=== PATIENT | female | born 2000 | race Caucasian/White ===

== ENCOUNTER → 2020-10-19 11:29 | Outpatient (CLI) | payer SELFPAY ==
[2020-10-19 10:38] VITALS: BMI 20.1
[2020-10-19 11:57] LABS: Absolute Lymphocyte Count 1.35 X10^3/uL (0.83-4.51); Absolute Neutrophil Count 5.4 X10^3/uL (2.0-7.7); Basophil# 0.02 X10^3/uL; Basophil% 0.3 % (0-1); Eosinophil# 0.07 X10^3/uL; Hemoglobin 11.5 g/dL (12.0-15.0); Lymphocyte # 1.35 X10^3/ul (4.0); Lymphocyte % 18.3 % (19-41); Mean Corp Hgb Conc 34.8 g/dL (32-36); Mean Corpuscular Volume 91.9 fL (81-99); Mean Platelet Vol. 9.8 fl (6.2-12.0); Monocyte# 0.46 X10^3/uL; Monocyte% 6.3 % (0-10); NRBC Flagged by Analyzer 0 % (0-5); Neutrophil # 5.44 X10^3/uL (2.7-7.7); Neutrophil % 73.8 % (47-70); Platelet Count 262 K/mm3 (150-450); RBC Distribution Width CV 12.1 % (11.6-14.6); RBC Distribution Width SD 40.6 fl (35.1-43.9); Red Blood Count 3.59 M/mm3 (4.2-5.4); White Blood Count 7.4 K/mm3 (4.4-11.0)
[2020-10-19 12:55] LABS: HIV - WCH Non-Reactive (Nonreactive); Hepatitis B Surface Antigen Non-Reactive (Nonreactive); Hepatitis C Antibody Non-Reactive (Nonreactive); Rubella IgG Reactive (Nonreactive)
[2020-10-19 14:25] LABS: Amphetamine Urine VISTA NEGATIVE (<1000 ng/mL); Barbiturate Urine VISTA NEGATIVE (< 200 ng/mL); Benzodiazepine Urine VISTA NEGATIVE (< 200 ng/mL); Cocaine Urine VISTA NEGATIVE (< 300 ng/mL); Ecstacy Urine VISTA NEGATIVE (< 500 ng/mL); Methadone Urine VISTA NEGATIVE (< 300 ng/mL); PCP Urine VISTA NEGATIVE (< 25 ng/mL); THC Urine VISTA NEGATIVE (< 50 ng/mL); Vista UDS pH Range 7
[2020-10-22 03:07] LABS: Chlamydia By Nucleic Acid AMP Negative (Negative)
[2020-10-22 09:52] LABS: Gonococcus By Nucleic Acid AMP Negative (Negative)
== END ==
PROVIDERS: Referring Provider Obstetrics & Gynecology; Visit Provider Obstetrics & Gynecology
DX: Z34.90 Encounter for supervision of normal pregnancy, unspecified, unspecified trimester (principal)
CPT/HCPCS: 36415; 80307; 85025; 86703; 86762; 86803; 86850; 86900; 86901; 87086; 87088; 87340; 87491; 87591

== ENCOUNTER → 2020-12-30 13:45 | Outpatient (CLI) | payer SELFPAY ==
[2020-11-18 15:00] VITALS: BMI 20.7
[2020-12-16 14:00] VITALS: BMI 20.7
--- NOTE | 2020-12-30 13:47 | US_ITS ---
STUDY: SECOND AND THIRD TRIMESTER OBSTETRICAL ULTRASOUND REASON FOR EXAM: Female, 20 years old anatomy scan LMP: 08/13/2020. TECHNIQUE: Transabdominal and Transvaginal TECHNICAL QUALITY: Adequate. PRIOR ULTRASOUND: None. FINDINGS: There is a single intrauterine fetus. The fetus is in a cephalic presentation. There is demonstrated cardiac activity with a heart rate of 145 bpm. There is a normal amniotic fluid volume. The largest amniotic fluid pocket measures 3.6 cm. The amniotic fluid index (ALKA) is within normal limits. The placenta is anterior and fundal in location and is not low lying. There are Grade 0 placental changes. The cervix measures 3.4 cm in length. The bilateral adnexal regions are normal. BIOMETRY: BPD: 4.45 cm: 19 weeks, 3 days HC: 16.81 cm: 19 weeks, 3 days AC: 13.79 cm: 19 weeks, 1 days FL: 2.91 cm: 8 weeks, 6 days CI: 77% FL/BPD: 65% FL/HC: FL/AC: 21% HC/AC: 1.22 age by current US: 19 weeks, 1 days. KHADRA by current US: 05/25/2021. Estimated weight: 277 grams, +/- 42 grams, 14 %. Age by LMP: 19 weeks, 6 days. KHADRA by LMP: 05/20/2021. ANATOMY: Gender: Male Cranium: Normal lateral ventricles. Normal choroid plexus. Normal cerebellum. Normal cisterna magna. Normal face, nose and lips. Chest: Normal 4-chamber heart. Abdomen/Pelvis: Normal diaphragm. Normal stomach. Normal abdominal wall. Normal cord insertion. Normal 3 vessel cord. Normal kidneys. Normal bladder. Spine: Normal cervical spine. Normal thoracic spine. Normal lumbar spine. Normal sacrum. Extremities: Normal bilateral upper extremities. Normal bilateral lower extremities. The patient stated severe right flank pain. Imaging of the maternal kidney demonstrates a right-sided hydronephrosis. IMPRESSION: Single live intrauterine gestation with a mean gestational age of 19 weeks and 1 day. Electronically Signed: Kristopher Saravia MD at 15:49 EDT , Service support , STUDY: FIRST TRIMESTER OBSTETRICAL ULTRASOUND REASON FOR EXAM: Female, 20 years old anatomy scan LMP: 08/13/2020 TECHNIQUE: Transvaginal TECHNICAL QUALITY: Adequate. PRIOR ULTRASOUND: None. FINDINGS: Transvaginal technique utilized for assessment of the cervical length. The cervix measures 3.4 cm in length. US/Transvaginal w/Preg US IMPRESSION: The cervix measures 3.4 cm in length. Electronically Signed: Kristopher Saravia MD at 15:49 EDT , Service support ,
--- NOTE | 2020-12-30 13:47 | US_ITS ---
STUDY: SECOND AND THIRD TRIMESTER OBSTETRICAL ULTRASOUND REASON FOR EXAM: Female, 20 years old anatomy scan LMP: 08/13/2020. TECHNIQUE: Transabdominal and Transvaginal TECHNICAL QUALITY: Adequate. PRIOR ULTRASOUND: None. FINDINGS: There is a single intrauterine fetus. The fetus is in a cephalic presentation. There is demonstrated cardiac activity with a heart rate of 145 bpm. There is a normal amniotic fluid volume. The largest amniotic fluid pocket measures 3.6 cm. The amniotic fluid index (ALKA) is within normal limits. The placenta is anterior and fundal in location and is not low lying. There are Grade 0 placental changes. The cervix measures 3.4 cm in length. The bilateral adnexal regions are normal. BIOMETRY: BPD: 4.45 cm: 19 weeks, 3 days HC: 16.81 cm: 19 weeks, 3 days AC: 13.79 cm: 19 weeks, 1 days FL: 2.91 cm: 8 weeks, 6 days CI: 77% FL/BPD: 65% FL/HC: FL/AC: 21% HC/AC: 1.22 age by current US: 19 weeks, 1 days. KHADRA by current US: 05/25/2021. Estimated weight: 277 grams, +/- 42 grams, 14 %. Age by LMP: 19 weeks, 6 days. KHADRA by LMP: 05/20/2021. ANATOMY: Gender: Male Cranium: Normal lateral ventricles. Normal choroid plexus. Normal cerebellum. Normal cisterna magna. Normal face, nose and lips. Chest: Normal 4-chamber heart. Abdomen/Pelvis: Normal diaphragm. Normal stomach. Normal abdominal wall. Normal cord insertion. Normal 3 vessel cord. Normal kidneys. Normal bladder. Spine: Normal cervical spine. Normal thoracic spine. Normal lumbar spine. Normal sacrum. Extremities: Normal bilateral upper extremities. Normal bilateral lower extremities. The patient stated severe right flank pain. Imaging of the maternal kidney demonstrates a right-sided hydronephrosis. IMPRESSION: Single live intrauterine gestation with a mean gestational age of 19 weeks and 1 day. Electronically Signed: Kristopher Saravia MD at 15:49 EDT , Service support , STUDY: FIRST TRIMESTER OBSTETRICAL ULTRASOUND REASON FOR EXAM: Female, 20 years old anatomy scan LMP: 08/13/2020 TECHNIQUE: Transvaginal TECHNICAL QUALITY: Adequate. PRIOR ULTRASOUND: None. FINDINGS: Transvaginal technique utilized for assessment of the cervical length. The cervix measures 3.4 cm in length. US/OB Anatomy Scan IMPRESSION: The cervix measures 3.4 cm in length. Electronically Signed: Kristopher Saravia MD at 15:49 EDT , Service support ,
== END ==
PROVIDERS: Referring Provider Obstetrics & Gynecology; Visit Provider Obstetrics & Gynecology
DX: Z34.02 Encounter for supervision of normal first pregnancy, second trimester (principal); Z3A.19 19 weeks gestation of pregnancy
CPT/HCPCS: 76805; 76817; 87086

== ENCOUNTER → 2021-03-11 10:50 | Outpatient (CLI) | payer SELFPAY ==
[2021-02-24 13:24] VITALS: BMI 20.7
[2021-03-11 11:09] LABS: Absolute Lymphocyte Count 1.37 X10^3/uL (0.83-4.51); Absolute Neutrophil Count 6.3 X10^3/uL (2.0-7.7); Basophil# 0.01 X10^3/uL; Basophil% 0.1 % (0-1); Eosinophil# 0.07 X10^3/uL; Eosinophils% 0.8 % (0-5); Hematocrit 27.6 % (37-47); Hemoglobin 9.2 g/dL (12.0-15.0); Lymphocyte # 1.37 X10^3/ul (0.83-4.51); Lymphocyte % 16.6 % (19-41); Mean Corp Hgb Conc 33.3 g/dL (32-36); Mean Corpuscular Hgb 31.5 pg (27.0-32.0); Mean Corpuscular Volume 94.5 fL (81-99); Mean Platelet Vol. 9.4 fl (6.2-12.0); Monocyte# 0.52 X10^3/uL; Monocyte% 6.3 % (0-10); NRBC Flagged by Analyzer 0 % (0-5); Neutrophil # 6.25 X10^3/uL (2.7-7.7); Neutrophil % 75.7 % (47-70); Platelet Count 217 K/mm3 (150-450); RBC Distribution Width CV 11.9 % (11.6-14.6); RBC Distribution Width SD 41.1 fl (35.1-43.9); Red Blood Count 2.92 M/mm3 (4.2-5.4); White Blood Count 8.3 K/mm3 (4.4-11.0)
[2021-03-11 11:18] LABS: Glucose Challenge Gest 1H 50g 125 mg/dL (70-140)
[2021-03-11 11:43] LABS: Syphilis Antibodies Non-reactive
== END ==
PROVIDERS: Referring Provider Obstetrics & Gynecology; Visit Provider Obstetrics & Gynecology
DX: Z34.91 Encounter for supervision of normal pregnancy, unspecified, first trimester (principal); Z13.1 Encounter for screening for diabetes mellitus; Z3A.13 13 weeks gestation of pregnancy
CPT/HCPCS: 36415; 82950; 85025; 86780

== ENCOUNTER → 2021-04-22 | Outpatient (CLI) | payer SELFPAY | END | disposition home or self-care (01) | LOC: LABSPEC 14:48 | PROVIDERS: Referring Provider Obstetrics & Gynecology; Visit Provider Obstetrics & Gynecology | DX: Z34.01 Encounter for supervision of normal first pregnancy, first trimester (principal) | CPT/HCPCS: 87081 ==

== ENCOUNTER → 2021-04-29 11:53 | Outpatient (CLI) | payer SELFPAY ==
[2021-04-29 12:35] LABS: Absolute Lymphocyte Count 1.36 X10^3/uL (0.83-4.51); Absolute Neutrophil Count 4.7 X10^3/uL (2.0-7.7); Basophil# 0.02 X10^3/uL; Basophil% 0.3 % (0-1); Eosinophil# 0.03 X10^3/uL; Eosinophils% 0.4 % (0-5); Hematocrit 30.9 % (37-47); Hemoglobin 9.9 g/dL (12.0-15.0); Lymphocyte # 1.36 X10^3/ul (0.83-4.51); Lymphocyte % 20.3 % (19-41); Mean Corpuscular Hgb 29.7 pg (27.0-32.0); Mean Corpuscular Volume 92.8 fL (81-99); Mean Platelet Vol. 9.4 fl (6.2-12.0); Monocyte# 0.55 X10^3/uL; Monocyte% 8.2 % (0-10); NRBC Flagged by Analyzer 0 % (0-5); Neutrophil % 70.2 % (47-70); Platelet Count 198 K/mm3 (150-450); RBC Distribution Width CV 12.9 % (11.6-14.6); RBC Distribution Width SD 43.6 fl (35.1-43.9); Red Blood Count 3.33 M/mm3 (4.2-5.4); White Blood Count 6.7 K/mm3 (4.4-11.0)
== END ==
LOC: PAVLAB 11:54 → LAB 11:57
PROVIDERS: Referring Provider Obstetrics & Gynecology; Visit Provider Obstetrics & Gynecology
DX: O99.019 Anemia complicating pregnancy, unspecified trimester (principal); Z3A.00 Weeks of gestation of pregnancy not specified
CPT/HCPCS: 36415; 85025

== ENCOUNTER → 2021-05-20 13:20 | Outpatient (CLI) | payer SELFPAY ==
--- NOTE | 2021-05-20 13:23 | US_ITS ---
STUDY: SECOND AND THIRD TRIMESTER OBSTETRICAL ULTRASOUND REASON FOR EXAM: Female, 20 years old growth LMP: 08/13/2020. TECHNIQUE: Transabdominal TECHNICAL QUALITY: Adequate. PRIOR ULTRASOUND: Comparison is made with prior study dated 12/30/2020. FINDINGS: There is a single intrauterine fetus. The fetus is in a cephalic presentation. There is demonstrated cardiac activity with a heart rate of 152 bpm. There is a normal amniotic fluid volume. The largest amniotic fluid pocket measures 4.4 cm. The amniotic fluid index (ALKA) is 7.5 cm. The placenta is anterior in location and is not low lying. There are Grade 3 placental changes. The adnexal regions are not visualized. BIOMETRY: BPD: 9.09 cm: 36 weeks, 6 days HC: 33.61 cm: 38 weeks, 3 days AC: 36.84 cm: 40 weeks, 5 days FL: 7.3 cm: 37 weeks, 2 days CI: 79% FL/BPD: 80% FL/HC: FL/AC: 20% HC/AC: 0.91 age by current US: 38 weeks, 4 days. KHADRA by current US: 05/30/2021. Estimated weight: 3772 grams, +/- 566 grams, 62 %. age by prior US: 39 weeks, 2 days. KHADRA by prior US: 05/25/2021. Age by LMP: 40 weeks, 0 days. KHADRA by LMP: 05/20/2021. US/OB Limited With Biometrics IMPRESSION: Single live uterine gestation with a mean gestational age of 39 weeks and 2 days. The measurements obtained today fall within the normal expected range. Electronically Signed: Kristopher Saravia MD at 9:29 EDT , Service support ,
== END ==
PROVIDERS: Referring Provider Obstetrics & Gynecology; Visit Provider Obstetrics & Gynecology
DX: O26.843 Uterine size-date discrepancy, third trimester (principal); Z3A.39 39 weeks gestation of pregnancy
CPT/HCPCS: 76816

== ENCOUNTER → 2021-05-20 | Outpatient (CLI) | payer SELFPAY | END | disposition home or self-care (01) | LOC: LABSPEC 12:36 | PROVIDERS: Referring Provider Obstetrics & Gynecology; Visit Provider Obstetrics & Gynecology | DX: Z34.01 Encounter for supervision of normal first pregnancy, first trimester (principal) | CPT/HCPCS: 87635; U0005; U0003 ==

== ENCOUNTER → 2021-05-24 14:22 | Outpatient (CLI) | payer SELFPAY ==
--- NOTE | 2021-05-24 14:24 | US_ITS ---
STUDY: SECOND AND THIRD TRIMESTER OBSTETRICAL ULTRASOUND - LIMITED REASON FOR EXAM: Female, 20 years old ALKA only LMP: 08/13/2020. PRIOR ULTRASOUND: Comparison is made with prior study dated 05/20/2021. TECHNIQUE: Transabdominal TECHNICAL QUALITY: Adequate. FINDINGS: There is a single intrauterine fetus. The fetus is in a cephalic presentation. There is demonstrated cardiac activity with a heart rate of 147 bpm. There is a normal amniotic fluid volume. The largest amniotic fluid pocket measures 4.21 cm. The amniotic fluid index (ALKA) is 9.3 cm. The placenta is anterior in location and is not low lying. There are Grade 3 placental changes. Age by LMP: 40 weeks, 4 days. KHADRA by LMP: 05/20/2021. US/OB Limited (No Biometrics) IMPRESSION: Normal amniotic fluid. Electronically Signed: Kristopher Saravia MD at 15:09 EDT , Service support ,
== END ==
PROVIDERS: Referring Provider Obstetrics & Gynecology; Visit Provider Obstetrics & Gynecology
DX: O28.8 Other abnormal findings on antenatal screening of mother (principal)
CPT/HCPCS: 76815

== ENCOUNTER 2021-05-26 19:00 | Inpatient (IN) | payer SELFPAY ==
[2020-11-18 15:00] VITALS: BMI 20.7
[2021-05-26 19:09] VITALS: BMI 24.3
[2021-05-26 19:23] VITALS: BP 112/70; PULSE 92; TEMP 36.8
[2021-05-26 19:24] VITALS: PULSE 96; O2SAT 99
[2021-05-26 19:49] LABS: Absolute Lymphocyte Count 1.66 X10^3/uL (0.83-4.51); Absolute Neutrophil Count 4.7 X10^3/uL (2.0-7.7); Basophil# 0.02 X10^3/uL; Basophil% 0.3 % (0-1); Eosinophil# 0.04 X10^3/uL; Eosinophils% 0.6 % (0-5); Hematocrit 28.7 % (37-47); Hemoglobin 9.4 g/dL (12.0-15.0); Lymphocyte # 1.66 X10^3/ul (0.83-4.51); Lymphocyte % 23.7 % (19-41); Mean Corp Hgb Conc 32.8 g/dL (32-36); Mean Corpuscular Hgb 28.7 pg (27.0-32.0); Mean Corpuscular Volume 87.8 fL (81-99); Mean Platelet Vol. 10.3 fl (6.2-12.0); Monocyte# 0.53 X10^3/uL; Monocyte% 7.6 % (0-10); NRBC Flagged by Analyzer 0 % (0-5); Neutrophil # 4.73 X10^3/uL (2.7-7.7); Neutrophil % 67.4 % (47-70); Platelet Count 204 K/mm3 (150-450); RBC Distribution Width CV 12.8 % (11.6-14.6); Red Blood Count 3.27 M/mm3 (4.2-5.4)
[2021-05-26] MEDS: miSOPROStol 25 MCG TABLET VAGINAL (20:07)
[2021-05-27] VITALS (34 sets, daily range): BP systolic 88–125; BP diastolic 51–66; PULSE 57–163; TEMP 36.6–37.2; O2SAT 80–100
--- NOTE | 2021-05-27 00:50 | HP.PCM.OB_ITS ---
HPI - General General Date of Admission: 05/26/21 HPI Narrative MEKHI SOTO, is a 20 F who presents for induction of labor secondary to postdates. She has had an uncomplicated and denies any vaginal bleeding or loss of fluid admits good movement and no regular contractions Maternal Data Information KHADRA Calculator Estimated Delivery Date Method Current WG Current Estimate 05/20/21 LMP (Certain) 41w 0d Other Estimates 05/22/21 Ultrasound #1 40w 5d PFSH PFSH Medical History No significant medical problems Tetanus, diphtheria, and acellular pertussis (Tdap) vaccination declined Home Medications multivitamin no.47-iron fum 27 mg-folate no.1 1 mg-dha 300 mg capsule 1 cap PO DAILY 10/14/20 [History Last Taken 05/26/21 08:00] Allergy/AdvReac Type Severity Reaction Status Date / Time No Known Allergies Allergy Verified 05/20/21 11:01 Family History Grandmother Cancer Grandfather Hypertension Surgical History No significant past surgical history Social History household members: spouse housing: house current occupational status: unemployed pets and animals: Yes Smoking Status: Never smoker second hand exposure: No alcohol intake: current alcohol intake frequency: holidays/special occasions only details: not while substance use type: does not use seatbelt use: always do you feel safe at home: Yes additional social history: - Lang (Nazia) History 1 Elective abortions Hx Para 0 Spontaneous abortions Hx # Term Pregnancies Ectopic pregnancies Hx # Pregnancies Multiple births # of living children Visit Details Expected Delivery Route/Plan Labor Preferences- CB/BF classes: no labor support person: Lang labor intervention preferences: open to standard interventions pain management options preferred: desires natural labor but open to epidural cut cord/dad catch: cord : yes PP control planned: discussed discussed possible routes of delivery and associated risks: discussed possible delivery modalities and possible indications for each including R/B/A of , VAVD, FAVD, and CS. questions answered. special requests: [] Plans covid status: non immune, counseled regarding risk of covid in vs vaccination and declined vaccination flu vaccine: no tdap vaccine: declines rhogam: na LARC form signed: yes movement and labor precautions reviewed. Problem list reviewed and updated with the most current plan of care details and appropriate orders placed. Relevant counseling for the gestational age provided. Continue routine care and follow up unless otherwise noted in visit notes/problem list details OB Flowsheet Initial Weight: Not Recorded Date -?-?-?-?-?-?-?-?-?-?-?-?- EGA Weight BP Urine Prot -?-?-?-?-?-?-?-?-?-?-?-?- Glucose FHR FuHt Pres Dilation -?-?-?-?-?-?-?-?-?-?-?-?- Effaced St Visit Note 10/19/20 -?-?-?-?-?-?-?-?-?-?-?-?- 9w 4d 106 lb 8 oz 138/80 -?-?-?-?-?-?-?-?-?-?-?-?- 175 -?-?-?-?-?-?-?-?-?-?-?-?- GP - CRL 22mm co nsistent with LMP. 11/18/20 -?-?-?-?-?-?-?-?-?-?-?-?- 13w 6d 110 lb 102/70 -?-?-?-?-?-?-?-?-?-?-?-?- 153 -?-?-?-?-?-?-?-?-?-?-?-?- GP - no cramping or bleeding. Anatomy scan nl. PRR. 12/16/20 -?-?-?-?-?-?-?-?-?-?-?-?- 17w 6d 113 lb 8 oz 118/78 Nega tive -?-?-?-?-?-?-?-?-?-?-?-?- Negative 150 -?-?-?-?-?-?-?-?-?-?-?-?- GP - no cramping or bleeding. Anatomy 12/30. Planning on finding out gender, but not planning on doing big reveal. Discussed management of back and hip pain. 01/13/21 -?-?-?-?-?-?-?-?-?-?-?-?- 21w 6d 115 lb 8 oz 100/62 Nega tive -?-?-?-?-?-?-?-?-?-?-?-?- Negative 164 -?-?-?-?-?-?-?-?-?-?-?-?- MH-No VB, LOF. G ood FM. No longer having right sided pain. Was seen for this. Anatomy US nl. Did not patient with Right hydronephrosis. Will review with ALONSO when returns tomorrow. 02/11/21 -?-?-?-?-?-?-?-?-?-?-?-?- 26w 0d 119 lb 122/70 Negative -?-?-?-?-?-?-?-?-?-?-?-?- Negative 145 -?-?-?-?-?-?-?-?--?-?-?-?- SM- no vb lof go od fm no regular ctx 02/24/21 -?-?-?-?-?-?-?-?-?-?-?-?- 27w 6d 121 lb 124/74 Negative -?-?-?-?-?-?-?-?-?-?-?-?- Negative 154 -?-?-?-?-?-?-?-?-?-?-?-?- -No VB, LOF. G ood FM. Declines tdap. Was late for GCT so not done today. Larc done. 03/11/21 -?-?-?-?-?-?-?-?-?-?-?-?- 30w 0d 125 lb 104/58 Negative -?-?-?-?-?-?-?-?-?-?-?-?- Negative 140 30 -?-?-?-?-?-?-?-?-?-?-?-?- GP - no LOF, VB, DFM, ctx. Passed GCT. Anemic - recommend iron supplement 03/25/21 -?-?-?-?-?-?-?-?-?-?-?-?- 32w 0d 124 lb 90/56 Negative -?-?-?-?-?-?-?-?-?-?-?-?- Negative 140 31 -?-?-?-?-?-?-?-?-?-?-?-?- SM- no vb lof go od fm no regular ctx some bipin hick ctx. 04/08/21 -?-?-?-?-?-?-?-?-?-?-?-?- 34w 0d 125 lb 8 oz 112/64 Nega tive -?-?-?-?-?-?-?-?-?-?-?-?- Negative 155 34 -?-?-?-?-?-?-?-?-?-?-?-?- GP - no LOF, VB, DFM, ctx. Denies complaints. PTL precautions reviewed. 04/22/21 -?-?-?-?-?-?-?-?-?-?-?-?- 36w 0d 128 lb 4 oz 130/82 Nega tive -?-?-?-?-?-?-?-?-?-?-?-?- Negative 140 36 Cephalic 0 -?-?-?-?-?-?-?-?-?-?-?-?- GP - no LOF, VB, DFM, ctx. GBS collected. Discussed labor preferences and routes of delivery. Position verified on ultrasound 04/29/21 -?-?-?-?-?-?-?-?-?-?-?-?- 37w 0d 128 lb 6 oz 108/62 Nega tive -?-?-?-?-?-?-?-?-?-?-?-?- Negative 140 37 Cephalic -?-?-?-?-?-?-?-?-?-?-?-?- SM- no vb lof go od fm no reuglar ctx 05/06/21 -?-?-?-?-?-?-?-?-?-?-?-?- 38w 0d 128 lb 114/68 Negative -?-?-?-?-?-?-?-?-?-?-?-?- Negative 136 38 Cephalic 0 -?-?-?-?-?-?-?-?-?-?-?-?- MH-No Vb, LOF. N o CTX. Good FM. Reviewed S&S labor 05/13/21 -?-?-?-?-?-?-?-?-?-?-?-?- 39w 0d 130 lb 4 oz 112/60 Nega tive -?-?-?-?-?-?-?-?-?-?-?-?- Negative 141 38 Cephalic 0 -?-?-?-?-?-?-?-?-?-?-?-?- MH-No VB, LOF. Irreg BH. Good FM 05/20/21 -?-?-?-?-?-?-?-?-?-?-?-?- 40w 0d 131 lb 6 oz 106/72 Nega tive -?-?-?-?-?-?-?-?-?-?-?-?- Negative 140 36 Cephalic 0 -?-?-?-?-?-?-?-?-?-?-?-?- - no vb lof go od fm no regular ctx 05/26/21 -?-?-?-?-?-?-?-?-?-?-?-?- 40w 6d 129 lb 112/70 108/59 -?-?-?-?-?-?-?-?-?-?-?-?- -?-?-?-?-?-?-?-?-?-?-?-?- NST FHR Rate Baby A Baseline: 130 Variability:: Moderate Accelerations:: 15 x 15 Decelerations:: None NST Reactive:: Yes FHR Category:: Category I Uterine Activity:: irregular ROS Constitutional Constitutional: Reports systems reviewed and no addt'l complaints, except as documented Eyes Eyes: Denies change in vision ENT HEENT: Reports systems reviewed and no addt'l complaints, except as documented; Denies headache(s) Cardiovascular Cardiovascular: Reports systems reviewed and no addt'l complaints, except as documented; Denies chest pain or dyspnea Respiratory/Chest Respiratory/Chest: Reports systems reviewed and no addt'l complaints, except as documented Gastrointestinal Gastrointestinal: Reports systems reviewed and no addt'l complaints, except as documented; Denies abdominal pain Genitourinary Genitourinary: Reports systems reviewed and no addt'l complaints, except as documented, contractions Details: present (irregular) and movement Details: present; Denies dysuria or genital lesions Musculoskeletal Musculoskeletal: Reports systems reviewed and no addt'l complaints, except as documented Neurologic Neurologic: Reports systems reviewed and no addt'l complaints, except as documented Endocrine Endocrinology: Reports systems reviewed and no addt'l complaints, except as do cumented Vital Signs Vital Signs Vital Signs: 05/26/21 19:23 05/26/21 19:24 05/27/21 00:07 Temperature 98.2 F Temperature Source Temporal Pulse Rate 92 96 72 Blood Pressure 112/70 108/59 L BP Systolic 112 108 BP Diastolic 70 59 Pulse Ox 99 05/27/21 00:12 Temperature Temperature Source Pulse Rate 63 Blood Pressure BP Systolic BP Diastolic Pulse Ox 99 Weight Weight: 129 lb Body Mass Index (BMI) 24.3 Physical Exam Const alert, oriented x3, no apparent distress and healthy appearing HEENT normocephalic and moist oral mucous membranes Head and Scalp: atraumatic Neck full ROM, no lymphadenopathy, supple and thyroid normal General: trachea midline Lymph Lymphatic: no lymphadenopathy noted Chest inspection of chest normal Resp normal respiratory effort Cardio regular rate GI normal to inspection, nondistended, normoactive bowel sounds, soft to palpation and non-tender Inspection: gravid external exam normal Manual OB Exam: estimated gestational size appropriate, presentation cephalic, dilated, effaced and station Extremity normal to inspection General Extremity: Negative for edema Skin no rashes or lesions noted Neuro no focal motor deficits and deep tendon reflexes 2+ bilaterally Motor Exam: strength 5/5 throughout and clonus absent Psych mental status grossly normal Labs Labs Labs: Blood Type A POSITIVE Antibody Screen NEGATIVE Hct 28.7 % (37-47) L Hgb 9.4 g/dL (12.0-15.0) L Obstetrics US Syphilis Total Ab Non-reactive Rubella IgG Antibody Reactive (Nonreactive) Hep Bs Antigen Non-Reactive (Nonreactive) Neisseria gonorrhoeae DNA (DIALLO) Negative (Negative) HIV 1&2 Antibody Non-Reactive (Nonreactive) Glucose 1 Hr 50 gm 125 mg/dL (70-140) Assessment & Plan (1) : QUALIFIERS: Weeks of gestation: 40 weeks Qualified Code(s): Z3A.40 - 40 weeks gestation of COMMENT: declines carrier, ntd, and genetic testing; nl anatomy, gbs neg (2) Supervision of normal : QUALIFIERS: Normal : normal first Trimester: first trimester Qualified Code(s): Z34.01 - Encounter for supervision of normal first , first trimester COMMENT: PRR KHADRA: 05/20/21 darnell Booker Spouse: Lang (3) Anemia affecting : COMMENT: oral iron. Recheck CBC in 4 weeks. (4) Encounter for induction of labor: COMMENT: plan expectant management for , Cytotec pitocin/AROM if needed. Pain management: Negative. GBS positive plan IV PCN. Management of any complications: None I have reviewed the [facility] and made any clinically relevant updates.
[2021-05-27] MEDS: miSOPROStol 25 MCG TABLET VAGINAL ×2 (01:02→07:22)
[2021-05-27] MEDS: 0.9% Saline Lock 10 ML Syringe IV (02:43)
[2021-05-27] MEDS: Lactated Ringers 500 ML 999 ML IV ×4 (02:43→22:16)
[2021-05-27] MEDS: Lactated Ringers 1,000 ML 50 ML IV ×2 (02:43→22:15)
[2021-05-27] MEDS: miSOPROStol 25 MCG TABLET PO (15:46)
[2021-05-27] MEDS: fentaNYL 100 MCG/2 ML Ampul IV (17:08)
[2021-05-27] MEDS: 0.9% Normal Saline Single 100 ML IV.SOLN. INTRA-UTER (17:15)
--- NOTE | 2021-05-27 21:09 | PN_ITS ---
Progress Note Status post Cytotec x4 [place] bulb out current tracing: FHT: 140 Moderate variability reactive no decelerations category I tracing [place]: Every 2 to 3 contractions reviewed tracing abnormalities since last note: Isolated variable after ambulation to bathroom A/P: We will start Pitocin if no cervical change. Epidural as needed
[2021-05-27] MEDS: fentaNYL-bupivacaine (epidural) 100 ML BAG EPIDURAL (23:21)
[2021-05-28] VITALS (41 sets, daily range): BP systolic 82–118; BP diastolic 48–69; PULSE 57–133; RESP 16–18; TEMP 36.4–39; O2SAT 81–100
[2021-05-28] MEDS: Lactated Ringers 500 ML 999 ML IV ×2 (00:58→01:50)
[2021-05-28] MEDS: Oxytocin 30 units/NS 500 ml 30 UNITS/500 ML IV.SOLN IV (01:11)
[2021-05-28] MEDS: Lactated Ringers 1,000 ML 200 ML IV ×2 (02:50→07:57)
[2021-05-28] MEDS: fentaNYL-bupivacaine (epidural) 100 ML BAG EPIDURAL ×2 (04:30→11:07)
[2021-05-28] MEDS: Ondansetron 4 MG/2 ML Vial IV (05:15)
[2021-05-28] MEDS: Oxytocin 30 units/NS 500 ml 30 UNITS/500 ML IV.SOLN 334 UNITS IV (11:41)
[2021-05-28] MEDS: Methylergonovine 0.2 MG/ML Ampul IM (11:44)
--- NOTE | 2021-05-28 11:57 | OP.PCM_ITS ---
Assessment & Plan (1) Encounter for induction of labor: COMMENT: plan expectant management for , Cytotec pitocin/AROM if needed. Pain management: Negative. GBS positive plan IV PCN. Management of any complications: None I have reviewed the COUNTS INCLUDE 234 BEDS AT THE [facility] and made any clinically relevant updates. (2) Anemia affecting : COMMENT: oral iron. Recheck CBC in 4 weeks. (3) Supervision of normal : QUALIFIERS: Normal : normal first Trimester: first trimester Qualified Code(s): Z34.01 - Encounter for supervision of normal first , first trimester COMMENT: PRR KHADRA: 05/20/21 darnell Booker Spouse: Lang (4) : QUALIFIERS: Weeks of gestation: 40 weeks Qualified Code(s): Z3A.40 - 40 weeks gestation of COMMENT: declines carrier, ntd, and genetic testing; nl anatomy, gbs neg (5) Vacuum-assisted vaginal delivery: COMMENT: SM 41 induction of labor postdates darnell Booker recurrent variables Maternal Data Information KHADRA Calculator Estimated Delivery Date Method Current WG Current Estimate 05/20/21 LMP (Certain) 41w 1d Other Estimates 05/22/21 Ultrasound #1 40w 6d Vaginal Delivery Operative Information Date of Procedure: 05/28/21 Pre-Operative Diagnosis: Induction of labor postdates Post-Operative Diagnosis: same Surgery / Procedure Performed: Vacuum Assisted Vaginal Delivery Type of Anesthesia: Epidural Special Medications: none Estimated Blood Loss: 400 Fluids Replaced: crystalloid Findings Description of Procedure: Patient began pushing and after 3 hours the head was noted to be asynclitic and recurrent periodic variables were seen. Patient was counseled regarding options of continued pushing versus vacuum application. Patient agreed to vacuum application to assist with delivery. Vacuum applied and pulls were made with 1 contraction no pop offs descent to the head came and the patient delivered the head in the WILL presentation. The head was delivered atraumatically and a loose nuchal cord ?1 was identified and the delivered through without complication. The anterior and posterior shoulders delivered without complication followed by the rest of the and the infant was placed on the maternal abdomen. Delayed cord clamping was employed for approximately 60 seconds. Cord was clamped and cut and gentle traction was applied to the cord and the placenta delivered spontaneously immediately following it was noted to be intact with three-vessel cord. The perineum and vagina were inspected and noted to have a right first-degree vaginal laceration which was repaired in the usual fashion with 3-0 Vicryl Rapide. EBL was 400 cc, mild uterine atony was encountered and treated with Pitocin massage and Methergine. Patient and infant tolerated delivery well. Presentation: BRITTA Amniotic Membrane Rupture Type: Artificial Amniotic Fluid Description: Moderate meconium Placental Delivery Description: Spontaneous Placenta Disposition: [facility] Cord Vessel Description: 3 Vessels Cord Entanglement: Around neck x 1, loose Cord Gases: ABG and VBG A Gender: Male Delayed Cord Clamping: Yes Post Vaginal Delivery Medications Given After Delivery: IV Pitocin and IM Methergin Episiotomy Description: None Laceration: Vaginal Extension/lac (right side) and 1st degree Complication Complications: None Procedures Urinary/Genital [id number]: [id number] Vaginal Delivery [facility]
--- NOTE | 2021-05-28 12:41 | PLAC_PTH ---
PATIENT: MEKHI SOTO LOC: WP U#:[id number] AGE/SX: ROOM: WP019 RE05/26/[address]: Dr. Nelly To MD : 2000 BED: 1 DIS: 05/29/2021 SPEC #: [id number] RECD: 05/28/21 13:07 STATUS: KUSHAL DILLAN #: [id number] CONNIE: 05/28/21 12:[address]: Nelly To DEPT: SURGICAL PATHOLOGY RECD BY: Gustavo Sahu ENTERED: 05/31/21 08:18 SP TYPE: PLACENTA OTHR DR: No Primary Care Phys Tissues: Placenta, NOS Procedures: Surgery Specimen Level V HEADER OPERATION: Vaginal delivery PRE-OP DIAGNOSIS: Labor TISSUE SUBMITTED: Placenta MICROSCOPIC DIAGNOSIS Placenta: Placental disc - third trimester bilobated placenta (476 gm). - Focal mild acute vasculitis of subamniotic blood vessels. Membranes ? mild acute chorioamnionitis. Umbilical cord - three blood vessels and no pathologic diagnosis. MARY ANN:nani 06/01/2021 MICROSCOPIC DESCRIPTION Slides are reviewed. GROSS DESCRIPTION SPECIMEN: PLACENTA / CLINICAL INFORMATION: A. Weight: 3.245 kg B. Gestational Age: 41 weeks C. Sex: Male PLACENTAL WEIGHT (POST FIXATION): 476 gm PLACENTAL DIMENSIONS: 23 x 18 x 2 cm PLACENTAL SHAPE: The body of the placenta is bilobated PLACENTAL WEIGHT FOR GESTATIONAL AGE: Within 10-99th percentile MEMBRANES - Present A. Insertion: Marginal B. Site of rupture from edge: 1 cm from edge of placental disc C. Color of membrane: Mora-best D. Abnormalities: None UMBILICAL CORD - Present A. Color: Mora-best B. Insertion: Paracentral C. Length: 24 cm D. Diameter: 1.5 cm E. Number of vessels: Three F. Abnormalities: None PLACENTAL DISC - Present A. Color of surface: Mora-best B. surface abnormalities: None C. Maternal cotyledons: Intact with minimal tears D. Attached retro placental clot: No clot E. Cut surface: Dark red and spongy F. Lesions: None G. Separate clot: Absent SECTIONS SUBMITTED: 1. Membrane roll 2. Cord, maternal end 3. Cord, end 4. Placental disc, and maternal surfaces 5. Placental disc, and maternal surfaces 6. Placental disc, and maternal surfaces MARY ANN:nani 05/31/21 TC:2 CPT: 81826
[2021-05-28] MEDS: Acetaminophen 500 MG Tablet 1000 MG PO ×2 (12:42→23:54)
[2021-05-28 13:07] LABS: Pathology Specimen OB SEE PATHOLOGY REPORT
[2021-05-28] MEDS: 0.9% Saline Lock 10 ML Syringe IV ×2 (14:13→17:22)
[2021-05-28] MEDS: Naproxen 500 MG Tablet PO (17:22)
--- NOTE | 2021-05-29 00:15 | NURSING ---
2996- This RN reviewed going home checklist with pt. Ipad brought into room and instructions for infant CPR video reviewed with pt. Family to call out for this RN when is done nursing for bath demo. RN also explained to family where to find certificate and that it must be filled out for discharge. Family verbalizes understanding.
[2021-05-29 04:09] VITALS: BP 91/50; PULSE 90; RESP 16; TEMP 36.1
[2021-05-29 04:11] VITALS: BP 91/50; PULSE 90
[2021-05-29] MEDS: Naproxen 500 MG Tablet PO (07:42)
[2021-05-29 08:10] VITALS: BP 91/50; PULSE 76; RESP 14; TEMP 36.3; O2SAT 97
[2021-05-29 08:15] VITALS: BP 91/50; PULSE 73; O2SAT 97
--- NOTE | 2021-05-29 08:50 | PCM.PN.OB ---
Subjective Subjective Patient doing well without complaints. Tolerating PO. Ambulating and voiding without difficulty. feeding well. Denies chest pain, shortness of breath, calf pain/swelling, fevers, chills, lightheadedness. Objective Data Objective Data Vital Signs: Vital Signs Temp Pulse Resp BP Pulse Ox 97 F L 73 16 91/50 L 97 05/29/21 04:09 05/29/21 08:15 05/29/21 04:09 05/29/21 08:15 05/29/21 08:15 Oxygen Delivery Method Room Air Weight: 129 lb Body Mass Index (BMI) 24.3 Intake & Output: Intake and Output for Last 24 Hours 05/27/21 05/28/21 05/29/21 23:59 23:59 23:59 Intake Total 2940.3 / 2940.3 4020.88 / 4020.88 Output Total 2350 / 2350 Balance 2940.3 / 2940.3 1670.88 / 1670.88 Lab / Micro Data Result Diagrams: 05/26/21 19:30 ROS Constitutional Constitutional: Reports systems reviewed and no addt'l complaints, except as documented Cardiovascular Cardiovascular: Reports systems reviewed and no addt'l complaints, except as documented Respiratory/Chest Respiratory/Chest: Reports systems reviewed and no addt'l complaints, except as documented Gastrointestinal Gastrointestinal: Reports systems reviewed and no addt'l complaints, except as documented Physical Exam Const alert, oriented x3 and no apparent distress HEENT Head and Scalp: atraumatic Resp normal respiratory effort GI soft to palpation and non-tender Bimanual Exam - Vag & Uterus: uterus non-tender Uterus Palpation: uterus fundus firm (below Umbilicus) Assessment & Plan (1) Vacuum-assisted vaginal delivery: COMMENT: SM 41 induction of labor postdates [place] recurrent variables PLAN: s/p PPD # 1 1. routine post delivery care 2. breast feeding- support given 3. rh positive 4. rubella immune
--- NOTE | 2021-05-29 08:51 | PCM.DC ---
Discharge Instructions Diet Discharge Diet: No restrictions Activity Discharge Activity: Return to Normal Activity, May Not Drive (while taking narcotic pain medications.) and May Shower May resume sexual activity in: 4-6 weeks Dressing / Incision Call your doctor if your incision/area has: Continuous Slow Oozing, Sudden Increased Bleeding, Increased Pain/ Swelling, Increased Redness and Foul Smelling Discharge Follow Up Care Please Follow Up With: Nelly To MD When: Call [phone] to make an appointment with your doctor in 6 weeks. If you had elevated blood pressure or 4th degree laceration, you will need to be seen in 2 weeks. Test Results: Test results from this visit will be discussed in further detail at your follow-up appointment, if applicable. Discharge Plan Admission Admit Date/Time: 05/26/21 19:00 Primary Reason for Your Visit: vaginal delivery Attending Provider: Nelly To Primary Care Provider: Care Physician,Liana Primary Discharge Orders/Prescriptions Prescriptions: No Action PNV-DHA 27 mg iron-1 mg -300 mg capsule 1 cap PO DAILY RF: 0 Referrals / Follow Up: Care Physician,No Primary [Primary Care Provider] - Disposition Disposition (needs filled in before D/C Order can be placed): Home, Self Care
[2021-05-29] MEDS: 0.9% Saline Lock 10 ML Syringe IV (09:46)
[2021-05-29 13:07] VITALS: BP 90/48; PULSE 83; PULSE 87; RESP 14; TEMP 36.5; O2SAT 98
== END 2021-05-29 15:54 | disposition home or self-care (01) | DRG 807 ==
PROVIDERS: Admitting Provider Obstetrics & Gynecology; Referring Provider Obstetrics & Gynecology; Visit Provider Obstetrics & Gynecology
DX: O48.0 Post-term pregnancy (principal); O99.824 Streptococcus B carrier state complicating childbirth; O70.0 First degree perineal laceration during delivery; O75.89 Other specified complications of labor and delivery; O69.81X0 Labor and delivery complicated by cord around neck, without compression, not applicable or unspecified; O77.0 Labor and delivery complicated by meconium in amniotic fluid; O99.02 Anemia complicating childbirth; D64.9 Anemia, unspecified; Z3A.40 40 weeks gestation of pregnancy; Z37.0 Single live birth
CPT/HCPCS: 59025; 59050; 85025; 86850; 86900; 86901; 88307; 99218; J7120; A4216; G0378; J0290; J2405

== ENCOUNTER → 2022-09-01 | Outpatient (CLI) | payer SELFPAY ==
[2022-09-01 13:06] LABS: Absolute Lymphocyte Count 2.09 X10^3/uL (0.83-4.51); Absolute Neutrophil Count 5.8 X10^3/uL (2.0-7.7); Basophil# 0.04 X10^3/uL; Basophil% 0.5 % (0-1); Eosinophils% 1.2 % (0-5); Hematocrit 38.5 % (37-47); Hemoglobin 13.2 g/dL (12.0-15.0); Lymphocyte # 2.09 X10^3/ul (0.83-4.51); Lymphocyte % 24.3 % (19-41); Mean Corp Hgb Conc 34.3 g/dL (32-36); Mean Corpuscular Hgb 30.7 pg (27.0-32.0); Mean Corpuscular Volume 89.5 fL (81-99); Monocyte% 5.8 % (0-10); NRBC Flagged by Analyzer 0 % (0-5); Neutrophil # 5.84 X10^3/uL (2.7-7.7); Neutrophil % 67.9 % (47-70); Platelet Count 302 K/mm3 (150-450); RBC Distribution Width SD 38.7 fl (35.1-43.9); White Blood Count 8.6 K/mm3 (4.4-11.0)
[2022-09-01 13:55] LABS: NATERA MAILED SPECIMEN
[2022-09-01 15:10] LABS: HIV - WCH Non-Reactive (Nonreactive); Hepatitis B Surface Antigen Non-Reactive (Nonreactive); Hepatitis C Antibody Non-Reactive (Nonreactive); Rubella IgG Reactive (Nonreactive); Syphilis Antibodies Non-reactive
[2022-09-05 07:07] LABS: Chlamydia By Nucleic Acid AMP Negative (Negative)
[2022-09-05 08:32] LABS: Gonococcus By Nucleic Acid AMP Negative (Negative)
[2022-09-08 16:10] LABS: HPV Reflexed? NOT INDICATED
== END | disposition home or self-care (01) ==
PROVIDERS: Referring Provider Obstetrics & Gynecology; Visit Provider Obstetrics & Gynecology
DX: Z34.81 Encounter for supervision of other normal pregnancy, first trimester (principal)
CPT/HCPCS: 36415; 85025; 86703; 86762; 86780; 86803; 86850; 86900; 86901; 87086; 87088; 87340; 87491; 87591; 88175; G0145

== ENCOUNTER → 2022-11-08 | Outpatient (CLI) | payer SELFPAY ==
--- NOTE | 2022-11-08 09:40 | US_ITS ---
STUDY: SECOND AND THIRD TRIMESTER OBSTETRICAL ULTRASOUND - LIMITED REASON FOR EXAM: Female, 22 years old. anatomy PRIOR ULTRASOUND: None. TECHNIQUE: Transabdominal and Transvaginal TECHNICAL QUALITY: Adequate. FINDINGS: There is a single intrauterine fetus. The fetus is in a cephalic presentation. There is demonstrated cardiac activity with a heart rate of 141 bpm. There is a normal amniotic fluid volume. The largest amniotic fluid pocket measures 4 cm. The placenta is anterior in location and is not low lying. There are Grade 0 placental changes. The cervix measures cm in length: 3.66. BIOMETRY: BPD: 44 mm: 19 weeks, 2 days HC: 167 mm: 19 weeks, 3 days AC: 153 mm: 20 weeks, 4 days FL: 30 mm: 19 weeks, 3 days CI: 74 FL/AC: 20 FL/BPD: 69 HC/AC: 1.09 age by current US: 19 weeks, 3 days. KHADRA by current US: 9.2.23. Estimated weight: 322 grams, +/- 48 grams, 27 %. Age by LMP: 20 weeks, 2 days. KHADRA by LMP: 8.27.23. ANATOMY: Gender: Female Cranium: Normal lateral ventricles. Normal choroid plexus. Normal cerebellum. Normal cisterna magna. Normal face, nose and lips. Chest: Normal 4-chamber heart. Abdomen/Pelvis: Normal diaphragm. Normal stomach. Normal abdominal wall. Normal cord insertion. Normal 3 vessel cord. Normal kidneys. Normal bladder. Spine: Normal cervical spine. Normal thoracic spine. Normal lumbar spine. Normal sacrum. Extremities: Normal bilateral upper extremities. Normal bilateral lower extremities. IMPRESSION: There is a single live intrauterine with a heart rate of 141 bpm. Electronically Signed: Lionel Miller MD at 21:38 EDT , STUDY: SECOND AND THIRD TRIMESTER OBSTETRICAL ULTRASOUND - LIMITED REASON FOR EXAM: Female, 22 years old. anatomy PRIOR ULTRASOUND: None. TECHNIQUE: Transvaginal TECHNICAL QUALITY: Adequate. FINDINGS: There is a single intrauterine fetus. The fetus is in a cephalic presentation. There is demonstrated cardiac activity with a heart rate of 141 bpm. There is a normal amniotic fluid volume. The largest amniotic fluid pocket measures 4 cm. The placenta is anterior in location and is not low lying. There are Grade 0 placental changes. The cervix measures cm in length: 3.66. BIOMETRY: BPD: 44 mm: 19 weeks, 2 days HC: 167 mm: 19 weeks, 3 days AC: 153 mm: 20 weeks, 4 days FL: 30 mm: 19 weeks, 3 days CI: 74 FL/AC: 20 FL/BPD: 69 HC/AC: 1.09 age by current US: 19 weeks, 3 days. KHADRA by current US: 9.2.23. Estimated weight: 322 grams, +/- 48 grams, 27 %. Age by LMP: 20 weeks, 2 days. KHADRA by LMP: 8.27.23. ANATOMY: Gender: Female Cranium: Normal lateral ventricles. Normal choroid plexus. Normal cerebellum. Normal cisterna magna. Normal face, nose and lips. Chest: Normal 4-chamber heart. Abdomen/Pelvis: Normal diaphragm. Normal stomach. Normal abdominal wall. Normal cord insertion. Normal 3 vessel cord. Normal kidneys. Normal bladder. Spine: Normal cervical spine. Normal thoracic spine. Normal lumbar spine. Normal sacrum. Extremities: Normal bilateral upper extremities. Normal bilateral lower extremities. US/OB Anatomy Scan
== END | disposition home or self-care (01) ==
PROVIDERS: Visit Provider Obstetrics & Gynecology
DX: O09.90 Supervision of high risk pregnancy, unspecified, unspecified trimester (principal)
CPT/HCPCS: 76805; 76817

== ENCOUNTER → 2023-01-04 | Outpatient (CLI) | payer SELFPAY ==
[2023-01-04 11:18] LABS: Absolute Lymphocyte Count 1.37 X10^3/uL (0.83-4.51); Absolute Neutrophil Count 5.1 X10^3/uL (2.0-7.7); Basophil# 0.02 X10^3/uL; Basophil% 0.3 % (0-1); Eosinophil# 0.06 X10^3/uL; Eosinophils% 0.8 % (0-5); Hematocrit 32.3 % (37-47); Hemoglobin 10.6 g/dL (12.0-15.0); Lymphocyte # 1.37 X10^3/ul (0.83-4.51); Lymphocyte % 19.4 % (19-41); Mean Corp Hgb Conc 32.8 g/dL (32-36); Mean Corpuscular Volume 97.6 fL (81-99); Mean Platelet Vol. 9.5 fl (6.2-12.0); Monocyte# 0.51 X10^3/uL; Monocyte% 7.2 % (0-10); NRBC Flagged by Analyzer 0 % (0-5); Neutrophil # 5.08 X10^3/uL (2.7-7.7); Neutrophil % 71.9 % (47-70); Platelet Count 225 K/mm3 (150-450); RBC Distribution Width SD 45.9 fl (35.1-43.9); Red Blood Count 3.31 M/mm3 (4.2-5.4); White Blood Count 7.1 K/mm3 (4.4-11.0)
[2023-01-04 11:38] LABS: Glucose Challenge Gest 1H 50g 119 mg/dL (70-140)
[2023-01-04 12:13] LABS: HIV - WCH Non-Reactive (Nonreactive); Syphilis Antibodies Non-reactive
== END | disposition home or self-care (01) ==
LOC: PAVLAB 10:43
PROVIDERS: Referring Provider Registered Nurse; Visit Provider Registered Nurse
DX: O09.90 Supervision of high risk pregnancy, unspecified, unspecified trimester (principal); Z3A.00 Weeks of gestation of pregnancy not specified
CPT/HCPCS: 36415; 82950; 85025; 86703; 86780

== ENCOUNTER → 2023-01-11 | Outpatient (CLI) | payer SELFPAY ==
[2023-01-11 13:03] LABS: ALB/GLOB Ratio 0.7 RATIO (0.9-2.4); AST(SGOT) 15 U/L (15-37); Alanine Aminotransfer ALT/SGPT 14 U/L (13-56); Albumin, Serum 2.9 g/dL (3.2-5.0); Alkaline Phosphatase 59 U/L (45-117); Anion Gap 5 (5-15); BUN 13 mg/dL (7-18); BUN/Creat Ratio 19.2 RATIO (10-20); Chloride 107 mmol/L (98-107); Creatinine, Serum 0.68 mg/dL (0.55-1.02); EST Glomerular Filtration Rate 114 mL/min (>60); Est Glom Filt Rate - Afr Amer 138 mL/min (>60); Globulin 3.9 g/dL (2.2-4.2); Glucose 71 mg/dL (74-106); Protein, Total 6.8 g/dL (6.4-8.2); Sodium Level 137 mmol/L (136-145)
== END | disposition home or self-care (01) ==
PROVIDERS: Referring Provider Nurse Practitioner Women's Health; Visit Provider Nurse Practitioner Women's Health
DX: O09.90 Supervision of high risk pregnancy, unspecified, unspecified trimester (principal); Z3A.00 Weeks of gestation of pregnancy not specified
CPT/HCPCS: 36415; 80053

== ENCOUNTER → 2023-01-12 | Outpatient (CLI) | payer SELFPAY ==
--- NOTE | 2023-01-12 08:34 | US_ITS ---
STUDY: ABDOMINAL ULTRASOUND - RIGHT UPPER QUADRANT REASON FOR VISIT: Female, 22 years old Right upper quadrant abdominal pain, 29 weeks preg TECHNIQUE: Ultrasound evaluation of the right upper quadrant was performed with real-time and static best-scale imaging. TECHNICAL QUALITY: Adequate. COMPARISON: None. FINDINGS: Liver: The liver measures 12.8 cm. There is normal echogenicity of the liver. The bile ducts are within normal limits. There is hepatic color flow. The direction of portal flow is hepatopetal. There is no demonstrated mass lesion. Gallbladder: Normal distended gallbladder. The gallbladder wall measures 2.3 mm. There is a negative sonographic Apodaca''s sign. There is no pericholecystic fluid. There are no gallstones. Common Bile Duct (C.B.D.): The common bile duct measures 3.1 mm. Pancreas: There is nonvisualization of the pancreas due to overlying bowel gas. Right Kidney: Normal size of the right kidney. The right kidney measures 9.1 cm x 4.3 cm x 3.9 cm. Normal renal cortex. The right cortex measures 1.0 cm. There is no demonstrated renal mass or cyst. There is no right hydronephrosis. US/Gallbladder IMPRESSION: Normal right upper quadrant ultrasound examination. Electronically Signed: Kristopher Saravia MD at 15:50 EDT ,
== END | disposition home or self-care (01) ==
LOC: US 08:33
PROVIDERS: Referring Provider Nurse Practitioner Women's Health; Visit Provider Nurse Practitioner Women's Health
DX: O26.892 Other specified pregnancy related conditions, second trimester (principal); R10.11 Right upper quadrant pain; Z3A.00 Weeks of gestation of pregnancy not specified
CPT/HCPCS: 76705

== ENCOUNTER → 2023-03-01 | Outpatient (CLI) | payer SELFPAY ==
--- NOTE | 2023-03-01 09:52 | US_ITS ---
HISTORY: uterine measurement/size discrepancy. TECHNIQUE: Transabdominal pelvic ultrasound was performed. 59 images. COMPARISON: 11/08/2022. FINDINGS: INTRAUTERINE GESTATION(s): Single. PRESENTATION: Cephalic. HEART MOTION: 145 bpm. PLACENTA: Anterior, grade 1. No placenta previa. CERVIX: Not well visualized. AMNIOTIC FLUID INDEX (ALKA): 15.1 cm. Maximum vertical fluid pocket 5.2 cm. biometry- BIPARIETAL DIAMETER: 8.1 cm, corresponding to 35 weeks 0 days. HEAD CIRCUMFERENCE: 31.2 cm, corresponding to 34 weeks 6 days. ABDOMINAL CIRCUMFERENCE: 32.2 cm, corresponding to 35 weeks 6 days. FEMUR LENGTH: 6.9 cm, corresponding to 35 weeks 1 day. ESTIMATED GESTATIONAL AGE: 35 weeks 1 day. ESTIMATED DUE DATE (KHADRA): 04/04/2023. ESTIMATED WEIGHT: 2738 g corresponding to 33rd percentile. US/OB Limited With Biometrics IMPRESSION: Single living intrauterine with an estimated gestational age of 35 weeks 1 day. Electronically Signed: Yelena Mitchell MD at 9:43 EDT ,
== END | disposition home or self-care (01) ==
LOC: US 09:52
PROVIDERS: Referring Provider Advanced Practice Midwife; Visit Provider Advanced Practice Midwife
DX: O26.843 Uterine size-date discrepancy, third trimester (principal); Z3A.35 35 weeks gestation of pregnancy
CPT/HCPCS: 76816

== ENCOUNTER → 2023-03-02 | Outpatient (CLI) | payer SELFPAY | END | disposition home or self-care (01) | LOC: LABSPEC 13:42 | PROVIDERS: Referring Provider Registered Nurse; Visit Provider Registered Nurse | DX: O09.90 Supervision of high risk pregnancy, unspecified, unspecified trimester (principal); Z3A.00 Weeks of gestation of pregnancy not specified | CPT/HCPCS: 87081 ==

== ENCOUNTER → 2023-03-09 | Outpatient (CLI) | payer SELFPAY ==
[2023-03-09 09:35] LABS: Hematocrit 35.5 % (37-47); Hemoglobin 11.6 g/dL (12.0-15.0); Mean Corp Hgb Conc 32.7 g/dL (32-36); Mean Corpuscular Hgb 32.2 pg (27.0-32.0); Mean Corpuscular Volume 98.6 fL (81-99); Mean Platelet Vol. 9.6 fl (6.2-12.0); Platelet Count 186 K/mm3 (150-450); RBC Distribution Width CV 12.6 % (11.6-14.6); RBC Distribution Width SD 45.2 fl (35.1-43.9); White Blood Count 8.4 K/mm3 (4.4-11.0)
== END | disposition home or self-care (01) ==
LOC: PAVLAB 09:21
PROVIDERS: Referring Provider Registered Nurse; Visit Provider Registered Nurse
DX: O99.019 Anemia complicating pregnancy, unspecified trimester (principal)
CPT/HCPCS: 36415; 85027

== ENCOUNTER 2023-03-30 17:30 | Outpatient (CLI) | payer SELFPAY ==
[2023-03-30 17:39] VITALS: PULSE 83; O2SAT 100
[2023-03-30 17:40] VITALS: TEMP 36.4; O2SAT 100
[2023-03-30 17:41] VITALS: BP 112/68; PULSE 92
[2023-03-30 17:46] VITALS: BMI 25.4
[2023-03-30 19:34] VITALS: PULSE 78; O2SAT 100
[2023-03-30 19:35] VITALS: BP 110/61; PULSE 85
[2023-03-30 20:20] LABS: ROM Internal Control Test YES-OK TO RESULT pt. (Internal QC); ROM Patient Test Negative (Negative); Record Kit Lot#, ROM+ K1374
--- NOTE | 2023-03-30 21:27 | OB.TRI.PN_ITS ---
Progress Notes Date of Service: 03/30/23 Progress Note: Patient presents for triage evaluation secondary to false labor FHT: 140 Moderate variability reactive no decelerations category I tracing [place]: q 3-5 Contractions Assessment and plan: false labor no cervical change significant Reactive NST, reassuring maternal and status patient discharged to home to follow-up as scheduled. See problem list details for additional plan information. Laboratory Studies: Laboratory Tests 03/30/23 Range/Units 19:50 Vag Amniotic Fld Detect Negative (Negative) Charges/Coding Procedures Urinary/Genital 52xxx-59xxx: 47406-17 non-stress test Interp
== END 2023-03-30 22:40 | disposition home or self-care (01) ==
LOC: WPOUT 17:34 → WP 17:34
PROVIDERS: Referring Provider Obstetrics & Gynecology; Visit Provider Obstetrics & Gynecology
DX: O47.9 False labor, unspecified (principal)
CPT/HCPCS: 59025; 59050; 84112; 99221; G0378

== ENCOUNTER 2023-04-01 10:10 | Outpatient (CLI) | payer SELFPAY ==
[2023-04-01 10:51] VITALS: BMI 25.0
--- NOTE | 2023-04-01 11:18 | US_ITS ---
STUDY: SECOND AND THIRD TRIMESTER OBSTETRICAL ULTRASOUND - LIMITED REASON FOR EXAM: Female, 22 years old growth ALKA LMP: Unknown. PRIOR ULTRASOUND: March 01, 2023 TECHNIQUE: Transabdominal TECHNICAL QUALITY: Adequate. FINDINGS: There is a single intrauterine fetus. The fetus is in a cephalic presentation. There is demonstrated cardiac activity with a heart rate of 126 bpm. There is a normal amniotic fluid volume. The largest amniotic fluid pocket measures 4.9 cm. The amniotic fluid index (ALKA) is 14.4 cm. The placenta is anterior in location and is not low lying. There are Grade 2 placental changes. The cervix measures 2.7 cm in length. BIOMETRY: BPD: 9.1 cm: 37 weeks, 0 days HC: 34.1 cm: 39 weeks, 2 days AC: 35.9 cm: 39 weeks, 5 days FL: 7.7 cm: 39 weeks, 1 days age by current US: 38 weeks, 3 days. KHADRA by current US: April 12, 2023. Estimated weight: 3727 grams, +/- 559 grams US/OB Limited (No Biometrics) IMPRESSION: Single intrauterine gestation 38 weeks 3 days with estimated due date April 12, 2023. Estimated weight 3727g. Electronically Signed: Deep Banks MD at 14:17 EDT ,
--- NOTE | 2023-04-01 14:20 | OB.TRI.PN_ITS ---
Progress Notes Date of Service: 04/01/23 Progress Note: Patient presents for triage evaluation secondary to scheduled NST and growth US for 41 week gestation FHT: 115 Moderate variability reactive no decelerations category I tracing [place]: irregular Contractions Assessment and plan: Reactive NST, kick counts reviewed, reassuring maternal and status patient discharged to home to follow-up at next appointment. See problem list details for additional plan information. Charges/Coding Multi Select Codes Urinary/Genital Urinary/Genital CPT Codes: 14095-62 non-stress test Interp Assessment & Plan (1) Supervision of high-risk : COMMENT: PRR , KHADRA 03/26/23,girl ALEM Booker, Lang (2) : QUALIFIERS: Weeks of gestation: 40 weeks Qualified Code(s): Z3A.40 - 40 weeks gestation of COMMENT: GBS negative. declined genetic. LR carrier testing, nl anatomy, nl growth 33%, EFW 2738g(03/01) (3) Anemia affecting : COMMENT: 01/04 started on additional iron supplement. redraw cbc in 4 weeks. order placed.
== END 2023-04-01 14:25 | disposition home or self-care (01) ==
LOC: WPOUT 10:12 → WP 10:13
PROVIDERS: Referring Provider Advanced Practice Midwife; Visit Provider Advanced Practice Midwife
DX: O47.1 False labor at or after 37 completed weeks of gestation (principal); O99.013 Anemia complicating pregnancy, third trimester; O09.893 Supervision of other high risk pregnancies, third trimester; Z3A.40 40 weeks gestation of pregnancy
CPT/HCPCS: 59025; 59050; 76815; 99221; G0378

== ENCOUNTER 2023-04-02 06:15 | Inpatient (IN) | payer SELFPAY ==
[2023-04-02] VITALS (86 sets, daily range): BP systolic 86–134; BP diastolic 44–76; PULSE 64–116; RESP 18; TEMP 36.2–37.4; O2SAT 89–100; BMI 25.0
--- NOTE | 2023-04-02 08:17 | HP.PCM.OB_ITS ---
HPI - General General Date of Admission: 04/02/23 Date of Service: 04/02/23 HPI Narrative MEKHI SOTO, is a 22 F at 41 weeks gestation who presents in active labor. Maternal Data Information KHADRA Calculator Estimated Delivery Date Method Current WG Current Estimate 03/26/23 LMP (Certain) 41w 0d Final KHADRA: 03/26/23 Final KHADRA Source: US >20 weeks Gestational age: 41.0 weeks PFSH PFS Medical History Anemia affecting No significant medical problems examination following vaginal delivery Tetanus, diphtheria, and acellular pertussis (Tdap) vaccination declined Home Medications multivitamin no.47-iron fum 27 mg-folate no.1 1 mg-dha 300 mg capsule (PNV-DHA) 1 cap PO DAILY 10/14/20 [History Last Taken 04/01/23 08:00 1 cap] ferrous sulfate 325 mg (65 mg iron) tablet (Feosol) 325 mg PO DAILY 01/27/23 [History Last Taken 04/01/23] Allergy/AdvReac Type Severity Reaction Status Date / Time No Known Allergies Allergy Verified 04/02/23 06:42 Family History Grandmother Cancer Grandfather Hypertension Surgical History No significant past surgical history Social History adopted: No household members: spouse and children housing: house number of children: 1 current occupational status: unemployed pets and animals: No history of recent travel: No sexually active: Yes Smoking Status: Never smoker second hand exposure: No alcohol intake: current alcohol intake frequency: holidays/special occasions only details: not while substance use type: does not use diet: gluten free and lactose free well-balanced diet: daily or most days caffeine: No eating out: 1-3 times/week during the past year weight has: decreased > 10 lbs what type of physical activity do you participate in: none martin/rastafari: Muslim seatbelt use: always do you feel safe at home: Yes additional social history: - Lang (Nazia) History 2 Elective abortions Hx Para 1 Spontaneous abortions Hx # Term Pregnancies 1 Ectopic pregnancies Hx # Pregnancies Multiple births # of living children 1 Past Pregnancies Del. Date Name GA/Weeks Outcome Route Bth Weight Gen Labor Lgth Anesthesia Del [place] Provider FOB 05/28/21 [place] 41 live - full term vacuum 7lbs 8oz Male [facility] [place] Delivery Date: 05/28/21 Last Updated by: Chanda Mcdonough IOL VAVD Visit Details Expected Delivery Route/Plan Labor Preferences- CB/BF classes: denies labor support person: Lang labor intervention preferences: [] pain management options preferred: open to epidural cut cord/dad catch: [] : wants PP control planned: [] discussed possible routes of delivery and associated risks: [] special requests: [] Plans Covid status: discussed Flu vaccine: discussed Tdap vaccine: declined Rhogam: na LARC form signed: completed Problem list reviewed and updated with the most current plan of care details and appropriate orders placed. Relevant counseling for the gestational age provided. Continue routine care and follow up unless otherwise noted in visit notes/problem list details OB Flowsheet Initial Weight: Not Recorded Date -?-?-?-?-?-?-?-?-?-?-?-?- EGA Weight BP Urine Prot -?-?-?-?--?-?-?-?-?-?-?-?- Glucose FHR FuHt Pres Dilation -?-?-?-?-?-?-?-?-?-?--?-?- Effaced St Visit Note 09/01/22 -?-?-?-?-?-?-?-?-?-?-?-?- 10w 4d 104 lb 121/80 -?-?-?-?-?-?-?-?-?-?-?-?- 170 -?-?-?-?-?-?-?-?-?-?-?-?- SM- CRL 2.9cm co ns with LMP small resolving subchorionic hematoma 09/29/22 -?-?-?--?-?-?-?-?-?-?-?-?- 14w 4d 106 lb 8 oz 113/68 Nega tive -?-?-?-?-?-?-?-?-?-?-?-?- Negative 147 -?-?-?-?-?-?-?-?-?-?-?-?- JV- no lof, vagi nal bleeding, or cramping. no complaints. 11/08/22 -?-?-?-?-?-?-?-?-?-?-?-?- 20w 2d 114 lb 2 oz 119/58 Nega tive -?-?-?-?-?-?-?-?-?-?-?-?- Negative 120 20 -?-?-?-?-?-?-?-?-?-?-?-?- KW- no lof, vb, or cramping. no complaints. 12/16/22 -?-?-?-?-?-?-?-?-?-?-?-?- 25w 5d 122 lb 6 oz 105/62 Trac e -?-?-?-?-?-?-?-?-?-?-?-?- Negative 138 25 -?-?-?-?-?-?-?-?-?-?-?-?- LC- no lof/vb/ct x. good fm. 28 week labs ordered. 01/11/23 -?-?-?-?-?-?-?-?-?-?-?-?- 29w 3d 124 lb 98/64 Negative -?-?-?-?-?-?-?-?-?-?-?-?- Negative 147 29 -?-?-?-?-?-?-?-?-?-?-?-?- MH-No Vb, LOF. G ood FM. RUQ pain angelina after meals. Had GB issues with last pregn. GB US and CMP ordered. Larc. Enc to start FE. 01/27/23 -?-?-?-?-?-?-?-?-?-?-?-?- 31w 5d 126 lb 6 oz 126 lb 4 oz 96/60 69/60 Negative -?-?-?-?-?-?-?-?-?-?-?-?- Negative 140 31 -?-?-?-?-?-?-?-?-?-?-?-?- KW-+ fm, no lof/ vb/ctx. no concerns today 02/21/23 -?-?-?-?-?-?--?-?-?-?-?-?- 35w 2d 131 lb 4 oz 125/85 Trac e -?-?-?-?-?-?-?-?-?-?-?-?- Negative 130 32 -?-?-?-?-?-?-?-?-?-?-?-?- KW-+fm, no vb/re gular ctx. no concerns. growth US ordered. 03/02/23 -?-?-?-?-?-?-?-?-?-?-?-?- 36w 4d 133 lb 8 oz 101/67 Trac e -?-?-?-?-?-?-?-?-?-?-?-?- Negative 140 36 Cephalic -?-?-?-?-?-?-?-?-?-?-?-?- LC-no lof/vb/ctx . good fm. no concerns. LC-no lof/vb/ctx. good fm. n o concerns. cbc ordered to recheck anemia on iron supplementation LC-no lof/vb/ctx. good fm. n o concerns. cbc ordered to recheck anemia on iron supplementation. handheld us confirm vtx. 03/09/23 -?-?-?-?-?-?-?-?-?-?-?-?- 37w 4d 134 lb 110/72 -?-?-?-?-?-?-?-?-?-?-?-?- 140 37 Cephalic -?-?-?-?-?-?-?-?-?-?-?-?- SM- no vb lof go od fm co some ctx feel pelvic pressure 03/14/23 -?-?-?--?-?-?-?-?-?-?-?-?- 38w 2d 134 lb 4 oz 108/72 Trac e -?-?-?-?-?-?-?-?-?-?-?-?- Negative 125 36 Cephalic 2 .5 -?-?-?-?-?-?-?-?-?-?-?-?- 60 -2 KW-no lof/ vb/ctx. good fm. no concerns today. labor precautions reviewed. Possible US next week if needed for fundal height. 03/24/23 -?-?-?-?-?-?-?-?-?-?-?-?- 39w 5d 135 lb 113/79 Negative -?-?-?-?-?-?-?-?-?-?-?-?- Negative 142 37 Cephalic 1 .5 -?-?-?-?-?-?-?-?-?-?-?-?- 50 -3 JV- no lof ,vaginal bleeding, or dec fm. pt informed of exam today an why can differ depending on provider. I did have to give fundal pressure to push the baby to a reachable position and that is the reason for calling her -3. 03/31/23 -?-?-?-?-?-?-?-?-?-?-?-?- 40w 5d 133 lb 2 oz 114/68 Nega tive -?-?-?-?-?-?-?-?-?-?-?-?- Negative 140 39 Cephalic 3 -?-?-?-?-?-?-?-?-?-?-?-?- 50 -3 LC-no lof/ ctx/vb. good fm. declines iol. r/b reviewed. will obtain nst and mary check at 41 weeks and 41.4 NST FHR Rate Baby A Baseline: 130 Variability:: Moderate Accelerations:: 15 x 15 Decelerations:: None NST Reactive:: Yes FHR Category:: Category I Uterine Activity:: 4-7 minutes ROS Constitutional Constitutional: Denies change in weight, fatigue, fever(s), headache(s), poor appetite or weakness Eyes Eyes: Denies blurry vision, change in vision, floaters, seeing flashes or spots in vision ENT HEENT: Denies dizziness, headache(s), loss taste/smell or sore throat Cardiovascular Cardiovascular: Denies chest pain, dizziness, dyspnea, irregular heart rhythm, lightheadedness, palpitations or rapid heart rate Respiratory/Chest Respiratory/Chest: Denies change in mental status, chest tightness, cough, dyspnea or breast pain Gastrointestinal Gastrointestinal: Denies anorexia, chewing difficulty, constipation, diarrhea or weight changes Genitourinary Genitourinary: Denies difficulty urinating, dysuria, flank pain, genital pain, urinary frequency or urinary urgency Musculoskeletal Musculoskeletal: Denies back pain, difficulty walking, extremity pain, joint pain, muscle cramps or muscle weakness Integumentary Integumentary: Denies lesions or unusual bruising Neurologic Neurologic: Denies abnormal movements, abnormal speech, dizziness, numbness, seizure-like activity, syncope or weakness Psychiatric Psychiatric: Denies behavioral changes, change in appetite, confusion, depression, homicidal ideation, suicidal ideation or suicidal thoughts Endocrine Endocrinology: Denies excessive sweating, polydipsia or polyuria Hematologic/Lymphatic Hematologic/Lymphatic: Denies anemia Allergic/Immunologic Allergic/Immunologic: Denies itchy eyes, lip swelling, throat swelling, tongue swelling or wheezing Vital Signs Vital Signs Vital Signs: 04/02/23 06:38 04/02/23 06:38 04/02/23 06:38 Temperature 98.3 F Temperature Source Temporal Pulse Rate Blood Pressure 110/66 BP Systolic 110 BP Diastolic 66 Pulse Ox 04/02/23 07:14 04/02/23 07:14 04/02/23 07:14 Temperature 98.1 F Temperature Source Pulse Rate 91 Blood Pressure 112/62 BP Systolic 112 BP Diastolic 62 Pulse Ox 04/02/23 07:14 04/02/23 07:14 04/02/23 07:14 Temperature Temperature Source Temporal Pulse Rate 95 Blood Pressure BP Systolic BP Diastolic Pulse Ox 97 04/02/23 07:14 04/02/23 07:14 04/02/23 07:14 Temperature Temperature Source Pulse Rate 94 Blood Pressure 112/62 BP Systolic 112 BP Diastolic 62 Pulse Ox 97 04/02/23 07:14 Temperature 98.1 F Temperature Source Pulse Rate Blood Pressure BP Systolic BP Diastolic Pulse Ox Weight Weight: 132 lb 12.8 oz Body Mass Index (BMI) 25.0 Physical Exam Const alert, oriented x3 and no apparent distress General Appearance: cooperative Orientation / Consciousness: awake HEENT normocephalic Neck full ROM Lymph Lymphatic: no lymphadenopathy noted Chest inspection of chest normal Resp normal respiratory effort and normal air movement Effort and Inspection: able to speak in complete sentences and symmetric chest movement GI soft to palpation and non-tender Inspection: gravid Palpation: soft; Negative for tender external exam normal Manual OB Exam: dilated 5 and effaced 70 Back/Spine normal to inspection Extremity normal to inspection and full ROM Skin no rashes or lesions noted Psych mental status grossly normal Appearance: grossly normal Speech: normal speech Labs Labs Labs: Blood Type A POSITIVE Antibody Screen NEGATIVE Hct 35.5 % (37-47) L Hgb 11.6 g/dL (12.0-15.0) L Obstetrics US Syphilis Total Ab Non-reactive Rubella IgG Antibody Reactive (Nonreactive) Hep Bs Antigen Non-Reactive (Nonreactive) Chlamydia DNA (DIALLO) Negative (Negative) Neisseria gonorrhoeae DNA (DIALLO) Negative (Negative) HIV 1&2 Antibody Non-Reactive (Nonreactive) Glucose 1 Hr 50 gm 119 mg/dL (70-140) Assessment & Plan (1) Active labor: PLAN: Patient presents IAL, plan expectant management for , pitocin/AROM PRN if needed. Pain management: plans epidural. GBS negative. Management of any complications: none I have reviewed the [facility] and made any clinically relevant updates. Dr Day aware of admission and agrees with plan of care (2) Anemia affecting : COMMENT: 01/04 started on additional iron supplement. redraw cbc in 4 weeks. order placed. (3) Supervision of high-risk : COMMENT: PRR , KHADRA 03/26/23,girl ALEM Booker, Lang (4) : QUALIFIERS: Weeks of gestation: 40 weeks Qualified Code(s): Z3A.40 - 40 weeks gestation of COMMENT: GBS negative. declined genetic. LR carrier testing, nl anatomy, nl growth 33%, EFW 2738g(03/01) Charges/Coding Multi Select Codes Urinary/Genital Urinary/Genital CPT Codes: No Charge
[2023-04-02] MEDS: Lactated Ringers 1,000 ML 50 ML IV (08:30)
[2023-04-02 08:45] LABS: Absolute Lymphocyte Count 1.92 X10^3/uL (0.83-4.51); Basophil# 0.04 X10^3/uL; Basophil% 0.4 % (0-1); Eosinophil# 0.04 X10^3/uL; Eosinophils% 0.4 % (0-5); Hematocrit 35.5 % (37-47); Hemoglobin 12.1 g/dL (12.0-15.0); Lymphocyte # 1.92 X10^3/ul (0.83-4.51); Lymphocyte % 17.8 % (19-41); Mean Corp Hgb Conc 34.1 g/dL (32-36); Mean Corpuscular Hgb 33.2 pg (27.0-32.0); Mean Corpuscular Volume 97.3 fL (81-99); Mean Platelet Vol. 9.5 fl (6.2-12.0); Monocyte# 0.71 X10^3/uL; Monocyte% 6.6 % (0-10); NRBC Flagged by Analyzer 0 % (0-5); Neutrophil % 74.2 % (47-70); Platelet Count 187 K/mm3 (150-450); RBC Distribution Width CV 12.7 % (11.6-14.6); RBC Distribution Width SD 45.1 fl (35.1-43.9); Red Blood Count 3.65 M/mm3 (4.2-5.4); White Blood Count 10.8 K/mm3 (4.4-11.0)
[2023-04-02] MEDS: Oxytocin 15 Units/NS 250ml 15 UNITS/250 ML IV.SOLN 2 UNITS IV (10:03)
[2023-04-02] MEDS: LACTATED RINGERS 500 ML 999 ML IV (10:52)
--- NOTE | 2023-04-02 12:27 | PCM.PN.BLA ---
Progress Note comfortable with epidural current tracing: FHT: 130 Moderate variability reactive no decelerations category I tracing [place]: 2-3 Contractions A/P: Continue position changes Titrate pitocin per protocol AROM when appropriate anticipate Dr To aware and agrees with plan Assessment & Plan Assessment/Plan (1) Active labor: (2) Anemia affecting : (3) Supervision of high-risk : (4) : QUALIFIERS: Weeks of gestation: 40 weeks Qualified Code(s): Z3A.40 - 40 weeks gestation of Multi Select Codes Urinary/Genital Urinary/Genital CPT Codes: No Charge
[2023-04-02] MEDS: fentaNYL-bupivacaine (epidural) 100 ML BAG EPIDURAL (12:41)
[2023-04-02] MEDS: Methylergonovine 0.2 MG/ML Ampul IM (14:15)
--- NOTE | 2023-04-02 14:20 | EX.PCM.OBRPT ---
Assessment & Plan (1) Vaginal delivery: COMMENT: KW 41.0 Girl Maternal Data Information KHADRA Calculator Estimated Delivery Date Method Current WG Current Estimate 03/26/23 LMP (Certain) 41w 0d Final KHADRA: 03/26/23 Final KHADRA Source: US >20 weeks Gestational age: 41.0 weeks Vaginal Delivery Maternal Presentation Maternal Presentation: Active Labor Maternal Presentation: Progressed well to 10cm dilated and made steady progress with effective maternal pushing. Delivered the head in BRITTA presentation. The head was delivered atraumatically and no nuchal cord was identified. The anterior and posterior shoulders delivered without complication followed by the rest of the and the was placed on the maternal abdomen. Delayed cord clamping was employed for approximately 3 minutes. Cord was clamped and cut and gentle traction was applied to the cord and the placenta delivered spontaneously. Immediately following, it was noted to be intact with a 3 vessel cord. The perineum and vagina were inspected and noted to have no laceration . EBL was 20cc. Patient and infant tolerated delivery well. Apgars 9/9. Dr To notified of vaginal delivery and orders reviewed. Physician agrees with current plan of care. 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 #1: Jhoana Pace Type of Anesthesia: Epidural Estimated Blood Loss: 200 Time of Delivery: 14:06 Findings Presentation: Vertex Amniotic Membrane Rupture Type: Artificial Amniotic Fluid Description: Clear Placental Delivery Description: Spontaneous Placenta Disposition: [facility] Cord Vessel Description: 3 Vessels Cord Entanglement: None Infant A Gender: Female (1 minute): 9 (5 minute): 9 Delayed Cord Clamping: Yes Post Vaginal Delivery Medications Given After Delivery: IV Pitocin and IM Methergin Episiotomy Description: None Laceration: None Complication Complications: None Multi Select Codes Urinary/Genital Urinary/Genital CPT Codes: 05021 Vaginal Delivery [facility]
--- NOTE | 2023-04-02 14:23 | DCINST_ITS ---
Discharge Instructions Diet Discharge Diet: No restrictions Activity Discharge Activity: Return to Normal Activity May resume sexual activity in: 6-8 weeks Dressing / Incision Call your doctor if you observe: Fever of 101 or Higher, Coldness, Increased Pain, Numbness or Tingling, Change in Color, Inability to urinate, Inability to have a bowel movement, Using more than 1 pad per hour, Shortness of breath, Dizziness, Fainting spells, Swelling in the ankles, Chest pain, Increased palpitations (irregular heartbeat), Calf discomfort and Uncontrolled pain Follow Up Care Please Follow Up With: Jhoana Pace CNM When: Please call the office to schedule your follow up appointment in 6 weeks. If you had high blood pressure please call to schedule an appointment in 2 weeks. Test Results: Test results from this visit will be discussed in further detail at your follow- up appointment, if applicable. Discharge Plan Admission Admit Date/Time: 04/02/23 08:19 Attending Provider: Jhoana Pace Primary Care Provider: Care Physician,No Primary Discharge Orders/Prescriptions Prescriptions: No Action PNV-DHA 27 mg iron-1 mg -300 mg capsule 1 cap PO DAILY ferrous sulfate [Feosol] 325 mg (65 mg iron) tablet 325 mg PO DAILY Referrals / Follow Up: Care Physician,No Primary [Primary Care Provider] -
[2023-04-02] MEDS: Oxytocin 15 Units/NS 250ml 15 UNITS/250 ML IV.SOLN 83 UNITS IV (15:24)
[2023-04-02] MEDS: Ibuprofen 600 MG Tablet PO (18:05)
[2023-04-03] VITALS (8 sets, daily range): BP systolic 100–115; BP diastolic 55–61; PULSE 64–94; RESP 16–18; TEMP 36.3–37.1; O2SAT 97–99
[2023-04-03] MEDS: Acetaminophen 500 MG Tablet 1000 MG PO ×2 (00:13→08:59)
--- NOTE | 2023-04-03 04:21 | PN.OBGYN_ITS ---
Subjective Subjective Patient doing well without complaints. Tolerating PO. Ambulating and voiding without difficulty. Feeding well. Denies chest pain, shortness of breath, calf pain/swelling, fevers, chills, lightheadedness. Objective Data Objective Data Vital Signs: Vital Signs Temp Pulse Resp BP Pulse Ox O2 Del Method 98.1 F 75 18 104/56 L 97 Room Air 04/03/23 03:27 04/03/23 03:27 04/03/23 03:27 04/03/23 03:27 04/03/23 03:27 04/03/23 03:27 Oxygen Delivery Method Room Air Weight: 132 lb 12.8 oz Body Mass Index (BMI) 25.0 Intake & Output: Intake and Output for Last 24 Hours 04/01/23 04/02/23 04/03/23 23:59 23:59 23:59 Intake Total 3585.84 / 3585.84 Output Total 2250 / 2250 Balance 1335.84 / 1335.84 Lab / Micro Data 04/02/23 08:30 Labs: Laboratory Results - last 24 hr 04/02/23 08:30: WBC 10.8, RBC 3.65 L, Hgb 12.1, Hct 35.5 L, MCV 97.3, MCH 33.2 H , MCHC 34.1, RDW Std Deviation 45.1 H, RDW Coeff of Alex 12.7, Plt Count 187, MPV 9.5, Immature Gran % (Auto) 0.600, Neut % (Auto) 74.2 H, Lymph % (Auto) 17.8 L, Gonzales % (Auto) 6.6, Eos % (Auto) 0.4, Baso % (Auto) 0.4, Absolute Neuts (auto) 8.0 H, Absolute Lymphs (auto) 1.92, Nucleated RBC % 0, Blood Type A POSITIVE, Antibody Screen NEGATIVE ROS Constitutional Constitutional: Reports systems reviewed and no addt'l complaints, except as documented; Denies anorexia or headache(s) Cardiovascular Cardiovascular: Reports systems reviewed and no addt'l complaints, except as documented; Denies dizziness, dyspnea, nausea or tachypnea Respiratory/Chest Respiratory/Chest: Reports systems reviewed and no addt'l complaints, except as documented; Denies cough, dyspnea, shortness of breath at rest or tachypnea Gastrointestinal Gastrointestinal: Reports systems reviewed and no addt'l complaints, except as documented; Denies abdominal pain, constipation or nausea Genitourinary Genitourinary: Reports systems reviewed and no addt'l complaints, except as documented; Denies burning urination, difficulty urinating, dysuria, urinary frequency or urinary incontinence Musculoskeletal Musculoskeletal: Reports systems reviewed and no addt'l complaints, except as documented Integumentary Integumentary: Reports systems reviewed and no addt'l complaints, except as documented Neurologic Neurologic: Reports systems reviewed and no addt'l complaints, except as documented; Denies abnormal speech, dizziness or headache(s) Psychiatric Psychiatric: Reports systems reviewed and no addt'l complaints, except as documented Endocrine Endocrinology: Reports systems reviewed and no addt'l complaints, except as documented Hematologic/Lymphatic Hematologic/Lymphatic: Reports systems reviewed and no addt'l complaints, except as documented Physical Exam Const alert, oriented x3 and no apparent distress Neck full ROM Resp normal respiratory effort, normal air movement and no retractions Effort and Inspection: able to speak in complete sentences and symmetric chest movement GI soft to palpation Bladder / Kidney Exam: bladder normal to palpation Uterus Palpation: uterus fundus firm Extremity normal to inspection and full ROM Psych mental status grossly normal, thought process normal and cooperative Assessment & Plan (1) Vaginal delivery: COMMENT: KW 41.0 Girl PLAN: s/p PPD # 1 1. routine post delivery care 2. breast feeding- support given 3. rh positive 4. rubella immune 5. Discharge home (2) Active labor: (3) Alteration in well being: COMMENT: change in baseline (4) Anemia affecting : COMMENT: 01/04 started on additional iron supplement. redraw cbc in 4 weeks. order placed. (5) Supervision of high-risk : COMMENT: PRR , KHADRA 03/26/23,girl ALEM Jhony, Lang (6) : QUALIFIERS: Weeks of gestation: 40 weeks Qualified Code(s): Z3A.40 - 40 weeks gestation of COMMENT: GBS negative. declined genetic. LR carrier testing, nl anatomy, nl growth 33%, EFW 2738g(03/01) Charges/Coding Multi Select Codes Urinary/Genital Urinary/Genital CPT Codes: No Charge
--- NOTE | 2023-04-03 16:44 | NURSING ---
in and has talked to mom about the feedings and mom has agreed to use donor milk, and to stay the night and work on feedings and meet with in the morning.
[2023-04-03] MEDS: Ibuprofen 600 MG Tablet PO (17:46)
[2023-04-04 02:14] VITALS: TEMP 36.9; O2SAT 100
[2023-04-04 02:15] VITALS: BP 110/64; PULSE 74; PULSE 75; RESP 16; TEMP 36.9; O2SAT 100
[2023-04-04] MEDS: Acetaminophen 500 MG Tablet 1000 MG PO (02:21)
--- NOTE | 2023-04-04 06:16 | PCM.PN.OB ---
Subjective Subjective Patient doing well without complaints. Tolerating PO. Ambulating and voiding without difficulty. feeding well. Denies chest pain, shortness of breath, calf pain/swelling, fevers, chills, lightheadedness. Objective Data Objective Data Vital Signs: Vital Signs Temp Pulse Resp BP Pulse Ox O2 Del Method 98.4 F 74 16 110/64 100 Room Air 04/04/23 02:15 04/04/23 02:15 04/04/23 02:15 04/04/23 02:15 04/04/23 02:15 04/04/23 02:15 Oxygen Delivery Method Room Air Weight: 132 lb 12.8 oz Body Mass Index (BMI) 25.0 Intake & Output: Intake and Output for Last 24 Hours 04/02/23 04/03/23 04/04/23 23:59 23:59 23:59 Intake Total 3585.84 / 3585.84 500 / 500 Output Total 2250 / 2250 Balance 1335.84 / 1335.84 500 / 500 Lab / Micro Data 04/02/23 08:30 ROS Constitutional Constitutional: Reports systems reviewed and no addt'l complaints, except as documented Cardiovascular Cardiovascular: Reports systems reviewed and no addt'l complaints, except as documented Respiratory/Chest Respiratory/Chest: Reports systems reviewed and no addt'l complaints, except as documented Gastrointestinal Gastrointestinal: Reports systems reviewed and no addt'l complaints, except as documented Physical Exam Const alert, oriented x3 and no apparent distress HEENT Head and Scalp: atraumatic Resp normal respiratory effort GI soft to palpation and non-tender Bimanual Exam - Vag & Uterus: uterus non-tender Uterus Palpation: uterus fundus firm (below Umbilicus) Assessment & Plan (1) Vaginal delivery: COMMENT: KW 41.0 Girl PLAN: Plan s/p PPD # 2 1. routine post delivery care 2. breast feeding- support given 3. rh positive 4. rubella immune
[2023-04-04] MEDS: Ibuprofen 600 MG Tablet PO (07:27)
[2023-04-04 07:45] VITALS: BP 125/71; PULSE 90; RESP 15; TEMP 36.4
[2023-04-04 07:50] VITALS: BP 125/71; PULSE 90; TEMP 36.4
[2023-04-04] MEDS: Senna/Docusate Sodium 1 Tablet PO (09:54)
== END 2023-04-04 11:50 | disposition home or self-care (01) | DRG 807 ==
PROVIDERS: Admitting Provider Advanced Practice Midwife; Visit Provider Advanced Practice Midwife
DX: O48.0 Post-term pregnancy (principal); Z37.0 Single live birth; D64.9 Anemia, unspecified; O99.02 Anemia complicating childbirth; Z3A.41 41 weeks gestation of pregnancy
CPT/HCPCS: 59025; 59050; 85025; 86850; 86900; 86901; 99221; J7120; G0378

== ENCOUNTER 2023-08-02 14:12 | Emergency (ER) | payer OTHER, SELFPAY ==
[2023-08-02 14:13] VITALS: BP 122/82; PULSE 115; RESP 14; TEMP 36.6; O2SAT 96; BMI 21.1
--- NOTE | 2023-08-02 14:49 | NURSING ---
NO OLD EKGS
[2023-08-02 15:40] VITALS: BP 116/74; PULSE 87; RESP 11; O2SAT 98
--- NOTE | 2023-08-02 15:48 | ED.VIS.CHEST ---
HPI History of Present Illness Chief Complaint: Chest Pain Narrative Narrative: 22-year-old female presenting with chest pain. She states it is mostly left-sided verbally however she describes it with her hands is all over her chest. She states that it radiates into her left shoulder and down to her left hand. This has been ongoing for couple of weeks intermittently. This is not worsened by food or activity other than it gets worse when she bends over. She has had a couple of seconds of lightheadedness here and there. Denies a sharp pleuritic component. Denies chest pressure or tightness. Denies fever, chills, cough. Patient has no history of DVT/PE. Patient gave 4 months ago and is only recently started having symptoms. She states she is fairly active. Denies any leg pain or swelling. She states initially she thought it was something musculoskeletal and states that when she rolls her shoulders backwards or extends her arms out to the side she can feel it across her chest. She went to her chiropractor who did a couple of manipulations with no relief. Patient states she called her home care provider who stated she needed to go to the emergency room. Patient denies any cardiac history. No significant history of family heart disease at early age. She is on a smoker. No other medical problems. [facility] Medical History Anemia Anemia affecting No significant medical problems examination following vaginal delivery Tetanus, diphtheria, and acellular pertussis (Tdap) vaccination declined Vaginal delivery Home Medications multivitamin no.47-iron fum 27 mg-folate no.1 1 mg-dha 300 mg capsule (PNV-DHA) 1 cap PO DAILY 10/14/20 [History Last Taken 04/01/23 08:00 1 cap] Allergy/AdvReac Type Severity Reaction Status Date / Time No Known Allergies Allergy Verified 08/02/23 14:13 Family History Grandmother Cancer Grandfather Hypertension Surgical History No significant past surgical history Social History adopted: No household members: spouse and children housing: house number of children: 1 current occupational status: unemployed pets and animals: No history of recent travel: No sexually active: Yes Smoking Status: Never smoker second hand exposure: No alcohol intake: current alcohol intake frequency: holidays/special occasions only details: not while substance use type: does not use diet: gluten free and lactose free well-balanced diet: daily or most days caffeine: No eating out: 1-3 times/week during the past year weight has: decreased > 10 lbs what type of physical activity do you participate in: none martin/tenriism: [employer] seatbelt use: always do you feel safe at home: Yes additional social history: - Lang (Nazia) ROS ROS ED Constitutional Constitutional ED: Denies chills or fever(s) Eyes Eyes: Denies none ENT ENT ED: Denies rhinorrhea or sore throat Cardiovascular Cardiovascular: Reports as per HPI Respiratory/Chest Respiratory/Chest: Denies cough Gastrointestinal Gastrointestinal: Denies abdominal pain Genitourinary Genitourinary ED: Denies dysuria or hematuria Musculoskeletal Musculoskeletal: Denies arthralgias or back pain Integumentary Denies abscess or Abrasions Neurologic Neurologic: Denies headache(s) or paresthesias Psychiatric Psychiatric: Denies anxiety EXAM Physical Exam Const Vital Signs: 08/02/23 14:13 08/02/23 15:40 08/02/23 15:40 Temperature 97.8 F Temperature Source Temporal Pulse Rate 115 H Respiratory Rate 14 Respiratory Effort Normal Non-Labored Blood Pressure 122/82 H Blood Pressure Mean 95 Pulse Ox 96 Oxygen Delivery Method Room Air Room Air 08/02/23 15:40 Temperature Temperature Source Pulse Rate 87 Respiratory Rate 11 L Respiratory Effort Blood Pressure 116/74 Blood Pressure Mean 88 Pulse Ox 98 Oxygen Delivery Method Room Air Positive well nourished General Appearance ED: NAD HEENT Reports moist mucous membranes normocephalic Eyes PERRL and EOMs intact bilaterally Chest Wall inspection of chest normal Resp normal respiratory effort and clear to auscultation bilaterally Auscultation: Negative for rales, rhonchi or wheezes Cardio regular rate and regular rhythm GI normal to inspection, nondistended, normoactive bowel sounds Extremity normal to inspection General Extremety ED: Negative for edema General Extremity: Negative for edema Neuro oriented x3 and CN's II-XII intact bilaterally Sensorium / Orientation: awake and alert Psych mental status grossly normal Skin no rashes or lesions noted Heart Score History: Slightly/Non-Suspicious ECG: Normal Age: </= 45 years Risk Factors: No Risk Factors Troponin: </= Normal Limit Score: 0 MDM MDM MDM Narrative Medical decision making narrative: Setting with chest pain which is intermittent. History of cardiac disease in early age. Patient has no specific cardiac history. Patient does states that she gave 4 months ago. History of DVT/PE. Differential includes acute coronary syndrome, PE, pneumonia, costochondritis, dehydration, electro abnormalities, gastritis, GERD. Patient well-appearing slightly tachycardic with a heart rate of 115. CBC will be obtained to assess white blood cell count, hemoglobin, platelets. BMP to assess renal function, electrolytes, glucose. High-sensitivity troponin EKG to assess for ischemia/dysrhythmia. Since x-ray to rule out pneumonia. D-dimer will be obtained to rule out PE. She declines analgesia at this time. CBC and BMP unremarkable. D-dimer negative. High-sensitivity troponin is 4. EKG on my interpretation shows a normal sinus rhythm with a ventricular rate of 88 bpm without sign ischemic change or ectopy on my interpretation. Chest x-ray mitral rotation is no acute process. Workup ultimately normal and this was discussed with patient. She will be discharged home in stable condition. Impression: 1. Chest pain 2. Dyspnea Lab Data Labs: Laboratory Results - last 24 hr 08/02/23 15:50 WBC 7.4 RBC 4.32 Hgb 13.0 Hct 38.6 MCV 89.4 MCH 30.1 MCHC 33.7 RDW Std Deviation 39.9 RDW Coeff of Alex 12.1 Plt Count 272 MPV 9.2 Immature Gran % (Auto) 0.300 Neut % (Auto) 70.6 H Lymph % (Auto) 22.5 Otero % (Auto) 5.1 Eos % (Auto) 0.7 Baso % (Auto) 0.8 Absolute Neuts (auto) 5.2 Absolute Lymphs (auto) 1.67 Nucleated RBC % 0 D-Dimer Quant (PE/DVT) < 0.27 L Sodium 138 Potassium 3.7 Chloride 108 H Carbon Dioxide 23.0 Anion Gap 7 BUN 21 H Creatinine 0.79 Estim Creat Clear Calc 83.57 Est GFR (MDRD) Af Amer 115 Est GFR (MDRD) Non-Af 95 BUN/Creatinine Ratio 26.5 H Glucose 75 Calcium 9.4 Troponin I High Sens 4 Radiography Diagnostic Testing: Clinical Impression(s) from Imaging Studies Chest X-Ray 08/02/23 15:50 IMPRESSION: Normal x-ray examination of the chest. Electronically Signed: Arun Simpson MD at 16:09 EST Reading Location ID and State: [address] [place] [address] Tel , Service support , Discharge Plan Triage Chief Complaint: Chest Pain Other Complaint: Dizziness ED Provider: Lew Calles Dx/Rx/DC Orders Instructions: ED Chest Pain, Uncertain Cause Prescriptions: No Action PNV-DHA 27 mg iron-1 mg -300 mg capsule 1 cap PO DAILY Primary Care Provider: Care Physician,No Primary Referrals: Care Physician,No Primary [Primary Care Provider] - Disposition Disposition: Home, Self Care
--- NOTE | 2023-08-02 15:50 | RAD_ITS ---
STUDY: X-RAY CHEST REASON FOR EXAM: Female, 22 years old. chest pain TECHNIQUE: AP portable COMPARISON: None. FINDINGS: The lungs are clear and expanded. There is no demonstrated pleural abnormality. Normal size heart. Normal mediastinum and clifford. Normal visualized pulmonary arteries. Normal visualized aortic arch and descending thoracic aorta. Normal visualized thoracic spine. Normal visualized ribs, clavicles, and shoulders. There is no demonstrated abnormality of the visualized soft tissue structures of the upper abdomen. RAD/Chest 1 View (Portable) IMPRESSION: Normal x-ray examination of the chest. Electronically Signed: Arun Simpson MD at 16:09 EST ,
[2023-08-02 16:01] LABS: Absolute Lymphocyte Count 1.67 X10^3/uL (0.83-4.51); Absolute Neutrophil Count 5.2 X10^3/uL (2.0-7.7); Basophil# 0.06 X10^3/uL; Basophil% 0.8 % (0-1); Eosinophil# 0.05 X10^3/uL; Eosinophils% 0.7 % (0-5); Hematocrit 38.6 % (37-47); Lymphocyte # 1.67 X10^3/ul (0.83-4.51); Lymphocyte % 22.5 % (19-41); Mean Corp Hgb Conc 33.7 g/dL (32-36); Mean Corpuscular Hgb 30.1 pg (27.0-32.0); Mean Corpuscular Volume 89.4 fL (81-99); Mean Platelet Vol. 9.2 fl (6.2-12.0); Monocyte# 0.38 X10^3/uL; Monocyte% 5.1 % (0-10); NRBC Flagged by Analyzer 0 % (0-5); Neutrophil # 5.24 X10^3/uL (2.7-7.7); Neutrophil % 70.6 % (47-70); Platelet Count 272 K/mm3 (150-450); RBC Distribution Width CV 12.1 % (11.6-14.6); RBC Distribution Width SD 39.9 fl (35.1-43.9); Red Blood Count 4.32 M/mm3 (4.2-5.4); White Blood Count 7.4 K/mm3 (4.4-11.0)
[2023-08-02 16:20] LABS: D-Dimer Quantitative (DVT/PE) < 0.27 FEU/ug/m (0.27-0.49)
[2023-08-02 16:21] LABS: Anion Gap 7 (5-15); BUN 21 mg/dL (7-18); BUN/Creat Ratio 26.5 RATIO (10-20); Calcium,Total 9.4 mg/dL (8.5-10.1); Chloride 108 mmol/L (98-107); Creatinine, Serum 0.79 mg/dL (0.55-1.02); EST Glomerular Filtration Rate 95 mL/min (>60); Est Glom Filt Rate - Afr Amer 115 mL/min (>60); Estimated Creatinine Clearance 83.57 ml/min; Glucose 75 mg/dL (74-106); Potassium 3.7 mmol/L (3.5-5.1); Sodium Level 138 mmol/L (136-145); Troponin-I HS 4 pg/mL (3.0-54.0)
[2023-08-02 17:22] VITALS: BP 103/71; PULSE 87; RESP 14; O2SAT 100
== END 2023-08-02 17:23 | disposition home or self-care (01) ==
PROVIDERS: Emergency Provider Student in an Organized Health Care Education/Training Program; Visit Provider Student in an Organized Health Care Education/Training Program
DX: R07.9 Chest pain, unspecified (principal); R06.00 Dyspnea, unspecified; F17.200 Nicotine dependence, unspecified, uncomplicated
CPT/HCPCS: 71045; 80048; 84484; 85025; 85379; 93005; 99284; A4216

== ENCOUNTER → 2024-03-18 | Outpatient (CLI) | payer SELFPAY | END | disposition home or self-care (01) | PROVIDERS: Referring Provider Advanced Practice Midwife; Visit Provider Advanced Practice Midwife | DX: N89.8 Other specified noninflammatory disorders of vagina (principal) | CPT/HCPCS: 87070; 87205 ==

== ENCOUNTER → 2024-05-22 | Outpatient (CLI) | payer SELFPAY | END | disposition home or self-care (01) | PROVIDERS: Referring Provider Advanced Practice Midwife; Visit Provider Advanced Practice Midwife | DX: N89.8 Other specified noninflammatory disorders of vagina (principal) | CPT/HCPCS: 87070; 87205 ==

== ENCOUNTER → 2024-06-03 | Outpatient (CLI) | payer SELFPAY ==
--- NOTE | 2024-06-03 09:18 | US_ITS ---
INDICATION: pelvic pain EXAMINATION: Ultrasound US Transvaginal Non-OB TECHNIQUE: Transvaginal (for optimal evaluation of the adnexa) pelvic ultrasound was performed. Grayscale, spectral waveform, and color flow Doppler evaluation of the adnexa. COMPARISON: No pertinent previous for comparison.. FINDINGS: UTERUS: Anteverted. The uterus measures 8.8 x 5.3 x 4.8 cm. There is no uterine mass. The endometrial stripe measures 16.5 in AP diameter , and is diffusely hyperechoic. There are several small cysts within the endometrium. Nabothian cysts also noted. RIGHT OVARY: 3.3 x 2.4 x 2.2 cm. Non-enlarged, normal echogenicity. There is normal arterial inflow and venous outflow present in the right ovary. LEFT OVARY: 3.2 x 2.7 x 2.0 cm. Non-enlarged, normal echogenicity. There is normal arterial inflow and venous outflow present in the left ovary. FREE FLUID: Small amount of fluid is present within the cul-de-sac. US/Transvaginal Non- IMPRESSION: 1. Thickened endometrium at 16.5 mm, consistent with late secretory phase. Several small cysts are present within the endometrium, and nabothian cysts are present within the cervix. No endometrial fluid. 2. Normal appearance of both ovaries without solid or cystic masses or abnormal blood flow. 3. Small amount of free fluid is present in the cul-de-sac. Electronically Signed: Nicolas Pablo MD at 23:20 EST ,
== END | disposition home or self-care (01) ==
PROVIDERS: Referring Provider Advanced Practice Midwife; Visit Provider Advanced Practice Midwife
DX: R10.2 Pelvic and perineal pain (principal)
CPT/HCPCS: 76830

== ENCOUNTER → 2024-07-09 | Outpatient (CLI) | payer SELFPAY ==
[2024-07-09 13:30] LABS: hCG Titer Quant., Serum 8 mIU/mL (1-3)
== END | disposition home or self-care (01) ==
PROVIDERS: Referring Provider Nurse Practitioner Women's Health; Visit Provider Nurse Practitioner Women's Health
DX: O26.859 Spotting complicating pregnancy, unspecified trimester (principal); Z3A.00 Weeks of gestation of pregnancy not specified
CPT/HCPCS: 36415; 84702; 86850; 86900; 86901

== ENCOUNTER → 2024-07-11 | Outpatient (CLI) | payer SELFPAY ==
[2024-07-11 12:38] LABS: hCG Titer Quant., Serum 2 mIU/mL (1-3)
== END | disposition home or self-care (01) ==
LOC: BWCLAB 11:18
PROVIDERS: Nurse Practitioner Women's Health; Referring Provider Obstetrics & Gynecology; Visit Provider Obstetrics & Gynecology
DX: O26.859 Spotting complicating pregnancy, unspecified trimester (principal); Z3A.00 Weeks of gestation of pregnancy not specified
CPT/HCPCS: 36415; 84702

== ENCOUNTER → 2024-10-14 | Outpatient (CLI) | payer SELFPAY ==
[2024-10-14 17:34] LABS: hCG Titer Quant., Serum 54 mIU/mL (<9 non-preg)
== END | disposition home or self-care (01) ==
LOC: BWCLAB 14:36
PROVIDERS: Referring Provider Advanced Practice Midwife; Visit Provider Advanced Practice Midwife
DX: N91.2 Amenorrhea, unspecified (principal)
CPT/HCPCS: 36415; 84702

== ENCOUNTER → 2024-10-16 | Outpatient (CLI) | payer SELFPAY ==
[2024-10-16 19:35] LABS: hCG Titer Quant., Serum 81 mIU/mL (<9 non-preg)
== END | disposition home or self-care (01) ==
LOC: BWCLAB 14:13
PROVIDERS: Referring Provider Advanced Practice Midwife; Visit Provider Advanced Practice Midwife
DX: N91.2 Amenorrhea, unspecified (principal)
CPT/HCPCS: 36415; 84702

== ENCOUNTER → 2024-10-18 | Outpatient (CLI) | payer SELFPAY ==
[2024-10-18 17:24] LABS: hCG Titer Quant., Serum 69 mIU/mL (<9 non-preg)
== END | disposition home or self-care (01) ==
LOC: BWCLAB 14:25
PROVIDERS: Referring Provider Advanced Practice Midwife; Visit Provider Advanced Practice Midwife
DX: N91.2 Amenorrhea, unspecified (principal)
CPT/HCPCS: 36415; 84702

== ENCOUNTER → 2024-10-21 | Outpatient (CLI) | payer SELFPAY ==
[2024-10-21 21:47] LABS: hCG Titer Quant., Serum 26 mIU/mL (<9 non-preg)
== END | disposition home or self-care (01) ==
PROVIDERS: Referring Provider Advanced Practice Midwife; Visit Provider Advanced Practice Midwife
DX: O36.80X0 Pregnancy with inconclusive fetal viability, not applicable or unspecified (principal); Z3A.00 Weeks of gestation of pregnancy not specified
CPT/HCPCS: 36415; 84702

== ENCOUNTER → 2024-11-06 | Outpatient (CLI) | payer SELFPAY ==
[2024-11-06 14:30] LABS: hCG Titer Quant., Serum < 1 mIU/mL (<9 non-preg)
[2024-11-08 10:08] LABS: Anti-Cardiolipin Ab, IgG, Qn < 9 GPL U/mL (0-14); Anti-Cardiolipin Ab, IgM, Qn < 9 MPL U/mL (0-12); Beta-2-Glycoprotein I IgA <9 (0-25); Beta-2-Glycoprotein I IgG <9 (0-20); Beta-2-Glycoprotein I IgM <9 (0-32); Dilute Prothrombin Time (dPT) 35.7 sec (0.0-47.6); Dilute Russell Viper Venom 30.7 sec (0.0-47.0); Interpretation Comment: (.); PTT-LA 35.4 sec (0.0-43.5); dPT Confirm Ratio 0.99 Ratio (0.00-1.34)
== END | disposition home or self-care (01) ==
PROVIDERS: Referring Provider Obstetrics & Gynecology; Visit Provider Obstetrics & Gynecology
DX: O03.9 Complete or unspecified spontaneous abortion without complication (principal); N89.8 Other specified noninflammatory disorders of vagina
CPT/HCPCS: 36415; 84443; 84702; 86146; 86147; 87070; 87205

== ENCOUNTER → 2024-12-24 | Outpatient (CLI) | payer SELFPAY ==
[2024-12-24 13:12] LABS: hCG Titer Quant., Serum 73 mIU/mL (<9 non-preg)
== END | disposition home or self-care (01) ==
LOC: BWCLAB 11:47
PROVIDERS: Visit Provider Advanced Practice Midwife
DX: N91.1 Secondary amenorrhea (principal)
CPT/HCPCS: 36415; 84702

== ENCOUNTER → 2024-12-26 | Outpatient (CLI) | payer SELFPAY ==
[2024-12-26 13:00] LABS: hCG Titer Quant., Serum 165 mIU/mL (<9 non-preg)
== END | disposition home or self-care (01) ==
PROVIDERS: Referring Provider Advanced Practice Midwife; Visit Provider Advanced Practice Midwife
DX: N91.1 Secondary amenorrhea (principal)
CPT/HCPCS: 36415; 84702

== ENCOUNTER 2025-01-04 16:44 | Emergency (ER) | payer SELFPAY ==
[2025-01-04 16:46] VITALS: BP 101/77; PULSE 104; RESP 18; TEMP 36.4; O2SAT 100; BMI 21.0
--- NOTE | 2025-01-04 17:10 | US_ITS ---
PROCEDURE: TRANSVAGINAL W/PREG US 01/04/2025 REASON FOR EXAM: SPOTTING. Last menstrual period 11/23/2024. Beta hCG pending. Last beta hCG on 12/25: 165. TECHNIQUE: Transvaginal ultrasound with Doppler. COMPARISON: Pelvic ultrasound 06/06/2024. FINDINGS: Number of Gestational Sacs: 1 Gestational Sac Shape: Normal Yolk Sac: Present and unremarkable. Placenta: Presently not well-visualized Amniotic Fluid Volume: Subjectively normal for gestational age. heart rate: Not detected. Uterine Abnormalities: Maternal uterus is unremarkable. Ovaries / Adnexa: Both maternal ovaries are visualized and unremarkable. DIMENSIONS: Parameter Measurement / EGA Pana Rump Length: Nonvisualized Gestational Sac: 0.74 cm/5 weeks 3 days Yolk Sac: 0.2 cm ESTIMATED GESTATIONAL AGE: By Ultrasound: 5 weeks 3 days By LMP: 6 weeks 0 days ESTIMATED DATE OF DELIVERY: By Ultrasound: 09/03/2025 By LMP: 08/30/2025 US/Transvaginal w/Preg US IMPRESSION: UNREMARKABLE FIRST TRIMESTER ULTRASOUND. Reading Location: [id number]
[2025-01-04 17:11] LABS: Mucous, Urine 0 SEEN /hpf (<or=2+); Red Blood Cells-Urine 0 SEEN /hpf (0-5); Squamous Epithelial Cells - UA 0 SEEN /hpf (5-10); White Blood Cells 0 SEEN /hpf (0-5)
--- NOTE | 2025-01-04 17:11 | ED.VIS.FEGU ---
HPI HPI - Female History of Present Illness Chief Complaint: Vag Bld, Preg Narrative Narrative: Patient is a G5, P2 with 2 miscarriages follows with [facility] who presents to the emergency department chief complaint of vaginal spotting. Patient states that over the past few months she has had miscarriages and noted that she had spotting starting late last night early this morning. States that she is having some urinary frequency as well but states that she feels that this could be related to the . Patient states that she did have intercourse the night before. She states that she reach out to her [facility]PERATOR [facility]ULATOR and given her recent miscarriages they advised her to come to the emergency department to be evaluated. Patient denies abdominal pain. [facility] Medical History Vaginal delivery Anemia examination following vaginal delivery Anemia affecting Tetanus, diphtheria, and acellular pertussis (Tdap) vaccination declined No significant medical problems (~11/06/24) Home Medications ?Medication ?Instructions ?Recorded ?Last Taken ?Type multivitamin no.47-iron fum 27 1 cap PO DAILY 10/14/20 04/01/23 08:00 History mg-folate no.1 1 mg-dha 300 mg 1 cap capsule (PNV-DHA) Allergy/AdvReac Type Severity Reaction Status Date / Time No Known Allergies Allergy Verified 01/04/25 16:46 Family History Grandmother Cancer Grandfather Hypertension Surgical History No significant past surgical history Social History adopted: No household members: spouse and children housing: house number of children: 2 current occupational status: unemployed pets and animals: No history of recent travel: No sexually active: Yes Smoking Status: Never smoker second hand exposure: No alcohol intake: current alcohol intake frequency: holidays/special occasions only details: not while substance use type: does not use diet: gluten free and lactose free well-balanced diet: daily or most days caffeine: No eating out: 1-3 times/week during the past year weight has: decreased > 10 lbs what type of physical activity do you participate in: none martin/worship: Temple seatbelt use: always do you feel safe at home: Yes additional social history: - Lang ([place]az[place]) ROS ROS ED ROS Narrative Constitutional: Denies fevers, chills, headaches Abdomen: Denies abdominal pain vomiting diarrhea : Complains of vaginal spotting as noted above as well as increased frequency of urination denies any painful urination Neurological: Denies numbness,'s, weakness, tingling Musculoskeletal: Denies back pain Skin: Denies any rashes or lesions EXAM Physical Exam Narrative Exam Narrative: General: Patient lying in bed rest comfortably did not appear to be acute distress Head: Atraumatic, normocephalic Eyes: PERRL bilaterally, EOMI bilaterally, no conjunctival injection noted Neck: Soft, supple, trachea midline Cardiovascular: Patient tachycardic with a regular rhythm Respiratory: Clear to auscultation bilaterally Abdomen: Soft, nondistended, no tenderness palpation no rebound or guarding on exam Extremities: +5/5 strength noted in the bilateral upper and lower extremities Neurological: Patient follow commands knew that she was at [facility] the year is 2024 Skin: Warm, dry, intact no rashes lesions noted Const Vital Signs: 01/04/25 16:46 01/04/25 18:46 Temperature 97.6 F L Temperature Source Temporal Pulse Rate 104 H 65 Respiratory Rate 18 16 Blood Pressure 101/77 100/80 Blood Pressure Mean 85 86 Pulse Ox 100 99 Oxygen Delivery Method Room Air MDM MDM MDM Narrative Medical decision making narrative: Patient is a 24-year-old female who presents to the emergency department with a chief complaint of vaginal spotting and is currently 6 weeks . Patient has not followed up with OB in the outpatient setting yet for this and has not had an ultrasound. Patient denies any history of ectopic pregnancies. On the differential diagnose includes but not limited to ectopic , intrauterine , UTI, spotting after intercourse. Once workup is obtained reviewed she will be reevaluated. Patient CBC reviewed showed no evidence leukocytosis white blood count normal at 7.4, hemoglobin 12.3, platelet count 262. Patient sodium was 139, potassium normal at 3.7, creatinine was 0.77. Patient AST and ALT are 30 and 34 respectively. Patient's hCG quant was 7362, urinalysis reviewed and showed no evidence of infection. Patient's ultrasound reviewed and showed unremarkable first trimester ultrasound there is a yolk sac that is present and unremarkable no heart detected this is likely secondary to her being 5 weeks and 3 days. I reached out to on-call Dr. La [employer] and spoke with him and he advised to have her follow-up in the outpatient setting. She is advised to return with worsening symptoms and concerns. She is agreeable this plan all question concerns answered she is discharged home in stable condition. Lab Data Labs: Laboratory Results - last 24 hr 01/04/25 01/04/25 17:04 17:45 WBC 7.4 RBC 3.97 L Hgb 12.3 Hct 35.3 L MCV 88.9 MCH 31.0 MCHC 34.8 RDW Std Deviation 41.8 RDW Coeff of Alex 12.8 Plt Count 262 MPV 10.0 Immature Gran % (Auto) 0.100 Neut % (Auto) 64.0 Lymph % (Auto) 26.2 Real % (Auto) 7.7 Eos % (Auto) 1.6 Baso % (Auto) 0.4 Absolute Neuts (auto) 4.8 Absolute Lymphs (auto) 1.95 Nucleated RBC % 0 Sodium 139 Potassium 3.7 Chloride 105 Carbon Dioxide 24.3 Anion Gap 10 BUN 14 Creatinine 0.77 Estim Creat Clear Calc 84.28 Est GFR (MDRD) Non-Af 109 BUN/Creatinine Ratio 18.0 Glucose 87 Calcium 9.6 Total Bilirubin 0.71 AST 30 ALT 34 Alkaline Phosphatase 46 Total Protein 7.3 Albumin 4.6 Globulin 2.7 Albumin/Globulin Ratio 1.7 HCG, Quant 7362 H Serum , Qual Cancelled Urine Color Straw Urine Clarity Clear Urine pH 7.0 Ur Specific [place] 1.005 Urine Protein Negative Urine Glucose (UA) Normal Urine Ketones Negative Urine Occult Blood Negative Urine Nitrite Negative Urine Bilirubin Negative Urine Urobilinogen Normal Ur Leukocyte Esterase Negative Urine RBC 0 SEEN Urine WBC 0 SEEN Ur Squamous Epith Cells 0 SEEN Urine Bacteria RARE Urine Mucus 0 SEEN Blood Type A POSITIVE Radiography Diagnostic Testing: Clinical Impression(s) from Imaging Studies Obstetrics Ultrasound 01/04/25 17:10 IMPRESSION: UNREMARKABLE FIRST TRIMESTER ULTRASOUND. Reading Location: [id number] Discharge Plan Triage Chief Complaint: Vag Bld, Preg ED Provider: Oneal Chao Dx/Rx/DC Orders Clinical Impression: Vaginal bleeding affecting early Prescriptions: No Action PNV-DHA 27 mg iron-1 mg -300 mg capsule 1 cap PO DAILY Primary Care Provider: Care Physician,No Primary Referrals: Care Physician,No Primary [Primary Care Provider] - Activity Restrictions/Additional Instructions: Follow-up with your [facility]PER[facility]ATOR in the outpatient setting. Return with worsening symptoms or other concerns. Your ultrasound did not show any acute abnormalities there was a visualized yolk sac in your uterus. Print Language: Stateless Disposition Disposition: Home, Self Care
--- OUTSIDE RECORDS SUMMARY | 2025-01-04 17:14 | XMS RPT_ITS | CCD ---
Author Organization [facility] Care Team Providers Care Internet Assessor Name Role Phone Care Physician, No Primary Primary Care Provider Unavailable Care Physician, No Primary Referring Provider Un available YUE Andrade Attending Provider [phone] Dr. Nelly To Attending Provider 1(330 ) Care Physician, No Primary Primary Care Provider Unavailable Care Physician, No Primary Referring Provider Un available Dr. Nelly To Attending Provider 1(330 ) Dr. Lindsey Jordan Attending Provider [phone] YUE Pace Attending Provider 1(330) Care Physician, No Primary Primary Care Provider Unavailable Care Physician, No Primary Referring Provider Un available YUE Andrade Attending Provider [phone] Jackelin ENGINEERING DOCUMENT CONTROL CLERK, ENGINEERING DOCUMENT CONTROL CLERK-Gentry Reddy Attending Provider 1(330 ) Care Physician, No Primary Primary Care Provider Unavailable Care Physician, No Primary Referring Provider Un available Care Physician, No Primary Primary Care Provider Unavailable Care Physician, No Primary Referring Provider Un available YUE Pace Attending Provider 1(330) Dr. Nelly To Attending Provider 1(330 ) Dr. Lindsey Jordan Attending Provider 1([phone]) Dr. Nelly To Referring Provider 1(330 ) Dr. Nelly To Other Provider [phone] YUE Pace Referring Provider 1(330) YUE Pace Other Provider [phone] YUE Pace Admit Provider [phone] Care Physician, No Primary Primary Care Provider Unavailable YUE Pace Admit Provider [phone] YUE Pace Other Provider 1(330) Dr. Nelly To Attending Provider 1(330 ) Care Physician, No Primary Referring Provider Un available YUE Pace Attending Provider 1(330) KIERSTEN WELT SEWER-COMB WINDER, PAZ Attending Unavaila ble PHYSICIAN, NONE Primary Care Unavailable Care Physician, No Primary Primary Care Provider Unavailable Jackelin ENGINEERING DOCUMENT CONTROL CLERK-C, Maureen Attending Provider 1(330) [place] ENGINEERING DOCUMENT CONTROL CLERK-C, Maureen Referring Provider [phone] Zuleika TRIANA, Dr. Villegas Attending Provider Dr. Nelly To MD Referring Provider [phone] Care Physician, No Primary Referring Provider Un available Dr. Lindsey Jordan DO Attending Provider Sanjeev TURNER, Jhoana Attending Provider 1(330) Sanjeev TURNER, Jhoana Referring Provider 1(330) Care Physician, No Primary Primary Care Provider Unavailable Zuleika TRIANA, Dr. Villegas Attending Provider [phone] Dr. Nelly To MD Referring Provider Care Physician, No Primary Primary Care Provider Unavailable Care Physician, No Primary Referring Provider Un available Care Physician, No Primary Primary Care Unava ilable Jhoana Pace Attending Unavailable Jhoana Pace Referring Unavailable Nelly To Attending Unavailable Care Physician, No Primary Primary Care Unava ilable Care Physician, No Primary Referring Unava ilable Care Physician, No Primary Referring Unava ilable Care Physician, No Primary Primary Care Unava ilable Jhoana Pace Attending Unavailable Care Physician, No Primary Referring Unava ilable Care Physician, No Primary Primary Care Unava ilable Jhoana Pace Attending Unavailable Lindsey Jordan Attending Unavailabl e Care Physician, No Primary Primary Care Unava ilable Care Physician, No Primary Referring Unava ilable Care Physician, No Primary Primary Care Unava ilable Jhoana Pace Referring Unavailable Jhoana Pace Attending Unavailable Care Physician, No Primary Primary Care Unava ilable Jhoana Pace Attending Unavailable Jhoana Pace Referring Unavailable Care Physician, No Primary Primary Care Unava ilable Jhoana Pace Attending Unavailable Jhoana Pace Referring Unavailable Care Physician, No Primary Primary Care Unava ilable Jhoana Pace Attending Unavailable Jhoana Pace Referring Unavailable [place] ENGINEERING DOCUMENT CONTROL CLERK, Maureen Referring Unavailable Jackelin ENGINEERING DOCUMENT CONTROL CLERK, Maureen Attending Unavailable Care Physician, No Primary Primary Care Unava ilable Nelly To Referring Unavailable Nelly To Attending Unavailable Care Physician, No Primary Primary Care Unava ilable Care Physician, No Primary Primary Care Unava ilable Jhoana Pace Attending Unavailable Jhoana Pace Referring Unavailable Care Physician, No Primary Primary Care Unava ilable Jhoana Pace Attending Unavailable Jhoana Pace Referring Unavailable Care Physician, No Primary Primary Care Unava ilable Jhoana Pace Attending Unavailable Jhoana Pace Referring Unavailable Nelly To Referring Unavailable Nelly To Attending Unavailable Care Physician, No Primary Primary Care Unava ilable Care Physician, No Primary Primary Care Unava ilable Jhoana Pace Attending Unavailable Jhoana Pace Referring Unavailable Care Physician, No Primary Primary Care Unava ilable Jhoana Pace Attending Unavailable Medications Current Medications Medication Drug Class(es) Dates Sig (Normalized) Sig (Original) Multivit 08-Aqrh-Oyqyyi 1-Dha (Pnv-Dha) 27 mg iron-1 mg -300 mg capsule (17 sources) Start: 10-14-2020 Multivit 41-Iyjp-Gsbqcj 1-Dha (Pnv-Dha) 27 mg iron-1 mg -300 mg capsule Active 1 NMA PO DAILY October 14, 2020 12:00am Start: 10-14-2020 take 1 capsule by [facility] once daily Multivit 95-Movr-Frfyxv 1-Dha (Pnv-Dha) 27 mg iron-1 mg -300 mg capsule Active 1 CAP PO DAILY October 14, 2020 12:00am Start: 10-14-2020 take 1 capsule by [facility] once daily Multivit 99-Gomp-Fknpvd 1-Dha (Pnv-Dha) 27 mg iron-1 mg -300 mg capsule Active 1 CAP PO DAILY October 13, 2020 11:00pm Completed/Discontinued Medications Medication Drug Class(es) Dates Sig (Normalized) Sig (Original) Dietary Supplement (11 sources) Start: 06-20-2022 End: 08-16-2022 Dietary Supplement Discontinued CAP PO June 20, 2022 1:00am August 16, 2022 10:05am Start: 06-20-2022 End: 08-16-2022 Dietary Supplement Discontin ued CAP PO June 20, 2022 12:00am August 16, 2022 9:05am Dietary Supplement capsule (6 sources) Start: 06-20-2022 End: 08-16-2022 Dietary Supplement capsule Discontinued NMA PO June 20, 2022 1:00am August 16, 2022 10:05am doxycycline hyclate 100 mg oral capsule (6 sources) Tetracycline-class Drug Start: 03-18-2024 End: 05-22-2024 take 1 capsule by mouth twice daily Doxycycline Hyclate 100 mg capsule Discontinued 100 mg PO TWICE A DAY March 18, 2024 12:00am May 22, 2024 12:40pm ferrous sulfate 325 mg oral tablet (13 sources) Start: 01-27-2023 End: 05-16-2023 take 1 tablet by mouth once daily Ferrous Sulfate (Feosol) 325 mg (65 mg iron) tablet Discontinued 325 mg PO DAILY January 27, 2023 12:00am May 16, 2023 11:11am metroNIDAZOLE 500 mg oral tablet (7 sources) Nitroimidazole Antimicrobial Start: 11-12-2024 End: 11-19-2024 take 1 tablet by mouth twice daily Metronidazole 500 mg tablet Discontinued 500 mg PO TWICE A DAY 10 02November 12, 2024 12:00am November 18, 2024 12:00am November 19, 2024 12:06am Start: 05-27-2024 End: 08-01-2024 take 1 tablet by mouth twice daily Metronidazole 500 mg tablet Discontinued 500 mg PO TWICE A DAY May 27, 2024 12:00am August 01, 2024 4:37pm Problems Active Problems Problem Classification Problem Date Documented Date Episodic/Chronic Menstrual disorders (8 sources) Amenorrhea; Translations: [Amenorrhea, unspecified] Onset: 10-24-2024 10-14-2024 Chronic Comment on above: HCGx2 Other complications of (20 sources) Anemia of ; Translations: [Anemia complicating , unspecified trimester] 08-16-2022 Chronic Comment on above: 01/04 started on addit ional iron supplement. redraw cbc in 4 weeks. order placed. oral iron. Recheck C BC in 4 weeks. Other complications of (20 sources) Anemia complicating , unspecified trimester; Translations: [Anemia of mother, unspecified as to episode of care or not applicable] 01-11-2023 Chronic Other complications of (17 sources) High risk ; Translations: [Supervision of high risk , unspecified, unspecified trimester] 08-16-2022 Episodic Comment on above: PRR , KHADRA 3,girl ALEM Booker, Lang Other complications of (17 sources) Vacuum assisted vaginal delivery; Translations: [Outcome of delivery, unspecified] 06-01-2021 Episodic Comment on above: SM 41 induction of l abor postdates darnell Booker recurrent variables Other complications of (20 sources) Supervision of high risk , unspecified, unspecified trimester; Translations: [Supervision of unspecified high-risk ] 09-01-2022 Episodic Other complications of (15 sources) Abdominal pain in ; Translations: [Other specified related conditions, unspecified trimester] 01-11-2023 Episodic Comment on above: GB US and CMP ordere d. Other complications of (20 sources) Other specified related conditions, unspecified trimester; Translations: [Other specified complications of , antepartum condition or complication] 01-11-2023 Episodic Other complications of (13 sources) Fundal height high for dates; Translations: [Uterine size-date discrepancy, unspecified trimester] 02-21-2023 Episodic Other complications of (12 sources) Uterine size-date discrepancy, unspecified trimester; Translations: [Uterine size date discrepancy, antepartum condition or complication] 02-21-2023 Episodic Other complications of (6 sources) Spotting per vagina in ; Translations: [Spotting complicating , unspecified trimester] 07-09-2024 Episodic Other complications of (1 source) with inconclusive viability, not applicable or unspecified; Translations: [ with inconclusive viability, not applicable or unspecified] Onset: 10-26-2024 Episodic Other diseases of kidney and ureters (17 sources) Hydronephrosis; Translations: [Unspecified hydronephrosis] 04-29-2021 Episodic Comment on above: pain has resolved. Other female genital disorders (4 sources) Dyspareunia; Translations: [Dyspareunia] 2024 Chronic Comment on above: pfpt consult Other female genital disorders (8 sources) Vaginal discharge; Translations: [Other specified noninflammatory disorders of vagina] 08-19-2024 Episodic Other female genital disorders (5 sources) Recurrent loss; 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] Onset: 2024 2024 Episodic Other female genital disorders (1 source) Other specified noninflammatory disorders of vagina; Translations: [Other specified noninflammatory disorders of vagina] Onset: 2024 Episodic Other and delivery including normal (20 sources) Patient encounter status; Translations: [Encounter for supervision of normal , unspecified, unspecified trimester] 06-01-2021 Episodic Comment on above: KW 41.0 Girl plan expectant manag ement for , Cytotec pitocin/AROM if needed.Pain management: Negative. GBS positive plan IV PCN.Management of any complications: NoneI have reviewed the [facility] and made any clinically relevant updates. PRR KHADRA: darnell Booker Spouse: Lang davis carrier, nt d, and genetic testing; nl anatomy, gbs neg GBS negative. declin ed genetic. LR carrier testing, nl anatomy, nl growth 33%, EFW 2738g(03/01) Spontaneous (12 sources) with abortive outcome; Translations: [Complete or unspecified spontaneous without complication] Onset: 11-11-2024 08-01-2024 Episodic Past or Other Problems Problem Classification Problem Date Documented Da te Episodic/Chronic Abdominal pain (20 sources) Pain in pelvis; Translations: [Pelvic and perineal pain] Onset: 06-11-2024 06-20-2022 Episodic Other complications of (1 source) Spotting complicating , unspecified trimester; Translations: [Spotting complicating , unspecified trimester] Onset: 08-19-2024 Episodic Unclassified (20 sources) finding; Translations: [Alteration in well being] 03-14-2023 Comment on above: change in baseline Unclassified (10 sources) Labor finding; Translations: [Active labor] 04-04-2023 Results Test Name Value Interpretation Reference Range Facility Serum human chorionic gonado tropin detection for pregnancyOrdered By: Jhoana Pace on 12-26-2024 HCG ( test) Ql 165 mIU/mL High <9 [facility] Comment on above: Gestational Age0.2-1 Week: 5-50 mIU/mL1-2 Weeks: 50-500 mIU/mL2-3 Weeks: 100-5000 mIU/mL3-4 Weeks: 500-10,000 mIU/mL4-5 Weeks:1000-50,000 mIU/mL5-6 Weeks: 10,000-100,000 mIU/mL6-8 Weeks: 15,000-200,000 mIU/mL2-3 Months:10,000-100,000 mIU/mL hCG Titer Quant., Serumon HCG QUANT. 165 mIU/mL High <9 [facility] Comment on above: Result Comment: Gest ational Age 0.2-1 Week: 5-50 mIU/mL 1-2 Weeks: 50-500 mIU/mL 2-3 Weeks: 100-5000 mIU/mL 3-4 Weeks: 500-10,000 mIU/mL 4-5 Weeks:1000-50,000 mIU/mL 5-6 Weeks: 10,000-100,000 mIU/mL 6-8 Weeks: 15,000-200,000 mIU/mL 2-3 Months:10,000-100,000 mIU/mL Performed By: #### B TS, L700.8000 #### [facility] [address] [place], [address] Serum human chorionic gonado tropin detection for pregnancyOrdered By: Jhoana Pace on 12-24-2024 HCG ( test) Ql 73 mIU/mL High <9 [facility] Comment on above: Gestational Age0.2-1 Week: 5-50 mIU/mL1-2 Weeks: 50-500 mIU/mL2-3 Weeks: 100-5000 mIU/mL3-4 Weeks: 500-10,000 mIU/mL4-5 Weeks:1000-50,000 mIU/mL5-6 Weeks: 10,000-100,000 mIU/mL6-8 Weeks: 15,000-200,000 mIU/mL2-3 Months:10,000-100,000 mIU/mL hCG Titer Quant., Serumon HCG QUANT. 73 mIU/mL High <9 [facility] Comment on above: Result Comment: Gest ational Age 0.2-1 Week: 5-50 mIU/mL 1-2 Weeks: 50-500 mIU/mL 2-3 Weeks: 100-5000 mIU/mL 3-4 Weeks: 500-10,000 mIU/mL 4-5 Weeks:1000-50,000 mIU/mL 5-6 Weeks: 10,000-100,000 mIU/mL 6-8 Weeks: 15,000-200,000 mIU/mL 2-3 Months:10,000-100,000 mIU/mL Performed By: #### B TS, L700.8000 #### [facility] [address] [place], [place], [address] Genital Culture Comprehensiv celia 11-09-2024 VAC Reason for Exam: vag inal discharge No yeast, Neisseria or beta-hemolytic Streptococcus isolated. G. vaginalis (Presumptive) Amount Growth 1+ Normal [facility] Comment on above: Performed By: #### M 100.3200, M100.2000 ####[facility] [address] [place], [place], [address] Anticardiolipin IgG, IgMon 0 11-08-2024 ANTICARDIO IgG < 9 Normal 0-14 [facility] Comment on above: Result Comment: Nega tive: <15 Indeterminate: 15 - 20 Low-Med Positive: >20 - 80 High Positive: >80 Performed By: #### B JOSE, L700.8000 #### [facility] [address] [place], [place], [address] Anticardio.IgM < 9 Normal 0-12 [facility] Comment on above: Result Comment: Nega tive: <13 Indeterminate: 13 - 20 Low-Med Positive: >20 - 80 High Positive: >80 Performed at: [address] [id number] Dealer Account Manager: Kory Brar MD, Phone: [phone] Performed at: [facility] [address] [id number] Dealer Account Manager: Mendoza Carlos PhD, Phone: [phone] Performed By: #### Yasmeen GARCIA, L700.8000 #### [facility] [address] [place], [place], [id number] Beta-2 Glycoprot IgG, A, 11-08-2024 B2 GLYCO I IGA <9 Normal 0-25 [facility] Comment on above: Result Comment: Resu lt Units: GPI IgA units The reference interval reflects a 3SD or 99th percentile interval, which is thought to represent a potentially clinically significant result in accordance with the International Consensus Statement on the classification criteria for definitive antiphospholipid syndrome (APS). J Thromb Haem 2006;4:295-306. Performed By: #### B JOSE, L700.8000 #### [facility] [address] [place], [place], [address] B2 GLYCO I IGG <9 Normal 0-20 [facility] Comment on above: Result Comment: Resu lt Units: GPI IgG units The reference interval reflects a 3SD or 99th percentile interval, which is thought to represent a potentially clinically significant result in accordance with the International Consensus Statement on the classification criteria for definitive antiphospholipid syndrome (APS). J Thromb Haem 2006;4:295-306. Performed By: #### Yasmeen GARCIA, L700.8000 #### [facility] [address] [place], [place], [address] B2 GLYCO I IGM <9 Normal 0-32 [facility] Comment on above: Result Comment: Resu lt Units: GPI IgM units The reference interval reflects a 3SD or 99th percentile interval, which is thought to represent a potentially clinically significant result in accordance with the International Consensus Statement on the classification criteria for definitive antiphospholipid syndrome (APS). J Thromb Haem 2006;4:295-306. Performed By: #### B JOSE, L700.8000 #### [facility] [address] [place], [place], [id number] Lupus Anticoagulant Compon 0 11-08-2024 aPTT Coag (Bld) [Time] 35.4 s Normal 0.0-43.5 [facility] Comment on above: Performed By: #### B JOSE L700.8000 #### [facility] [address] [place], [address] DILUTE PT (dPT) 35.7 sec Normal 0.0-47.6 [facility] Comment on above: Performed By: #### B TS, L700.8000 #### [facility] [address] [place], [address] dPT Conf. Ratio 0.99 Ratio Normal 0.00-1.34 [facility] Comment on above: Performed By: #### B TS, L700.8000 #### [facility] [address] [place], [address] DRVVT 30.7 sec Normal 0.0-47.0 [facility] Comment on above: Performed By: #### B TS, L700.8000 #### [facility] [address] [place], [address] Interpretation Comment: Normal . [facility] Comment on above: Result Comment: No l upus anticoagulant was detected. Performed By: #### B TS, L700.8000 #### [facility] [address] [place], [address] THROMBIN TIME 20.0 sec Normal 0.0-23.0 [facility] Comment on above: Performed By: #### B TS, L700.8000 #### [facility] [address] [place], [address] Beta 2 glycoprotein 1 IgA Ql (S)Ordered By: Nelly To on 2024 Samo-eugj-9-Glycoprotei n I IgA Ab <9 0-25 [facility] Comment on above: Result Units: GPI Ig A unitsThe reference interval reflects a 3SD or 99th percentileinterval, which is thought to represent a potentiallyclinically significant result in accordance with theInternational Consensus Statement on the classificationcriteria for definitive antiphospholipid syndrome (APS). JThromb Haem 2006;4:295-306. Beta 2 glycoprotein 1 IgG Ql (S)Ordered By: Nelly To on 2024 Tojm-yglu-5-Glycoprotei n I IgG Ab <9 0-20 [facility] Comment on above: Result Units: GPI Ig G unitsThe reference interval reflects a 3SD or 99th percentileinterval, which is thought to represent a potentiallyclinically significant result in accordance with theInternational Consensus Statement on the classificationcriteria for definitive antiphospholipid syndrome (APS). JThromb Haem 2006;4:295-306. Beta 2 glycoprotein 1 IgM Ql (S)Ordered By: Nelly To on 2024 Qbsa-cmfj-1-Glycoprotei n I IgM Ab <9 0-32 [facility] Comment on above: Result Units: GPI Ig M unitsThe reference interval reflects a 3SD or 99th percentileinterval, which is thought to represent a potentiallyclinically significant result in accordance with theInternational Consensus Statement on the classificationcriteria for definitive antiphospholipid syndrome (APS). JThromb Haem 2006;4:295-306. Cardiolipin IgG IA Qn (S)Ord ered By: Nelly To on 2024 Anti-Cardiolipin IgG Antibody < 9 GPL U/mL 0-14 [facility] Comment on above: Negative: <15 Indete rminate: 15 - 20 Low-Med Positive: >20 - 80 High Positive: >80 Dilute Fidencio's viper venom timeOrdered By: Nelly To on 2024 dRVVT Coag (PPP) [Time] 30.7 s 0.0-47.0 [facility] Dilute prothrombin time rati o confirmationOrdered By: Nelly To on 2024 Prothrombin Time Ratio 0.99 Ratio 0.00-1.34 [facility] Genital cultureOrdered By: Michaela To on 2024 Genital Culture G. vaginalis (Presumptive) Abnormal [facility] Source specific culture G. vaginalis (Presumptive) Abnormal [facility] Gram Stainon 2024 GS Reason for Exam: vag inal discharge Gram Stain Rare White Blood Cells 2+ Gram variable jaden No Gram negative diplococci Score =6 Interpretation: 0-3 Normal, 4-6 Intermediate, 7-10 Positive BV * This is an amended result. * A prior result that was reported as final has been changed. 11/07/24 1524 by HANH Normal [facility] Comment on above: Performed By: #### B TS, L700.8000 #### [facility] [address] [place], [place], [address] Gram stainOrdered By: Nelly To on 2024 Microscopic observation Gram stain Nom (Unsp spec) [facility] HCG ( test) QlOrder ed By: Nelly To on 2024 Human Chorionic Gonadotropin, Quant < 1 mIU/mL <9 [facility] Comment on above: Gestational Age0.2-1 Week: 5-50 mIU/mL1-2 Weeks: 50-500 mIU/mL2-3 Weeks: 100-5000 mIU/mL3-4 Weeks: 500-10,000 mIU/mL4-5 Weeks:1000-50,000 mIU/mL5-6 Weeks: 10,000-100,000 mIU/mL6-8 Weeks: 15,000-200,000 mIU/mL2-3 Months:10,000-100,000 mIU/mL Interpretation of lupus anti coagulant assayOrdered By: Nelly To on 2024 Lupus Anticoagulant Interpretation Comment: . [facility] Comment on above: No lupus anticoagula nt was detected. Lupus anticoagulant neutrali zation dilute phospholipid time in platelet poor plasmaOrdered By: Nelly To on 2024 Prothrombin Time Diluted 35.7 sec 0.0-47.6 [facility] Lupus anticoagulant-sensitiv e activated partial thromboplastin timeOrdered By: Nelly To on 2024 Lupus Anticoagulant APTT 35.4 sec 0.0-43.5 [facility] Learning Designer Office Visit Reporton 2024 Learning Designer Office Visit Report [facility] [address], [address] [place] [address] OFFICE VISIT Date of Service: 11/06/24 MR#: [id number] Acct: [id number] Name: MEKHI SOTO Rep #: [id number] 5 : 2000 Provider: Dr. Nelly grady MD Age/Sex: 24/F Location: [facility] Status: Signed Intake Vital Signs 08/01/24 15:39 11/06/24 08:44 Height 5 ft 1 in 5 ft 1 in Weight: 108 lb 6 oz 108 lb 6 oz BMI 20.5 20.5 BP 114/76 Intake Visit Reasons: fu miscarriages Certified Veterinary Technician Required: No Is patient in pain?: No Allergies No Known Allergies Allergy (Verified 11/06/24 08:42) Medications ???Medication ???Instructions ???Recorded ???Confirmed ???Type multivitamin no.47-iron fum 27 1 cap PO DAILY 10/14/20 11/06/24 History mg-folate no.1 1 mg-dha 300 mg capsule (PNV-DHA) Post menopausal: No : No PFSH Medical History (Updated 11/06/24 @ 09:[address] Nelly To MD) Vaginal delivery Anemia examination following vaginal delivery Anemia affecting Tetanus, diphtheria, and acellular pertussis (Tdap) vaccination declined No significant medical problems ( 11/06/24) Surgical History No significant past surgical history Family History Grandmother Cancer Grandfather Hypertension Social History adopted: No household members: spouse and children housing: house number of children: 2 current occupational status: unemployed pets and animals: No history of recent travel: No sexually active: Yes Smoking Status: Never smoker second hand exposure: No alcohol intake: current alcohol intake frequency: holidays/special occasions only details: not while substance use type: does not use diet: gluten free and lactose free well-balanced diet: daily or most days caffeine: No eating out: 1-3 times/week during the past year weight has: decreased > 10 lbs what type of physical activity do you participate in: none martin/zoroastrianism: Anabaptism seatbelt use: always do you feel safe at home: Yes additional social history: - Lang Funes) HPI fu miscarriages Details: MEKHI SOTO is a 24 year old who presents for recurrent miscarriage. she feels like something is off but not quite sure what. she denies any bleeding or cramping now, no new health problems. she is also seeing a healthcare translator. she co dyspareunia also- deep since the of her last daughter. History 4 Elective abortions Hx Para 2 Spontaneous abortions 2 Hx # Term Pregnancies 2 Ectopic pregnancies Hx # Pregnancies Multiple births # of living children 2 Past Pregnancies Del. Date Name GA/Weeks Outcome Route Bth Weight Infant Gen Labor Lgth Anesthesia Del Locatn Provider FOB 05/28/21 River 41 live - full term vacuum 7lbs 8oz Male [facility] Mar canthony 04/02/23 Sadia 41 live - full term Female [facility] K. Wi lliams Delivery Date: 05/28/21 Last Updated by: Chanda Mcdonough IOL VAVD ROS Const Constitutional: Denies fatigue, fever(s), headache(s), increased appetite, poor appetite, weight gain or weight loss Cardio Card: Denies chest pain Resp Resp: Denies cough or dyspnea GI GI: Reports as per HPI; Denies abdominal pain, constipation, nausea or vomiting : Reports as per HPI and vaginal discharge; Denies difficulty voiding, dysuria, nipple discharge, urinary frequency, urinary incontinence, urinary hesitancy, urinary urgency, vaginal dryness, vaginal odor or vaginal pruritus Skin Skin/Breast: Denies change in hair, breast mass, breast pain, breast skin changes or nipple discharge Exam Const General: cooperative, healthy appearing, comfortable, no acute distress and well developed Nutritional Appearance: average body habitus Orientation: alert HENMT Head: normal to inspection and normocephalic Neck Neck: normal visual inspection and trachea midline Thyroid: thyroid normal Resp Effort Inspection: normal respiratory effort GI Inspection: normal to inspection and non-distended Palpation: soft and no hepatosplenomegaly General: bladder normal to palpation External Female Exam: normal external appearance and normal appearance of the urethra Urethra: normal appearance of the urethra, normal palpation and no discharge Speculum Exam - Vagina: normal appearance of the vagina and normal vaginal discharge Speculum Exam - Cervix: normal appearance of the cervix and nontender Bimanual Exam- Vagina Uterus: normal bimanual exam, uterine size normal, bladder normal to palpation, uterine shape normal, No tender, uterine mobility normal, consistency no (more content not included)... Normal [facility] Serum beta 2 glycoprotein 1 IgA antibody detectionOrdered By: Nelly To on 2024 Beta 2 glycoprotein 1 IgA Ql (S) <9 0-25 [facility] Comment on above: Result Units: GPI Ig A unitsThe reference interval reflects a 3SD or 99th percentileinterval, which is thought to represent a potentiallyclinically significant result in accordance with theInternational Consensus Statement on the classificationcriteria for definitive antiphospholipid syndrome (APS). JThromb Haem 2006;4:295-306. Serum beta 2 glycoprotein 1 IgG antibody detectionOrdered By: Nelly To on 2024 Beta 2 glycoprotein 1 IgG Ql (S) <9 0-20 [facility] Comment on above: Result Units: GPI Ig G unitsThe reference interval reflects a 3SD or 99th percentileinterval, which is thought to represent a potentiallyclinically significant result in accordance with theInternational Consensus Statement on the classificationcriteria for definitive antiphospholipid syndrome (APS). JThromb Haem 2006;4:295-306. Serum beta 2 glycoprotein 1 IgM antibody detectionOrdered By: Nelly To on 2024 Beta 2 glycoprotein 1 IgM Ql (S) <9 0-32 [facility] Comment on above: Result Units: GPI Ig M unitsThe reference interval reflects a 3SD or 99th percentileinterval, which is thought to represent a potentiallyclinically significant result in accordance with theInternational Consensus Statement on the classificationcriteria for definitive antiphospholipid syndrome (APS). JThromb Haem 2006;4:295-306. Serum cardiolipin IgG antibo dy assay by immunoassay (units/volume)Ordered By: Nelly To on 2024 Cardiolipin IgG IA Qn (S) < 9 GPL U/mL 0-14 [facility] Comment on above: Negative: <15 Indete rminate: 15 - 20 Low-Med Positive: >20 - 80 High Positive: >80 Serum cardiolipin IgM antibo dy assayOrdered By: Nelly To on 2024 Anti-Cardiolipin IgM Antibody < 9 MPL U/mL 0-12 [facility] Comment on above: Negative: <13 Indete rminate: 13 - 20 Low-Med Positive: >20 - 80 High Positive: >80Performed at: [facility] [address] [id number] Director: Kory Brar MD, Phone: [phone] at: [facility] [id number] Director: Mendoza Carlos PhD, Phone: [phone] Serum human chorionic gonado tropin detection for pregnancyOrdered By: Nelly To on 2024 HCG ( test) Ql < 1 mIU/mL <9 [facility] Comment on above: Gestational Age0.2-1 Week: 5-50 mIU/mL1-2 Weeks: 50-500 mIU/mL2-3 Weeks: 100-5000 mIU/mL3-4 Weeks: 500-10,000 mIU/mL4-5 Weeks:1000-50,000 mIU/mL5-6 Weeks: 10,000-100,000 mIU/mL6-8 Weeks: 15,000-200,000 mIU/mL2-3 Months:10,000-100,000 mIU/mL TSH DL <= 0.005 mIU/L QnOrde red By: Nelly To on 2024 Thyroid Stimulating Hormone (TSH) 2.710 uIU/mL 0.300-4.200 [facility] TSH Qn 2.710 uIU/mL 0.300-4.200 [facility] Thrombin timeOrdered By: Jermain To on 2024 Thrombin time Coag (PPP) [Time] 20.0 sec 0.0-23.0 [facility] Thrombin time Coag (PPP) [Ti me]Ordered By: Nelly To on 04-09-2025 Thrombin Time 20.0 sec 0.0-23.0 [facility] Thyroid Stim Hormone (TSH)on 2024 TSH 2.710 uIU/mL Normal 0.300-4.200 [facility] Comment on above: Performed By: #### L 700.8000, L501.9520, L4500.0100, L3410.2000, L3100.8410 #### [facility] [address] [place], [place], [address] dRVVT Aristides (PPP) [Time]Order ed By: Nelly To on 2024 Dilute Fidencio Viper Venom (Lupus) 30.7 sec 0.0-47.0 [facility] hCG Titer Quant., Serumon HCG QUANT. < 1 Normal <9 non-preg [facility] Comment on above: Result Comment: Gest ational Age 0.2-1 Week: 5-50 mIU/mL 1-2 Weeks: 50-500 mIU/mL 2-3 Weeks: 100-5000 mIU/mL 3-4 Weeks: 500-10,000 mIU/mL 4-5 Weeks:1000-50,000 mIU/mL 5-6 Weeks: 10,000-100,000 mIU/mL 6-8 Weeks: 15,000-200,000 mIU/mL 2-3 Months:10,000-100,000 mIU/mL Performed By: #### L 700.8000, L501.9520, L4500.0100, L3410.1999, L3100.8410 #### [facility] [address] [place], [place], [address] HCG ( test) QlOrder ed By: Jhoana Pace on 10-21-2024 Human Chorionic Gonadotropin, Quant 26 mIU/mL High <9 [facility] Comment on above: Gestational Age0.2-1 Week: 5-50 mIU/mL1-2 Weeks: 50-500 mIU/mL2-3 Weeks: 100-5000 mIU/mL3-4 Weeks: 500-10,000 mIU/mL4-5 Weeks:1000-50,000 mIU/mL5-6 Weeks: 10,000-100,000 mIU/mL6-8 Weeks: 15,000-200,000 mIU/mL2-3 Months:10,000-100,000 mIU/mL Serum human chorionic gonado tropin detection for pregnancyOrdered By: Jhoana Pace on 10-21-2024 HCG ( test) Ql 26 mIU/mL High <9 [facility] Comment on above: Gestational Age0.2-1 Week: 5-50 mIU/mL1-2 Weeks: 50-500 mIU/mL2-3 Weeks: 100-5000 mIU/mL3-4 Weeks: 500-10,000 mIU/mL4-5 Weeks:1000-50,000 mIU/mL5-6 Weeks: 10,000-100,000 mIU/mL6-8 Weeks: 15,000-200,000 mIU/mL2-3 Months:10,000-100,000 mIU/mL hCG Titer Quant., Serumon HCG QUANT. 26 mIU/mL High <9 non-preg [facility] Comment on above: Result Comment: Gest ational Age 0.2-1 Week: 5-50 mIU/mL 1-2 Weeks: 50-500 mIU/mL 2-3 Weeks: 100-5000 mIU/mL 3-4 Weeks: 500-10,000 mIU/mL 4-5 Weeks:1000-50,000 mIU/mL 5-6 Weeks: 10,000-100,000 mIU/mL 6-8 Weeks: 15,000-200,000 mIU/mL 2-3 Months:10,000-100,000 mIU/mL Performed By: #### L 700.8000 #### [facility] [address] [place], [address] HCG ( test) QlOrder ed By: Jhoana Pace on 10-18-2024 Human Chorionic Gonadotropin, Quant 69 mIU/mL High <9 [facility] Comment on above: Gestational Age0.2-1 Week: 5-50 mIU/mL1-2 Weeks: 50-500 mIU/mL2-3 Weeks: 100-5000 mIU/mL3-4 Weeks: 500-10,000 mIU/mL4-5 Weeks:1000-50,000 mIU/mL5-6 Weeks: 10,000-100,000 mIU/mL6-8 Weeks: 15,000-200,000 mIU/mL2-3 Months:10,000-100,000 mIU/mL Serum human chorionic gonado tropin detection for pregnancyOrdered By: Jhoana Pace on 10-18-2024 HCG ( test) Ql 69 mIU/mL High <9 [facility] Comment on above: Gestational Age0.2-1 Week: 5-50 mIU/mL1-2 Weeks: 50-500 mIU/mL2-3 Weeks: 100-5000 mIU/mL3-4 Weeks: 500-10,000 mIU/mL4-5 Weeks:1000-50,000 mIU/mL5-6 Weeks: 10,000-100,000 mIU/mL6-8 Weeks: 15,000-200,000 mIU/mL2-3 Months:10,000-100,000 mIU/mL hCG Titer Quant., Serumon HCG QUANT. 69 mIU/mL High <9 non-preg [facility] Comment on above: Result Comment: Gest ational Age 0.2-1 Week: 5-50 mIU/mL 1-2 Weeks: 50-500 mIU/mL 2-3 Weeks: 100-5000 mIU/mL 3-4 Weeks: 500-10,000 mIU/mL 4-5 Weeks:1000-50,000 mIU/mL 5-6 Weeks: 10,000-100,000 mIU/mL 6-8 Weeks: 15,000-200,000 mIU/mL 2-3 Months:10,000-100,000 mIU/mL Performed By: #### L 700.8000 #### [facility] [address] [place] [address], [address] HCG ( test) QlOrder ed By: Jhoana Pace on 10-16-2024 Human Chorionic Gonadotropin, Quant 81 mIU/mL High <9 [facility] Comment on above: Gestational Age0.2-1 Week: 5-50 mIU/mL1-2 Weeks: 50-500 mIU/mL2-3 Weeks: 100-5000 mIU/mL3-4 Weeks: 500-10,000 mIU/mL4-5 Weeks:1000-50,000 mIU/mL5-6 Weeks: 10,000-100,000 mIU/mL6-8 Weeks: 15,000-200,000 mIU/mL2-3 Months:10,000-100,000 mIU/mL Serum human chorionic gonado tropin detection for pregnancyOrdered By: Jhoana Pace on 10-16-2024 HCG ( test) Ql 81 mIU/mL High <9 [facility] Comment on above: Gestational Age0.2-1 Week: 5-50 mIU/mL1-2 Weeks: 50-500 mIU/mL2-3 Weeks: 100-5000 mIU/mL3-4 Weeks: 500-10,000 mIU/mL4-5 Weeks:1000-50,000 mIU/mL5-6 Weeks: 10,000-100,000 mIU/mL6-8 Weeks: 15,000-200,000 mIU/mL2-3 Months:10,000-100,000 mIU/mL hCG Titer Quant., Serumon HCG QUANT. 81 mIU/mL High <9 non-preg [facility] Comment on above: Result Comment: Gest ational Age 0.2-1 Week: 5-50 mIU/mL 1-2 Weeks: 50-500 mIU/mL 2-3 Weeks: 100-5000 mIU/mL 3-4 Weeks: 500-10,000 mIU/mL 4-5 Weeks:1000-50,000 mIU/mL 5-6 Weeks: 10,000-100,000 mIU/mL 6-8 Weeks: 15,000-200,000 mIU/mL 2-3 Months:10,000-100,000 mIU/mL Performed By: #### L 700.8000 #### [facility] [address] [place], [place], [id number] HCG ( test) QlOrder ed By: Jhoana Pace on 10-14-2024 Human Chorionic Gonadotropin, Quant 54 mIU/mL High <9 [facility] Comment on above: Gestational Age0.2-1 Week: 5-50 mIU/mL1-2 Weeks: 50-500 mIU/mL2-3 Weeks: 100-5000 mIU/mL3-4 Weeks: 500-10,000 mIU/mL4-5 Weeks:1000-50,000 mIU/mL5-6 Weeks: 10,000-100,000 mIU/mL6-8 Weeks: 15,000-200,000 mIU/mL2-3 Months:10,000-100,000 mIU/mL Serum human chorionic gonado tropin detection for pregnancyOrdered By: Jhoana Pace on 10-14-2024 HCG ( test) Ql 54 mIU/mL High <9 [facility] Comment on above: Gestational Age0.2-1 Week: 5-50 mIU/mL1-2 Weeks: 50-500 mIU/mL2-3 Weeks: 100-5000 mIU/mL3-4 Weeks: 500-10,000 mIU/mL4-5 Weeks:1000-50,000 mIU/mL5-6 Weeks: 10,000-100,000 mIU/mL6-8 Weeks: 15,000-200,000 mIU/mL2-3 Months:10,000-100,000 mIU/mL hCG Titer Quant., Serumon HCG QUANT. 54 mIU/mL High <9 non-preg [facility] Comment on above: Result Comment: Gest ational Age 0.2-1 Week: 5-50 mIU/mL 1-2 Weeks: 50-500 mIU/mL 2-3 Weeks: 100-5000 mIU/mL 3-4 Weeks: 500-10,000 mIU/mL 4-5 Weeks:1000-50,000 mIU/mL 5-6 Weeks: 10,000-100,000 mIU/mL 6-8 Weeks: 15,000-200,000 mIU/mL 2-3 Months:10,000-100,000 mIU/mL Performed By: #### L 700.8000 #### [facility] [address] [place], [address] Learning Designer Office Visit Reporton 08-01-2024 Learning Designer Office Visit Report [facility] [address], [address] [place] [address] OFFICE VISIT Date of Service: 08/01/24 MR#: [id number] Acct: [id number] Name: MEKHI SOTO Rep #: [id number] : 2000 Provider: Dr. Lindsey Case DO Age/Sex: 23/F Location: [facility] Status: Signed Intake Vital Signs 05/22/24 12:40 08/01/24 15:39 Height 5 ft 1 in 5 ft 1 in Weight: 107 lb BMI 20.2 BP 123/81 H Intake Visit Reasons: follow up miscarriage Certified Veterinary Technician Required: No Is patient in pain?: No Allergies No Known Allergies Allergy (Verified 08/01/24 15:37) Medications ???Medication ???Instructions ???Recorded ???Confirmed ???Type multivitamin no.47-iron fum 27 1 cap PO DAILY 10/14/20 08/01/24 History mg-folate no.1 1 mg-dha 300 mg capsule (PNV-DHA) Post menopausal: No Patient : No : No PFSH Medical History Vaginal delivery Anemia examination following vaginal delivery Anemia affecting Tetanus, diphtheria, and acellular pertussis (Tdap) vaccination declined No significant medical problems Surgical History No significant past surgical history Family History Grandmother Cancer Grandfather Hypertension Social History (Updated 08/01/24 @ 15:41 by Meaghan Irvin) adopted: No household members: spouse and children housing: house number of children: 2 current occupational status: unemployed pets and animals: No history of recent travel: No sexually active: Yes Smoking Status: Never smoker second hand exposure: No alcohol intake: current alcohol intake frequency: holidays/special occasions only details: not while substance use type: does not use diet: gluten free and lactose free well-balanced diet: daily or most days caffeine: No eating out: 1-3 times/week during the past year weight has: decreased > 10 lbs what type of physical activity do you participate in: none martin/zoroastrianism: Anabaptism seatbelt use: always do you feel safe at home: Yes additional social history: - Lang (Nazia) HPI follow up miscarriage Details: MEKHI SOTO is a 23 year old who presents for follow up complete . Her quant was 8 on 07/09 and decreased to 2 on 07/11. She bled for a week. She now wants to know when it is safte to start trying again and questions about when to expect her next period. History 3 Elective abortions Hx Para 2 Spontaneous abortions 1 Hx # Term Pregnancies 2 Ectopic pregnancies Hx # Pregnancies Multiple births # of living children 2 Past Pregnancies Del. Date Name GA/Weeks Outcome Route Bth Weight Infant Gen Labor Lgth Anesthesia Del Locatn Provider FOB 05/28/21 River 41 live - full term vacuum 7lbs 8oz Male [facility] Mar canthony 04/02/23 Sadia 41 live - full term Female [facility] K. Wi lliams Delivery Date: 05/28/21 Last Updated by: Chanda Mcdonough IOL VAVD ROS Const ROS Unobtainable: All systems reviewed are unremarkable except as noted in H Resp Resp: Reports system reviewed and no additional complaints, except as documented; Denies cough GI GI: Reports as per HPI Psych Psych: Reports system reviewed and no additional complaints, except as documented Exam Const General: cooperative, healthy appearing, comfortable and no acute distress Resp Effort Inspection: normal respiratory effort Skin General: no rashes or lesions noted Psych Appearance: grossly normal Speech and Movement: speech and movement normal Coding Level of Care Code Off vis,est,level 3 Diagnoses Complete O03.9 Assessment and Plan Assessment and Plan (1) Complete : Status: Acute Plan: explained the process of a chemical / early spontaneous and complete . Pt to call us if she misses her period for the month of July. 08/01/24 3086 Date Lindsey Hawkins Signature: Date (if applicable) CC: Normal [facility] HCG ( test) QlOrder ed By: Maureen Benítez on 07-11-2024 Human Chorionic Gonadotropin, Quant 2 mIU/mL <4 [facility] Comment on above: hCG levels with Gest ational AgeGestational Age hCG mIU/mL (IU/L)0.2 - 1 week 5 - 501-2 weeks 50 - 5002-3 weeks 100 - 66423-4 weeks 500 - 823979-1 weeks 1000 - 173617-7 weeks 70656 - 100,0006-8 weeks 77313 - 200,0002-3 months 32797 - 100,000 hCG Titer Quant., Serumon HCG QUANT. 2 mIU/mL Normal 1-3 [facility] Comment on above: Result Comment: hCG levels with Gestational Age Gestational Age hCG mIU/mL (IU/L) 0.2 - 1 week 5 - 50 1-2 weeks 50 - 500 2-3 weeks 100 - 5000 3-4 weeks 500 - 76578 4-5 weeks 1000 - 27604 5-6 weeks 50892 - 100,000 6-8 weeks 81297 - 200,000 2-3 months 73630 - 100,000 Performed By: #### L 700.8000 #### [facility] [address] [place], [place], [id number] HCG ( test) QlOrder ed By: Maureen Benítez on 07-09-2024 Human Chorionic Gonadotropin, Quant 8 mIU/mL High <4 [facility] Type AND Screenon 07-09-2024 Ab SCREEN GEL Negative Normal [facility] Comment on above: Order Comment: PN Performed By: #### B JOSE, L700.8000 #### [facility] [address] [place], [address] hCG Titer Quant., Serumon HCG QUANT. 8 mIU/mL High 1-3 [facility] Comment on above: Performed By: #### B JOSE, L700.8000 #### [facility] [address] [place], [place], [address] Transvaginal Non-on 06-03-2024 Transvaginal Non- [facility] Imaging Services [address] [place], [place] [address] Transvaginal Non- MR#: [id number] Acct: [id number] Name: MEKHI SOTO Rep #: [id number] : 2000 F 23 From: Nicolas Thomas PCP: Care Physician,No Primary Status: REG CLI Study: Transvaginal Non- Date of Exam: Exam# [id number] Ordering Dr: Jhoana Pace [facility] [id number] INDICATION: pelvic pain EXAMINATION: Ultrasound US Transvaginal Non-OB TECHNIQUE: Transvaginal (for optimal evaluation of the adnexa) pelvic ultrasound was performed. Grayscale, spectral waveform, and color flow Doppler evaluation of the adnexa. COMPARISON: No pertinent previous for comparison.. FINDINGS: UTERUS: Anteverted. The uterus measures 8.8 x 5.3 x 4.8 cm. There is no uterine mass. The endometrial stripe measures 16.5 in AP diameter , and is diffusely hyperechoic. There are several small cysts within the endometrium. Nabothian cysts also noted. RIGHT OVARY: 3.3 x 2.4 x 2.2 cm. Non-enlarged, normal echogenicity. There is normal arterial inflow and venous outflow present in the right ovary. LEFT OVARY: 3.2 x 2.7 x 2.0 cm. Non-enlarged, normal echogenicity. There is normal arterial inflow and venous outflow present in the left ovary. FREE FLUID: Small amount of fluid is present within the cul-de-sac. US/Transvaginal Non- IMPRESSION: 1. Thickened endometrium at 16.5 mm, consistent with late secretory phase. Several small cysts are present within the endometrium, and nabothian cysts are present within the cervix. No endometrial fluid. 2. Normal appearance of both ovaries without solid or cystic masses or abnormal blood flow. 3. Small amount of free fluid is present in the cul-de-sac. Electronically Signed: Nicolas Pablo MD at 23:20 EST , CC: YUE Pace; No Primary Care Physician Orthopedics Pediatric Physician: Signed Normal [facility] Genital Culture Comprehensiv celia 05-23-2024 VAC Reason for Exam: vag inal discharge Normal vaginal anay isolated. No yeast, Gardnerella, Neisseria or beta-hemolytic Streptococcus isolated. Normal [facility] Comment on above: Performed By: #### M 100.3200, ####[facility] [id number] [place], [address] Gram Stainon 05-22-2024 GS Reason for Exam: vag inal discharge Gram Stain 4+ Gram variable jaden 1+ Gram positive cocci No Gram negative diplococci 1+ Epithelial cells Rare White Blood Cells Score = 8 Interpretation: 0-3 Normal, 4-6 Intermediate, 7-10 Positive BV Normal [facility] Comment on above: Performed By: #### M 100.3200, ####[facility] [id number] [place], [address] Learning Designer Office Visit Reporton 05-22-2024 Learning Designer Office Visit Report [facility] [address], [address] [place] [address] OFFICE VISIT Date of Service: 05/22/24 MR#: [id number] Acct: [id number] Name: CRISTIANE SOTOPeyton Snow Rep #: [id number] 3 : 2000 Provider: YUE Mirza ams Age/Sex: 23/F Location: [facility] Status: Signed Intake Vital Signs 03/18/24 11:42 05/22/24 12:39 05/22/24 12:40 Height 5 ft 1 in 5 ft 1 in 5 ft 1 in Weight: 106 lb BMI 20.0 BP 111/72 Intake Visit Reasons: PELVIC PRESSURE/ YELLOW DISCHARGE/ BACK PAIN Certified Veterinary Technician Required: No Is patient in pain?: Yes Allergies No Known Allergies Allergy (Verified 05/22/24 12:39) Medications ???Medication ???Instructions ???Recorded ???Confirmed ???Type multivitamin no.47-iron fum 27 1 cap PO DAILY 10/14/20 05/22/24 History mg-folate no.1 1 mg-dha 300 mg capsule (PNV-DHA) PFSH Medical History Vaginal delivery Anemia examination following vaginal delivery Anemia affecting Tetanus, diphtheria, and acellular pertussis (Tdap) vaccination declined No significant medical problems Surgical History No significant past surgical history Family History Grandmother Cancer Grandfather Hypertension Social History adopted: No household members: spouse and children housing: house number of children: 1 current occupational status: unemployed pets and animals: No history of recent travel: No sexually active: Yes Smoking Status: Never smoker second hand exposure: No alcohol intake: current alcohol intake frequency: holidays/special occasions only details: not while substance use type: does not use diet: gluten free and lactose free well-balanced diet: daily or most days caffeine: No eating out: 1-3 times/week during the past year weight has: decreased > 10 lbs what type of physical activity do you participate in: none martin/zoroastrianism: Anabaptism seatbelt use: always do you feel safe at home: Yes additional social history: - Lang Funes) HPI PELVIC PRESSURE/ YELLOW DISCHARGE/ BACK PAIN Details: MEKHI SOTO is a 23 year old who presents for intermittent abdominal pain, yellow/watery vaginal discharge and pain during intercourse, specifically with deep penetration. The pain continues from her previous appt in february, she declines sti screening and US at that time. She did had a genital culture that was negative and a rx for Doxycycline that did improve the sx. She had less discharge and pain after the ATB. Has since started her menses which are irregular and longer in duration. noted increased pelvic pain prior to starting menses. does have deep pelvic discomfort with bowel movements at times and slight irritation with urination. Denies odor or irritation. Female Reproductive History Last Menstrual Period: 05/06/24 Bleeding Duration: 7 History 2 Elective abortions Hx Para 1 Spontaneous abortions Hx # Term Pregnancies 2 Ectopic pregnancies Hx # Pregnancies Multiple births # of living children 2 Past Pregnancies Del. Date Name GA/Weeks Outcome Route Bth Weight Gen Labor Lgth Anesthesia Del Locatn Provider FOB 05/28/21 River 41 live - full term vacuum 7lbs 8oz Male [facility] Mar canthony 04/02/23 41 live - full term Female [facility] Rebecca Wi lliams Delivery Date: 05/28/21 Last Updated by: Chanda Mcdonough IOL VAVD ROS Const Constitutional: Reports system reviewed and no additional complaints, except as documented Cardio Card: Reports system reviewed and no additional complaints, except as documented Resp Resp: Reports system reviewed and no additional complaints, except as documented GI GI: Reports system reviewed and no additional complaints, except as documented : Reports system reviewed and no additional complaints, except as documented; Denies difficulty voiding, dysuria or urinary frequency Skin Skin/Breast: Reports system reviewed and no additional complaints, except as documented Neuro Neuro: Reports system reviewed and no additional complaints, except as documented Psych Psych: Reports system reviewed and no additional complaints, except as documented Exam Const General: cooperative, healthy appearing, comfortable and no acute distress Resp Effort Inspection: normal respiratory effort, able to speak in complete sentences and symmetric chest movement GI Inspection: normal to inspection Palpation: soft External Female Exam: normal external appearance and normal appearance of the urethra Urethra: normal appearance of the urethra Speculum Exa (more content not included)... Normal [facility] Genital Culture Comprehensiv celia 03-19-2024 VAC Reason for Exam: vag inal discharge Normal vaginal anay isolated. No yeast, Gardnerella, Neisseria or beta-hemolytic Streptococcus isolated. Normal [facility] Comment on above: Performed By: #### M 100.8710, M100.1999 ####[facility] [id number] [place], [place], [id number] Gram Stainon 03-18-2024 GS Reason for Exam: vag inal discharge Gram Stain 2+ Epithelial cells 2+ Gram positive cocci No Gram negative diplococci Score = 4 Interpretation: 0-3 Normal, 4-6 Intermediate, 7-10 Positive BV Normal [facility] Comment on above: Performed By: #### M 100.3670, M100.1999 ####[facility] [id number] [place], [address] Learning Designer Office Visit Reporton 03-18-2024 Learning Designer Office Visit Report [facility] [address], [address] [place] [address] OFFICE VISIT Date of Service: 03/18/24 MR#: [id number] Acct: [id number] Name: MEKHI SOTO Rep #: [id number] : 2000 Provider: YUE Mirza ams Age/Sex: 23/F Location: [facility] [place].W Status: Signed with Addenda ADDENDUM by YUE Pace on 03/18/24 at 1310 Assessment and Plan Assessment and Plan (1) Vaginal discharge: Status: Acute Orders: Orders Culture, Genital Comprehensive Today N89.8 - Other specified noninflammatory disorders of vagina Medications: New doxycycline hyclate 100 mg PO BID 14 caps 0RF N89.8 - Other specified noninflammatory disorders of vagina Physical Exam Narrative Upon exam, thin yellow cervical discharge noted. Cervical tenderness on bimanual exam. normal uterine size and shape. 03/18/24 1310 Date Jhoana Pace CNM cc: * Signed Intake Vital Signs 08/02/23 14:13 03/18/24 11:38 03/18/24 11:42 Height 5 ft 1 in 5 ft 1 in 5 ft 1 in Weight: 109 lb 8 oz BMI 20.7 BP 103/65 Intake Visit Reasons: yellow discharge/pressure Certified Veterinary Technician Required: No Allergies No Known Allergies Allergy (Verified 03/18/24 11:42) Medications ???Medication ???Instructions ???Recorded ???Confirmed ???Type multivitamin no.47-iron fum 27 1 cap PO DAILY 10/14/20 03/18/24 History mg-folate no.1 1 mg-dha 300 mg capsule (PNV-DHA) doxycycline hyclate 100 mg capsule 100 mg PO BID #14 caps 03/18/24 03/18/24 Rx Post menopausal: No PFSH Medical History Vaginal delivery Anemia examination following vaginal delivery Anemia affecting Tetanus, diphtheria, and acellular pertussis (Tdap) vaccination declined No significant medical problems Surgical History No significant past surgical history Family History Grandmother Cancer Grandfather Hypertension Social History adopted: No household members: spouse and children housing: house number of children: 1 current occupational status: unemployed pets and animals: No history of recent travel: No sexually active: Yes Smoking Status: Never smoker second hand exposure: No alcohol intake: current alcohol intake frequency: holidays/special occasions only details: not while substance use type: does not use diet: gluten free and lactose free well-balanced diet: daily or most days caffeine: No eating out: 1-3 times/week during the past year weight has: decreased > 10 lbs what type of physical activity do you participate in: none martin/zoroastrianism: Anabaptism seatbelt use: always do you feel safe at home: Yes additional social history: - [employer]) HPI yellow discharge/pressure Details: MEKHI SOTO is a 23 year old who presents for yellow vaginal discharge and abdominal pain and pressure x 3 weeks. Reports sx seemed to have started after having intercourse without a condom. Has taken 3 UPTs which were negative. Was in urgent care and was given an ATB for uti and sx have not gotten better. and has not started menses yet post delivery. History 2 Elective abortions Hx Para 1 Spontaneous abortions Hx # Term Pregnancies 2 Ectopic pregnancies Hx # Pregnancies Multiple births # of living children 2 Past Pregnancies Del. Date Name GA/Weeks Outcome Route Bth Weight Gen Labor Lgth Anesthesia Del Locatn Provider FOB 05/28/21 [place] 41 live - full term vacuum 7lbs 8oz Male [facility] Mar canthony 04/02/23 41 live - full term Female [facility] Rebecca Traylor lliams Delivery Date: 05/28/21 Last Updated by: Chanda Mcdonough IOL VAVD ROS Const Constitutional: Reports system reviewed and no additional complaints, except as documented Cardio Card: Reports system reviewed and no additional complaints, except as documented Resp Resp: Reports system reviewed and no additional complaints, except as documented GI GI: Reports system reviewed and no additional complaints, except as documented : Reports system reviewed and no additional complaints, except as documented; Denies difficulty voiding, dysuria or urinary frequency Skin Skin/Breast: Reports system reviewed and no additional complaints, except as documented Neuro Neuro: Reports system reviewed and no additional complaints, except as documented Psych Psych: Reports system reviewed and no additional complaints, except as documented Exam Const General: cooperative, healthy appearing, comfortable and no acute di (more content not included)... Normal [facility] Absolute lymphocyte countOrd ered By: Lew Calles on 08-02-2023 Lymphocytes Auto (Unsp spec) [#/Vol] 1.67 10*3/uL 0.83-4.51 [facility] Basophil percentageOrdered B y: Lew Calles on 08-02-2023 Basophils/100 WBC (Bld) 0.8 % 0-1 [facility] Chloride [Moles/Vol] 108 mmol/L 98-107 [facility] Eosinophils/100 WBC (Bld) 0.7 % 0-5 [facility] Glucose [Mass/Vol] 75 mg/dL 74-106 [facility] Neutrophils (Bld) [#/Vol] 5.2 10*3/uL 2.0-7.7 [facility] Neutrophils/100 WBC (Bld) 70.6 % 47-70 [facility] Potassium [Moles/Vol] 3.7 mmol/L 3.5-5.1 [facility] Sodium [Moles/Vol] 138 mmol/L 136-145 [facility] WBC (Bld) [#/Vol] 7.4 10*3/uL 4.4-11.0 [facility] Blood erythrocytes count (nu mber/volume)Ordered By: Lew Calles on 08-02-2023 RBC (Bld) [#/Vol] 4.32 10*6/uL 4.2-5.4 [facility] Blood hemoglobin measurement (mass/volume)Ordered By: Lew Calles on 08-02-2023 Hemoglobin (Bld) [Mass/Vol] 13.0 g/dL 12.0-15.0 [facility] Blood lymphocytes/100 leukoc ytesOrdered By: Lew Calles on 08-02-2023 Lymphocytes/100 WBC (Bld) 22.5 % 19-41 [facility] Blood monocytes/100 leukocyt esOrdered By: Lew Calles on 08-02-2023 Monocytes/100 WBC (Bld) 5.1 % 0-10 [facility] Blood platelet mean volumeOr dered By: Lew Calles on 08-02-2023 Platelet mean volume (Bld) [Entitic vol] 9.2 fL 6.2-12.0 [facility] Determination of erythrocyte mean corpuscular volume (MCV)Ordered By: Lew Calles on 08-02-2023 MCV (RBC) [Entitic vol] 89.4 fL 81-99 [facility] Hematocrit Auto (Bld) [Volum e fraction]Ordered By: Lew Calles on 08-02-2023 Hematocrit (Bld) [Volume fraction] 38.6 % 37-47 [facility] Laboratory - Chemistry and C hemistry - challengeOrdered By: Lew Calles on 08-02-2023 CO2 [Moles/Vol] 23.0 mmol/L 21.0-32.0 [facility] Urea nitrogen/Creatinine [Mass ratio] 26.5 mg/mg 10-20 [facility] Laboratory - Hematology and Cell countsOrdered By: Lew Calles on 08-02-2023 Erythrocyte distribution width (RBC) [Entitic vol] 39.9 fL 35.1-43.9 [facility] Erythrocyte distribution width (RBC) [Ratio] 12.1 % 11.6-14.6 [facility] Immature granulocytes/100 WBC (Bld) 0.300 % 0.0-0.9 [facility] Comment on above: IG% - Immature Granu locytes (promyelocytes, myelocytes and metamyelocytes) > 1% indicates that a LEFT SHIFT is Present. MCH (RBC) [Entitic mass] 30.1 pg 27.0-32.0 [facility] Nucleated RBC/100 WBC (Bld) [Ratio] 0 % [facility] [Mass/Vol]Or dered By: Lew Calles on 08-02-2023 MCHC (RBC) [Mass/Vol] 33.7 g/dL 32-36 [facility] No Panel InformationOrdered By: Lew Calles on 08-02-2023 D-Dimer Quantitative (PE/DVT) < 0.27 FEU/ug/m 0.27-0.49 [facility] Comment on above: NORMAL D-Dimer level (<0.50) indicates no DVT or PE. Estimated Creatinine Clearance Calc 83.57 ml/min [facility] Estimated GFR (MDRD) Amer 115 mL/min >60 [facility] Comment on above: GFR Calc Estimated GFR (MDRD) Non-Af Amer 95 mL/min >60 [facility] Comment on above: Non- GFR Calc Troponin I High Sensitivity 4 pg/mL 3.0-54.0 [facility] Comment on above: Please Note: New Radha t Units and Gender Specific Reference Ranges. For more information see Policy Stat Procedure [place] High Sensitivity Troponin (TNIH) and attachments. Platelets bldOrdered By: Thai Calles on 08-02-2023 Platelets (Bld) [#/Vol] 272 10*3/uL 150-450 [facility] Serum or plasma calcium tanvi urement (mass/volume)Ordered By: Lew Calles on 08-02-2023 Calcium [Mass/Vol] 9.4 mg/dL 8.5-10.1 [facility] Serum or plasma creatinine m easurement (mass/volume)Ordered By: Lew Calles on 08-02-2023 Creatinine [Mass/Vol] 0.79 mg/dL 0.55-1.02 [facility] Comment on above: The validity of the calculated GFR & GFRAA in patients over 70 years has not been determined. Clinical correlation is essential. Serum or plasma urea nitroge n measurement (mass/volume)Ordered By: Lew Calles on 08-02-2023 Urea nitrogen [Mass/Vol] 21 mg/dL 7-18 [facility] Thin prep Papanicolaou smear with manual screeningOrdered By: Lew Calles on 08-02-2023 Thin prep Papanicolaou smear with manual screening 7 5-15 [facility] Absolute lymphocyte countOrd ered By: Jhoana Pace on 04-02-2023 Lymphocytes Auto (Unsp spec) [#/Vol] 1.92 10*3/uL 0.83-4.51 [facility] Basophil percentageOrdered B y: Jhoana Pace on 04-02-2023 Basophils/100 WBC (Bld) 0.4 % 0-1 [facility] Eosinophils/100 WBC (Bld) 0.4 % 0-5 [facility] Neutrophils (Bld) [#/Vol] 8.0 10*3/uL 2.0-7.7 [facility] Neutrophils/100 WBC (Bld) 74.2 % 47-70 [facility] WBC (Bld) [#/Vol] 10.8 10*3/uL 4.4-11.0 [facility] Blood erythrocytes count (nu mber/volume)Ordered By: Jhoana Pace on 04-02-2023 RBC (Bld) [#/Vol] 3.65 10*6/uL 4.2-5.4 [facility] Blood hemoglobin measurement (mass/volume)Ordered By: Jhoana Pace on 04-02-2023 Hemoglobin (Bld) [Mass/Vol] 12.1 g/dL 12.0-15.0 [facility] Blood lymphocytes/100 leukoc ytesOrdered By: Jhoana Pace on 04-02-2023 Lymphocytes/100 WBC (Bld) 17.8 % 19-41 [facility] Blood monocytes/100 leukocyt esOrdered By: Jhoana Pace on 04-02-2023 Monocytes/100 WBC (Bld) 6.6 % 0-10 [facility] Blood platelet mean volumeOr dered By: Jhoana Pace on 04-02-2023 Platelet mean volume (Bld) [Entitic vol] 9.5 fL 6.2-12.0 [facility] Determination of erythrocyte mean corpuscular volume (MCV)Ordered By: Jhoana Pace on 04-02-2023 MCV (RBC) [Entitic vol] 97.3 fL 81-99 [facility] Hematocrit Auto (Bld) [Volum e fraction]Ordered By: Jhoana Pace on 04-02-2023 Hematocrit (Bld) [Volume fraction] 35.5 % 37-47 [facility] Laboratory - Hematology and Cell countsOrdered By: Jhoana Pace on 04-02-2023 Erythrocyte distribution width (RBC) [Entitic vol] 45.1 fL 35.1-43.9 [facility] Erythrocyte distribution width (RBC) [Ratio] 12.7 % 11.6-14.6 [facility] Immature granulocytes/100 WBC (Bld) 0.600 % 0.0-0.9 [facility] Comment on above: IG% - Immature Granu locytes (promyelocytes, myelocytes and metamyelocytes) > 1% indicates that a LEFT SHIFT is Present. MCH (RBC) [Entitic mass] 33.2 pg 27.0-32.0 [facility] Nucleated RBC/100 WBC (Bld) [Ratio] 0 % 0-5 [facility] MCHC Auto (RBC) [Mass/Vol]Or dered By: Jhoana Pace on 04-02-2023 MCHC (RBC) [Mass/Vol] 34.1 g/dL 32-36 [facility] Platelets bldOrdered By: Brody Pace on 04-02-2023 Platelets (Bld) [#/Vol] 187 10*3/uL 150-450 [facility] Laboratory - Chemistry and C hemistry - challengeon 03-31-2023 Glucose Ql (U) Negative [facility] Laboratory - Urinalysison Protein Ql (U) Negative [facility] No Panel InformationOrdered By: Nelly To on 03-30-2023 Vaginal Amniotic Fluid Detection Negative Negative [facility] Comment on above: Amniotic fluid not p resent indicates No Rupture of FetalMembranes at time of specimen collection. Laboratory - Chemistry and C hemistry - challengeon 03-24-2023 Glucose Ql (U) Negative [facility] Laboratory - Urinalysison Protein Ql (U) Negative [facility] Laboratory - Chemistry and C hemistry - challengeon 03-14-2023 Glucose Ql (U) Negative [facility] Laboratory - Urinalysison Protein Ql (U) Trace [facility] Basophil percentageOrdered B y: Lara Andrade on 03-09-2023 WBC (Bld) [#/Vol] 8.4 10*3/uL 4.4-11.0 [facility] Blood erythrocytes count (nu mber/volume)Ordered By: Lara Andrade on 03-09-2023 RBC (Bld) [#/Vol] 3.60 10*6/uL 4.2-5.4 [facility] Blood hemoglobin measurement (mass/volume)Ordered By: Lara Andrade on 03-09-2023 Hemoglobin (Bld) [Mass/Vol] 11.6 g/dL 12.0-15.0 [facility] Blood platelet mean volumeOr dered By: Lara Andrade on 03-09-2023 Platelet mean volume (Bld) [Entitic vol] 9.6 fL 6.2-12.0 [facility] Determination of erythrocyte mean corpuscular volume (MCV)Ordered By: Lara Andrade on 03-09-2023 MCV (RBC) [Entitic vol] 98.6 fL 81-99 [facility] Hematocrit Auto (Bld) [Volum e fraction]Ordered By: Lara Andrade on 03-09-2023 Hematocrit (Bld) [Volume fraction] 35.5 % 37-47 [facility] Laboratory - Hematology and Cell countsOrdered By: Lara Andrade on 03-09-2023 Erythrocyte distribution width (RBC) [Entitic vol] 45.2 fL 35.1-43.9 [facility] Erythrocyte distribution width (RBC) [Ratio] 12.6 % 11.6-14.6 [facility] MCH (RBC) [Entitic mass] 32.2 pg 27.0-32.0 [facility] MCHC Auto (RBC) [Mass/Vol]Or dered By: Lara Andrade on 03-09-2023 MCHC (RBC) [Mass/Vol] 32.7 g/dL 32-36 [facility] Platelets bldOrdered By: Chloe Andrade on 03-09-2023 Platelets (Bld) [#/Vol] 186 10*3/uL 150-450 [facility] Laboratory - Chemistry and C hemistry - challengeon 03-02-2023 Glucose Ql (U) Negative [facility] Laboratory - Urinalysison Protein Ql (U) Trace [facility] No Panel InformationOrdered By: Lara Andrade on 03-02-2023 Group B Streptococcus Culture Group B Beta Streptococcus is not isolated. [facility] Laboratory - Chemistry and C hemistry - challengeon 02-21-2023 Glucose Ql (U) Negative [facility] Laboratory - Urinalysison Protein Ql (U) Trace [facility] Laboratory - Chemistry and C hemistry - challengeon 01-27-2023 Glucose Ql (U) Negative [facility] Laboratory - Urinalysison Protein Ql (U) Negative [facility] Basophil percentageOrdered B y: Maureen Benítez on 01-11-2023 Bilirubin [Mass/Vol] 0.70 mg/dL 0.20-1.00 [facility] Comment on above: For patients on eltr ombopag therapy, use of Dimension [place] TBIL is not recommended. Chloride [Moles/Vol] 107 mmol/L 98-107 [facility] Glucose [Mass/Vol] 71 mg/dL 74-106 [facility] Potassium [Moles/Vol] 4.0 mmol/L 3.5-5.1 [facility] Protein [Mass/Vol] 6.8 g/dL 6.4-8.2 [facility] Sodium [Moles/Vol] 137 mmol/L 136-145 [facility] Laboratory - Chemistry and C hemistry - challengeOrdered By: Maureen Benítez on 01-11-2023 ALP [Catalytic activity/Vol] 59 U/L 45-117 [facility] ALT [Catalytic activity/Vol] 14 U/L 13-56 [facility] CO2 [Moles/Vol] 25.0 mmol/L 21.0-32.0 [facility] Globulin (S) [Mass/Vol] 3.9 g/dL 2.2-4.2 [facility] Urea nitrogen/Creatinine [Mass ratio] 19.2 mg/mg 10-20 [facility] Laboratory - Chemistry and C hemistry - challengeon 01-11-2023 Glucose Ql (U) Negative [facility] Laboratory - Urinalysison Protein Ql (U) Negative [facility] No Panel InformationOrdered By: Maureen Benítez on 01-11-2023 Estimated GFR (MDRD) Amer 138 mL/min >60 [facility] Comment on above: GFR Calc Estimated GFR (MDRD) Non-Af Amer 114 mL/min >60 [facility] Comment on above: Non- GFR Calc Serum or plasma albumin tanvi urement (mass/volume)Ordered By: Maureen Benítez on 01-11-2023 Albumin [Mass/Vol] 2.9 g/dL 3.2-5.0 [facility] Serum or plasma albumin/glob ulin mass ratioOrdered By: Maureen Benítez on 01-11-2023 Albumin/Globulin [Mass ratio] 0.7 {ratio} 0.9-2.4 [facility] Serum or plasma calcium tanvi urement (mass/volume)Ordered By: Maureen Benítez on 01-11-2023 Calcium [Mass/Vol] 9.0 mg/dL 8.5-10.1 [facility] Serum or plasma creatinine m easurement (mass/volume)Ordered By: Maureen Benítez on 01-11-2023 Creatinine [Mass/Vol] 0.68 mg/dL 0.55-1.02 [facility] Comment on above: The validity of the calculated GFR & GFRAA in patients over 70 years has not been determined. Clinical correlation is essential. Serum or plasma urea nitroge n measurement (mass/volume)Ordered By: Maureen Benítez on 01-11-2023 Urea nitrogen [Mass/Vol] 13 mg/dL 7-18 [facility] Thin prep Papanicolaou smear with manual screeningOrdered By: Maureen Benítez on 01-11-2023 Thin prep Papanicolaou smear with manual screening 15 U/L 15-37 [facility] Thin prep Papanicolaou smear with manual screening 5 5-15 [facility] Absolute lymphocyte countOrd ered By: Lara Andrade on 01-04-2023 Lymphocytes Auto (Unsp spec) [#/Vol] 1.37 10*3/uL 0.83-4.51 [facility] Basophil percentageOrdered B y: Lara Andrade on 01-04-2023 Basophils/100 WBC (Bld) 0.3 % 0-1 [facility] Eosinophils/100 WBC (Bld) 0.8 % 0-5 [facility] Neutrophils (Bld) [#/Vol] 5.1 10*3/uL 2.0-7.7 [facility] Neutrophils/100 WBC (Bld) 71.9 % 47-70 [facility] WBC (Bld) [#/Vol] 7.1 10*3/uL 4.4-11.0 [facility] Blood erythrocytes count (nu mber/volume)Ordered By: Lara Andrade on 01-04-2023 RBC (Bld) [#/Vol] 3.31 10*6/uL 4.2-5.4 [facility] Blood hemoglobin measurement (mass/volume)Ordered By: Lara Andrade on 01-04-2023 Hemoglobin (Bld) [Mass/Vol] 10.6 g/dL 12.0-15.0 [facility] Blood lymphocytes/100 leukoc ytesOrdered By: Lara Andrade on 01-04-2023 Lymphocytes/100 WBC (Bld) 19.4 % 19-41 [facility] Blood monocytes/100 leukocyt esOrdered By: Lara Andrade on 01-04-2023 Monocytes/100 WBC (Bld) 7.2 % 0-10 [facility] Blood platelet mean volumeOr dered By: Lara Andrade on 01-04-2023 Platelet mean volume (Bld) [Entitic vol] 9.5 fL 6.2-12.0 [facility] Determination of erythrocyte mean corpuscular volume (MCV)Ordered By: Lara Andrade on 01-04-2023 MCV (RBC) [Entitic vol] 97.6 fL 81-99 [facility] Gestational diabetes screen 1-hour screen with 50g oral glucose loadOrdered By: Lara Andrade on 01-04-2023 Glucose 1 Hr post 50 g glucose PO [Mass/Vol] 119 mg/dL 70-140 [facility] HIV 1 and HIV-2 antibody ass ay with HIV-1 p24 antigen detectionOrdered By: Lara Andrade on 01-04-2023 HIV 1+2 Ab+HIV1 p24 Ag IA Ql Non-Reactive Nonreactive [facility] Hematocrit Auto (Bld) [Volum e fraction]Ordered By: Lara Andrade on 06-07-2023 Hematocrit (Bld) [Volume fraction] 32.3 % 37-47 [facility] Laboratory - Hematology and Cell countsOrdered By: Lara Andrade on 01-04-2023 Erythrocyte distribution width (RBC) [Entitic vol] 45.9 fL 35.1-43.9 [facility] Erythrocyte distribution width (RBC) [Ratio] 13.0 % 11.6-14.6 [facility] Immature granulocytes/100 WBC (Bld) 0.400 % 0.0-0.9 [facility] Comment on above: IG% - Immature Granu locytes (promyelocytes, myelocytes and metamyelocytes) > 1% indicates that a LEFT SHIFT is Present. MCH (RBC) [Entitic mass] 32.0 pg 27.0-32.0 [facility] Nucleated RBC/100 WBC (Bld) [Ratio] 0 % 0-5 [facility] MCHC Auto (RBC) [Mass/Vol]Or dered By: Lara Andrade on 01-04-2023 MCHC (RBC) [Mass/Vol] 32.8 g/dL 32-36 [facility] Platelets bldOrdered By: Chloe Andrade on 01-04-2023 Platelets (Bld) [#/Vol] 225 10*3/uL 150-450 [facility] Serum Treponema species anti body detectionOrdered By: Lara Andrade on 01-04-2023 Treponema sp Ab Ql (S) Non-Reactive [facility] Laboratory - Chemistry and C hemistry - challengeon 12-16-2022 Glucose Ql (U) Negative [facility] Laboratory - Urinalysison Protein Ql (U) Trace [facility] Laboratory - Chemistry and C hemistry - challengeon 11-08-2022 Glucose Ql (U) Negative [facility] Laboratory - Urinalysison Protein Ql (U) Negative [facility] Laboratory - Chemistry and C hemistry - challengeon 09-29-2022 Glucose Ql (U) Negative [facility] Laboratory - Urinalysison Protein Ql (U) Negative [facility] Culture, urineOrdered By: Dr Paty To on 09-04-2022 Bacteria identified Cx Nom (U) Positive [facility] Absolute lymphocyte countOrd ered By: Dr. To on 09-01-2022 Lymphocytes Auto (Unsp spec) [#/Vol] 2.09 10*3/uL 0.83-4.51 [facility] Basophil percentageOrdered B y: Dr. To on 09-01-2022 Basophils/100 WBC (Bld) 0.5 % 0-1 [facility] Eosinophils/100 WBC (Bld) 1.2 % 0-5 [facility] Neutrophils (Bld) [#/Vol] 5.8 10*3/uL 2.0-7.7 [facility] Neutrophils/100 WBC (Bld) 67.9 % 47-70 [facility] WBC (Bld) [#/Vol] 8.6 10*3/uL 4.4-11.0 [facility] Blood erythrocytes count (nu mber/volume)Ordered By: Dr. To on 09-01-2022 RBC (Bld) [#/Vol] 4.30 10*6/uL 4.2-5.4 [facility] Blood hemoglobin measurement (mass/volume)Ordered By: Dr. To on 09-01-2022 Hemoglobin (Bld) [Mass/Vol] 13.2 g/dL 12.0-15.0 [facility] Blood lymphocytes/100 leukoc ytesOrdered By: Dr. To on 09-01-2022 Lymphocytes/100 WBC (Bld) 24.3 % 19-41 [facility] Blood monocytes/100 leukocyt esOrdered By: Dr. To on 09-01-2022 Monocytes/100 WBC (Bld) 5.8 % 0-10 [facility] Blood platelet mean volumeOr dered By: Dr. To on 09-01-2022 Platelet mean volume (Bld) [Entitic vol] 9.0 fL 6.2-12.0 [facility] Cervical or vagninal specime n microscopic examination by cytology stain (reported asOrdered By: Dr. To on 09-01-2022 Cytology report Cyto stain Doc (Cvx/Vag) Comment . [facility] Comment on above: The Pap smear is a s creening test designed to aid in thedetection of premalignant and malignant conditions of theuterine cervix. It is not a diagnostic procedure andshould not be used as the sole means of detecting cervicalcancer. Both false-positive and false-negative reports dooccur. Chlamydia trachomatis rRNA d etection by probe and target amplification methodOrdered By: Dr. To on 09-01-2022 C. trachomatis rRNA DIALLO+probe Ql (Unsp spec) Negative Negative [facility] Determination of erythrocyte mean corpuscular volume (MCV)Ordered By: Dr. To on 09-01-2022 MCV (RBC) [Entitic vol] 89.5 fL 81-99 [facility] HIV 1 and HIV-2 antibody ass ay with HIV-1 p24 antigen detectionOrdered By: Dr. To on 09-01-2022 HIV 1+2 Ab+HIV1 p24 Ag IA Ql Non-Reactive Nonreactive [facility] Hematocrit Auto (Bld) [Volum e fraction]Ordered By: Dr. To on 09-01-2022 Hematocrit (Bld) [Volume fraction] 38.5 % 37-47 [facility] Laboratory - CytologyOrdered By: Dr. To on 09-01-2022 Web Operations Manager Cyto stain Nom (Cvx/Vag) [ID] Comment . [facility] Comment on above: Charan Peoples totechnologist (ASCP) Pathologist Cyto stain Nom (Cvx/Vag) [ID] Comment . [facility] Comment on above: Ashish Whyte MD, Pa thologist Laboratory - Hematology and Cell countsOrdered By: Dr. To on 09-01-2022 Erythrocyte distribution width (RBC) [Entitic vol] 38.7 fL 35.1-43.9 [facility] Erythrocyte distribution width (RBC) [Ratio] 12.0 % 11.6-14.6 [facility] Immature granulocytes/100 WBC (Bld) 0.300 % 0.0-0.9 [facility] Comment on above: IG% - Immature Granu locytes (promyelocytes, myelocytes and metamyelocytes) > 1% indicates that a LEFT SHIFT is Present. MCH (RBC) [Entitic mass] 30.7 pg 27.0-32.0 [facility] Nucleated RBC/100 WBC (Bld) [Ratio] 0 % 0-5 [facility] Laboratory - Microbiology an d Antimicrobial susceptibilityOrdered By: Dr. To on 09-01-2022 N. gonorrhoeae DNA DIALLO+probe Ql (Unsp spec) Negative Negative [facility] Comment on above: Performed at: =G - [facility] [address] [id number] Director: Lenore Veliz MD, Phone: [phone] Laboratory - Miscellaneous t estsOrdered By: Dr. To on 09-01-2022 Service comment (Unsp spec) [Interp] Comment . [facility] Comment on above: This liquid based Th inPrep(R) pap test was screened withthe use of an image guided system. Service comment (Unsp spec) [Interp] . [facility]/Vol]Or dered By: Dr. To on 09-01-2022 MCHC (RBC) [Mass/Vol] 34.3 g/dL 32-36 [facility] No Panel InformationOrdered By: Dr. To on 09-01-2022 Human Papillomavirus Screen Comment . [facility] Comment on above: The HPV DNA reflex c riteria were not met with this specimenresult therefore, no HPV testing was performed.Performed at: WB - [facility] [address] [id number] Director: Lenore Veliz MD, Phone: [phone] at: [facility] [id number] [place], [place] [id number] Director: Dejuan Cassidy MD, Phone: [phone] Pathology report final diagnosis Narrative Comment . [facility] Comment on above: NEGATIVE FOR INTRAEP ITHELIAL LESION OR MALIGNANCY.REACTIVE CELLULAR CHANGES AND/OR REPAIR ARE PRESENT. Hepatitis B Surface Antigen Non-Reactive Nonreactive [facility] Hepatitis C Antibody Non-Reactive Nonreactive [facility] Comment on above: Non Reactive: < 0.8 Equivocal: >/= 0.8 to < 1.0 Reactive: >/= 1.0The CDC recommends that a reactive/equivocal HCV antibody result be followed up by the HCV Nucleic Acid Amplificationtest (417711) Miscellaneous Test Comment MAILED SPECIMEN [facility] Rubella IgG Antibody Reactive Nonreactive [facility] Comment on above: Antibody Results Int erpretation of Immune Status Non Reactive Presumed Non-Immune Equivocal Equivocal Reactive Presumed Immune Platelets bldOrdered By: Dr. To on 09-01-2022 Platelets (Bld) [#/Vol] 302 10*3/uL 150-450 [facility] Serum Treponema species anti body detectionOrdered By: Dr. To on 09-01-2022 Treponema sp Ab Ql (S) Non-Reactive [facility] Vital Signs Date Time Vital Sign Value Performing Clinician Faci lity 2024 08:44-0400 Body height 154.94 cm No Primary Care Physician [facility] 2024 08:44-0400 Body mass index (BMI) [Ratio] 20.5 kg/m2 No Primary Care Physician [facility] 2024 08:44-0400 Body weight 49.15 kg No Primary Care Physician [facility] 2024 08:44-0400 Diastolic blood pressure 76 mm[Hg] No Primary Care Physician [facility] 2024 08:44-0400 Systolic blood pressure 114 mm[Hg] No Primary Care Physician [facility] 08-01-2024 15:39-0500 Body height 154.94 cm No Primary Care Physician [facility] 08-01-2024 15:39-0500 Body mass index (BMI) [Ratio] 20.2 kg/m2 No Primary Care Physician [facility] 08-01-2024 15:39-0500 Body weight 48.53 kg No Primary Care Physician [facility] 08-01-2024 15:39-0500 Diastolic blood pressure 81 mm[Hg] No Primary Care Physician [facility] 08-01-2024 15:39-0500 Systolic blood pressure 123 mm[Hg] No Primary Care Physician [facility] 08-02-2023 17:22-0500 Diastolic blood pressure 71 mm[Hg] No Primary Care Physician [facility] 08-02-2023 17:22-0500 Heart rate 87 /min No Primary Care Physician [facility] 08-02-2023 17:22-0500 Respiratory rate 14 /min No Primary Care Physician [facility] 08-02-2023 17:22-0500 SaO2% (BldA) [Mass fraction] 100 % No Primary Care Physician [facility] 08-02-2023 17:22-0500 Systolic blood pressure 103 mm[Hg] No Primary Care Physician [facility] 08-02-2023 14:13-0500 Body height 154.94 cm No Primary Care Physician [facility] 08-02-2023 14:13-0500 Body mass index (BMI) [Ratio] 21.1 kg/m2 No Primary Care Physician [facility] 08-02-2023 14:13-0500 Body temperature 97.8 [degF] No Primary Care Physician [facility] 08-02-2023 14:13-0500 Body weight 50.8 kg No Primary Care Physician [facility] 05-16-2023 11:10-0400 Body mass index (BMI) [Ratio] 22.1 kg/m2 No Primary Care Physician [facility] 05-16-2023 11:10-0400 Body weight 53.18 kg No Primary Care Physician [facility] 05-16-2023 11:10-0400 Diastolic blood pressure 69 mm[Hg] No Primary Care Physician [facility] 05-16-2023 11:10-0400 Systolic blood pressure 102 mm[Hg] No Primary Care Physician [facility] 04-04-2023 07:50-0400 Body temperature 97.5 [degF] No Primary Care Physician [facility] 04-04-2023 07:50-0400 Diastolic blood pressure 71 mm[Hg] No Primary Care Physician [facility] 04-04-2023 07:50-0400 Heart rate 90 /min No Primary Care Physician [facility] 04-04-2023 07:50-0400 Systolic blood pressure 125 mm[Hg] No Primary Care Physician [facility] 04-04-2023 07:45-0400 Respiratory rate 15 /min No Primary Care Physician [facility] 04-04-2023 02:15-0400 SaO2% (BldA) [Mass fraction] 100 % No Primary Care Physician [facility] 04-02-2023 06:56-0400 Body height 154.94 cm No Primary Care Physician [facility] 04-02-2023 06:56-0400 Body mass index (BMI) [Ratio] 25 kg/m2 No Primary Care Physician [facility] 04-02-2023 06:56-0400 Body weight 60.23 kg No Primary Care Physician [facility] 04-01-2023 10:51-0400 Body height 154.94 cm No Primary Care Physician [facility] 04-01-2023 10:51-0400 Body mass index (BMI) [Ratio] 25 kg/m2 No Primary Care Physician [facility] 04-01-2023 10:51-0400 Body weight 60.2 kg No Primary Care Physician [facility] 03-31-2023 08:17-0400 Body mass index (BMI) [Ratio] 25.1 kg/m2 No Primary Care Physician [facility] 03-31-2023 08:17-0400 Body weight 60.38 kg No Primary Care Physician [facility] 03-31-2023 08:17-0400 Diastolic blood pressure 68 mm[Hg] No Primary Care Physician [facility] 03-31-2023 08:17-0400 Systolic blood pressure 114 mm[Hg] No Primary Care Physician [facility] 03-30-2023 19:35-0400 Diastolic blood pressure 61 mm[Hg] No Primary Care Physician [facility] 03-30-2023 19:35-0400 Heart rate 85 /min No Primary Care Physician [facility] 03-30-2023 19:35-0400 Systolic blood pressure 110 mm[Hg] No Primary Care Physician [facility] 03-30-2023 19:34-0400 SaO2% (BldA) [Mass fraction] 100 % No Primary Care Physician [facility] 03-30-2023 17:46-0400 Body height 154.94 cm No Primary Care Physician [facility] 03-30-2023 17:46-0400 Body mass index (BMI) [Ratio] 25.4 kg/m2 No Primary Care Physician [facility] 03-30-2023 17:46-0400 Body weight 61.23 kg No Primary Care Physician [facility] 03-30-2023 17:40-0400 Body temperature 97.6 [degF] No Primary Care Physician [facility] 03-24-2023 11:05-0400 Body mass index (BMI) [Ratio] 25.4 kg/m2 No Primary Care Physician [facility] 03-24-2023 11:05-0400 Body weight 61.23 kg No Primary Care Physician [facility] 03-24-2023 11:05-0400 Diastolic blood pressure 79 mm[Hg] No Primary Care Physician [facility] 03-24-2023 11:05-0400 Systolic blood pressure 113 mm[Hg] No Primary Care Physician [facility] 03-14-2023 09:05-0400 Body height 154.94 cm No Primary Care Physician [facility] 03-14-2023 09:03-0400 Body weight 60.89 kg No Primary Care Physician [facility] 03-14-2023 09:03-0400 Diastolic blood pressure 72 mm[Hg] No Primary Care Physician [facility] 03-14-2023 09:03-0400 Respiratory rate 16 /min No Primary Care Physician [facility] 03-14-2023 09:03-0400 Systolic blood pressure 108 mm[Hg] No Primary Care Physician [facility] 03-09-2023 09:11-0400 Diastolic blood pressure 72 mm[Hg] No Primary Care Physician [facility] 03-09-2023 09:11-0400 Systolic blood pressure 110 mm[Hg] No Primary Care Physician [facility] 03-09-2023 08:55-0400 Body mass index (BMI) [Ratio] 25.3 kg/m2 No Primary Care Physician [facility] 03-09-2023 08:55-0400 Body weight 60.78 kg No Primary Care Physician [facility] 03-02-2023 08:34-0400 Body height 154.94 cm No Primary Care Physician [facility] 03-02-2023 08:30-0400 Body mass index (BMI) [Ratio] 25.2 kg/m2 No Primary Care Physician [facility] 03-02-2023 08:30-0400 Body weight 60.55 kg No Primary Care Physician [facility] 03-02-2023 08:30-0400 Diastolic blood pressure 67 mm[Hg] No Primary Care Physician [facility] 03-02-2023 08:30-0400 Systolic blood pressure 101 mm[Hg] No Primary Care Physician [facility] 02-21-2023 11:37-0400 Body mass index (BMI) [Ratio] 24.7 kg/m2 No Primary Care Physician [facility] 02-21-2023 11:37-0400 Body weight 59.53 kg No Primary Care Physician [facility] 02-21-2023 11:37-0400 Diastolic blood pressure 85 mm[Hg] No Primary Care Physician [facility] 02-21-2023 11:37-0400 Systolic blood pressure 125 mm[Hg] No Primary Care Physician [facility] 01-27-2023 10:07-0400 Body mass index (BMI) [Ratio] 23.8 kg/m2 No Primary Care Physician [facility] 01-27-2023 10:07-0400 Body weight 57.26 kg No Primary Care Physician [facility] 01-27-2023 10:07-0400 Diastolic blood pressure 60 mm[Hg] No Primary Care Physician [facility] 01-27-2023 10:07-0400 Systolic blood pressure 69 mm[Hg] No Primary Care Physician [facility] 01-11-2023 11:24-0400 Body height 154.94 cm No Primary Care Physician [facility] 01-11-2023 11:14-0400 Body mass index (BMI) [Ratio] 23.4 kg/m2 No Primary Care Physician [facility] 01-11-2023 11:14-0400 Body weight 56.24 kg No Primary Care Physician [facility] 01-11-2023 11:14-0400 Diastolic blood pressure 64 mm[Hg] No Primary Care Physician [facility] 01-11-2023 11:14-0400 Systolic blood pressure 98 mm[Hg] No Primary Care Physician [facility] 12-16-2022 09:25-0400 Body mass index (BMI) [Ratio] 23.1 kg/m2 No Primary Care Physician [facility] 12-16-2022 09:25-0400 Body weight 55.5 kg No Primary Care Physician [facility] 12-16-2022 09:25-0400 Diastolic blood pressure 62 mm[Hg] No Primary Care Physician [facility] 12-16-2022 09:25-0400 Systolic blood pressure 105 mm[Hg] No Primary Care Physician [facility] 11-08-2022 08:38-0400 Body height 154.94 cm No Primary Care Physician [facility] 11-08-2022 08:36-0400 Body mass index (BMI) [Ratio] 21.5 kg/m2 No Primary Care Physician [facility] 11-08-2022 08:36-0400 Body weight 51.76 kg No Primary Care Physician [facility] 11-08-2022 08:36-0400 Diastolic blood pressure 58 mm[Hg] No Primary Care Physician [facility] 11-08-2022 08:36-0400 Systolic blood pressure 119 mm[Hg] No Primary Care Physician [facility] 09-29-2022 11:32-0500 Body mass index (BMI) [Ratio] 20.1 kg/m2 No Primary Care Physician [facility] 09-29-2022 11:32-0500 Body weight 48.3 kg No Primary Care Physician [facility] 09-29-2022 11:32-0500 Diastolic blood pressure 68 mm[Hg] No Primary Care Physician [facility] 09-29-2022 11:32-0500 Systolic blood pressure 113 mm[Hg] No Primary Care Physician [facility] 09-01-2022 12:25-0500 Body weight 47.17 kg No Primary Care Physician [facility] 09-01-2022 11:58-0500 Body height 154.94 cm No Primary Care Physician [facility] 09-01-2022 11:57-0500 Diastolic blood pressure 80 mm[Hg] No Primary Care Physician [facility] 09-01-2022 11:57-0500 Systolic blood pressure 121 mm[Hg] No Primary Care Physician [facility] 06-20-2022 11:01-0500 Body mass index (BMI) [Ratio] 19.7 kg/m2 No Primary Care Physician [facility] 06-20-2022 11:01-0500 Body weight 47.4 kg No Primary Care Physician [facility] 06-20-2022 11:01-0500 Diastolic blood pressure 70 mm[Hg] No Primary Care Physician [facility] 06-20-2022 11:01-0500 Systolic blood pressure 110 mm[Hg] No Primary Care Physician [facility] Encounters Encounter Date Encounter Type Care Provider Facility Start: 12-26-2024 Patient encounter procedure Jhoana Pace CNM -Lab [facility] Start: 12-26-2024 End: 12-26-2024 ambulatory No Primary Care Physician Facility:[facility] Start: 12-24-2024 End: 12-24-2024 ambulatory No Primary Care Physician [facility] Work Phone: Start: 12-24-2024 End: 12-24-2024 Patient encounter procedure Jhoana OBANDOM -Lab [facility] Start: 12-24-2024 End: 12-24-2024 ambulatory No Primary Care Physician Facility:[facility] Start: 2024 End: [address] Nelly To MD -[facility] Work Phone: Start: 2024 End: 2024 ambulatory No Primary Care Physician [facility] Work Phone: Start: 2024 End: 2024 ambulatory Nelly To Facility:[facility] Start: 10-21-2024 End: 10-21-2024 ambulatory No Primary Care Physician [facility] Work Phone: Start: 10-21-2024 End: 10-21-2024 Patient encounter procedure Jhoana Pace CNM -Lab, [facility] Start: 10-21-2024 End: 10-21-2024 ambulatory No Primary Care Physician Facility:[facility] Start: 10-18-2024 End: 10-18-2024 ambulatory No Primary Care Physician [facility] Work Phone: Start: 10-18-2024 End: 10-18-2024 Patient encounter procedure Jhoana Pace CNM -Lab, [facility] Start: 10-18-2024 End: 10-18-2024 ambulatory No Primary Care Physician Facility:[facility] Start: 10-16-2024 End: 10-16-2024 ambulatory No Primary Care Physician [facility] Work Phone: Start: 10-16-2024 End: 10-16-2024 Patient encounter procedure Jhoana Pace CNM -Lab, [facility] Start: 10-16-2024 End: 10-16-2024 ambulatory No Primary Care Physician Facility:[facility] Start: 10-14-2024 End: 10-14-2024 ambulatory No Primary Care Physician [facility] Work Phone: Start: 10-14-2024 End: 10-14-2024 Patient encounter procedure Jhoana Pace CNM -Lab, [facility] Start: 10-14-2024 End: 10-14-2024 ambulatory No Primary Care Physician Facility:[facility] Start: 08-01-2024 End: 08-01-[address] Lindsey Jordan DO -[facility] Work Phone: Start: 08-01-2024 End: 08-01-2024 ambulatory Lindsey Jordan Facility:[facility] Start: 07-11-2024 End: 07-11-[address] Nelly To MD -Lab, [facility] Start: 07-11-2024 End: 07-11-2024 ambulatory Nelly To Facility:[facility] Start: 07-09-2024 End: 07-09-2024 Patient encounter procedure Maureen Benítez ENGINEERING DOCUMENT CONTROL CLERK-C -Lab, [facility] Start: 07-09-2024 End: 07-09-2024 ambulatory Maureen Benítez NP Facility:[facility] Start: 06-12-2024 ambulatory No Primary Car e Physician Facility:[facility] Start: 06-03-2024 End: 06-03-2024 ambulatory No Primary Care Physician Facility:[facility] Start: 05-22-2024 End: 05-22-2024 ambulatory No Primary Care Physician Facility:[facility] Start: 05-22-2024 End: 05-22-2024 ambulatory No Primary Care Physician Facility:[facility] Start: 03-18-2024 End: 03-18-2024 ambulatory No Primary Care Physician Facility:[facility] Start: 03-18-2024 End: 03-18-2024 ambulatory No Primary Care Physician Facility:[facility] Start: 12-03-2023 End: 12-03-2023 ambulatory PAZ BURCH WELT SEWER-COMB WINDER Facility:[facility] Start: 08-02-2023 End: 08-02-2023 Emergency department patient visit No Primary Care Physician [facility]-Emergency Department Work Phone: Start: 05-16-2023 End: 05-16-2023 Patient encounter procedure No Primary Care Physician [facility] Work Phone: Start: 04-04-2023 Non-patient / Non-visit No Primary Care Physician [facility] Start: 04-03-2023 Non-patient / Non-visit No Primary Care Physician [facility] Start: 04-02-2023 End: 04-04-2023 Evaluation and management of inpatient No Primary Care Physician [facility] Work Phone: Start: 04-02-2023 Non-patient / Non-visit No Primary Care Physician [facility] Start: 04-01-2023 Non-patient / Non-visit No Primary Care Physician [facility] Start: 04-01-2023 End: 04-01-2023 ambulatory No Primary Care Physician [facility] Work Phone: Start: 04-01-2023 End: 04-01-2023 Patient encounter procedure No Primary Care Physician [facility] Work Phone: Start: 03-31-2023 End: 03-31-2023 Patient encounter procedure No Primary Care Physician [facility] Work Phone: Start: 03-30-2023 Non-patient / Non-visit No Primary Care Physician [facility] Start: 03-30-2023 End: 03-30-2023 ambulatory No Primary Care Physician [facility] Work Phone: Start: 03-30-2023 End: 03-30-2023 Patient encounter procedure No Primary Care Physician [facility] Work Phone: Start: 03-24-2023 End: 03-24-2023 Patient encounter procedure No Primary Care Physician [facility] Work Phone: Start: 03-14-2023 End: 03-14-2023 Patient encounter procedure No Primary Care Physician [facility] Work Phone: Start: 03-09-2023 End: 03-09-2023 ambulatory No Primary Care Physician [facility] Work Phone: Start: 03-09-2023 End: 03-09-2023 Patient encounter procedure No Primary Care Physician [facility] Work Phone: Start: 03-02-2023 End: 03-02-2023 ambulatory No Primary Care Physician [facility] Work Phone: Start: 03-02-2023 End: 03-02-2023 Patient encounter procedure No Primary Care Physician [facility]-Laboratory, Specimen Work Phone: Start: 03-02-2023 End: 03-02-2023 Patient encounter procedure No Primary Care Physician [facility] Start: 03-01-2023 End: 03-01-2023 ambulatory No Primary Care Physician [facility] Work Phone: Start: 03-01-2023 End: 03-01-2023 Patient encounter procedure No Primary Care Physician [facility]-Ultrasound, [facility] Work Phone: Start: 02-21-2023 End: 02-21-2023 Patient encounter procedure No Primary Care Physician [facility] Work Phone: Start: 01-27-2023 End: 01-27-2023 Patient encounter procedure No Primary Care Physician [facility] Work Phone: Start: 01-12-2023 End: 01-12-2023 ambulatory No Primary Care Physician [facility] Work Phone: Start: 01-12-2023 End: 01-12-2023 Patient encounter procedure No Primary Care Physician [facility]-Ultrasound, [facility] Start: 01-11-2023 End: 01-11-2023 ambulatory No Primary Care Physician [facility] Work Phone: Start: 01-11-2023 End: 01-11-2023 Patient encounter procedure No Primary Care Physician [facility] Start: 01-04-2023 End: 01-04-2023 Patient encounter procedure No Primary Care Physician [facility]-Laboratory, [facility] Start: 12-16-2022 End: 12-16-2022 Patient encounter procedure No Primary Care Physician [facility] Start: 11-08-2022 End: 11-08-2022 ambulatory No Primary Care Physician [facility] Work Phone: Start: 11-08-2022 End: 11-08-2022 Patient encounter procedure No Primary Care Physician [facility]-Outpatient [facility] Ultrasound Start: 11-08-2022 End: 11-08-2022 Patient encounter procedure No Primary Care Physician [facility] Start: 09-29-2022 End: 09-29-2022 Patient encounter procedure No Primary Care Physician [facility] Start: 09-01-2022 End: 09-01-2022 ambulatory No Primary Care Physician [facility] Work Phone: Start: 09-01-2022 End: 09-01-2022 Patient encounter procedure No Primary Care Physician [facility] Start: 06-20-2022 End: 06-20-2022 Patient encounter procedure No Primary Care Physician [facility] Procedures Date Procedure Procedure Detail Performing Clinician Start: 2024 Gram stain microscopy N o Primary Care Physician Start: 2024 Source specific culture No Primary Care Physician Start: 2024 Laboratory data interpretation No Primary Care Physician Comment on above: No lupus anticoagula nt was detected. Start: 2024 Lupus anticoagulant assay, platelet neutralization method No Primary Care Physician Start: 2024 Lupus anticoagulant screening test No Primary Care Physician Start: 2024 Prothrombin time No Yun kristy Care Physician Start: 2024 Serum IgM anticardio lipin measurement No Primary Care Physician Comment on above: Negative: <13 Indete rminate: 13 - 20 Low-Med Positive: >20 - 80 High Positive: >80Performed at: [facility] [address] [id number] Director: Kory Brar MD, Phone: [phone] at: [facility] [address] [id number] Director: Mendoza Carlos PhD, Phone: [phone] Start: 08-02-2023 Plain chest X-ray No Pr imary Care Physician Start: 04-01-2023 Ultrasonography for antepartum monitoring of fetus No Primary Care Physician Start: 03-02-2023 Group B Streptococcu s Culture No Primary Care Physician Start: 03-01-2023 Ultrasound scan for growth No Primary Care Physician Start: 01-12-2023 US scan of gallbladder No Primary Care Physician Start: 11-08-2022 anatomy study No Primary Care Physician Urine culture No Primary Car e Physician Plan of Treatment Date Care Activity Detail Author Start: 08-02-2023 [facility] Start: 08-02-2023 [facility] Start: 04-04-2023 Patient discharge [facility] Start: 04-02-2023 Administration of medication [facility] Start: 04-02-2023 Application of ice c ollar, cap or bag [facility] Start: 04-02-2023 Catheterization of vein [facility] Start: 04-02-2023 Introduction of urinary catheter [facility] Start: 04-02-2023 Measuring intake and output [facility] Start: 04-02-2023 Notification of physician [facility] Start: 04-02-2023 Procedure discontinued [facility] Start: 04-02-2023 Provision of activity privileges [facility] Start: 04-02-2023 Vital signs measurements [facility] Start: 04-02-2023 [facility] Start: 04-02-2023 Admission procedure [facility] Start: 04-01-2023 Nonstress test [facility] Start: 04-01-2023 Obstetric monitoring [facility] Start: 04-01-2023 Vital signs measurements [facility] Start: 04-01-2023 [facility] Start: 04-01-2023 Patient discharge [facility] Start: 03-30-2023 Nonstress test [facility] Start: 03-30-2023 Obstetric monitoring [facility] Start: 03-30-2023 Vital signs measurements [facility] Start: 03-30-2023 [facility] Start: 03-30-2023 Patient discharge [facility] Complete blood count [facility] Patient Education [facility] Work Phone: Patient referral [facility] Work Phone: [place] Pelvis transvaginal [facility] Payers Date Payer Category Payer Unknown [id number] 2023 Self-pay [id number] 1999 Unknown [id number] 2.16.8 [id number] Self-pay SELF PAY ER DEPOSIT [id number] Unknown [facility] PACKAGE PLAN [id number] Unknown [id number] 2.16.8 [id number] Unknown [id number] 2.16.8 40.1.682252.3.579.2.462 Unknown [id number] 2.16.8 40.1.875638.3.579.2.462 Unknown [id number] 2.16.8 40.1.167314.3.579.2.462 Unknown [id number] 2.16.8 40.1.230288.3.579.2.462 Unknown [id number] 2.16.8 40.1.384892.3.579.2.462 Unknown [id number] 2.16.8 40.1.002684.3.579.2.462 Unknown [id number] 2.16.8 40.1.398922.3.579.2.462 Unknown [id number] 2.16.8 40.1.588955.3.579.2.462 Unknown [id number] 2.16.8 40.1.413570.3.579.2.462 Unknown [id number] 2.16.8 40.1.387082.3.579.2.462 Unknown [id number] 2.16.8 40.1.849117.3.579.2.462 Unknown [id number] 2.16.8 40.1.780808.3.579.2.462 Unknown [id number] 2.16.8 40.1.423459.3.579.2.462 Unknown [id number] 2.16.8 40.1.722014.3.579.2.462 Unknown [id number] 2.16.8 40.1.199554.3.579.2.462 Unknown [id number] 2.16.8 40.1.719974.3.579.2.462 Social History Date Type Detail Facility Start: 09-01-2022 End: 08-02-2023 Tobacco smoking status VAIS Unknown if ever smoked [facility] Start: 2000 Sex Assigned At Female [facility] Start: 08-01-2024 Tobacco smoking stat us VAIS Never smoked tobacco (finding) [facility] Start: 10-22-2024 End: 11-11-2024 Sex Female (finding) [facility] Goals Date Patient Goal Desired Activity /State Mental Status Date Assessment Result Facility 08-02-2023 Cognitive function Awake;Alert;A ppropriate;Fol lows Commands [facility] Work Phone: Clinical Notes 09-01-2022 to 2024 Note Date & Type Note Facility 2024 Evaluation note Diagnosis Onset Date Resolution Dyspareunia acute November 06 8:39am History of recurrent miscarriages acute 2024 8:39am Vaginal discharge acute November 062024 8:39am [facility] Work Phone: 1(719) 470-499701-02-2025 Evaluation note* Diagnosis Onset Date Resolution Status Admit Date Complete acute August 01, 2024 3:32pm [facility] Work Phone: 1(868) 188-930101-02-2025 Evaluation note* Diagnosis Onset Date Resolution Status Admit Date Complete acute August 01, 2024 3:32pm Dyspareunia acute November 06 8:39am History of recurrent miscarriages acute 2024 8: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 Vaginal discharge acute November 062024 8:39am [facility] Work Phone: 1(391) 915-290201-03-2024 Discharge summary Author Lew Calles [facility] August 02, 2023 5:15pm Note Date/Time August 02, 2023 3: 53pm [facility] Medical Records Department [address] [place] [address] Emergency Department Summary 08/02/23 MR#: [id number] Acct: [id number] Name: MEKHI SOTO Rep #:[id number] : 2000 22 From: Lew Calles DO PCP: Care Physician,No Primary Status :[facility] ER Location: ED HPI History of Present Illness Chief Complaint: Chest Pain Narrative Narrative: 22-year-old female presenting with chest pain. She states it is mostly left- sided verbally however she describes it with her hands is all over her chest. She states that it radiates into her left shoulder and down to her left hand. This has been ongoing for couple of weeks intermittently. This is not worsened by food or activity other than it gets worse when she bends over. She has had acouple of seconds of lightheadedness here and there. Denies a sharp pleuritic component. Denies chest pressure or tightness. Denies fever, chills, cough. Patient has no history of DVT/PE. Patient gave 4 months ago and is only recently started having symptoms. She states she is fairly active. Denies any leg pain or swelling. She states initially she thought it was something musculoskeletal and states that when she rolls her shoulders backwards or extends her arms out to the side she can feel it across her chest. She went to her chiropractor who did a couple of manipulations with no relief. Patient states she called her grill chef who stated she needed to go to the emergency room. Patient denies any cardiac history. No significant history of family heart disease at early age. She is on a smoker. No other medical problems. [facility] Medical History Anemia Anemia affecting No significant medical problems examination following vaginal delivery Tetanus, diphtheria, and acellular pertussis (Tdap) vaccination declined Vaginal delivery Home Medications multivitamin no.47-iron fum 27 mg-folate no.1 1 mg-dha 300 mg capsule (PNV-DHA)1 cap PO DAILY 10/14/20 [History Last Taken 04/01/23 08:00 1 cap] Allergy/AdvReac Type Severity Reaction Status Date / Time No Known Allergies Allergy Verified 08/02/23 14:13 Family History Grandmother Cancer Grandfather Hypertension Surgical History No significant past surgical history Social History adopted: No household members: spouse and children housing: house number of children: 1 current occupational status: unemployed pets and animals: No history of recent travel: No sexually active: Yes Smoking Status: Never smoker second hand exposure: No alcohol intake: current alcohol intake frequency: holidays/special occasions only details: not while substance use type: does not use diet: gluten free and lactose free well-balanced diet: daily or most days caffeine: No eating out: 1-3 times/week during the past year weight has: decreased > 10 lbs what type of physical activity do you participate in: none martin/zoroastrianism: Anabaptism seatbelt use: always do you feel safe at home: Yes additional social history: - Lang (Nazia) ROS ROS ED Constitutional Constitutional ED: Denies chills or fever(s) Eyes Eyes: Denies none ENT ENT ED: Denies rhinorrhea or sore throat Cardiovascular Cardiovascular: Reports as per HPI Respiratory/Chest Respiratory/Chest: Denies cough Gastrointestinal Gastrointestinal: Denies abdominal pain Genitourinary Genitourinary ED: Denies dysuria or hematuria Musculoskeletal Musculoskeletal: Denies arthralgias or back pain Integumentary Denies abscess or Abrasions Neurologic Neurologic: Denies headache(s) or paresthesias Psychiatric Psychiatric: Denies anxiety EXAM Physical Exam Const Vital Signs: 08/02/23 14:13 08/02/23 15:40 08/02/23 15:40 Temperature 97.8 F Temperature Source Temporal Pulse Rate 115 H Respiratory Rate 14 Respiratory Effort Normal Non-Labored Blood Pressure 122/82 H Blood Pressure Mean 95 Pulse Ox 96 Oxygen Delivery Method Room Air Room Air 08/02/23 15:40 Temperature Temperature Source Pulse Rate 87 Respiratory Rate 11 L Respiratory Effort Blood Pressure 116/74 Blood Pressure Mean 88 Pulse Ox 98 Oxygen Delivery Method Room Air Positive well nourished General Appearance ED: NAD HEENT Reports moist mucous membranes normocephalic Eyes PERRL and EOMs intact bilaterally Chest Wall inspection of chest normal Resp normal respiratory effort and clear to auscultation bilaterally Auscultation: Negative for rales, rhonchi or wheezes Cardio regular rate and regular rhythm GI normal to inspection, nondistended, normoactive bowel sounds Extremity normal to inspection General Extremety ED: Negative for edema General Extremity: Negative for edema Neuro oriented x3 and CN's II-XII intact bilaterally Sensorium / Orientation: awake and alert Psych mental status grossly normal Skin no rashes or lesions noted Heart Score History: Slightly/Non-Suspicious ECG: Normal Age: </= 45 years Risk Factors: No Risk Factors Troponin: </= Normal Limit Score: 0 MDM MDM MDM Narrative Medical decision making narrative: Setting with chest pain which is intermittent. History of cardiac disease in early age. Patient has no specific cardiac history. Patient does states that she gave 4 months ago. History of DVT/PE. Differential includes acute coronary syndrome, PE, pneumonia, costochondritis, dehydration, electro abnormalities, gastritis, GERD. Patient well-appearing slightly tachycardic with a heart rate of 115. CBC will be obtained to assess white blood cell count, hemoglobin, platelets. BMP to assess renal function, electrolytes, glucose. High-sensitivity troponin EKG to assess for ischemia/dysrhythmia. Since x-ray to rule out pneumonia. D-dimer will be obtained to rule out PE. She declines analgesia at this time. CBC and BMP unremarkable. D- dimer negative. High-sensitivity troponin is 4. EKG on my interpretation shows a normal sinus rhythm with a ventricular rate of 88 bpm without sign ischemic change or ectopy on my interpretation. Chest x-ray mitral rotation is no acute process. Workup ultimately normal and this was discussed with patient. She will be discharged home in stable condition. Impression: 1. Chest pain 2. Dyspnea Lab Data Labs: Laboratory Results - last 24 hr 08/02/23 15:50 WBC 7.4 RBC 4.32 Hgb 13.0 Hct 38.6 MCV 89.4 MCH 30.1 MCHC 33.7 RDW Std Deviation 39.9 RDW Coeff of Alex 12.1 Plt Count 272 MPV 9.2 Immature Gran % (Auto) 0.300 Neut % (Auto) 70.6 H Lymph % (Auto) 22.5 Dillingham % (Auto) 5.1 Eos % (Auto) 0.7 Baso % (Auto) 0.8 Absolute Neuts (auto) 5.2 Absolute Lymphs (auto) 1.67 Nucleated RBC % 0 D-Dimer Quant (PE/DVT) < 0.27 L Sodium 138 Potassium 3.7 Chloride 108 H Carbon Dioxide 23.0 Anion Gap 7 BUN 21 H Creatinine 0.79 Estim Creat Clear Calc 83.57 Est GFR (MDRD) Af Amer 115 Est GFR (MDRD) Non-Af 95 BUN/Creatinine Ratio 26.5 H Glucose 75 Calcium 9.4 Troponin I High Sens 4 Radiography Diagnostic Testing: Clinical Impression(s) from Imaging Studies Chest X-Ray 08/02/23 15:50 IMPRESSION: Normal x-ray examination of the chest. Electronically Signed: Arun Simpson MD at 16:09 EST Reading Location ID and State: [facility] / [place] Tel , Service support , Discharge Plan Triage Chief Complaint: Chest Pain Other Complaint: Dizziness ED Provider: Lew Calles Dx/Rx/DC Orders Instructions: ED Chest Pain, Uncertain Cause Prescriptions: No Action PNV-DHA 27 mg iron-1 mg -300 mg capsule 1 cap PO DAILY Primary Care Provider: Care Physician,No Primary Referrals: Care Physician,No Primary [Primary Care Provider] - Disposition Disposition: Home, Self Care What to do if you have Problems For any increased pain, shortness of breath, bleeding, nausea or vomiting, chestpain, or any unexpected problems, contact your Primary Care Provider. Call [facility] ([phone]) or report to the closest Emergency Room. Call 911 if necessary. 08/02/23 1715 <Electronically signed by Lew Calles DO> Cosigner Signature (if applicable): CC: No Primary Care Physician ~ Signed [facility] Work Phone: 1(773) 104-353109-05-2023 Progress note Author Nelly To [facility] April 04, 2023 6:17am Note Date/Time April 04, 2023 6:17am [facility] Medical Records Department [address] [place] [address] Progress Note - OBGYN 04/04/2316 MR#: [id number] Acct: [id number] Name: MEKHI SOTO Rep #:[id number] : 2000 22 From: Nelly isbell MD PCP: Care Physician,No Primary Status :ADM IN Location: [place] [id number] Subjective Subjective Patient doing well without complaints. Tolerating PO. Ambulating and voiding without difficulty. feeding well. Denies chest pain, shortness of breath,calf pain/swelling, fevers, chills, lightheadedness. Objective Data Objective Data Vital Signs: Vital Signs Temp Pulse Resp BP Pulse Ox O2 Del Method 98.4 F 74 16 110/64 100 Room Air 04/04/23 02:15 04/04/23 02:15 04/04/23 02:15 04/04/23 02:15 04/04/23 02:15 04/04/23 02:15 Oxygen Delivery Method Room Air Weight: 132 lb 12.8 oz Body Mass Index (BMI) 25.0 Intake & Output: Intake and Output for Last 24 Hours 04/02/23 04/03/23 04/04/23 23:59 23:59 23:59 Intake Total 3585.84 / 3585.84 500 / 500 Output Total 2250 / 2250 Balance 1335.84 / 1335.84 500 / 500 Lab / Micro Data 04/02/23 08:30 ROS Constitutional Constitutional: Reports systems reviewed and no addt'l complaints, except as documented Cardiovascular Cardiovascular: Reports systems reviewed and no addt'l complaints, except as documented Respiratory/Chest Respiratory/Chest: Reports systems reviewed and no addt'l complaints, except as documented Gastrointestinal Gastrointestinal: Reports systems reviewed and no addt'l complaints, except as documented Physical Exam Const alert, oriented x3 and no apparent distress HEENT Head and Scalp: atraumatic Resp normal respiratory effort GI soft to palpation and non-tender Bimanual Exam - Vag & Uterus: uterus non-tender Uterus Palpation: uterus fundus firm (below Umbilicus) Assessment & Plan (1) Vaginal delivery: COMMENT: KW 41.0 Girl PLAN: Plan s/p PPD # 2 1. routine post delivery care 2. breast feeding- support given 3. rh positive 4. rubella immune 04/04/23 0617 <Electronically signed by Nelly To MD> Cosigner Signature (if applicable): CC: ~ Signed [facility] Work Phone: 1(416) 914-436009-04-2023 Progress note Author Jhoana Pace [facility] April 03, 2023 4:22am Note Date/Time April 03, 2023 4:22am [facility] Medical Records Department [address] [place] [address] Progress Note - OBGYN 04/03/23420 MR#: [id number] Acct: [id number] Name: MEKHI SOTO Rep #:[id number] : 2000 22 From: Jhoana Pace CNM PCP: Care Physician,No Primary Status :ADM IN Location: [place] 412825-1 Subjective Subjective Patient doing well without complaints. Tolerating PO. Ambulating and voiding without difficulty. Feeding well. Denies chest pain, shortness of breath, calf pain/swelling, fevers, chills, lightheadedness. Objective Data Objective Data Vital Signs: Vital Signs Temp Pulse Resp BP Pulse Ox O2 Del Method 98.1 F 75 18 104/56 L 97 Room Air 04/03/23 03:27 04/03/23 03:27 04/03/23 03:27 04/03/23 03:27 04/03/23 03:27 04/03/23 03:27 Oxygen Delivery Method Room Air Weight: 132 lb 12.8 oz Body Mass Index (BMI) 25.0 Intake & Output: Intake and Output for Last 24 Hours 04/01/23 04/02/23 04/03/23 23:59 23:59 23:59 Intake Total 3585.84 / 3585.84 Output Total 2250 / 2250 Balance 1335.84 / 1335.84 Lab / Micro Data 04/02/23 08:30 Labs: Laboratory Results - last 24 hr 04/02/23 08:30: WBC 10.8, RBC 3.65 L, Hgb 12.1, Hct 35.5 L, MCV 97.3, MCH 33.2 H, MCHC 34.1, RDW Std Deviation 45.1 H, RDW Coeff of Alex 12.7, Plt Count 187, MPV9.5, Immature Gran % (Auto) 0.600, Neut % (Auto) 74.2 H, Lymph % (Auto) 17.8 L, Dillingham % (Auto) 6.6, Eos % (Auto) 0.4, Baso % (Auto) 0.4, Absolute Neuts (auto) 8.0 H, Absolute Lymphs (auto) 1.92, Nucleated RBC % 0, Blood Type A POSITIVE, Antibody Screen NEGATIVE ROS Constitutional Constitutional: Reports systems reviewed and no addt'l complaints, except as documented; Denies anorexia or headache(s) Cardiovascular Cardiovascular: Reports systems reviewed and no addt'l complaints, except as documented; Denies dizziness, dyspnea, nausea or tachypnea Respiratory/Chest Respiratory/Chest: Reports systems reviewed and no addt'l complaints, except as documented; Denies cough, dyspnea, shortness of breath at rest or tachypnea Gastrointestinal Gastrointestinal: Reports systems reviewed and no addt'l complaints, except as documented; Denies abdominal pain, constipation or nausea Genitourinary Genitourinary: Reports systems reviewed and no addt'l complaints, except as documented; Denies burning urination, difficulty urinating, dysuria, urinary frequency or urinary incontinence Musculoskeletal Musculoskeletal: Reports systems reviewed and no addt'l complaints, except as documented Integumentary Integumentary: Reports systems reviewed and no addt'l complaints, except as documented Neurologic Neurologic: Reports systems reviewed and no addt'l complaints, except as documented; Denies abnormal speech, dizziness or headache(s) Psychiatric Psychiatric: Reports systems reviewed and no addt'l complaints, except as documented Endocrine Endocrinology: Reports systems reviewed and no addt'l complaints, except as documented Hematologic/Lymphatic Hematologic/Lymphatic: Reports systems reviewed and no addt'l complaints, exceptas documented Physical Exam Const alert, oriented x3 and no apparent distress Neck full ROM Resp normal respiratory effort, normal air movement and no retractions Effort and Inspection: able to speak in complete sentences and symmetric chest movement GI soft to palpation Bladder / Kidney Exam: bladder normal to palpation Uterus Palpation: uterus fundus firm Extremity normal to inspection and full ROM Psych mental status grossly normal, thought process normal and cooperative Assessment & Plan (1) Vaginal delivery: COMMENT: KW 41.0 Girl PLAN: s/p PPD # 1 1. routine post delivery care 2. breast feeding- support given 3. rh positive 4. rubella immune 5. Discharge home (2) Active labor: (3) Alteration in well being: COMMENT: change in baseline (4) Anemia affecting : COMMENT: / started on additional iron supplement. redraw cbc in 4 weeks.order placed. (5) Supervision of high-risk : COMMENT: PRR , KHADRA 03/26/23,girl ALEM Booker, Lang (6) : QUALIFIERS: Weeks of gestation: 40 weeks Qualified Code(s): Z3A.40 - 40 weeks gestation of COMMENT: GBS negative. declined genetic. LR carrier testing, nl anatomy, nl growth 33%, EFW 2738g(03/01) Charges/Coding Multi Select Codes Urinary/Genital Urinary/Genital CPT Codes: No Charge 04/03/23 0422 <Electronically signed by Jhoana Pace CNM> Cosigner Signature (if applicable): CC: ~ Signed [facility] Work Phone: 1(687) 374-254009-03-2023 Discharge summary Author Jhoana Pace [facility] April 02, 2023 2:24pm Note Date/Time April 02, 2023 2:23pm [facility] Medical Records Department [address] [place] [address] Instructions for Home/Discharge Instructions 04/02/23 1423 MR#: [id number] Acct: [id number] Name: CHEY SOTOTRINI Snow Rep #:[id number] : 2000 From: Jhoana Pace CNM PCP: Care Physician,No Primary Status :ADM IN Discharge Instructions Diet Discharge Diet: No restrictions Activity Discharge Activity: Return to Normal Activity May resume sexual activity in: 6-8 weeks Dressing / Incision Call your doctor if you observe: Fever of 101 or Higher, Coldness, Increased Pain, Numbness or Tingling, Change in Color, Inability to urinate, Inability to have a bowel movement, Using more than 1 pad per hour, Shortness of breath, Dizziness, Fainting spells, Swelling in the ankles, Chest pain, Increased palpitations (irregular heartbeat), Calf discomfort and Uncontrolled pain Follow Up Care Please Follow Up With: Jhoana Pace CNM When: Please call the office to schedule your follow up appointment in 6 weeks. If you had high blood pressure please call to schedule an appointment in 2 weeks. Test Results: Test results from this visit will be discussed in further detail at your follow- up appointment, if applicable. Discharge Plan Admission Admit Date/Time: 04/02/23 08:19 Attending Provider: Jhoana Pace Primary Care Provider: Tristian Physician,Liana Primary Discharge Orders/Prescriptions Prescriptions: No Action PNV-DHA 27 mg iron-1 mg -300 mg capsule 1 cap PO DAILY ferrous sulfate [Feosol] 325 mg (65 mg iron) tablet 325 mg PO DAILY Referrals / Follow Up: Tristian Physician,Liana Primary [Primary Care Provider] - 04/02/23 1424<Electronically signed by Jhoana Pace CNM>Jhoana Pace CNM CC: No Primary Care Physician ~ Signed [facility] Work Phone: 1(535) 304-354809-03-2023 Progress note Author Jhoana Pace [facility] April 02, 2023 12:29pm Note Date/Time April 02, 2023 12:29pm [facility] Medical Records Department [address] [place] [address] Progress Note 04/02/23 1227 MR#: [id number] Acct: [id number] Name: MEKHI SOTO Rep #:[id number] : 2000 From: Jhoana Pace CNM PCP: Tristian Physician,No Primary Status :ADM IN Location: [place] [id number] Progress Note comfortable with epidural current tracing: FHT: 130 Moderate variability reactive no decelerations category I tracing [place]: 2-3 Contractions A/P: Continue position changes Titrate pitocin per protocol AROM when appropriate anticipate Dr To aware and agrees with plan Assessment & Plan Assessment/Plan (1) Active labor: (2) Anemia affecting : (3) Supervision of high-risk : (4) : QUALIFIERS: Weeks of gestation: 40 weeks Qualified Code(s): Z3A.40 - 40 weeks gestation of Multi Select Codes Urinary/Genital Urinary/Genital CPT Codes: No Charge 04/02/23 1229 <Electronically signed by Jhoana Pace CNM> Jhoana Pace CNM Cosigner Signature (if applicable): CC: ~ Signed [facility] Work Phone: 1(840) 678-773909-03-2023 Procedure [facility] 04-02-2023 History and physical note Author Jhoana Pace [facility] April 02, 2023 8:22am Note Date/Time April 02, 2023 8:22am [facility] Medical Records Department [address] [place] [id number] H&P Exam - SKIN TOGGLER 04/02/23 0817 MR#: [id number] Acct: [id number] Name: MEKHI SOTO Rep #:[id number] : 2000 22 From: Jhoana Pace CNM PCP: Care Physician,No Primary Status :ADM SANDRA Location: [place] [address] HPI - General General Date of Admission: 04/02/23 Date of Service: 04/02/23 HPI Narrative MEKHI SOTO, is a 22 F at 41 weeks gestation who presents in active labor. Maternal Data Information KHADRA Calculator Estimated Delivery Date Method Current WG Current Estimate 03/26/23 LMP (Certain) 41w 0d Final KHADRA: 03/26/23 Final KHADRA Source: US >20 weeks Gestational age: 41.0 weeks [facility] Medical History Anemia affecting No significant medical problems examination following vaginal delivery Tetanus, diphtheria, and acellular pertussis (Tdap) vaccination declined Home Medications multivitamin no.47-iron fum 27 mg-folate no.1 1 mg-dha 300 mg capsule (PNV-DHA)1 cap PO DAILY 10/14/20 [History Last Taken 04/01/23 08:00 1 cap] ferrous sulfate 325 mg (65 mg iron) tablet (Feosol) 325 mg PO DAILY 01/27/23 [History Last Taken 04/01/23] Allergy/AdvReac Type Severity Reaction Status Date / Time No Known Allergies Allergy Verified 04/02/23 06:42 Family History Grandmother Cancer Grandfather Hypertension Surgical History No significant past surgical history Social History adopted: No household members: spouse and children housing: house number of children: 1 current occupational status: unemployed pets and animals: No history of recent travel: No sexually active: Yes Smoking Status: Never smoker second hand exposure: No alcohol intake: current alcohol intake frequency: holidays/special occasions only details: not while substance use type: does not use diet: gluten free and lactose free well-balanced diet: daily or most days caffeine: No eating out: 1-3 times/week during the past year weight has: decreased > 10 lbs what type of physical activity do you participate in: none martin/zoroastrianism: Anabaptism seatbelt use: always do you feel safe at home: Yes additional social history: - Lang Funes) History 2 Elective abortions Hx Para 1 Spontaneous abortions Hx # Term Pregnancies 1 Ectopic pregnancies Hx # Pregnancies Multiple births # of living children 1 Past Pregnancies Del. Date Name GA/Weeks Outcome Route Bth Weight Gen Labor Lgth Anesthesia Del Locatn Provider FOB 05/28/21 [place] 41 live - full term vacuum 7lbs 8oz Male [facility] Marcanthony Delivery Date: 05/28/21 Last Updated by: Chanda DIAL VAVD Visit Details Expected Delivery Route/Plan Labor Preferences- CB/BF classes: denies labor support person: Lang labor intervention preferences: [] pain management options preferred: open to epidural cut cord/dad catch: [] : wants PP control planned: [] discussed possible routes of delivery and associated risks: [] special requests: [] Plans Covid status: discussed Flu vaccine: discussed Tdap vaccine: declined Rhogam: na LARC form signed: completed Problem list reviewed and updated with the most current plan of care details and appropriate orders placed. Relevant counseling for the gestational age provided. Continue routine care and follow up unless otherwise noted in visit notes/problem list details OB Flowsheet Initial Weight: Not Recorded Date -?-?-?-?-?-?-?-?-?-?-?-?- EGA Weight BP Urine Prot -?-?-?--?-?-?-?-?-?-?-?-?- Glucose FHR FuHt Pres Dilation -?-?-?-?-?-?-?-?-?--?-?-?- Effaced St Visit Note 09/01/22 -?-?-?-?-?-?-?-?-?-?-?-?- 10w 4d 104 lb 121/80 -?-?-?-?-?-?-?-?-?-?-?-?- 170 -?-?-?-?-?-?-?-?-?-?-?-?- SM- CRL 2.9cm co ns with LMP small resolving subchorionic hematoma 09/29/22 -?-?--?-?-?-?-?-?-?-?-?-?- 14w 4d 106 lb 8 oz 113/68 Nega tive -?-?-?-?-?-?-?-?-?-?-?-?- Negative 147 -?-?-?-?-?-?-?-?-?-?-?-?- JV- no lof, vagi nal bleeding, or cramping. no complaints. 11/08/22 -?-?-?-?-?-?-?-?-?-?-?-?- 20w 2d 114 lb 2 oz 119/58 Nega tive -?-?-?-?-?-?-?-?-?-?-?-?- Negative 120 20 -?-?-?-?-?-?-?-?-?-?-?-?- KW- no lof, vb, or cramping. no complaints. 12/16/22 -?-?-?-?-?-?-?-?-?-?-?-?- 25w 5d 122 lb 6 oz 105/62 Trac e -?-?-?-?-?-?-?-?-?-?-?-?- Negative 138 25 -?-?-?-?-?-?-?-?-?-?-?-?- LC- no lof/vb/ct x. good fm. 28 week labs ordered. 01/11/23 -?-?-?-?-?-?-?-?-?-?-?-?- 29w 3d 124 lb 98/64 Negative -?-?-?-?-?-?-?-?-?-?-?-?- Negative 147 29 -?-?-?-?-?-?-?-?-?-?-?-?- MH-No Vb, LOF. G ood FM. RUQ pain angelina after meals. Had GB issues with last pregn. GB US and CMP ordered. Larc. Enc to start FE. 01/27/23 -?-?-?-?-?-?-?-?-?-?-?-?- 31w 5d 126 lb 6 oz 126 lb 4 oz 96/60 69/60 Negative -?-?-?-?-?-?-?-?-?-?-?-?- Negative 140 31 -?-?-?-?-?-?-?-?-?-?-?-?- KW-+ fm, no lof/ vb/ctx. no concerns today 02/21/23 -?-?-?-?-?--?-?-?-?-?-?-?- 35w 2d 131 lb 4 oz 125/85 Trac e -?-?-?-?-?-?-?-?-?-?-?-?- Negative 130 32 -?-?-?-?-?-?-?-?-?-?-?-?- KW-+fm, no vb/re gular ctx. no concerns. growth US ordered. 03/02/23 -?-?-?-?-?-?-?-?-?-?-?-?- 36w 4d 133 lb 8 oz 101/67 Trac e -?-?-?-?-?-?-?-?-?-?-?-?- Negative 140 36 Cephalic -?-?-?-?-?-?-?-?-?-?-?-?- LC-no lof/vb/ctx . good fm. no concerns. LC-no lof/vb/ctx. good fm. n o concerns. cbc ordered to recheck anemia on iron supplementation LC-no lof/vb/ctx. good fm. n o concerns. cbc ordered to recheck anemia on iron supplementation. handheld us confirm vtx. 03/09/23 -?-?-?-?-?-?-?-?-?-?-?-?- 37w 4d 134 lb 110/72 -?-?-?-?-?-?-?-?-?-?-?-?- 140 37 Cephalic -?-?-?-?-?-?-?-?-?-?-?-?- SM- no vb lof go od fm co some ctx feel pelvic pressure 03/14/23 -?-?--?-?-?-?-?-?-?-?-?-?- 38w 2d 134 lb 4 oz 108/72 Trac e -?-?-?-?-?-?-?-?-?-?-?-?- Negative 125 36 Cephalic 2 .5 -?-?-?-?-?-?-?-?-?-?-?-?- 60 -2 KW-no lof/ vb/ctx. good fm. no concerns today. labor precautions reviewed. Possible US next week if needed for fundal height. 03/24/23 -?-?-?-?-?-?-?-?-?-?-?-?- 39w 5d 135 lb 113/79 Negative -?-?-?-?-?-?-?-?-?-?-?-?- Negative 142 37 Cephalic 1 .5 -?-?-?-?-?-?-?-?-?-?-?-?- 50 -3 JV- no lof ,vaginal bleeding, or dec fm. pt informed of exam today an why can differ depending on provider. I did have to give fundal pressure to push the baby to a reachable position and that is the reason for calling her -3. 03/31/23 -?-?-?-?-?-?-?-?-?-?-?-?- 40w 5d 133 lb 2 oz 114/68 Nega tive -?-?-?-?-?-?-?-?-?-?-?-?- Negative 140 39 Cephalic 3 -?-?-?-?-?-?-?-?-?-?-?-?- 50 -3 LC-no lof/ ctx/vb. good fm. declines iol. r/b reviewed. will obtain nst and mary check at 41 weeks and 41.4 NST FHR Rate Baby A Baseline: 130 Variability:: Moderate Accelerations:: 15 x 15 Decelerations:: None NST Reactive:: Yes FHR Category:: Category I Uterine Activity:: 4-7 minutes ROS Constitutional Constitutional: Denies change in weight, fatigue, fever(s), headache(s), poor appetite or weakness Eyes Eyes: Denies blurry vision, change in vision, floaters, seeing flashes or spots in vision ENT HEENT: Denies dizziness, headache(s), loss taste/smell or sore throat Cardiovascular Cardiovascular: Denies chest pain, dizziness, dyspnea, irregular heart rhythm, lightheadedness, palpitations or rapid heart rate Respiratory/Chest Respiratory/Chest: Denies change in mental status, chest tightness, cough, dyspnea or breast pain Gastrointestinal Gastrointestinal: Denies anorexia, chewing difficulty, constipation, diarrhea or weight changes Genitourinary Genitourinary: Denies difficulty urinating, dysuria, flank pain, genital pain, urinary frequency or urinary urgency Musculoskeletal Musculoskeletal: Denies back pain, difficulty walking, extremity pain, joint pain, muscle cramps or muscle weakness Integumentary Integumentary: Denies lesions or unusual bruising Neurologic Neurologic: Denies abnormal movements, abnormal speech, dizziness, numbness, seizure-like activity, syncope or weakness Psychiatric Psychiatric: Denies behavioral changes, change in appetite, confusion, depression, homicidal ideation, suicidal ideation or suicidal thoughts Endocrine Endocrinology: Denies excessive sweating, polydipsia or polyuria Hematologic/Lymphatic Hematologic/Lymphatic: Denies anemia Allergic/Immunologic Allergic/Immunologic: Denies itchy eyes, lip swelling, throat swelling, tongue swelling or wheezing Vital Signs Vital Signs Vital Signs: 04/02/23 06:38 04/02/23 06:38 04/02/23 06:38 Temperature 98.3 F Temperature Source Temporal Pulse Rate Blood Pressure 110/66 BP Systolic 110 BP Diastolic 66 Pulse Ox 04/02/23 07:14 04/02/23 07:14 04/02/23 07:14 Temperature 98.1 F Temperature Source Pulse Rate 91 Blood Pressure 112/62 BP Systolic 112 BP Diastolic 62 Pulse Ox 04/02/23 07:14 04/02/23 07:14 04/02/23 07:14 Temperature Temperature Source Temporal Pulse Rate 95 Blood Pressure BP Systolic BP Diastolic Pulse Ox 97 04/02/23 07:14 04/02/23 07:14 04/02/23 07:14 Temperature Temperature Source Pulse Rate 94 Blood Pressure 112/62 BP Systolic 112 BP Diastolic 62 Pulse Ox 97 04/02/23 07:14 Temperature 98.1 F Temperature Source Pulse Rate Blood Pressure BP Systolic BP Diastolic Pulse Ox Weight Weight: 132 lb 12.8 oz Body Mass Index (BMI) 25.0 Physical Exam Const alert, oriented x3 and no apparent distress General Appearance: cooperative Orientation / Consciousness: awake HEENT normocephalic Neck full ROM Lymph Lymphatic: no lymphadenopathy noted Chest inspection of chest normal Resp normal respiratory effort and normal air movement Effort and Inspection: able to speak in complete sentences and symmetric chest movement GI soft to palpation and non-tender Inspection: gravid Palpation: soft; Negative for tender external exam normal Manual OB Exam: dilated 5 and effaced 70 Back/Spine normal to inspection Extremity normal to inspection and full ROM Skin no rashes or lesions noted Psych mental status grossly normal Appearance: grossly normal Speech: normal speech Labs Labs Labs: Blood Type A POSITIVE Antibody Screen NEGATIVE Hct 35.5 % (37-47) L Hgb 11.6 g/dL (12.0-15.0) L Obstetrics US Syphilis Total Ab Non-reactive Rubella IgG Antibody Reactive (Nonreactive) Hep Bs Antigen Non-Reactive (Nonreactive) Chlamydia DNA (DIALLO) Negative (Negative) Neisseria gonorrhoeae DNA (DIALLO) Negative (Negative) HIV 1&2 Antibody Non-Reactive (Nonreactive) Glucose 1 Hr 50 gm 119 mg/dL (70-140) Assessment & Plan (1) Active labor: PLAN: Patient presents IAL, plan expectant management for , pitocin/AROM PRN if needed. Pain management: plans epidural. GBS negative. Management of any complications: none I have reviewed the [facility] and made any clinically relevant updates. Dr Day aware of admission and agrees with plan of care (2) Anemia affecting : COMMENT: 01/04 started on additional iron supplement. redraw cbc in 4 weeks. order placed. (3) Supervision of high-risk : COMMENT: PRR , KHADRA 03/26/23,girl ALEM Booker, Lang (4) : QUALIFIERS: Weeks of gestation: 40 weeks Qualified Code(s): Z3A.40 - 40 weeks gestation of COMMENT: GBS negative. declined genetic. LR carrier testing, nl anatomy, nl growth 33%, EFW 2738g(03/01) Charges/Coding Multi Select Codes Urinary/Genital Urinary/Genital CPT Codes: No Charge 04/02/23 0822 <Electronically signed by Jhoana Pace CNM> Cosigner Signature (if applicable): CC: YUE Pace; No Primary Care Physician~ Signed [facility] Work Phone: 1(143) 612-351302-02-2023 NotePap Smear Specimen AdequacyFebruary 2022 4:08pmComment.Satisfactory for evaluation. Endocervical and/or squamous metaplasticcells (endocervical component)are present.[facility] A#[id number] Health West HospitalComment on above:Satisfactory for evaluation. Endocervical and/or squamous metaplasticcells (endocervical component)are present.09-01-2022 NotePap Smear Specimen AdequacyFebruary 2022 5:08pmComment.Satisfactory for evaluation. Endocervical and/or squamous metaplasticcells (endocervical component)are present.[facility] A#[id number] Health West HospitalComment on above:Satisfactory for evaluation. Endocervical and/or squamous metaplasticcells (endocervical component)are present.Evaluation note* Diagnosis Onset Date Resolution Status Pelvic pain acute acute Supervision of high-risk acute [facility] Work Phone: evaluation note* Diagnosis Onset Date Resolution Status acute Supervision of high-risk acute Pelvic pain acute acute Supervision of high-risk acute Pelvic pain acute acute Supervision of high-risk acute [facility] Work Phone: evaluation note* Diagnosis Onset Date Resolution Status Pelvic pain acute acute Supervision of high-risk acute Pelvic pain acute acute Supervision of high-risk acute acute Supervision of high-risk acute Abdominal pain of right uppe r quadrant during , antepartum acute Anemia affecting a cute acute Supervision of high-risk acute [facility] Work Phone: evaluation note* Diagnosis Onset Date Resolution Status Pelvic pain acute acute Supervision of high-risk acute acute Supervision of high-risk acute Abdominal pain of right uppe r quadrant during , antepartum acute Anemia affecting a cute acute Supervision of high-risk acute Abdominal pain of right uppe r quadrant during , antepartum acute Anemia affecting a cute Pelvic pain acute acute Supervision of high-risk acute Abdominal pain of right uppe r quadrant during , antepartum acute Anemia affecting a cute Pelvic pain acute acute Supervision of high-risk acute Uterine size date discrepancy acute Abdominal pain of right uppe r quadrant during , antepartum acute Anemia affecting a cute Pelvic pain acute acute Supervision of high-risk acute Uterine size date discrepancy acute [facility] Work Phone: evaluation note* Diagnosis Onset Date Resolution Status acute Supervision of high-risk acute Anemia affecting a cute acute Supervision of high-risk acute Abdominal pain of right uppe r quadrant during , antepartum resolved Anemia affecting a cute acute Supervision of high-risk acute Abdominal pain of right uppe r quadrant during , antepartum resolved Pelvic pain resolved Anemia affecting a cute acute Supervision of high-risk acute Abdominal pain of right uppe r quadrant during , antepartum resolved Pelvic pain resolved Uterine size date discrepancy resolved Anemia affecting a cute acute Supervision of high-risk acute Abdominal pain of right uppe r quadrant during , antepartum resolved Pelvic pain resolved Uterine size date discrepancy resolved Anemia affecting a cute acute Supervision of high-risk acute Alteration in well being acute Anemia affecting a cute acute Supervision of high-risk acute [facility] Work Phone: Evaluation note* Diagnosis Onset Date Resolution Status acute Supervision of high-risk acute Anemia affecting a cute acute Supervision of high-risk acute Abdominal pain of right uppe r quadrant during , antepartum resolved Anemia affecting a cute acute Supervision of high-risk acute Abdominal pain of right uppe r quadrant during , antepartum resolved Pelvic pain resolved Anemia affecting a cute acute Supervision of high-risk acute Abdominal pain of right uppe r quadrant during , antepartum resolved Pelvic pain resolved Uterine size date discrepancy resolved Anemia affecting a cute acute Supervision of high-risk acute Abdominal pain of right uppe r quadrant during , antepartum resolved Pelvic pain resolved Uterine size date discrepancy resolved Anemia affecting a cute acute Supervision of high-risk acute Alteration in well being acute Anemia affecting a cute acute Supervision of high-risk acute Alteration in well being acute Anemia affecting a cute acute Supervision of high-risk acute [facility] Work Phone: Evaluation note* Diagnosis Onset Date Resolution Status acute Supervision of high-risk acute Anemia affecting a cute acute Supervision of high-risk acute Abdominal pain of right uppe r quadrant during , antepartum resolved Anemia affecting a cute acute Supervision of high-risk acute Abdominal pain of right uppe r quadrant during , antepartum resolved Pelvic pain resolved Anemia affecting a cute acute Supervision of high-risk acute Abdominal pain of right uppe r quadrant during , antepartum resolved Pelvic pain resolved Uterine size date discrepancy resolved Anemia affecting a cute acute Supervision of high-risk acute Abdominal pain of right uppe r quadrant during , antepartum resolved Pelvic pain resolved Uterine size date discrepancy resolved Anemia affecting a cute acute Supervision of high-risk acute Alteration in well being acute Anemia affecting a cute acute Supervision of high-risk acute Alteration in well being acute Anemia affecting a cute acute Supervision of high-risk acute Alteration in well being acute Anemia affecting a cute acute Supervision of high-risk acute Anemia affecting a cute acute Supervision of high-risk acute [facility] Work Phone: Evaluation note* Diagnosis Onset Date Resolution Status resolved Supervision of high-risk resolved Abdominal pain of right uppe r quadrant during , antepartum resolved Anemia affecting r esolved resolved Supervision of high-risk resolved Abdominal pain of right uppe r quadrant during , antepartum resolved Anemia affecting r esolved Pelvic pain resolved resolved Supervision of high-risk resolved Abdominal pain of right uppe r quadrant during , antepartum resolved Anemia affecting r esolved Pelvic pain resolved resolved Supervision of high-risk resolved Uterine size date discrepancy resolved Abdominal pain of right uppe r quadrant during , antepartum resolved Anemia affecting r esolved Pelvic pain resolved resolved Supervision of high-risk resolved Uterine size date discrepancy resolved Anemia affecting r esolved resolved Supervision of high-risk resolved Alteration in well being resolved Anemia affecting r esolved resolved Supervision of high-risk resolved Alteration in well being resolved Anemia affecting r esolved resolved Supervision of high-risk resolved Alteration in well being resolved Anemia affecting r esolved resolved Supervision of high-risk resolved Anemia affecting r esolved resolved Supervision of high-risk resolved Active labor resolved Alteration in well being resolved Anemia affecting r esolved resolved Supervision of high-risk resolved [facility] Work Phone: Evaluation note* Diagnosis Onset Date Resolution Status Active labor resolved Alteration in well being resolved Anemia affecting r esolved resolved Supervision of high-risk resolved [facility] Work Phone: Progress note Author Jhoana Pace [facility] April 01, 2023 2:21pm Note Date/Time April 01, 2023 2:21pm [facility] Medical Records Department [address] [place] [address] OB Triage Progress Note 04/01/23 1420 MR#: [id number] Acct: [id number] Name: MEKHI SOTO Rep #:[id number] : 2000 22 From: Jhoana Pace CNM PCP: Care Physician,No Primary Status :REG CLI Y DOS: Location: [place] [id number] Progress Notes Date of Service: 04/01/23 Progress Note: Patient presents for triage evaluation secondary to scheduled NST and growth US for 41 week gestation FHT: 115 Moderate variability reactive no decelerations category I tracing [place]: irregular Contractions Assessment and plan: Reactive NST, kick counts reviewed, reassuring maternal and status patient discharged to home to follow-up at next appointment. See problem list details for additional plan information. Charges/Coding Multi Select Codes Urinary/Genital Urinary/Genital CPT Codes: 71002-14 non-stress test Interp Assessment & Plan (1) Supervision of high-risk : COMMENT: PRR , KHADRA 03/26/23,girl ALEM Booker, Lang (2) : QUALIFIERS: Weeks of gestation: 40 weeks Qualified Code(s): Z3A.40 - 40 weeks gestation of COMMENT: GBS negative. declined genetic. LR carrier testing, nl anatomy, nl growth 33%, EFW 2738g(03/01) (3) Anemia affecting : COMMENT: 01/04 started on additional iron supplement. redraw cbc in 4 weeks.order placed. 04/01/23 1421 <Electronically signed by Jhoana green CNM> Date _ Jhoana Pace CNM Cosigner Signature (if applicable): Date CC: YUE Pace; No Primary Care Physician ~ Signed [facility] Work Phone: Reason for referral (narrative)No reason for referral information availableWOhioHealth [facility] Work Phone: Chief Complaint and Reason for Visit Chief Complaint pelvic pain, possibl e ovarian cyst NOB LMP 06/19 Reason for Visit Pelvic pain Supervision of high-risk Chief Complaint NOB LMP 06/19 14wk ob 20 WK OB CERVICAL LENGTH Reason for Visit Supervision of high-risk Pelvic pain Supervision of high-risk Pelvic pain Supervision of high-risk Chief Complaint 14wk ob 20 WK OB CERVICAL LENGTH 25 WK OB , R/S FROM 12/12 29 wk ob E-ORDER RUQ PAIN Reason for Visit Pelvic pain Supervision of high-risk Pelvic pain Supervision of high-risk Supervision of high-risk Abdominal pain of right upper quadrant during , antepartum Anemia affecting Supervision of high-risk Chief Complaint 20 WK OB CERVICAL LENGTH 25 WK OB , R/S FROM 12/12 29 wk ob E-ORDER RUQ PAIN 31 WK OB 35 WK OB size less than dates 36 WK OB Reason for Visit Pelvic pain Supervision of high-risk Supervision of high-risk Abdominal pain of right upper quadrant during , antepartum Anemia affecting Supervision of high-risk Abdominal pain of right upper quadrant during , antepartum Anemia affecting Pelvic pain Supervision of high-risk Abdominal pain of right upper quadrant during , antepartum Anemia affecting Pelvic pain Supervision of high-risk Uterine size date discrepancy Abdominal pain of right upper quadrant during , antepartum Anemia affecting Pelvic pain Supervision of high-risk Uterine size date discrepancy Chief Complaint 25 WK OB , R/S FROM 12/12 29 wk ob E-ORDER RUQ PAIN 31 WK OB 35 WK OB size less than dates 36 WK OB 37 WK OB 38 WK OB Reason for Visit Supervision of high-risk Anemia affecting Supervision of high-risk Abdominal pain of right upper quadrant during , antepartum Anemia affecting Supervision of high-risk Abdominal pain of right upper quadrant during , antepartum Pelvic pain Anemia affecting Supervision of high-risk Abdominal pain of right upper quadrant during , antepartum Pelvic pain Uterine size date discrepancy Anemia affecting Supervision of high-risk Abdominal pain of right upper quadrant during , antepartum Pelvic pain Uterine size date discrepancy Anemia affecting Supervision of high-risk Alteration in well being Anemia affecting Supervision of high-risk Chief Complaint 25 WK OB , R/S FROM 12/12 29 wk ob E-ORDER RUQ PAIN 31 WK OB 35 WK OB size less than dates 36 WK OB 37 WK OB 38 WK OB 39 WK OB R/O LABOR Reason for Visit Supervision of high-risk Anemia affecting Supervision of high-risk Abdominal pain of right upper quadrant during , antepartum Anemia affecting Supervision of high-risk Abdominal pain of right upper quadrant during , antepartum Pelvic pain Anemia affecting Supervision of high-risk Abdominal pain of right upper quadrant during , antepartum Pelvic pain Uterine size date discrepancy Anemia affecting Supervision of high-risk Abdominal pain of right upper quadrant during , antepartum Pelvic pain Uterine size date discrepancy Anemia affecting Supervision of high-risk Alteration in well being Anemia affecting Supervision of high-risk Alteration in well being Anemia affecting Supervision of high-risk Chief Complaint 25 WK OB , R/S FROM 12/12 29 wk ob E-ORDER RUQ PAIN 31 WK OB 35 WK OB size less than dates 36 WK OB 37 WK OB 38 WK OB 39 WK OB R/O LABOR R/O LABOR 40 WK OB NST NST Reason for Visit Supervision of high-risk Anemia affecting Supervision of high-risk Abdominal pain of right upper quadrant during , antepartum Anemia affecting Supervision of high-risk Abdominal pain of right upper quadrant during , antepartum Pelvic pain Anemia affecting Supervision of high-risk Abdominal pain of right upper quadrant during , antepartum Pelvic pain Uterine size date discrepancy Anemia affecting Supervision of high-risk Abdominal pain of right upper quadrant during , antepartum Pelvic pain Uterine size date discrepancy Anemia affecting Supervision of high-risk Alteration in well being Anemia affecting Supervision of high-risk Alteration in well being Anemia affecting Supervision of high-risk Alteration in well being Anemia affecting Supervision of high-risk Anemia affecting Supervision of high-risk Chief Complaint 25 WK OB , R/S FROM 12/12 29 wk ob E-ORDER RUQ PAIN 31 WK OB 35 WK OB size less than dates 36 WK OB 37 WK OB 38 WK OB 39 WK OB R/O LABOR R/O LABOR 40 WK OB NST NST Reason for Visit Supervision of high-risk Abdominal pain of right upper quadrant during , antepartum Anemia affecting Supervision of high-risk Abdominal pain of right upper quadrant during , antepartum Anemia affecting Pelvic pain Supervision of high-risk Abdominal pain of right upper quadrant during , antepartum Anemia affecting Pelvic pain Supervision of high-risk Uterine size date discrepancy Abdominal pain of right upper quadrant during , antepartum Anemia affecting Pelvic pain Supervision of high-risk Uterine size date discrepancy Anemia affecting Supervision of high-risk Alteration in well being Anemia affecting Supervision of high-risk Alteration in well being Anemia affecting Supervision of high-risk Alteration in well being Anemia affecting Supervision of high-risk Anemia affecting Supervision of high-risk Active labor Alteration in well being Anemia affecting Supervision of high-risk Chief Complaint 6 WK POST CHEST PAIN Reason for Visit Active labor Alteration in well being Anemia affecting Supervision of high-risk Chief Complaint Admit Date follow up miscarriage August 01, 2024 3:32pm Reason for Visit Admit Date Complete August 01, 2024 3: 32pm Chief Complaint Admit Date follow up miscarriage August 01, 2024 3:32pm fu miscarriages 2024 8:39 am Reason for Visit Admit Date Complete August 01, 2024 3: 32pm Dyspareunia 2024 8:39 am History of recurrent miscarriages 2024 8:39am Vaginal discharge 2024 8:39 am Chief Complaint Admit Date fu miscarriages 2024 8:39 am Reason for Visit Admit Date Dyspareunia 2024 8:39 am History of recurrent miscarriages 2024 8:39am Vaginal discharge 2024 8:39 am Family History No Family History Records Found Relationship Condition Age at Onset Recorded Date/T nicole grandmother Malignant neoplasm Unknown grandfather Hypertension Unknown Advance Directives No Advanced Directives Records Found Advance Directive Response Recorded Date/ Time Living Will No May 26 6:42pm Power of Social Sciences Instructor No May 26, 2021 6:42pm Advance Directive Response Recorded Date/ Time Living Will No May 26 7:42pm Power of Social Sciences Instructor No May 26, 2021 7:42pm Advance Directive Response Recorded Date/ Time Living Will No April 02, 8:26am Power of Social Sciences Instructor No April 02, 2023 8:26am Advance Directive Response Recorded Date/ Time Living Will No Jeimy 3rd, 202 4 3:40pm Power of Social Sciences Instructor No August 02 024 3:40pm Summary Purpose Additional Source Comments Care Teams (unrecognized sec tion and content) Team Status: Active Member Role Status Dates No Primary Care Physician Primary Care Provider Active Team Status: Inactive Member Role Status Dates No Primary Care Physician Primary Care Provider Active Start: July 09, 2024 End: July 09, 2024 Maureen Benítez ENGINEERING DOCUMENT CONTROL CLERK, ENGINEERING DOCUMENT CONTROL CLERK-C Attending Provider Active Start: July 09, 2024 End: July 09, 2024 Maureen Benítez ENGINEERING DOCUMENT CONTROL CLERK, ENGINEERING DOCUMENT CONTROL CLERK-C Referring Provider Active Start: July 09, 2024 End: July 09, 2024 Team Status: Inactive Member Role Status Dates No Primary Care Physician Primary Care Provider Active Start: July 11, 2024 End: July 11, 2024 Dr. Nelly To MD Attending Provider Active Start: July 11, 2024 End: July 11, 2024 Dr. Nelly To MD Referring Provider Active Start: July 11, 2024 End: July 11, 2024 Team Status: Inactive Member Role Status Dates No Primary Care Physician Primary Care Provider Active Start: August 01, 2024 End: August 01, 2024 No Primary Care Physician Referring Provider Active Start: August 01, 2024 End: August 01, 2024 Dr. Lindsey Jordan DO Attending Provider Activ e Start: August 01, 2024 End: August 01, 2024 Team Status: Inactive Member Role Status Dates No Primary Care Physician Primary Care Provider Active Start: October 14, 2024 End: October 14, 2024 Jhoana Pace CNM Attending Provider Active S tart: October 14, 2024 End: October 14, 2024 Jhoana Pace CNM Referring Provider Active S tart: October 14, 2024 End: October 14, 2024 Team Status: Active Member Role Status Dates No Primary Care Physician Primary Care Provider Active Start: October 16, 2024 Jhoana Pace CNM Attending Provider Active S tart: October 16, 2024 Jhoana Pace CNM Referring Provider Active S tart: October 16, 2024 Team Status: Active Member Role Status Dates No Primary Care Physician Primary Care Provider Active Start: October 18, 2024 Jhoana Pace CNM Attending Provider Active S tart: October 18, 2024 Jhoana Pace CNM Referring Provider Active S tart: October 18, 2024 Team Status: Active Member Role Status Dates No Primary Care Physician Primary Care Provider Active Start: October 21, 2024 Jhoana Pace CNM Attending Provider Active S tart: October 21, 2024 Jhoana Pace CNM Referring Provider Active S tart: October 21, 2024 Team Status: Active Member Role Status Dates No Primary Care Physician Primary Care Provider Active Jhoana Pace CNM Admit Provider, Other Provider Ac tive Dr. Nelly To MD Attending Provider Active Team Status: Inactive Member Role Status Dates No Primary Care Physician Primary Care Provider, Refer ring Provider Active Jhoana Pace CNM Attending Provider Active Team Status: Inactive Member Role Status Dates No Primary Care Physician Primary Care Provider Active Jhoana Pace CNM Admit Provider, Attending Provide r Active Team Status: Inactive Member Role Status Dates No Primary Care Physician Primary Care Provider Active Dr. Lew Calles DO Emergency Provider Active Team Status: Inactive Member Role Status Dates No Primary Care Physician Primary Care Provider, Refer ring Provider Active Lara Andrade CNM Attending Provider Active Team Status: Inactive Member Role Status Dates No Primary Care Physician Primary Care Provider, Refer ring Provider Active Dr. Nelly To MD Attending Provider Active Team Status: Inactive Member Role Status Dates No Primary Care Physician Primary Care Provider Active Dr. Nelly To MD Attending Provider, Referr ing Provider Active Team Status: Inactive Member Role Status Dates No Primary Care Physician Primary Care Provider, Refer ring Provider Active Dr. Lindsey Jordan DO Attending Provider Activ e Team Status: Inactive Member Role Status Dates No Primary Care Physician Primary Care Provider Active Dr. Lindsey Jordan DO Attending Provider Activ e Team Status: Inactive Member Role Status Dates No Primary Care Physician Primary Care Provider, Refer ring Provider Active Maureen Benítez ENGINEERING DOCUMENT CONTROL CLERK, ENGINEERING DOCUMENT CONTROL CLERK-C Attending Provider Active Team Status: Inactive Member Role Status Dates No Primary Care Physician Primary Care Provider Active Lara Andrade CNM Attending Provider, Referring Pr ovider Active Team Status: Active Member Role Status Dates No Primary Care Physician Primary Care Provider Active Maureen Benítez ENGINEERING DOCUMENT CONTROL CLERK, ENGINEERING DOCUMENT CONTROL CLERK-C Attending Provider, Referring Provider Active Team Status: Inactive Member Role Status Dates No Primary Care Physician Primary Care Provider Active Maureen Benítez ENGINEERING DOCUMENT CONTROL CLERK, ENGINEERING DOCUMENT CONTROL CLERK-C Attending Provider, Referring Provider Active Team Status: Inactive Member Role Status Dates No Primary Care Physician Primary Care Provider Active Jhoana Pace CNM Attending Provider, Referring Pro vider Active Team Status: Active Member Role Status Dates No Primary Care Physician Primary Care Provider Active Lara Andrade CNM Attending Provider, Referring Pr ovider Active Team Status: Active Member Role Status Dates No Primary Care Physician Primary Care Provider Active Dr. Nelly To MD Attending Pr ovider, Referring Provider, Other Provider Active Team Status: Active Member Role Status Dates No Primary Care Physician Primary Care Provider Active Jhoana Pace CNM Attending Provider, Referring Provider, Other Provider Active Team Status: Active Member Role Status Dates No Primary Care Physician Primary Care Provider Active Jhoana Pace CNM Admit Provider, Att ending Provider, Other Provider Active Team Status: Inactive Member Role Status Dates No Primary Care Physician Primary Care Provider Active Start: October 16, 2024 End: October 16, 2024 Jhoana Pace CNM Attending Provider Active S tart: October 16, 2024 End: October 16, 2024 Jhoana Pace CNM Referring Provider Active S tart: October 16, 2024 End: October 16, 2024 Team Status: Inactive Member Role Status Dates No Primary Care Physician Primary Care Provider Active Start: October 18, 2024 End: October 18, 2024 Jhoana Pace CNM Attending Provider Active S tart: October 18, 2024 End: October 18, 2024 Jhoana Pace CNM Referring Provider Active S tart: October 18, 2024 End: October 18, 2024 Team Status: Inactive Member Role Status Dates No Primary Care Physician Primary Care Provider Active Start: October 21, 2024 End: October 21, 2024 Jhoana Pace CNM Attending Provider Active S tart: October 21, 2024 End: October 21, 2024 Jhoana Pace CNM Referring Provider Active S tart: October 21, 2024 End: October 21, 2024 Team Status: Inactive Member Role Status Dates No Primary Care Physician Primary Care Provider Active Start: 2024 End: 2024 No Primary Care Physician Referring Provider Active Start: 2024 End: 2024 Dr. Nelly To MD Attending Provider Active Start: 2024 End: 2024 Team Status: Inactive Member Role Status Dates No Primary Care Physician Primary Care Provider Active Start: 2024 End: 2024 Dr. Nelly To MD Attending Provider Active Start: 2024 End: 2024 Dr. Nelly To MD Referring Provider Active Start: 2024 End: 2024 Team Status: Inactive Member Role Status Dates No Primary Care Physician Primary Care Provider Active Start: December 24, 2024 End: December 24, 2024 Jhoana Pace CNM Attending Provider Active S tart: December 24, 2024 End: December 24, 2024 Team Status: Active Member Role Status Dates No Primary Care Physician Primary Care Provider Active Start: December 26, 2024 Jhoana Pace CNM Attending Provider Active S tart: December 26, 2024 Jhoana Pace CNM Referring Provider Active S tart: December 26, 2024 Goals (unrecognized section and content) Goals may be documented in a n alternate sectionGoals may be documented in an alternate sectionGoals may be documented in an alternate sectionGoals may be documented in an alternate sectionGoals may be documented in an alternate sectionGoals may be documented in an alternate sectionGoals may be documented in an alternate sectionGoals may be documented in an alternate sectionGoals may be documented in an alternate sectionGoals may be documented in an alternate sectionGoals may be documented in an alternate sectionGoals may be documented in an alternate sectionGoals may be documented in an alternate sectionGoals may be documented in an alternate sectionGoals may be documented in an alternate section INFORMATION SOURCE (unrecogn ized section and content) DATE CREATED AUTHOR 12/13/2023 Formerly [facility], [facility] ([place] DATE CREATED AUTHOR AUTHOR'S ORGANIZ ATION 01/01/2025 [facility] FOR RECORDS PERTAINING TO PATIENTS WHO ARE OR HAVE BEEN ENROLLED IN A CHEMICAL DEPENDENCY/SUBSTANCEABUSE PROGRAM, SOME INFORMATION MAY BE OMITTED. This clinical summary was aggregated from multiple sources. Caution should be exercised in using it in the provision of clinical care. This summary normalizes information from multiple sources, and as a consequence, information in this document may materially change the coding, format and clinical context of patient data. In addition, data may be omitted in some cases. CLINICAL DECISIONS SHOULD BE BASED ON THE PRIMARY CLINICAL RECORDS. [facility]. provides no warranty or guarantee of the accuracy or completeness of information in this document.
[2025-01-04 17:44] LABS: Color, Urine Straw (Yellow); Glucose, Dipstick Normal (Normal); Ketone-Dipstick Negative (Negative); Leukocyte Esterase-Dipstick Negative /ul (Negative); Nitrite-Dipstick Negative (Negative); Occult Blood-Urine Negative /ul (Negative); Protein-Dipstick Negative (Negative); Specific Gravity, Urine 1.005 (1.002-1.030); Urine Bilirubin Dipstick Negative (Negative); Urine Clarity Clear (Clear); Urine Urobilinogen Normal (Normal)
[2025-01-04 18:11] LABS: Absolute Lymphocyte Count 1.95 X10^3/uL (0.83-4.51); Absolute Neutrophil Count 4.8 X10^3/uL (2.0-7.7); Basophil# 0.03 X10^3/uL; Basophil% 0.4 % (0-1); Eosinophil# 0.12 X10^3/uL; Eosinophils% 1.6 % (0-5); Hematocrit 35.3 % (37-47); Hemoglobin 12.3 g/dL (12.0-15.0); Lymphocyte # 1.95 X10^3/ul (0.83-4.51); Lymphocyte % 26.2 % (19-41); Mean Corp Hgb Conc 34.8 g/dL (32-36); Mean Corpuscular Volume 88.9 fL (81-99); Monocyte# 0.57 X10^3/uL; Monocyte% 7.7 % (0-10); NRBC Flagged by Analyzer 0 % (0-5); Neutrophil # 4.75 X10^3/uL (2.7-7.7); Platelet Count 262 K/mm3 (150-450); RBC Distribution Width CV 12.8 % (11.6-14.6); RBC Distribution Width SD 41.8 fl (35.1-43.9); Red Blood Count 3.97 M/mm3 (4.2-5.4); White Blood Count 7.4 K/mm3 (4.4-11.0)
[2025-01-04 18:23] LABS: ALB/GLOB Ratio 1.7 RATIO (0.9-2.4); AST(SGOT) 30 U/L (<=31); Alanine Aminotransfer ALT/SGPT 34 U/L (<=34); Albumin, Serum 4.6 g/dL (3.5-5.0); Alkaline Phosphatase 46 U/L (35-104); Anion Gap 10 (5-15); BUN 14 mg/dL (4-19); Calcium,Total 9.6 mg/dL (7.6-11.0); Carbon Dioxide 24.3 mmol/L (21.0-32.0); Chloride 105 mmol/L (98-108); Creatinine, Serum 0.77 mg/dL (0.70-1.20); EST Glomerular Filtration Rate 109 (>60); Estimated Creatinine Clearance 84.28 ml/min (50-250); Globulin 2.7 g/dL (2.2-4.2); Glucose 87 mg/dL (70-99); Potassium 3.7 mmol/L (3.3-5.1); Protein, Total 7.3 g/dL (5.9-8.4); Sodium Level 139 mmol/L (133-145); Total Bilirubin 0.71 mg/dL (0.00-1.30)
[2025-01-04 18:23] LABS: Bacteria RARE /hpf (None Seen)
[2025-01-04 18:46] VITALS: BP 100/80; PULSE 65; RESP 16; O2SAT 99
[2025-01-04 19:30] LABS: hCG Titer Quant., Serum 7362 mIU/mL (<9 non-preg)
[2025-01-04 19:57] VITALS: BP 102/70; PULSE 61; RESP 15; TEMP 36.6; O2SAT 99
== END 2025-01-04 19:59 | disposition home or self-care (01) ==
PROVIDERS: Emergency Provider Emergency Medicine; Referring Provider Emergency Medicine; Visit Provider Emergency Medicine
DX: O20.9 Hemorrhage in early pregnancy, unspecified (principal); Z3A.01 Less than 8 weeks gestation of pregnancy
CPT/HCPCS: 76817; 80053; 81001; 84702; 85025; 86900; 86901; 87086; 99282; A4216

== ENCOUNTER → 2025-01-21 | Outpatient (CLI) | payer SELFPAY ==
[2025-01-23 21:07] LABS: Chlamydia By Nucleic Acid AMP Negative (Negative); Gonococcus By Nucleic Acid AMP Negative (Negative)
== END | disposition home or self-care (01) ==
LOC: LABSPEC 13:39
PROVIDERS: Referring Provider Obstetrics & Gynecology; Visit Provider Obstetrics & Gynecology
DX: O09.90 Supervision of high risk pregnancy, unspecified, unspecified trimester (principal); Z3A.00 Weeks of gestation of pregnancy not specified
CPT/HCPCS: 87086; 87491; 87591

== ENCOUNTER → 2025-02-05 | Outpatient (CLI) | payer SELFPAY ==
[2025-02-05 12:21] LABS: Hematocrit 37.0 % (37-47); Hemoglobin 12.5 g/dL (12.0-15.0); Immature Granulocytes Count 0.010 X10^3/uL (0.0-0.0); Mean Corp Hgb Conc 33.8 g/dL (32-36); Mean Corpuscular Volume 90.0 fL (81-99); Mean Platelet Vol. 10.0 fl (6.2-12.0); NRBC Flagged by Analyzer 0 % (0-5); Platelet Count 263 K/mm3 (150-450); RBC Distribution Width CV 12.7 % (11.6-14.6); RBC Distribution Width SD 42.2 fl (35.1-43.9); Red Blood Count 4.11 M/mm3 (4.2-5.4); White Blood Count 6.0 K/mm3 (4.4-11.0)
[2025-02-05 13:52] LABS: HIV Nonreactive (Nonreactive); Hepatitis B Surface Antigen Nonreactive (Nonreactive); Hepatitis C Antibody Nonreactive (Nonreactive); Syphilis Antibodies Nonreactive (Nonreactive)
== END | disposition home or self-care (01) ==
PROVIDERS: Referring Provider Obstetrics & Gynecology; Visit Provider Obstetrics & Gynecology
DX: O09.90 Supervision of high risk pregnancy, unspecified, unspecified trimester (principal); Z3A.00 Weeks of gestation of pregnancy not specified
CPT/HCPCS: 36415; 85025; 86703; 86762; 86780; 86803; 86850; 86900; 86901; 87340

== ENCOUNTER → 2025-03-17 | Outpatient (CLI) | payer SELFPAY ==
[2025-03-17 12:56] LABS: Hematocrit 32.8 % (37-47); Hemoglobin 11.6 g/dL (12.0-15.0); Immature Granulocytes Count 0.040 X10^3/uL (0.0-0.0); Mean Corp Hgb Conc 35.4 g/dL (32-36); Mean Corpuscular Volume 89.4 fL (81-99); Mean Platelet Vol. 9.5 fl (6.2-12.0); NRBC Flagged by Analyzer 0 % (0-5); Platelet Count 274 K/mm3 (150-450); RBC Distribution Width CV 13.2 % (11.6-14.6); RBC Distribution Width SD 43.2 fl (35.1-43.9); Red Blood Count 3.67 M/mm3 (4.2-5.4); White Blood Count 8.3 K/mm3 (4.4-11.0)
[2025-03-17 13:15] LABS: AST(SGOT) 21 U/L (<=31); Alanine Aminotransfer ALT/SGPT 16 U/L (<=34); Albumin, Serum 4.2 g/dL (3.5-5.0); Alkaline Phosphatase 55 U/L (35-104); Anion Gap 12 (5-15); BUN 9 mg/dL (4-19); BUN/Creat Ratio 16.7 RATIO (10-20); Calcium,Total 9.8 mg/dL (7.6-11.0); Carbon Dioxide 22.7 mmol/L (21.0-32.0); Chloride 103 mmol/L (98-108); Globulin 3.0 g/dL (2.2-4.2); Glucose 74 mg/dL (70-99); Potassium 4.0 mmol/L (3.3-5.1)
== END | disposition home or self-care (01) ==
PROVIDERS: Referring Provider Advanced Practice Midwife; Visit Provider Advanced Practice Midwife
DX: O99.719 Diseases of the skin and subcutaneous tissue complicating pregnancy, unspecified trimester (principal); L29.9 Pruritus, unspecified; Z3A.00 Weeks of gestation of pregnancy not specified
CPT/HCPCS: 36415; 80053; 85025

== ENCOUNTER → 2025-04-28 | Outpatient (CLI) | payer SELFPAY ==
--- OUTSIDE RECORDS SUMMARY | 2025-04-16 08:50 | XMS RPT_ITS ---
Author Name Auto Generated Organization OH[facility] Care Team Providers Care Fisheries Enforcement Officer Name Role Phone LULU TOTH Attending Unavailable NO PRIMARY CAREMD Primary Care Unavailable MYRTLE OLSON Referring Unavailab MYRTLE Gray Referring Unavailab LULU Jones Attending Unavailable NO PRIMARY CAREMD Primary Care Unavailable MARYJO BELTRE Attending Unavailable MICHAEL RANGEL Referring Unavailtania e NO PRIMARY CAREMD Primary Care Unavailable MICHAEL RANGEL Referring Unavailabl e MYRTLE FREIRE Attending Unavailabl e NO PRIMARY CAREMD Primary Care Unavailable PROBLEMS No Problem Records Found PROCEDURES No Procedure Records Found RESULTS PROGRESS NOTE Observed: 04/16/2025 10:00 AM Status: COMPLETED Source: [facility] Co-Manage Visit Subjective: Mekhi Ewing is being seen today for an obstetrical visit. She is at 20w1d gestation. Her obstetrical history is significant for Subamniotic hematoma. history fully reviewed. She is unaccompanied. Mekhi denies any cramping, contractions, vaginal bleeding, unusual or increase in vaginal discharge, signs and symptoms of pre-eclampsia, or leaking of any fluid. Patient with positive movement. Review of Systems All other systems reviewed and are negative. Objective: BP 100/54 Pulse 72 Ht (!) 154.9 cm Wt 54.7 kg (120 lb 11.2 oz) LMP 11/21/2024 BMI 22.81 kg/m Physical Exam Vitals reviewed. Constitutional: Appearance: She is well-developed. Pulmonary: Effort: Pulmonary effort is normal. Abdominal: Comments: Gravid Musculoskeletal: General: Normal range of motion. Neurological: Mental Status: She is alert and oriented to person, place, and time. Psychiatric: Mood and Affect: Mood and affect normal. Behavior: Behavior normal. Thought Content: Thought content normal. Judgment: Judgment normal. FHT: 141bpm Presentation: Cephalic Uterine Size: see ultrasound report Assessment/Plan: Mekhi Ewing is a 24 y.o. at 20w1d with: Active Non-Hospital Problems Diagnosis Date Noted Supervision of high risk in second trimester 03/13/2025 Priority: High PLAN OF CARE Co-Manage [place]ron TRIANA/OB APPOINTMENTS Genetic screening:NIPT- LR How often should patient be evaluated? Monthly to 28 weeks, q 2 weeks from 28 to 36 weeks then weekly until delivery. Work restrictions: NA EVALUATION surveillance: as indicated Ultrasound: Growth every 4 weeks DELIVERY PLAN Hospital: [facility] Delivery:As per standard obstetric practice and anticipate a term vaginal delivery. GBS culture: per OB Contraception: undecided : Breast Ped: [facility] Chemo Name of baby: Boy-undecided Vaccinations: Recommend 3rd trimester TDAP; seasonal COVID- declined and flu- declined, seasonal RSV between 32-36 weeks Reviewed on 04/16/2025 03/13/2025 - Office Visit - MD Garret: 15w2d . Overall Review - includes review of outside medical records: She is currently 15+2 weeks. 1. Review of dates: Ultrasound 01/04/2025 revealed gestational sac only and cannot be used for dating the . Ultrasound on 01/21/2025 was a bedside ultrasound. She has had a recent gestational event making LMP unreliable for dating. Thus EDC is based on current imaging study which provide CD is day of 09/02/2025 2. Background genetic risks: Counseling in their regard has already been concluded as part of office care. Low risk NIPT. Decided against carrier screening. 3. Current BMI is 21. 4. Past Obstetric History: She is 5- Para 2. She had a vaginal delivery in 2020 and weighed 3.4 kg and subsequently in 2022 at 41 weeks and weighed 3.2 kg and both pregnancies were uneventful. Her most recent 2 pregnancies were early embryonic losses. 5. Other: She has no history of using recreational drugs. She presently has no adverse lifestyle. In good general health. Review of her Care: She currently does not have cramping, bleeding, excessive nausea, or vomiting or uterine contractions, leakage of fluid. Gestational weight gain thus far -adequate. BP 121/66. Pertinent labs reviewed-hemoglobin 12.5 g/dL. Blood type A+. Subamniotic hematoma 03/13/2025 Priority: High 03/13/2025 - Office Visit - MD Garret: 15w2d . Episode of threatened at 15+ weeks-residual chorioamnion separation: Today, we explained the abnormal imaging finding, using a diagrammatic outline. We discussed: a. The vaginal bleed she has had on 03/02/2025 which led to 12-hour observation [facility] has now settled with ongoing residual brownish loss from a chorioamnion separation that was explained to be predominantly seroma level slowly release itself with a ongoing risk for premature rupture membranes. Her hemoglobin is 12.5 g/dL and her blood type is A+ which is all encouraging. b. The cervical and today satisfactory and minimizes risk of labor any self. c. Utility of self surveillance for premature rupture membranes was discussed and she does not need a 18-week anatomy survey as the anatomy survey today was substantially normal and we arrange for follow-up ultrasound with us at 20 weeks to reevaluate the chorioamnion separation in the cervical length and further prognosticate the for risk of labor. 04/16/2025 Reviewed ultrasound- see report Reviewed PTL risk and risk of bleeding. Growth every 4 weeks Reviewed on 04/16/2025 Care plan discussed with patient 03/13/2025 03/13/2025 - Office Visit - MD Garret: 15w2d . 1. Collaborations: Ongoing Care with: [facility] with [facility] co-management visits scheduled with next MF imaging visit for prepregnancy prognostication. 2. Current Medications: vitamin daily. 3. [facility] follow-up ultrasounds scheduled: Follow-up ultrasound at 20 weeks with transvaginal scan to evaluate the substantial chorioamnion separation and ensure normal cervical length. 4. care in your office: a. Clinical surveillance for risk of premature rupture membranes. b. Increased risk for growth restriction and thus ultrasound 32/36 weeks in the office. 5. Delivery: As per standard obstetric practice and anticipate a term vaginal delivery. This note or partial portions of this note may have been created using a copy forward or copy paste feature, but these portions have been verified and re-edited for accuracy and any portions not in need of editing or reviews are not being used to generate any component necessary for billing purposes. Elements necessary for proper CPT code selection are based only on elements of the visit that are truly unique to this visit. Reviewed precaution Reviewed bleeding precautions Pt denies OB related complaints. Pt states she may be starting with some urinary complaints. No urine sample given. Increase fluids and call OB with urinary symptoms. Reviewed urinary symptoms. Follow up Growth every 4 weeks with co-manage. The total time spent on patient care today was 20 minutes. -10 minutes direct patient care -10 minutes chart review and documentation PROGRESS NOTE Observed: 03/13/2025 9:00 AM Status: COMPLETED Source: [facility] - at [place] TOTH OFFICE VISIT NOTE The concluding Summary Communication to Medical Collector is at the end of this office note. It is placed on the obstetric ultrasound report if concluded before the office visit; alternatively, it is faxed as a letter communication. DOS: 03/13/2025 03/13/2025 Chief Complaint She presents for comprehensive review of her maternal -obstetric- risks in this to fully contextualize the evaluation and management of risks as listed in problem list - focussed assessments. History of Present Illness Mekhi is a 24 y.o. female at 15w2d. Here for an office visit and the history of present illness is itemized under individualized problem list assessments below. Obstetric History OB History Para Term AB Living 5 2 2 2 2 SAB IAB Ectopic Multiple Live Births 2 2 # Outcome Date GA Lbr Sami/2nd Weight Sex Type Anes PTL Lv 5 Current 4 SAB 09/28/24 5w0d 3 SAB 06/30/24 4w0d 2 Term 04/02/23 41w0d 3.232 kg F Vag-Spont EPI NATE 1 Term 05/28/21 41w0d 3.402 kg M Vag-Vacuum EPI NATE - I reviewed it at patient encounter and pertinent aspects are integrated into the below problem list-based assessment Past Medical History Past Medical History: Diagnosis Date Anemia Dyspareunia, female History of recurrent miscarriages, not currently - I reviewed it at patient encounter and pertinent aspects are integrated into the below problem list-based assessment Social History - I reviewed it at patient encounter and pertinent aspects are integrated into the below problem list-based assessment Family History - I reviewed it at patient encounter, including screening genetic pedigree as available, and pertinent aspects are integrated into the below problem list-based assessment Medications and Allergies . Allergies[1] - I reviewed it at patient encounter and are integrated into the below problem list-based assessment. Allergies were reviewed Laboratory Studies and Imaging studies - I reviewed it at patient encounter and pertinent aspects are integrated into assessments. Vitals BP 121/66 Pulse 105 Resp 18 Ht (!) 154.9 cm Wt 50.6 kg (111 lb 8 oz) LMP 11/21/2024 SpO2 98% BMI 21.07 kg/m - heart rate as per imaging report today, as applicable and available. ASSESSMENT AND PLAN After integrating maternal and obstetric and considerations, my recommendations are as assembled. Active Non-Hospital Problems Diagnosis Date Noted Care plan discussed with patient 03/13/2025 03/13/2025 - Office Visit - MD Garret: 15w2d . 1. Collaborations: Ongoing Care with: [facility] with [facility] co-management visits scheduled with next MFM imaging visit for prepregnancy prognostication. 2. Current Medications: vitamin daily. 3. [facility] follow-up ultrasounds scheduled: Follow-up ultrasound at 20 weeks with transvaginal scan to evaluate the substantial chorioamnion separation and ensure normal cervical length. 4. care in your office: a. Clinical surveillance for risk of premature rupture membranes. b. Increased risk for growth restriction and thus ultrasound 32/36 weeks in the office. 5. Delivery: As per standard obstetric practice and anticipate a term vaginal delivery. Supervision of other high risk , antepartum 03/13/2025 03/13/2025 - Office Visit - MD Garret: 15w2d . Overall Review - includes review of outside medical records: She is currently 15+2 weeks. 1. Review of dates: Ultrasound 01/04/2025 revealed gestational sac only and cannot be used for dating the . Ultrasound on 01/21/2025 was a bedside ultrasound. She has had a recent gestational event making LMP unreliable for dating. Thus EDC is based on current imaging study which provide CD is day of 09/02/2025 2. Background genetic risks: Counseling in their regard has already been concluded as part of office care. Low risk NIPT. Decided against carrier screening. 3. Current BMI is 21. 4. Past Obstetric History: She is 5- Para 2. She had a vaginal delivery in 2020 and infant weighed 3.4 kg and subsequently in 2022 at 41 weeks and infant weighed 3.2 kg and both pregnancies were uneventful. Her most recent 2 pregnancies were early embryonic losses. 5. Other: She has no history of using recreational drugs. She presently has no adverse lifestyle. In good general health. Review of her Care: She currently does not have cramping, bleeding, excessive nausea, or vomiting or uterine contractions, leakage of fluid. Gestational weight gain thus far -adequate. BP 121/66. Pertinent labs reviewed-hemoglobin 12.5 g/dL. Blood type A+. Threatened , antepartum 03/13/2025 03/13/2025 - Office Visit - MD Garret: 15w2d . Episode of threatened at 15+ weeks-residual chorioamnion separation: Today, we explained the abnormal imaging finding, using a diagrammatic outline. We discussed: a. The vaginal bleed she has had on 03/02/2025 which led to 12-hour observation [facility] has now settled with ongoing residual brownish loss from a chorioamnion separation that was explained to be predominantly seroma level slowly release itself with a ongoing risk for premature rupture membranes. Her hemoglobin is 12.5 g/dL and her blood type is A+ which is all encouraging. b. The cervical and today satisfactory and minimizes risk of labor any self. c. Utility of self surveillance for premature rupture membranes was discussed and she does not need a 18-week anatomy survey as the anatomy survey today was substantially normal and we arrange for follow-up ultrasound with us at 20 weeks to reevaluate the chorioamnion separation in the cervical length and further prognosticate the for risk of labor. SUMMARY COMMUNICATION TO FUND DIRECTOR OFFICE VISIT = CONSULT VISIT Reason for Consult: Substantial early second trimester bleed. To adequately contextualize care, a comprehensive review occurred. Thank you for the opportunity to collaborate in her care. CARE PLAN 1. Collaborations: Ongoing Care with: [facility] with [facility] co-management visits scheduled with next [facility] imaging visit for prepregnancy prognostication. 2. Current Medications: vitamin daily. 3. [facility] follow-up ultrasounds scheduled: Follow-up ultrasound at 20 weeks with transvaginal scan to evaluate the substantial chorioamnion separation and ensure normal cervical length. 4. care in your office: a. Clinical surveillance for risk of premature rupture membranes. b. Increased risk for growth restriction and thus ultrasound 32/36 weeks in the office. 5. Delivery: As per standard obstetric practice and anticipate a term vaginal delivery. REVIEW Episode of threatened at 15+ weeks-residual chorioamnion separation: Today, we explained the abnormal imaging finding, using a diagrammatic outline. We discussed: a. The vaginal bleed she has had on 03/02/2025 which led to 12-hour observation [facility] has now settled with ongoing residual brownish loss from a chorioamnion separation that was explained to be predominantly seroma level slowly release itself with a ongoing risk for premature rupture membranes. Her hemoglobin is 12.5 g/dL and her blood type is A+ which is all encouraging. b. The cervical and today satisfactory and minimizes risk of labor any self. c. Utility of self surveillance for premature rupture membranes was discussed and she does not need a 18-week anatomy survey as the anatomy survey today was substantially normal and we arrange for follow-up ultrasound with us at 20 weeks to reevaluate the chorioamnion separation in the cervical length and further prognosticate the for risk of labor. Overall Review - includes review of outside medical records: She is currently 15+2 weeks. 1. Review of dates: Ultrasound 01/04/2025 revealed gestational sac only and cannot be used for dating the . Ultrasound on 01/21/2025 was a bedside ultrasound. She has had a recent gestational event making LMP unreliable for dating. Thus EDC is based on current imaging study which provide CD is day of 09/02/2025 2. Background genetic risks: Counseling in their regard has already been concluded as part of office care. Low risk NIPT. Decided against carrier screening. 3. Current BMI is 21. 4. Past Obstetric History: She is 5- Para 2. She had a vaginal delivery in 2020 and infant weighed 3.4 kg and subsequently in 2022 at 41 weeks and infant weighed 3.2 kg and both pregnancies were uneventful. Her most recent 2 pregnancies were early embryonic losses. 5. Other: She has no history of using recreational drugs. She presently has no adverse lifestyle. In good general health. Review of her Care: She currently does not have cramping, bleeding, excessive nausea, or vomiting or uterine contractions, leakage of fluid. Gestational weight gain thus far -adequate. BP 121/66. Pertinent labs reviewed-hemoglobin 12.5 g/dL. Blood type A+. At the conclusion of today's visit, she illustrated understanding of the care plan and concepts and details related to individual assessments. She asked appropriate questions. My concluded Visit E&M Coding Activities for this Office Visit: Medical Decision Making (MDM) today included review of all the problem list items above. In summary: 1. A detailed review occurred for at least two items in problem list. 2. For each of the problem list item, the MDM involved review of all applicable data (focused history, examination, laboratory results). 3. The care plan was established, including follow-up visits, as applicable. 4. Finally, the management addressed complexities (a) inherent to the interplay of maternal and factors, (b) Medication usage, (c) Communication needs with other healthcare providers for a coordinated care (d) and, as applicable, Social and other determinants impacting optimal deployment of care plan were explored and addressed. Documentation Attestation I, Dr. Toth, attest to: 1. This office visit, with me, occurred in person at our [facility] 2. This note was initiated in voice recognition Dragon Text Box and then embedded (cut-paste) into GE ultrasound report and/or the [employer] EMR. It is a uniquely developed individualized patient care note. Lulu Toth MD. FACOG. Electronic Signature [1] No Known Allergies ALLERGIES DATE TYPE / CODE NAME / CODE REACTION SEVERITY SOURCE Miscellaneous Allergy/[id number](SNOMED CT) NO KNOWN ALLERGIES [facility] ENCOUNTERS ADMIT/DISCHARGE ACCOUNT NUMBER ADMITTING ENCOUNTER CLASS LOCATION SOURCE 04/16/2025/04/16/2025 [id number] Ambulatory [place]:[facility] 04/16/2025/04/16/2025 [id number] Ambulatory [place]:[facility] 03/13/2025/03/13/2025 [id number] Ambulatory [place]:[facility] 03/13/2025/03/13/2025 [id number] Ambulatory [place]:[facility] PAYERS No Payer Records Found
== END | disposition home or self-care (01) ==
LOC: LAB 12:31
PROVIDERS: Referring Provider Advanced Practice Midwife; Visit Provider Advanced Practice Midwife
DX: R10.2 Pelvic and perineal pain (principal); R42 Dizziness and giddiness
CPT/HCPCS: 36415; 87086; 87088

== ENCOUNTER → 2025-06-11 | Outpatient (CLI) | payer SELFPAY ==
[2025-06-11 12:05] LABS: Hematocrit 28.8 % (37-47); Hemoglobin 9.6 g/dL (12.0-15.0); Immature Granulocytes Count 0.070 X10^3/uL (0.0-0.0); Mean Corp Hgb Conc 33.3 g/dL (32-36); Mean Corpuscular Volume 92.9 fL (81-99); Mean Platelet Vol. 9.8 fl (6.2-12.0); NRBC Flagged by Analyzer 0 % (0-5); Platelet Count 216 K/mm3 (150-450); RBC Distribution Width CV 12.4 % (11.6-14.6); RBC Distribution Width SD 41.8 fl (35.1-43.9); Red Blood Count 3.10 M/mm3 (4.2-5.4); White Blood Count 10.3 K/mm3 (4.4-11.0)
[2025-06-11 13:23] LABS: Glucose Challenge Gest 1H 50g 150 mg/dL (70-140); HIV Nonreactive (Nonreactive); Syphilis Antibodies Nonreactive (Nonreactive)
== END | disposition home or self-care (01) ==
PROVIDERS: Visit Provider Nurse Practitioner Women's Health
DX: Z13.1 Encounter for screening for diabetes mellitus (principal); O09.92 Supervision of high risk pregnancy, unspecified, second trimester; R10.11 Right upper quadrant pain; Z3A.00 Weeks of gestation of pregnancy not specified
CPT/HCPCS: 36415; 82950; 85025; 86703; 86780

== ENCOUNTER → 2025-06-18 | Outpatient (CLI) | payer SELFPAY ==
--- OUTSIDE RECORDS SUMMARY | 2025-06-18 07:33 | XMS RPT_ITS | CCD ---
Author Organization [facility] CliniSymn Care Team Providers Care Cyber Defense Forensics Analyst Name Role Phone Care Physician, No Primary Primary Care Provider Unavailable Care Physician, No Primary Referring Provider Un available YUE Andrade Attending Provider [phone] Dr. Nelly Rangel Attending Provider [phone] [phone] Care Physician, No Primary Primary Care Provider Unavailable Care Physician, No Primary Referring Provider Un available Dr. Nelly Rangel Attending Provider 1(330 ) Dr. Lindsey Jordan Attending Provider [phone] YUE Pace Attending Provider 1(330) Care Physician, No Primary Primary Care Provider Unavailable Care Physician, No Primary Referring Provider Un available YUE Andrade Attending Provider 1(330) Jackelin INSTITUTION LIBRARIAN, INSTITUTION LIBRARIAN-Gentry Reddy Attending Provider 1(330 ) Care Physician, No Primary Primary Care Provider Unavailable Care Physician, No Primary Referring Provider Un available Care Physician, No Primary Primary Care Provider Unavailable Care Physician, No Primary Referring Provider Un available YUE Pace Attending Provider 1(330) Dr. Nelly Rangel Attending Provider 1(330 ) Dr. Lindsey Jordan Attending Provider 1(10 [phone]) Dr. Nelly Rangel Referring Provider 1(330 ) Dr. Nelly Rangel Other Provider [phone] YUE Pace Referring Provider 1(330) YUE Pace Other Provider [phone] YUE Pace Admit Provider [phone] Care Physician, No Primary Primary Care Provider Unavailable YUE Pace Admit Provider 1(330) YUE Pace Other Provider [phone] Dr. Nelly Rangel Attending Provider [phone] Care Physician, No Primary Referring Provider Un available YUE Pace Attending Provider 1(330) KIERSTEN PRODUCT MANAGEMENT CONSULTANT-ASSISTED LIVING HOME DIRECTOR, PAZ Attending Unavaila ble PHYSICIAN, NONE Primary Care Unavailable Care Physician, No Primary Primary Care Provider Unavailable Jackelin INSTITUTION LIBRARIAN-C, Maureen Attending Provider [phone] [place] INSTITUTION LIBRARIAN-C, Maureen Referring Provider [phone] [address] Nelly Rangel MD Attending Provider Dr. Nelly Rangel MD Referring Provider Care Physician, No Primary Referring Provider Un available Dr. Lindsey Jordan DO Attending Provider Jhoana Pace CNM Attending Provider 1(330) Jhoana Pace CNM Referring Provider [phone] Care Physician, No Primary Primary Care Provider Unavailable Dr. Nelly Rangel MD Attending Provider Dr. Nelly Rangel MD Referring Provider Care Physician, No Primary Primary Care Provider Unavailable Care Physician, No Primary Referring Provider Un available Dr. Oneal Chao DO Referring Provider Dr. Oneal Chao DO Emergency Provider Dr. Oneal Chao DO Attending Provider Bharti Haley RN Attending Provider Unavailabl e Care Physician, No Primary Primary Care Provider Unavailable Jhoana Pace CNM Attending Provider 1(330) Jhoana Pace CNM Referring Provider 1(330) Jackelin INSTITUTION LIBRARIAN-C, Maureen Attending Provider Care Physician, No Primary Primary Care Provider Unavailable Jhoana Pace CNM Attending Provider 1(330) Sanjeev TURNER, Jhoana Referring Provider 1(330) Dr. Lindsey Jordan DO Attending Provider Care Physician, No Primary Primary Care Provider Unavailable Care Physician, No Primary Referring Provider Un available Dr. Nelly Rangel MD Attending Provider [phone] Dr. Nelly Rangel MD Referring Provider Care Physician, No Primary Primary Care Physicia n Unavailable Zhanna WALLER, Dr. No Attending Physician Dr. Oneal Chao DO Emergency Department Physic jaxon Sudha AVILA, Bharti Attending Physician Unavailab hernan Rangel MD, Dr. Villegas Attending Physician Jackelin INSTITUTION LIBRARIAN-C, Maureen Attending Physician [phone] Dr. Lindsey Jordan DO Attending Physician Jhoana Pace CNM Attending Physician [phone] Jhoana Pace CNM Referring Provider [phone] LINDSEY OLSON Referring Unavailab JONG Jones Attending Unavailable NO PRIMARY CARE, MD Primary Care Unavailable LINDSEY OLSON Referring Unavailab JONG Jones Attending Unavailable NO PRIMARY CARE, MD Primary Care Unavailable MARYJO BELTRE Attending Unavailable NELLY RANGEL Referring Unavailabl e NO PRIMARY CARE, Primary Care Unavailable NELLY RANGEL Referring UnavailLINDSEY Robles Attending Unavailtania guillen NO PRIMARY CARE, Primary Care Unavailable NELLY RANGEL Referring UnavailJONG Mcconnell Attending Unavailable NO PRIMARY CARE, Primary Care Unavailable NO PRIMARY CARE, Primary Care Unavailable NELLY RANGEL Referring Unavailabl e LINDSEY FREIRE Attending Unavailabl e Care Physician, No Primary Primary Care Physicia n Unavailable Dr. Nelly Rangel MD Attending Physician Dr. Nelly Rangel MD Referring Provider [phone] Care Physician, No Primary Referring Provider Un available Nelly Rangel Attending Unavailable Care Physician, No Primary Primary Care Unava ilable Nelly Rangel Referring Unavailable Jhoana Pace Referring Unavailable Jhoana Pace Attending Unavailable Care Physician, No Primary Primary Care Unava ilable Care Physician, No Primary Primary Care Unava ilable Jackelin INSTITUTION LIBRARIANMaureen Referring Unavailable Jackelin INSTITUTION LIBRARIAN, Maureen Attending Unavailable Care Physician, No Primary Referring Unava ilable Care Physician, No Primary Primary Care Unava ilable Lindsey Jordan Attending Unavailabl e Jhoana Pace Referring Unavailable Jhoana Pace Attending Unavailable Care Physician, No Primary Primary Care Unava ilable Jhoana Pace Attending Unavailable Jhoana Pace Referring Unavailable Care Physician, No Primary Primary Care Unava ilable Care Physician, No Primary Primary Care Unava ilable Jhoana Pace Attending Unavailable Sanjeev, Jhoana Referring Unavailable Care Physician, No Primary Primary Care Unava ilable Jhoana Pace Attending Unavailable Sanjeev, Jhoana Referring Unavailable Marcanthony, Nelly Referring Unavailable Marcanthony, Nelly Attending Unavailable Care Physician, No Primary Primary Care Unava ilable Care Physician, No Primary Referring Unava ilable Care Physician, No Primary Primary Care Unava ilable Lindsey Jordan Attending Unavailabl e Marcyoli, Nelly Attending Unavailable Care Physician, No Primary Referring Unava ilable Care Physician, No Primary Primary Care Unava ilable Marcanthony, Nelly Referring Unavailable Marcanthony, Nelly Attending Unavailable Care Physician, No Primary Primary Care Unava ilable Care Physician, No Primary Primary Care Unava ilable Jhoana Pace Attending Unavailable Care Physician, No Primary Primary Care Unava ilable Jhoana Pace Referring Unavailable Jhoana Pace Attending Unavailable Marcyoli, Nelly Referring Unavailable Marcanthony, Nelly Attending Unavailable Care Physician, No Primary Primary Care Unava ilable Marcanthony, Nelly Referring Unavailable Care Physician, No Primary Primary Care Unava ilable Marcanthsukhi, Nelly Attending Unavailable Care Physician, No Primary Primary Care Unava ilable [place] INSTITUTION LIBRARIAN, Maureen Attending Unavailable [place] INSTITUTION LIBRARIAN, Maureen Referring Unavailable Jhoana Pace Referring Unavailable Jhoana Pace Attending Unavailable Care Physician, No Primary Primary Care Unava ilable Care Physician, No Primary Referring Unava ilable Care Physician, No Primary Primary Care Unava ilable [place] INSTITUTION LIBRARIAN, Maureen Attending Unavailable Care Physician, No Primary Referring Unava ilable Care Physician, No Primary Primary Care Unava ilable Jackelin INSTITUTION LIBRARIAN, Maureen Attending Unavailable Care Physician, No Primary Referring Unava ilable Care Physician, No Primary Primary Care Unava ilable Amye VelLindsey oneal Attending Unavailabl e Care Physician, No Primary Primary Care Unava ilable Jackelin INSTITUTION LIBRARIAN, Maureen Attending Unavailable MarcanthonyNelly Attending Unavailable Care Physician, No Primary Referring Unava ilable Care Physician, No Primary Primary Care Unava ilable Care Physician, No Primary Primary Care Unava ilable Oneal Chao Attending Unavailable Oneal Chao Referring Unavailable Care Physician, No Primary Referring Unava ilable Care Physician, No Primary Primary Care Unava ilable Jhoana Pace Attending Unavailable Care Physician, No Primary Referring Unava ilable Care Physician, No Primary Primary Care Unava ilable Nelly Rangel Attending Unavailable Care Physician, No Primary Primary Care Unava ilable Bharti Haley Attending Unavailable Care Physician, No Primary Referring Unava ilable Care Physician, No Primary Primary Care Unava ilable Jackelin INSTITUTION LIBRARIANMaureen Attending Unavailable Care Physician, No Primary Referring Unava ilable Care Physician, No Primary Primary Care Unava ilable Nelly Rangel Attending Unavailable Care Physician, No Primary Referring Unava ilable Care Physician, No Primary Primary Care Unava ilable Jhoana Pace Attending Unavailable Medications Current Medications Medication Drug Class(es) Dates Sig (Normalized) Sig (Original) Cyanocobalamin-Liver Extract tablet (13 sources) Start: 01-17-2025 Cyanocobalamin-Live r Extract tablet Active {tbl} PO January 17, 2025 12:00am Complies with drug therapy Start: 01-17-2025 Start: 01-17-2025 Cyanocobalamin -Liver Extract tablet Active {tbl} PO January 17, 2025 12:00am Magnesium (13 sources) Start: 01-17-2025 take 1 tablet by bella [facility] once daily Magnesium 200 mg tablet Active 200 mg PO daily January 17, 2025 12:00am Complies with drug therapy Start: 01-17-2025 take 1 tablet by bella th once daily Start: 01-17-2025 take 1 tablet by bella th once daily Magnesium 200 mg tablet Active 200 mg PO daily January 17, 2025 12:00am Multivit 81-Mufu-Czqhpb 1-Dh a (Pnv-Dha) 27 mg iron-1 mg -300 mg capsule (20 sources) Start: 10-14-2020 Multivit 47-Ir on-Folate 1-Dha (Pnv-Dha) 27 mg iron-1 mg -300 mg capsule Active 1 NMA PO DAILY October 14, 2020 12:00am Complies with drug therapy Start: 10-14-2020 Start: 10-14-2020 Multivit 47-Ir on-Folate 1-Dha (Pnv-Dha) 27 mg iron-1 mg -300 mg capsule Active 1 NMA PO DAILY October 14, 2020 12:00am Start: 10-14-2020 Multivit 47-Ir on-Folate 1-Dha (Pnv-Dha) 27 mg iron-1 mg -300 mg capsule Active 1 NMA PO DAILY October 14, 2020 12:00am Start: 10-14-2020 take 1 capsule by [facility] once daily Multivit 19-Tksk-Epbcmi 1-Dha (Pnv-Dha) 27 mg iron-1 mg -300 mg capsule Active 1 CAP PO DAILY October 14, 2020 12:00am Start: 10-14-2020 take 1 capsule by [facility] once daily Multivit 72-Jlht-Ywsori 1-Dha (Pnv-Dha) 27 mg iron-1 mg -300 mg capsule Active 1 CAP PO DAILY October 13, 2020 11:00pm ondansetron 4 mg disintegrating oral tablet (10 sources) Serotonin-3 Receptor Antagonist Start: 02-18-2025 take 1 tablet by mouth every four hours as needed for nausea and vomiting Ondansetron 4 mg tablet,disintegrating Active 4 mg PO Q4H as needed for nausea and vomiting 60 2 February 18, 2025 12:00am Complies with drug therapy Completed/Discontinued Medications Medication Drug Class(es) Dates Sig (Normalized) Sig (Original) Dietary Supplement (11 sources) Start: 06-20-2022 End: 08-16-2022 Dietary Supplement Discontinued CAP PO June 20, 2022 1:00am August 16, 2022 10:05am Start: 06-20-2022 End: 08-16-2022 Dietary Supplement Discontin ued CAP PO June 20, 2022 12:00am August 16, 2022 9:05am Dietary Supplement capsule (20 sources) Start: 06-20-2022 End: 08-16-2022 Dietary Supplement capsule Discontinued NMA PO June 20, 2022 1:00am August 16, 2022 10:05am doxycycline hyclate 100 mg oral capsule (20 sources) Tetracycline-class Drug Start: 03-18-2024 End: 05-22-2024 take 1 capsule by mouth twice daily Doxycycline Hyclate 100 mg capsule Discontinued 100 mg PO TWICE A DAY 14 0 March 18, 2024 12:00am May 22, 2024 12:40pm Vaginal Discharge Other specified noninflammatory disorders of vagina ferrous sulfate 325 mg oral tablet (20 sources) Start: 01-27-2023 End: 05-16-2023 take 1 tablet by mouth once daily Ferrous Sulfate (Feosol) 325 mg (65 mg iron) tablet Discontinued 325 mg PO DAILY January 27, 2023 12:00am May 16, 2023 11:11am metroNIDAZOLE 500 mg oral tablet (20 sources) Nitroimidazole Antimicrobial Start: 11-12-2024 End: 11-19-2024 take 1 tablet by mouth twice daily Metronidazole 500 mg tablet Discontinued 500 mg PO TWICE A DAY 14 7 0 November 12, 2024 12:00am November 18, 2024 12:00am November 19, 2024 12:06am Start: 05-27-2024 End: 08-01-2024 take 1 tablet by mouth twice daily Metronidazole 500 mg tablet Discontinued 500 mg PO TWICE A DAY 14 0 May 27, 2024 12:00am August 01, 2024 4:37pm prochlorperazine 10 mg oral tablet (12 sources) Phenothiazine Start: 01-24-2025 End: 02-18-2025 take 1 tablet by mouth every eight hours as needed for nausea and vomiting Prochlorperazine Maleate (Compazine) 10 mg tablet Discontinued 10 mg PO Q8H as needed for nausea and vomiting 90 3 January 24, 2025 12:00am February 18, 2025 8:55am Problems Active Problems Problem Classification Problem Date Documented Date Episodic/Chronic Abdominal pain (20 sources) Pain in pelvis; Translations: [Pelvic and perineal pain] Onset: 05-02-2025 06-20-2022 Episodic Comment on above: after eating. Pepcid , gallbladder US Hemorrhage during ; abruptio placenta; placenta previa (20 sources) Vaginal bleeding complicating early ; Translations: [Hemorrhage in early , unspecified] Onset: 04-14-2025 01-04-2025 Episodic Comment on above: has cervical ectropi on, mfm scan at 16 weeks to rule out preiva. pelvic rest in the meantime. partial. repeat US w ith MFM at /32/36 weeks. partial on anatomy U S. repeat US with MFM at 20/32/36 weeks. partial on anatomy U S. repeat US with MFM Q4wk Menstrual disorders (20 sources) Amenorrhea; Translations: [Amenorrhea, unspecified] Onset: 10-24-2024 10-14-2024 Chronic Comment on above: HCGx2 Other complications of (20 sources) Anemia of ; Translations: [Anemia complicating , unspecified trimester] 08-16-2022 Chronic Comment on above: 6/7 started on addit ional iron supplement. redraw cbc in 4 weeks. order placed. oral iron. Recheck C BC in 4 weeks. Other complications of (20 sources) Anemia complicating , unspecified trimester; Translations: [Anemia of mother, unspecified as to episode of care or not applicable] 01-11-2023 Chronic Other complications of (20 sources) High risk ; Translations: [Supervision of high risk , unspecified, unspecified trimester] 08-16-2022 Episodic Comment on above: PRR , KHADRA 3,girl PC Jhony, Lang , KHADRA 08/28, PC: [facility], : Lang PRR, , KHADRA 08/28 , PC: [facility], : Lang Other complications of (20 sources) Vacuum assisted vaginal delivery; Translations: [Outcome of delivery, unspecified] 06-01-2021 Episodic Comment on above: SM 41 induction of l abor postdates darnell Booker recurrent variables Other complications of (20 sources) Abdominal pain in ; Translations: [Other specified related conditions, unspecified trimester] 01-11-2023 Episodic Comment on above: GB US and CMP ordere d. Other complications of (20 sources) Other specified related conditions, unspecified trimester; Translations: [Other specified complications of , antepartum condition or complication] 01-11-2023 Episodic Other complications of (20 sources) Fundal height high for dates; Translations: [Uterine size-date discrepancy, unspecified trimester] 02-21-2023 Episodic Other complications of (12 sources) Uterine size-date discrepancy, unspecified trimester; Translations: [Uterine size date discrepancy, antepartum condition or complication] 02-21-2023 Episodic Other complications of (20 sources) Spotting per vagina in ; Translations: [Spotting complicating , unspecified trimester] 07-09-2024 Episodic Other complications of (20 sources) H/O: miscarriage; Translations: [Supervision of with other poor reproductive or obstetric history, unspecified trimester] 01-17-2025 Episodic Comment on above: x2 Other complications of (1 source) Supervision of high risk , unspecified, second trimester; Translations: [Supervision of high risk , unspecified, second trimester] Onset: 05-14-2025 Episodic Other complications of (1 source) Supervision of with other poor reproductive or obstetric history, unspecified trimester; Translations: [Supervision of with other poor reproductive or obstetric history, unspecified trimester] Onset: 04-14-2025 Episodic Other complications of (1 source) Diseases of the skin and subcutaneous tissue complicating , unspecified trimester; Translations: [Diseases of the skin and subcutaneous tissue complicating , unspecified trimester] Onset: 03-22-2025 Episodic Other diseases of kidney and ureters (20 sources) Hydronephrosis; Translations: [Unspecified hydronephrosis] 04-29-2021 Episodic Comment on above: pain has resolved. Other female genital disorders (20 sources) Dyspareunia; Translations: [Dyspareunia] 2024 Chronic Comment on above: pfpt consult Other female genital disorders (20 sources) Vaginal discharge; Translations: [Other specified noninflammatory disorders of vagina] 03-18-2024 Episodic Other inflammatory condition of skin (1 source) Pruritus, unspecified; Translations: [Pruritus, unspecified] Onset: 03-17-2025 Episodic Other and delivery including normal (20 sources) Patient encounter status; Translations: [Encounter for supervision of normal , unspecified, unspecified trimester] 06-01-2021 Episodic Comment on above: KW 41.0 Girl plan expectant manag ement for , Cytotec pitocin/AROM if needed.Pain management: Negative. GBS positive plan IV PCN.Management of any complications: NoneI have reviewed the [facility] and made any clinically relevant updates. PRR KHADRA: boy [facility] Spouse: Lang davis carrier, nt d, and genetic testing; nl anatomy, gbs neg GBS negative. dagoberto aj genetic. LR carrier testing, nl anatomy, nl growth 33%, EFW 2738g(03/01) Discussed genetic/ca rrier testing - undecided Discussed genetic/ca rrier testing -elct NIPT only-low risk, male(pt doing reveal) Other screening for suspected conditions (not mental disorders or infectious disease) (1 source) Encounter for screening for diabetes mellitus; Translations: [Encounter for screening for diabetes mellitus] Onset: 06-11-2025 Episodic Residual codes; unclassified (20 sources) H/O: previous delivery by vacuum extraction; Translations: [Personal history of other complications of , childbirth and the puerperium] 01-17-2025 Episodic Comment on above: First Residual codes; unclassified (1 source) Personal history of other complications of , childbirth and the puerperium; Translations: [Personal history of other complications of , childbirth and the puerperium] Onset: 04-14-2025 Episodic Residual codes; unclassified (1 source) 20 weeks gestation of ; Translations: [20 weeks gestation of ] Onset: 04-14-2025 Episodic Residual codes; unclassified (1 source) 16 weeks gestation of ; Translations: [16 weeks gestation of ] Onset: 03-17-2025 Episodic Past or Other Problems Problem Classification Problem Date Documented Date Episodic/Chronic Other complications of (20 sources) Supervision of high risk , unspecified, unspecified trimester; Translations: [Supervision of unspecified high-risk ] Onset: 02-10-2025 09-01-2022 Episodic Other complications of (1 source) with inconclusive viability, not applicable or unspecified; Translations: [ with inconclusive viability, not applicable or unspecified] Onset: 10-26-2024 Episodic Other complications of (1 source) Spotting complicating , unspecified trimester; Translations: [Spotting complicating , unspecified trimester] Onset: 08-19-2024 Episodic Other female genital disorders (20 sources) Recurrent loss; 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] Onset: 02-11-2025 2024 Episodic Comment on above: x2, Jun 2024 & September 2024 Other female genital disorders (1 source) Other specified noninflammatory disorders of vagina; Translations: [Other specified noninflammatory disorders of vagina] Onset: 02-11-2025 Episodic Residual codes; unclassified (1 source) 15 weeks gestation of ; Translations: [15 weeks gestation of ] Onset: 03-12-2025 Episodic Spontaneous (20 sources) with abortive outcome; Translations: [Complete or unspecified spontaneous without complication] Onset: 02-11-2025 08-01-2024 Episodic Unclassified (20 sources) finding; Translations: [Alteration in well being] 03-14-2023 Comment on above: change in baseline Unclassified (20 sources) Labor finding; Translations: [Active labor] 04-04-2023 Results Test Name Value Interpretation Reference Range Facility CBC W/Diff, Automatedon 11 Absolute Lymph 1.14 X10 3/uL Normal 0.83-4.51 [facility] Comment on above: Performed By: #### L 509.8002, L100.0100, L3890.6006, L501.0250 #### [facility] [address] [place], [place], [facility] Absolute Neut 8.5 X10 3/uL High 2.0-7.7 [facility] Comment on above: Performed By: #### L 509.8002, L100.0100, L3890.6006, L501.0250 #### [facility] [address] [facility] [address] Basophils/100 WBC (Bld) 0.2 % Normal 0-1 [facility] Comment on above: Performed By: #### L 509.8002, L100.0100, L3890.6006, L501.0250 #### [facility] [address] [place], [address] Eosinophils/100 WBC (Bld) 1.2 % Normal 0-5 [facility] Comment on above: Performed By: #### L 509.8002, L100.0100, L3890.6006, L501.0250 #### [facility] [address] [place], [address] Erythrocyte distribution width (RBC) [Ratio] 12.4 % Normal 11.6-14.6 [facility] Comment on above: Performed By: #### L 509.8002, L100.0100, L3890.6006, L501.0250 #### [facility] [address] [place], [address] Hematocrit (Bld) [Volume fraction] 28.8 % Low 37-47 [facility] Comment on above: Performed By: #### L 509.8002, L100.0100, L3890.6006, L501.0250 #### [facility] [address] [place], [address] Hemoglobin (Bld) [Mass/Vol] 9.6 g/dL Low 12.0-15.0 [facility] Comment on above: Performed By: #### L 509.8002, L100.0100, L3890.6006, L501.0250 #### [facility] [address] [place], [address] IG% 0.700 Normal 0.0-0.9 [facility] Comment on above: Result Comment: IG% - Immature Granulocytes (promyelocytes, myelocytes and metamyelocytes) > 1% indicates that a LEFT SHIFT is Present. Performed By: #### L 509.8002, L100.0100, L3890.6006, L501.0250 #### [facility] [address] [place], [address] Lymphocytes/100 WBC (Bld) 11.1 % Low 19-41 [facility] Comment on above: Performed By: #### L 509.8002, L100.0100, L3890.6006, L501.0250 #### [facility] [address] [place], [address] MCH (RBC) [Entitic mass] 31.0 pg Normal 27.0-32.0 [facility] Comment on above: Performed By: #### L 509.8002, L100.0100, L3890.6006, L501.0250 #### [facility] [address] [place], [address] MCHC (RBC) [Mass/Vol] 33.3 g/dL Normal 32-36 [facility] Comment on above: Performed By: #### L 509.8002, L100.0100, L3890.6006, L501.0250 #### [facility] [address] [place], [address] MCV (RBC) [Entitic vol] 92.9 fL Normal 81-99 [facility] Comment on above: Performed By: #### L 509.8002, L100.0100, L3890.6006, L501.0250 #### [facility] [address] [place], [address] Monocytes/100 WBC (Bld) 4.8 % Normal 0-10 [facility] Comment on above: Performed By: #### L 509.8002, L100.0100, [id number], L501.0250 #### [facility] [address] [place], [address] Neutrophils/100 WBC (Bld) 82.0 % High 47-70 [facility] Comment on above: Performed By: #### L 509.8002, L100.0100, L3890.6006, L501.0250 #### [facility] [address] [place], [address] Nucleated RBC (Bld) [#/Vol] 0 10*3/uL Normal 0-5 [facility] Comment on above: Performed By: #### L 509.8002, L100.0100, L3890.6006, L501.0250 #### [facility] [address] [place], [address] Platelet mean volume (Bld) [Entitic vol] 9.8 fL Normal 6.2-12.0 [facility] Comment on above: Performed By: #### L 509.8002, L100.0100, L3890.6006, L501.0250 #### [facility] [address] [place], [address] Platelets (Bld) [#/Vol] 216 10*3/uL Normal 150-450 [facility] Comment on above: Performed By: #### L 509.8002, L100.0100, L3890.6006, L501.0250 #### [facility] [address] [place], [address] RBC (Bld) [#/Vol] 3.10 10*6/uL Low 4.2-5.4 [facility] Comment on above: Performed By: #### L 509.8002, L100.0100, L3890.6006, L501.0250 #### [facility] [address] [place], [address] RDW SD 41.8 fl Normal 35.1-43.9 [facility] Comment on above: Performed By: #### L 509.8002, L100.0100, L3890.6006, L501.0250 #### [facility] [address] [place], [address] WBC (Bld) [#/Vol] 10.3 10*3/uL Normal 4.4-11.0 [facility] Comment on above: Performed By: #### L 509.8002, L100.0100, L3890.6006, L501.0250 #### [facility] [address] [place], [address] Glucose Challenge Gest 1H 50 soledad 11-12-2025 GLU GEST 50g 1H 150 mg/dL High 70-140 [facility] Comment on above: Performed By: #### L 509.8002, L100.0100, L3890.6006, L501.0250 #### [facility] [address] [place], [address] HIVon 06-11-2025 HIV Non-Reactive Normal Nonreactive [facility] Comment on above: Result Comment: Non- Reactive Reactive Repeatedly reactive samples must be confirmed according to CDC recommended confirmatory algorithms. The subresults for either HIVAG or AHIV can be used as an aid in the selection of the confirmation algorithm for reactive samples. Send out specimens with Reactive results to [facility] for confirmation. Order the HIV antibody detection and differentiation: [id number] Performed By: #### L 509.8002, L100.0100, L3890.6006, L501.0250 #### [facility] [address] 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 Is patient in pain?: No Allergies No Known Allergies Allergy (Verified 06/11/25 09:51) Medications ???Medication ???Instructions ???Recorded ???Confirmed ???Type multivitamin no.47-iron fum 27 1 cap PO DAILY 10/14/20 06/11/25 History mg-folate no.1 1 mg-dha 300 mg capsule (PNV-DHA) cyanocobalamin-liver extract tablet tab PO 01/17/25 06/11/25 Histor y magnesium 200 mg tablet 200 mg PO QDAY 01/17/25 06/11/25 H istory ondansetron 4 mg disintegrating 4 mg PO Q4H PRN nausea and 5 06/11/25 Rx tablet vomiting #60 tabs Last Menstrual Period: 11/21/24 Zika: Zika virus screening: Negative : No PFSH PFSH Medical History History of recurrent miscarriages Dyspareunia Anemia Surgical History No significant past surgical history Family History Grandmother Cancer Grandfather Hypertension Social History adopted: No household members: spouse and children housing: house number of children: 2 current occupation: [employer] current occupational exposures/hazards: No pets and animals: No history of recent travel: Yes ( - December 2024) out of state: Yes out of country: No sexually active: Yes Smoking Status: Never smoker second hand exposure: No alcohol intake: current alcohol intake frequency: holidays/special occasions only details: not while substance use type: does not use diet: lactose free well-balanced diet: daily or most days caffeine: Yes Type: coffee eating out: 1-3 times/week during the past year weight has: remained stable what type of physical activity do you participate in: walking frequency: 3-4 times per week duration: < 15 minutes/day 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 Date Name GA/Weeks Outcome Route Bth Weight Infant Gen Labor Lgth Anesthesia Del Locatn Provider FOB 05/28/21 [place] 41 live - full term vacuum 7lbs 8oz Male epidural [facility] Gwendolyn shah Lang 04/02/23 Sadia 41 live - full term 7lbs 2oz Female epidural [facility] Cyndie Pace Lang 06/30/23 4 spontaneous 09/28/24 5 spontaneous Delivery Date: 05/28/21 Last Updated by: Chanda Mcdonough IOL VAVD HPI 28wk ob/glucose Details: LISA EWING is a 24 year old who presents for routine OB visit. OB Visit KHADRA Calculator Estimated Delivery Date Method Current WG Current Estimate 08/28/25 LMP (Certain) 28w 6d Other Estimates 09/02/25 Ultrasound #1 28w 1d Expected Delivery Route/Plan Labor Preferences- CB/BF classes: no labor support person: Lang labor intervention preferences: [] pain management options preferred: epidural cut cord/dad catch: yes : yes PP control planned: discussed discussed possible routes of delivery and associated risks: [] special requests: [] Specific Issue/Plans Covid status: [] Flu vaccine: declines Tdap vaccine: declines Rhogam: NA LARC form signed: yes Problem list reviewed and updated with the most current plan of care details and appropriate orders placed. Relevant counseling for the gestational age provided. Continue routine care and follow up unless otherwise noted in visit notes/problem list details Initial Weight: Not Recorded Date -???-???-???-???-???-??? -???-???-???-???-???-??? - EGA Weight BP Urine Prot -???-???-???-???-???-??? -???-???-???-???-???-??? - Glucose FHR FuHt Pres Dilation -???-???-???-???-???-??? -???-???-???-???-???-??? - Effaced St Visit Note 01/21/25 -???-???-???-???-???-??? -???-???-???-???-???-??? - 8w 5d 110 lb 2 oz 121/68 -???-???-???-???-???-??? -???-???-???-???-???-??? - 160 -???-???-???-???-???-??? -???-???-???-???-???-??? - SM- CRL cons wi (more content not included)... Normal [facility] Syphilis Antibodieson 2024 Syphilis Abs Non-Reactive Normal Nonreactive [facility] Comment on above: Performed By: #### L 509.8002, L100.0100, L3890.6006, L501.0250 #### [facility] [address] [place], [address] Progress Noteon 05-15-2025 Aviation Maintenance Technician Authentication Interface Message Text Co-Manage Visit Subjective: Lisa Ewing is being seen today for an obstetrical visit. She is at 24w2d gestation. Her obstetrical history is significant for Subamniotic hematoma . history fully reviewed. She is unaccompanied. Lisa denies any cramping, contractions, vaginal bleeding, unusual or increase in vaginal discharge, signs and symptoms of pre-eclampsia, or leaking of any fluid. Patient with positive movement. Review of Systems All other systems reviewed and are negative. Objective: BP 109/67 Pulse 82 Ht (!) 154.9 cm Wt 56.2 kg (123 lb 12.8 oz) LMP 11/21/2024 SpO2 97% BMI 23.39 kg/m Physical Exam Vitals reviewed. Constitutional: Appearance: She is well-developed. Pulmonary: Effort: Pulmonary effort is normal. Abdominal: Comments: Gravid Musculoskeletal: General: Normal range of motion. Neurological: Mental Status: She is alert and oriented to person, place, and time. Psychiatric: Mood and Affect: Mood and affect normal. Behavior: Behavior normal. Thought Content: Thought content normal. Judgment: Judgment normal. FHT: 132bpm Presentation: Cephalic Uterine Size: see ultrasound Ultrasound: see report Assessment/Plan: Lisa Ewing is a 24 y.o. at 24w2d with: Active Non-Hospital Problems Diagnosis Date Noted [...] Growth every 4 weeks DELIVERY PLAN Hospital: [facility] Delivery:As per standard obstetric practice and anticipate a term vaginal delivery. GBS culture: per OB Contraception: undecided : Breast Ped: [facility] Name of baby: Boy-undecided Vaccinations: Recommend 3rd trimester TDAP; seasonal COVID- declined and flu- declined, seasonal RSV between 32-36 weeks Reviewed on 05/15/2025 Subamniotic hematoma 03/13/2025 Priority: High Office Visit - MD Garret: 15w2d . [...] further prognosticate the for risk of labor. 05/15/2025 Reviewed ultrasound- see report Reviewed PTL risk and risk of bleeding. Growth every 4 weeks Reviewed on 05/15/2025 This note or partial portions of this [...] are truly unique to this visit. Reviewed precautions Please take PNV as directed Follow up Growth in 4 weeks. The total time spent on patient care today was 30 minutes. -20 minutes direct patient care -10 minutes chart review and documentation Normal [facility] - Chemistry and C hemistry - challengeOrdered By: Maureen Benítez on 05-14-2025 Glucose Ql (U) Negative [facility] - UrinalysisOrder ed By: Maureen Benítez on 05-14-2025 Protein Ql (U) Negative [facility] Automobile Upholsterer Office Visit Reporton 05-14-2025 Automobile Upholsterer Office Visit Report [facility] [address], [address] [place] [address] OFFICE VISIT Date of Service: 05/14/25 MR#: [id number] Acct: [id number] Name: LISA EWING Rep #: [id number] 1 : 2000 Provider: ELVA vidal Age/Sex: 24/F [place] [facility] [place]: Signed Intake Vital Signs 03/17/25 11:22 04/28/25 11:24 05/14/25 09:58 Height 5 ft 1 in 5 ft 1 in 5 ft 1 in Weight: 125 lb 6 oz BMI 23.6 BP 114/69 Intake Visit Reasons: 24WK 6D OB 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 Is patient in pain?: No Allergies No Known Allergies Allergy (Verified 05/14/25 09:59) Medications ???Medication ???Instructions ???Recorded ???Confirmed ???Type multivitamin no.47-iron fum 27 1 cap PO DAILY 10/14/20 05/14/25 History mg-folate no.1 1 mg-dha 300 mg capsule (PNV-DHA) cyanocobalamin-liver extract tablet tab PO 01/17/25 05/14/25 Histor y magnesium 200 mg tablet 200 mg PO QDAY 01/17/25 05/14/25 H istory ondansetron 4 mg disintegrating 4 mg PO Q4H PRN nausea and 5 05/14/25 Rx tablet vomiting #60 tabs Last Menstrual Period: 11/21/24 Zika: Zika virus screening: Negative : Yes PFSH PFSH Medical History History of recurrent miscarriages Dyspareunia Anemia Surgical History No significant past surgical history Family History Grandmother Cancer Grandfather Hypertension Social History adopted: No household members: spouse and children housing: house number of children: 2 current occupation: [employer] current occupational exposures/hazards: No pets and animals: No history of recent travel: Yes ( - December 2024) out of state: Yes out of country: No sexually active: Yes Smoking Status: Never smoker second hand exposure: No alcohol intake: current alcohol intake frequency: holidays/special occasions only details: not while substance use type: does not use diet: lactose free well-balanced diet: daily or most days caffeine: Yes Type: coffee eating out: 1-3 times/week during the past year weight has: remained stable what type of physical activity do you participate in: walking frequency: 3-4 times per week duration: < 15 minutes/day 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 Date Name GA/Weeks Outcome Route Bth Weight Infant Gen Labor Lgth Anesthesia Del Locatn Provider FOB 05/28/21 [place] 41 live - full term vacuum 7lbs 8oz Male epidural [facility] Gwendolyn Croft 04/02/23 Sadia 41 live - full term 7lbs 2oz Female epidural [facility] Cyndie Croft 06/30/23 4 spontaneous 09/28/24 5 spontaneous Delivery Date: 05/28/21 Last Updated by: Chanda Mcdonough IOL VAVD HPI 24WK 6D OB Details: LISA EWING is a 24 year old who presents for routine OB visit. OB Visit KHADRA Calculator Estimated Delivery Date Method Current WG Current Estimate 08/28/25 LMP (Certain) 24w 6d Other Estimates 09/02/25 Ultrasound #1 24w 1d Expected Delivery Route/Plan Labor Preferences- CB/BF classes: no labor support person: Lang labor intervention preferences: [] pain management options preferred: epidural cut cord/dad catch: yes : yes PP control planned: discussed discussed possible routes of delivery and associated risks: [] special requests: [] Specific Issue/Plans Covid status: [] Flu vaccine: declines Tdap vaccine: [] Rhogam: NA LARC form signed: yes Problem list reviewed and updated with the most current plan of care details and appropriate orders placed. Relevant counseling for the gestational age provided. Continue routine care and follow up unless otherwise noted in visit notes/problem list details Initial Weight: Not Recorded Date -???-???-???-???-???-??? -???-???-???-???-???-??? - EGA Weight BP Urine Prot -???-???-???-???-???-??? -???-???-???-???-???-??? - Glucose FHR FuHt Pres Dilation -???-???-???-???-???-??? -???-???-???-???-???-??? - Effaced St Visit Note 01/21/25 -???-???-???-???-???-??? -???-???-???-???-???-??? - 8w 5d 110 lb 2 oz 121/68 -???-???-???-???-???-??? -???-???-???-???-???-??? - 160 -???-???-???-???-???-??? -???-???-???-???-???-??? - SM- CRL cons with LMP 02/18/25 -???-???-???-???- (more content not included)... Normal [facility] Urine Cultureon 04-30-2025 URC Mixed Gram Positive Organisms [place] Count 11,000-25,000 MIXC Mixed contaminants. Submit a new specimen if indicated. Normal [facility] Comment on above: Performed By: #### L 100.0100, L500.4050, L700.6800 #### [facility] [address] [place], [place], [address] Laboratory - Chemistry and C hemistry - challengeOrdered By: Jhoana Pace on 04-28-2025 Glucose Ql (U) Negative [facility] - UrinalysisOrder ed By: Jhoana Pace on 04-28-2025 Protein Ql (U) Negative [facility] Automobile Upholsterer Office Visit Reporton 04-28-2025 Automobile Upholsterer Office Visit Report [facility] [address], [address] [place] [address] OFFICE VISIT Date of Service: 04/28/25 MR#: [id number] Acct: [id number] Name: LISA EWING Rep #: [id number] 7 : 2000 Provider: YUE Mirza ams Age/Sex: 24/F [place] [facility] [place]: Signed Intake Vital Signs 04/14/25 14:51 04/28/25 11:23 04/28/25 11:24 Height 5 ft 1 in 5 ft 1 in 5 ft 1 in Weight: 124 lb 9 oz BMI 23.5 BP 113/74 Intake Visit Reasons: Add on d/t dizzy episode per sm - see note 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 Is patient in pain?: No Allergies No Known Allergies Allergy (Verified 04/28/25 11:23) Medications ???Medication ???Instructions ???Recorded ???Confirmed ???Type multivitamin no.47-iron fum 27 1 cap PO DAILY 10/14/20 04/28/25 History mg-folate no.1 1 mg-dha 300 mg capsule (PNV-DHA) cyanocobalamin-liver extract tablet tab PO 01/17/25 04/28/25 Histor y magnesium 200 mg tablet 200 mg PO QDAY 01/17/25 04/28/25 H istory ondansetron 4 mg disintegrating 4 mg PO Q4H PRN nausea and 5 04/28/25 Rx tablet vomiting #60 tabs Last Menstrual Period: 11/21/24 Zika: Zika virus screening: Negative : No PFSH PFSH Medical History History of recurrent miscarriages Dyspareunia Anemia Surgical History No significant past surgical history Family History Grandmother Cancer Grandfather Hypertension Social History adopted: No household members: spouse and children housing: house number of children: 2 current occupation: [employer] current occupational exposures/hazards: No pets and animals: No history of recent travel: Yes ( - December 2024) out of state: Yes out of country: No sexually active: Yes Smoking Status: Never smoker second hand exposure: No alcohol intake: current alcohol intake frequency: holidays/special occasions only details: not while substance use type: does not use diet: lactose free well-balanced diet: daily or most days caffeine: Yes Type: coffee eating out: 1-3 times/week during the past year weight has: remained stable what type of physical activity do you participate in: walking frequency: 3-4 times per week duration: < 15 minutes/day 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 Date Name GA/Weeks Outcome Route Bth Weight Gen Labor Lgth Anesthesia Del Locatn Provider TONNY 05/28/21 [place] 41 live - full term vacuum 7lbs 8oz Male epidural [facility] Gwendolyn Croft 04/02/23 Sadia 41 live - full term 7lbs 2oz Female epidural [facility] Cyndie Pace Lang 06/30/23 4 spontaneous 09/28/24 5 spontaneous Delivery Date: 05/28/21 Last Updated by: Chanda Mcdonough IOL VAVD HPI Add on d/t dizzy episode per sm - see note Details: LISA EWING is a 24 year old who presents for routine OB visit. OB Visit KHADRA Calculator Estimated Delivery Date Method Current WG Current Estimate 08/28/25 LMP (Certain) 22w 4d Other Estimates 09/02/25 Ultrasound #1 21w 6d Expected Delivery Route/Plan Labor Preferences- CB/BF classes: [] labor support person: [] labor intervention preferences: [] pain management options preferred: [] cut cord/dad catch: [] : [] PP control planned: [] discussed possible routes of delivery and associated risks: [] special requests: [] Specific Issue/Plans Covid status: [] Flu vaccine: [] Tdap vaccine: [] Rhogam: [] LARC form signed: [] Problem list reviewed and updated with the most current plan of care details and appropriate orders placed. Relevant counseling for the gestational age provided. Continue routine care and follow up unless otherwise noted in visit notes/problem list details Initial Weight: Not Recorded Date -???-???-???-???-???-??? -???-???-???-???-???-??? - EGA Weight BP Urine Prot -???-???-???-???-???-??? -???-???-???-???-???-??? - Glucose FHR FuHt Pres Dilation -???-???-???-???-???-??? -???-???-???-???-???-??? - Effaced St Visit Note 01/21/25 -???-???-???-???-???-??? -???-???-???-???-???-??? - 8w 5d 110 lb 2 oz 121/68 -???-???-???-???-???-??? -???-???-???-???-???-??? - 160 -???-???-???-???-???-??? -???-???-???-???-???-??? - SM- CRL cons with LMP (more content not included)... Normal [facility] Urine cultureOrdered By: Brody Pace on 04-28-2025 Bacteria identified Cx Nom (U) Positive Abnormal [facility] Progress Noteon 04-16-2025 Aviation Maintenance Technician Authentication Interface Message Text Co-Manage Visit Subjective: Lisa Ewing is being seen today for an obstetrical visit. She is at 20w1d gestation. Her obstetrical history is significant for Subamniotic hematoma. history fully reviewed. She is unaccompanied. Lisa denies any cramping, contractions, vaginal bleeding, unusual [...] Cephalic Uterine Size: see ultrasound report Assessment/Plan: Lisa Ewing is a 24 y.o. at 20w1d [...] Growth every 4 weeks DELIVERY PLAN Hospital: [facility] Delivery:As per standard obstetric practice and [...] . 1. Collaborations: Ongoing Care with: [facility] with [facility] co-m (more content not included)... Normal [facility] Laboratory - Chemistry and C hemistry - challengeOrdered By: Nelly Rangel on 04-14-2025 Glucose Ql (U) Negative [facility] - UrinalysisOrder ed By: Nelly Rangel on 04-14-2025 Protein Ql (U) Negative [facility] Automobile Upholsterer Office Visit Reporton 04-14-2025 Automobile Upholsterer Office Visit Report [facility] [address], [address] [place] [address] OFFICE VISIT Date of Service: 04/14/25 MR#: [id number] Acct: [id number] Name: LISA EWING Rep #: [id number] 7 : 2000 Provider: Dr. 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 Is patient in pain?: No Allergies No Known Allergies Allergy (Verified 04/14/25 14:48) Medications ???Medication ???Instructions ???Recorded ???Confirmed ???Type multivitamin no.47-iron fum 27 1 cap PO DAILY 10/14/20 04/14/25 History mg-folate no.1 1 mg-dha 300 mg capsule (PNV-DHA) cyanocobalamin-liver extract tablet tab PO 01/17/25 04/14/25 Histor y magnesium 200 mg tablet 200 mg PO QDAY 01/17/25 04/14/25 H istory ondansetron 4 mg disintegrating 4 mg PO Q4H PRN nausea and 5 04/14/25 Rx tablet vomiting #60 tabs Last Menstrual Period: 11/21/24 Zika: Zika virus screening: Negative : No PFSH PFSH Medical History History of recurrent miscarriages Dyspareunia Anemia Surgical History No significant past surgical history Family History Grandmother Cancer Grandfather Hypertension Social History adopted: No household members: spouse and children housing: house number of children: 2 current occupation: [employer] current occupational exposures/hazards: No pets and animals: No history of recent travel: Yes ( - December 2024) out of state: Yes out of country: No sexually active: Yes Smoking Status: Never smoker second hand exposure: No alcohol intake: current alcohol intake frequency: holidays/special occasions only details: not while substance use type: does not use diet: lactose free well-balanced diet: daily or most days caffeine: Yes Type: coffee eating out: 1-3 times/week during the past year weight has: remained stable what type of physical activity do you participate in: walking frequency: 3-4 times per week duration: < 15 minutes/day 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 Date Name GA/Weeks Outcome Route Bth Weight Infant Gen Labor Lgth Anesthesia Del Locatn Provider FOB 05/28/21 [place] 41 live - full term vacuum 7lbs 8oz Male epidural [facility] Gwendolyn shah Lang 04/02/23 Sadia 41 live - full term 7lbs 2oz Female epidural [facility] Cyndie Pace Lang 06/30/23 4 spontaneous 09/28/24 5 spontaneous Delivery Date: 05/28/21 Last Updated by: Chanda Mcdonough IOL VAVD HPI 20 Wk OB Details: LISA EWING is a 24 year old who presents for routine OB visit. OB Visit KHADRA Calculator Estimated Delivery Date Method Current WG Current Estimate 08/28/25 LMP (Certain) 20w 4d Other Estimates 09/02/25 Ultrasound #1 19w 6d Expected Delivery Route/Plan Labor Preferences- CB/BF classes: [] labor support person: [] labor intervention preferences: [] pain management options preferred: [] cut cord/dad catch: [] : [] PP control planned: [] discussed possible routes of delivery and associated risks: [] special requests: [] Specific Issue/Plans Covid status: [] Flu vaccine: [] Tdap vaccine: [] Rhogam: [] LARC form signed: [] Problem list reviewed and updated with the most current plan of care details and appropriate orders placed. Relevant counseling for the gestational age provided. Continue routine care and follow up unless otherwise noted in visit notes/problem list details Initial Weight: Not Recorded Date -???-???-???-???-???-??? -???-???-???-???-???-??? - EGA Weight BP Urine Prot -???-???-???-???-???-??? -???-???-???-???-???-??? - Glucose FHR FuHt Pres Dilation -???-???-???-???-???-??? -???-???-???-???-???-??? - Effaced St Visit Note 01/21/25 -???-???-???-???-???-??? -???-???-???-???-???-??? - 8w 5d 110 lb 2 oz 121/68 -???-???-???-???-???-??? -???-???-???-???-???-??? - 160 -???-???-???-???-???-??? -???-???-???-???-???-??? - SM- CRL cons with LMP 02/18/25 -???-???-???-???-???-??? - (more content not included)... Normal [facility] Laboratory - Chemistry and C hemistry - challengeOrdered By: Nelly Rangel on 03-25-2025 Glucose Ql (U) Negative [facility] - UrinalysisOrder ed By: Nelly Rangel on 03-25-2025 Protein Ql (U) Negative [facility] Automobile Upholsterer Office Visit Reporton 03-25-2025 Automobile Upholsterer Office Visit Report [facility] [address], [address] [place] [address] OFFICE VISIT Date of Service: 03/25/25 MR#: [id number] Acct: [id number] Name: LISA EWING Rep #: [id number] : 2000 Provider: Dr. 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 Is patient in pain?: Yes (lower back pain, Boyd Khan - improving) Allergies No Known Allergies Allergy (Verified 03/25/25 11:44) Medications ???Medication ???Instructions ???Recorded ???Confirmed ???Type multivitamin no.47-iron fum 27 1 cap PO DAILY 10/14/20 03/25/25 History mg-folate no.1 1 mg-dha 300 mg capsule (PNV-DHA) cyanocobalamin-liver extract tablet tab PO 01/17/25 03/25/25 Histor y magnesium 200 mg tablet 200 mg PO QDAY 01/17/25 03/25/25 H istory ondansetron 4 mg disintegrating 4 mg PO Q4H PRN nausea and 5 03/25/25 Rx tablet vomiting #60 tabs Last Menstrual Period: 11/21/24 Zika: Zika virus screening: Negative : No PFSH PFSH Medical History History of recurrent miscarriages Dyspareunia Anemia Surgical History No significant past surgical history Family History Grandmother Cancer Grandfather Hypertension Social History adopted: No household members: spouse and children housing: house number of children: 2 current occupation: [employer] current occupational exposures/hazards: No pets and animals: No history of recent travel: Yes ( - December 2024) out of state: Yes out of country: No sexually active: Yes Smoking Status: Never smoker second hand exposure: No alcohol intake: current alcohol intake frequency: holidays/special occasions only details: not while substance use type: does not use diet: lactose free well-balanced diet: daily or most days caffeine: Yes Type: coffee eating out: 1-3 times/week during the past year weight has: remained stable what type of physical activity do you participate in: walking frequency: 3-4 times per week duration: < 15 minutes/day 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 Date Name GA/Weeks Outcome Route Bth Weight Infant Gen Labor Lgth Anesthesia Del Locatn Provider FOB 05/28/21 [place] 41 live - full term vacuum 7lbs 8oz Male epidural [facility] Gwendolyn shah Lang 04/02/23 Sadia 41 live - full term 7lbs 2oz Female epidural [facility] Cyndie Pace Lang 06/30/23 4 spontaneous 09/28/24 5 spontaneous Delivery Date: 05/28/21 Last Updated by: Chanda Mcdonough IOL VAVD HPI OB spotting Details: LISA EWING is a 24 year old who presents for routine OB visit. OB Visit KHADRA Calculator Estimated Delivery Date Method Current WG Current Estimate 08/28/25 LMP (Certain) 17w 5d Other Estimates 09/02/25 Ultrasound #1 17w 0d Expected Delivery Route/Plan Labor Preferences- CB/BF classes: [] labor support person: [] labor intervention preferences: [] pain management options preferred: [] cut cord/dad catch: [] : [] PP control planned: [] discussed possible routes of delivery and associated risks: [] special requests: [] Specific Issue/Plans Covid status: [] Flu vaccine: [] Tdap vaccine: [] Rhogam: [] LARC form signed: [] Problem list reviewed and updated with the most current plan of care details and appropriate orders placed. Relevant counseling for the gestational age provided. Continue routine care and follow up unless otherwise noted in visit notes/problem list details Initial Weight: Not Recorded Date -???-???-???-???-???-??? -???-???-???-???-???-??? - EGA Weight BP Urine Prot -???-???-???-???-???-??? -???-???-???-???-???-??? - Glucose FHR FuHt Pres Dilation -???-???-???-???-???-??? -???-???-???-???-???-??? - Effaced St Visit Note 01/21/25 -???-???-???-???-???-??? -???-???-???-???-???-??? - 8w 5d 110 lb 2 oz 121/68 -???-???-???-???-???-??? -???-???-???-???-???-??? - 160 -???-???-???-???-???-??? -???-???-???-???-???-??? - SM- CRL cons with LMP 02/18/25 -???-???-???-???-???-??? -??? (more content not included)... Normal [facility] [id number] 03-19-2025 [facility] [place]. COMMENT Normal . [facility] Comment on above: Order Comment: [id number] 0Bile Acids SERUM FZ Result Comment: Test Ordered: [id number] Bile Acids Bile Acids 1.9 umol/L Reference Range: 0.0-10.0 Performed at: - [address] [id number] Hyster Machine Operator: Kory Brar MD, Phone: [phone] Performed at: - [facility] [address] [place], [place] [id number] Hyster Machine Operator: Mendoza Carlos PhD, Phone: [phone] Performed By: #### L 509.2302, L100.0100, L3890.4131, L501.0250 #### [facility] [address] [place], [place], [id number] Absolute lymphocyte countOrd ered By: Jhoana Pace on 03-17-2025 Lymphocytes Auto (Unsp spec) [#/Vol] 1.86 10*3/uL 0.83-4.51 [facility] Absolute neutrophil countOrd ered By: Jhoana Pace on 03-17-2025 Neutrophils (Bld) [#/Vol] 5.7 10*3/uL 2.0-7.7 [facility] Anion gap in Serum or Plasma Ordered By: Jhoana Pace on 03-17-2025 Anion gap [Moles/Vol] 12 mmol/L 5- [facility] Automated lymphocyte count a s percentage of total leukocytesOrdered By: Jhoana Pace on 03-17-2025 Lymphocytes/100 WBC Auto (Unsp spec) 22.5 % - [facility] BUN/creatinine ratioOrdered By: Jhoana Pace on 03-17-2025 Urea nitrogen/Creatinine [Mass ratio] 16.7 mg/mg 10- [facility] Basophil percentageOrdered B y: Jhoana Pace on 03-17-2025 Basophils/100 WBC (Bld) 0.4 % 0-1 [facility] Bilirubin, totalOrdered By: Jhoana Pace on 03-17-2025 Bilirubin [Mass/Vol] 0.58 mg/dL 0.00-1.30 [facility] CBC W/Diff, Automatedon 02-28 Absolute Lymph 1.86 X10 3/uL Normal 0.83-4.51 [facility] Comment on above: Performed By: #### L 509.8002, L100.0100, L3890.6006, L501.0250 #### [facility] [address] [place], [address] Absolute Neut 5.7 X10 3/uL Normal 2.0-7.7 [facility] Comment on above: Performed By: #### L 509.8002, L100.0100, L3890.6006, L501.0250 #### [facility] [address] [place], [address] Basophils/100 WBC (Bld) 0.4 % Normal 0-1 [facility] Comment on above: Performed By: #### L 509.8002, L100.0100, L3890.6006, L501.0250 #### [facility] [address] [place], [address] Eosinophils/100 WBC (Bld) 1.4 % Normal 0-5 [facility] Comment on above: Performed By: #### L 509.8002, L100.0100, L3890.6006, L501.0250 #### [facility] [address] [place], [address] Erythrocyte distribution width (RBC) [Ratio] 13.2 % Normal 11.6-14.6 [facility] Comment on above: Performed By: #### L 509.8002, L100.0100, L3890.6006, L501.0250 #### [facility] [address] [place], [address] Hematocrit (Bld) [Volume fraction] 32.8 % Low 37-47 [facility] Comment on above: Performed By: #### L 509.8002, L100.0100, L3890.6006, L501.0250 #### [facility] [address] [place], [address] Hemoglobin (Bld) [Mass/Vol] 11.6 g/dL Low 12.0-15.0 [facility] Comment on above: Performed By: #### L 509.8002, L100.0100, L3890.6006, L501.0250 #### [facility] [address] [place], [address] IG% 0.500 Normal 0.0-0.9 [facility] Comment on above: Result Comment: IG% - Immature Granulocytes (promyelocytes, myelocytes and metamyelocytes) > 1% indicates that a LEFT SHIFT is Present. Performed By: #### L 509.8002, L100.0100, L3890.6006, L501.0250 #### [facility] [address] [place], [address] Lymphocytes/100 WBC (Bld) 22.5 % Normal 19-41 [facility] Comment on above: Performed By: #### L 509.8002, L100.0100, L3890.6006, L501.0250 #### [facility] [address] [place], [address] MCH (RBC) [Entitic mass] 31.6 pg Normal 27.0-32.0 [facility] Comment on above: Performed By: #### L 509.8002, L100.0100, L3890.6006, L501.0250 #### [facility] [address] [place], [address] MCHC (RBC) [Mass/Vol] 35.4 g/dL Normal 32-36 [facility] Comment on above: Performed By: #### L 509.8002, L100.0100, L3890.6006, L501.0250 #### [facility] [address] [place], [address] MCV (RBC) [Entitic vol] 89.4 fL Normal 81-99 [facility] Comment on above: Performed By: #### L 509.8002, L100.0100, L3890.6006, L501.0250 #### [facility] [address] [place], [address] Monocytes/100 WBC (Bld) 5.9 % Normal 0-10 [facility] Comment on above: Performed By: #### L 509.8002, L100.0100, L3890.6006, L501.0250 #### [facility] [address] [place], [address] Neutrophils/100 WBC (Bld) 69.3 % Normal 47-70 [facility] Comment on above: Performed By: #### L 509.8002, L100.0100, L3890.6006, L501.0250 #### [facility] [address] [place], [address] Nucleated RBC (Bld) [#/Vol] 0 10*3/uL Normal 0-5 [facility] Comment on above: Performed By: #### L 509.8002, L100.0100, L3890.6006, L501.0250 #### [facility] [address] [place], [address] Platelet mean volume (Bld) [Entitic vol] 9.5 fL Normal 6.2-12.0 [facility] Comment on above: Performed By: #### L 509.8002, L100.0100, L3890.6006, L501.0250 #### [facility] [address] [place], [address] Platelets (Bld) [#/Vol] 274 10*3/uL Normal 150-450 [facility] Comment on above: Performed By: #### L 509.8002, L100.0100, L3890.6006, L501.0250 #### [facility] [address] [place], [address] RBC (Bld) [#/Vol] 3.67 10*6/uL Low 4.2-5.4 [facility] Comment on above: Performed By: #### L 509.8002, L100.0100, L3890.6006, L501.0250 #### [facility] [address] [place], [address] RDW SD 43.2 fl Normal 35.1-43.9 [facility] Comment on above: Performed By: #### L 509.8002, L100.0100, L3890.6006, L501.0250 #### [facility] [address] [place], [address] WBC (Bld) [#/Vol] 8.3 10*3/uL Normal 4.4-11.0 [facility] Comment on above: Performed By: #### L 509.8002, L100.0100, L3890.6006, L501.0250 #### [facility] [address] [place], [address] Carbon dioxide, total [Moles /volume] in Central venous bloodOrdered By: Jhoana Pcae on 03-17-2025 CO2 [Moles/Vol] 22.7 mmol/L 21.0-32.0 [facility] Chloride assayOrdered By: Ricky Pace on 03-17-2025 Chloride [Moles/Vol] 103 mmol/L 98-108 [facility] Comprehensive Metabolic Prof ilon 03-17-2025 Albumin [Mass/Vol] 4.2 g/dL Normal 3.5-5.0 [facility] Comment on above: Performed By: #### L 509.8002, L100.0100, L3890.6006, L501.0250 #### [facility] [address] [place], [address] Albumin/Globulin [Mass ratio] 1.4 {ratio} Normal 0.9-2.4 [facility] Comment on above: Performed By: #### L 509.8002, L100.0100, L3890.6006, L501.0250 #### [facility] [address] [place], [address] ALK PHOS 55 U/L Normal 35-104 [facility] Comment on above: Performed By: #### L 509.8002, L100.0100, L3890.6006, L501.0250 #### [facility] [address] [place], [address] ALT [Catalytic activity/Vol] 16 U/L Normal <=34 [facility] Comment on above: Performed By: #### L 509.8002, L100.0100, L3890.6006, L501.0250 #### [facility] [address] [place], [address] AST [Catalytic activity/Vol] 21 U/L Normal <=31 [facility] Comment on above: Performed By: #### L 509.8002, L100.0100, L3890.6006, L501.0250 #### [facility] [address] [place], [address] Bilirubin [Mass/Vol] 0.58 mg/dL Normal 0.00-1.30 [facility] Comment on above: Performed By: #### L 509.8002, L100.0100, L3890.6006, L501.0250 #### [facility] [address] [place], [address] BUN/CRE 16.7 RATIO Normal 10-20 [facility] Comment on above: Performed By: #### L 509.8002, L100.0100, L3890.6006, L501.0250 #### [facility] [address] [place], [address] Calcium [Mass/Vol] 9.8 mg/dL Normal 7.6-11.0 [facility] Comment on above: Performed By: #### L 509.8002, L100.0100, L3890.6006, L501.0250 #### [facility] [address] [place], [address] Chloride [Moles/Vol] 103 mmol/L Normal 98-108 [facility] Comment on above: Performed By: #### L 509.8002, L100.0100, L3890.6006, L501.0250 #### [facility] [address] [place], [address] CO2 [Moles/Vol] 22.7 mmol/L Normal 21.0-32.0 [facility] Comment on above: Performed By: #### L 509.8002, L100.0100, L3890.6006, L501.0250 #### [facility] [address] [place], [address] Creatinine [Mass/Vol] 0.56 mg/dL Low 0.70-1.20 [facility] Comment on above: Performed By: #### L 509.8002, L100.0100, L3890.6006, L501.0250 #### [facility] [address] [place], [address] GAP 12 Normal 5-15 [facility] Comment on above: Performed By: #### L 509.8002, L100.0100, L3890.6006, L501.0250 #### [facility] [address] [place], [address] GFR/1.73 sq M.predicted among non-blacks MDRD (S/P/Bld) [Vol rate/Area] 130 mL/min/{1.73_m2} Normal >60 [facility] Comment on above: Result Comment: mL/m in/1.73m2 CKD-EPI Creatinine Equation (2020) Performed By: #### L 509.8002, L100.0100, L3890.6006, L501.0250 #### [facility] [address] [place], [address] Globulin (S) [Mass/Vol] 3.0 g/dL Normal 2.2-4.2 [facility] Comment on above: Performed By: #### L 509.8002, L100.0100, L3890.6006, L501.0250 #### [facility] [address] [place], [address] Glucose [Mass/Vol] 74 mg/dL Normal 70-99 [facility] Comment on above: Performed By: #### L 509.8002, L100.0100, L3890.6006, L501.0250 #### [facility] [address] [place], [address] Potassium [Moles/Vol] 4.0 mmol/L Normal 3.3-5.1 [facility] Comment on above: Performed By: #### L 509.8002, L100.0100, L3890.6006, L501.0250 #### [facility] [address] [place], [address] Sodium [Moles/Vol] 137 mmol/L Normal 133-145 [facility] Comment on above: Performed By: #### L 509.8002, L100.0100, L3890.6006, L501.0250 #### [facility] [address] [place], [address] T PROT 7.1 g/dL Normal 5.9-8.4 [facility] Comment on above: Performed By: #### L 509.8002, L100.0100, L3890.6006, L501.0250 #### [facility] [address] [place], [address] Urea nitrogen [Mass/Vol] 9 mg/dL Normal 4-19 [facility] Comment on above: Performed By: #### L 509.8002, L100.0100, L3890.6006, L501.0250 #### [facility] [address] [place], [address] Eosinophil percentageOrdered By: Jhoana Pace on 03-17-2025 Eosinophils/100 WBC (Bld) 1.4 % 0-5 [facility] Erythrocyte distribution wid th ratioOrdered By: Jhoana Pace on 03-17-2025 Erythrocyte distribution width (RBC) [Ratio] 13.2 % 11.6-14.6 [facility] Erythrocyte distribution wid th standard deviationOrdered By: Jhoana Pace on 03-17-2025 Erythrocyte distribution width (RBC) [Ratio] 43.2 fl 35.1-43.9 [facility] Glomerular filtration rate ( GFR) estimation/1.73 sq m using serum, plasma, or whole bOrdered By: Jhoana Pace on 03-17-2025 GFR/1.73 sq M.predicted among non-blacks MDRD (S/P/Bld) [Vol rate/Area] 130 mL/min/{1.73_m2} >60 [facility] Comment on above: mL/min/1.73m2 CKD-EP I Creatinine Equation (2020) Hematocrit Auto (Bld) [Volum e fraction]Ordered By: Jhoana Pace on 03-17-2025 Hematocrit (Bld) [Volume fraction] 32.8 % Low 37-47 [facility] Hemoglobin measurementOrdere d By: Jhoana Pace on 03-17-2025 Hemoglobin (Bld) [Mass/Vol] 11.6 g/dL Low 12.0-15.0 [facility] Immature granulocytes/100 WB C Auto (Bld)Ordered By: Jhoana Pace on 03-17-2025 Immature granulocytes/100 WBC (Bld) 0.500 % 0.0-0.9 [facility] Comment on above: IG% - Immature Granu locytes (promyelocytes, myelocytes and metamyelocytes) > 1% indicates that a LEFT SHIFT is Present. Laboratory - Chemistry and C hemistry - challengeOrdered By: Jhoana Pace on 03-17-2025 AST [Catalytic activity/Vol] 21 U/L <32 [facility] Glucose Ql (U) Negative [facility] Laboratory - UrinalysisOrder ed By: Jhoana Pace on 03-17-2025 Protein Ql (U) Negative [facility] MCV (mean corpuscular volume ) determinationOrdered By: Jhoana Pace on 03-17-2025 MCV (RBC) [Entitic vol] 89.4 fL 81-99 [facility] Mean corpuscular hemoglobin (MCH) determinationOrdered By: Jhoana Pace on 03-17-2025 MCH (RBC) [Entitic mass] 31.6 pg 27.0-32.0 [facility] Mean corpuscular hemoglobin concentration (MCHC) determinationOrdered By: Jhoana Pace on 03-17-2025 MCHC (RBC) [Mass/Vol] 35.4 g/dL 32-36 [facility] Mean platelet volume determi nationOrdered By: Jhoana Pace on 03-17-2025 Platelet mean volume (Bld) [Entitic vol] 9.5 fL 6.2-12.0 [facility] Monocyte percentageOrdered B y: Jhoana Pace on 03-17-2025 Monocytes/100 WBC (Bld) 5.9 % 0-10 [facility] Neutrophil percentageOrdered By: Jhoana Pace on 03-17-2025 Neutrophils/100 WBC (Bld) 69.3 % 47-70 [facility] Nucleated red blood cell per centageOrdered By: Jhoana Pace on 03-17-2025 Nucleated RBC/100 WBC (Bld) [Ratio] 0 % 0-5 [facility] Automobile Upholsterer Office Visit Reporton 03-17-2025 Automobile Upholsterer Office Visit Report [facility]'s [address], [address] [place] [address] OFFICE VISIT Date of Service: 03/17/25 MR#: [id number] Acct: [id number] Name: LISA EWING Rep #: [id number] : 2000 Provider: YUE Mirza ams Age/Sex: 24/F [place] [facility] [place]: Signed Intake Vital Signs 01/21/25 10:37 03/12/25 14:45 03/17/25 11:22 Height 5 ft 1 in 5 ft 1 in 5 ft 1 in Weight: 114 lb 5 oz BMI 21.6 BP 107/72 Intake Visit Reasons: 16 wk ob 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 Is patient in pain?: No Allergies No Known Allergies Allergy (Verified 03/17/25 11:20) Medications ???Medication ???Instructions ???Recorded ???Confirmed ???Type multivitamin no.47-iron fum 27 1 cap PO DAILY 10/14/20 03/17/25 History mg-folate no.1 1 mg-dha 300 mg capsule (PNV-DHA) cyanocobalamin-liver extract tablet tab PO 01/17/25 03/17/25 Histor y magnesium 200 mg tablet 200 mg PO QDAY 01/17/25 03/17/25 H istory ondansetron 4 mg disintegrating 4 mg PO Q4H PRN nausea and 5 03/17/25 Rx tablet vomiting #60 tabs Last Menstrual Period: 11/21/24 : No PFSH PFSH Medical History History of recurrent miscarriages Dyspareunia Anemia Surgical History No significant past surgical history Family History Grandmother Cancer Grandfather Hypertension Social History adopted: No household members: spouse and children housing: house number of children: 2 current occupation: [employer] current occupational exposures/hazards: No pets and animals: No history of recent travel: Yes ( - December 2024) out of state: Yes out of country: No sexually active: Yes Smoking Status: Never smoker second hand exposure: No alcohol intake: current alcohol intake frequency: holidays/special occasions only details: not while substance use type: does not use diet: lactose free well-balanced diet: daily or most days caffeine: Yes Type: coffee eating out: 1-3 times/week during the past year weight has: remained stable what type of physical activity do you participate in: walking frequency: 3-4 times per week duration: < 15 minutes/day 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 Date Name GA/Weeks Outcome Route Bth Weight Gen Labor Lgth Anesthesia Del Locatn Provider FOB 05/28/21 [place] 41 live - full term vacuum 7lbs 8oz Male epidural [facility] Gwendolyn Croft 04/02/23 Sadia 41 live - full term 7lbs 2oz Female epidural [facility] Cyndie Croft 06/30/23 4 spontaneous 09/28/24 5 spontaneous Delivery Date: 05/28/21 Last Updated by: Chanda Mcdonough IOL VAVD HPI 16 wk ob Details: LISA EWING is a 24 year old who presents for routine OB visit. OB Visit KHADRA Calculator Estimated Delivery Date Method Current WG Current Estimate 08/28/25 LMP (Certain) 16w 4d Other Estimates 09/02/25 Ultrasound #1 15w 6d Expected Delivery Route/Plan Labor Preferences- CB/BF classes: [] labor support person: [] labor intervention preferences: [] pain management options preferred: [] cut cord/dad catch: [] : [] PP control planned: [] discussed possible routes of delivery and associated risks: [] special requests: [] Specific Issue/Plans Covid status: [] Flu vaccine: [] Tdap vaccine: [] Rhogam: [] LARC form signed: [] Problem list reviewed and updated with the most current plan of care details and appropriate orders placed. Relevant counseling for the gestational age provided. Continue routine care and follow up unless otherwise noted in visit notes/problem list details Initial Weight: Not Recorded Date -???-???-???-???-???-??? -???-???-???-???-???-??? - EGA Weight BP Urine Prot -???-???-???-???-???-??? -???-???-???-???-???-??? - Glucose FHR FuHt Pres Dilation -???-???-???-???-???-??? -???-???-???-???-???-??? - Effaced St Visit Note 01/21/25 -???-???-???-???-???-??? -???-???-???-???-???-??? - 8w 5d 110 lb 2 oz 121/68 -???-???-???-???-???-??? -???-???-???-???-???-??? - 160 -???-???-???-???-???-??? -???-???-???-???-???-??? - SM- CRL cons with LMP 02/18/25 -???-???-???-???-???-??? -???-???-???-???-???-??? - 12w 5d 112 lb 107/71 Negative (more content not included)... Normal [facility] Platelet countOrdered By: Ricky Pace on 03-17-2025 Platelets (Bld) [#/Vol] 274 10*3/uL 150-450 [facility] Potassium measurement (mass/ volume)Ordered By: Jhoana Pace on 03-17-2025 Potassium (Unsp spec) [Mass/Vol] 4.0 mmol/L 3.3-5.1 [facility] RBC Auto (Bld) [#/Vol]Ordere d By: Jhoana Pace on 03-17-2025 RBC (Bld) [#/Vol] 3.67 10*6/uL Low 4.2-5.4 [facility] Serum creatinine measurement (mass/volume)Ordered By: Jhoana Pace on 03-17-2025 Creatinine [Mass/Vol] 0.56 mg/dL Low 0.70-1.20 [facility] Serum globulin measurementOr dered By: Jhoana Pace on 03-17-2025 Globulin (S) [Mass/Vol] 3.0 g/dL 2.2-4.2 [facility] Serum glucose measurement (m ass/volume)Ordered By: Jhoana Pace on 03-17-2025 Glucose [Mass/Vol] 74 mg/dL 70-99 [facility] Serum or plasma alanine escamilla otransferase (ALT) measurementOrdered By: Jhoana Pace on 03-17-2025 ALT [Catalytic activity/Vol] 16 U/L <35 [facility] Serum or plasma albumin tanvi urement (mass/volume)Ordered By: Jhoana Pace on 03-17-2025 Albumin [Mass/Vol] 4.2 g/dL 3.5-5.0 [facility] Serum or plasma albumin/glob ulin mass ratioOrdered By: Jhoana Pace on 03-17-2025 Albumin/Globulin [Mass ratio] 1.4 {ratio} 0.9-2.4 [facility] Serum or plasma alkaline monica sphatase measurementOrdered By: Jhoana Pace on 03-17-2025 ALP [Catalytic activity/Vol] 55 U/L 35-104 [facility] Serum or plasma calcium tanvi urement (mass/volume)Ordered By: Jhoana Pace on 03-17-2025 Calcium [Mass/Vol] 9.8 mg/dL 7.6-11.0 [facility] Serum or plasma urea nitroge n measurement (mass/volume)Ordered By: Jhoana Pace on 03-17-2025 Urea nitrogen [Mass/Vol] 9 mg/dL 4-19 [facility] Sodium levelOrdered By: Chasity Pace on 03-17-2025 Sodium [Moles/Vol] 137 mmol/L 133-145 [facility] Total proteinOrdered By: Brody Pace on 03-17-2025 Protein [Mass/Vol] 7.1 g/dL 5.9-8.4 [facility] White blood cell (WBC) count Ordered By: Jhoana Pace on 03-17-2025 WBC (Bld) [#/Vol] 8.3 10*3/uL 4.4-11.0 [facility] Progress Noteon 03-13-2025 Aviation Maintenance Technician Authentication Interface Message Text [facility] MATERNAL MEDICINE - at [address] [place] OFFICE VISIT NOTE The concluding Summary Communication to Sourcing Manager is at the end of this office [...] - focussed assessments. History of Present Illness Lisa is a 24 y.o. female at 15w2d. [...] . 1. Collaborations: Ongoing Care with: [facility] with [facility] co-management visits scheduled with next [facility] imaging visit for prepregnancy prognostication. 2. Current Medications: vitamin daily. 3. [facility] follow-up ultrasounds scheduled: Follow-up ultrasound at [...] . Episode of threatened at 15+ weeks-residual (more content not included)... Normal [facility] Laboratory - Chemistry and C hemistry - challengeOrdered By: Lindsey Chavira on 03-12-2025 Glucose Ql (U) Negative [facility] Laboratory - UrinalysisOrder ed By: Lindsey Chavira on 03-12-2025 Protein Ql (U) Negative [facility] Automobile Upholsterer Office Visit Reporton 03-12-2025 Automobile Upholsterer Office Visit Report [facility] [address], [address] [place] [address] OFFICE VISIT Date of Service: 03/12/25 MR#: [id number] Acct: [id number] Name: LISA EWING Rep #: [id number] : 2000 Provider: Dr. 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 Is patient in pain?: No Allergies No Known Allergies Allergy (Verified 03/12/25 14:46) Medications ???Medication ???Instructions ???Recorded ???Confirmed ???Type multivitamin no.47-iron fum 27 1 cap PO DAILY 10/14/20 03/12/25 History mg-folate no.1 1 mg-dha 300 mg capsule (PNV-DHA) cyanocobalamin-liver extract tablet tab PO 01/17/25 03/12/25 Histor y magnesium 200 mg tablet 200 mg PO QDAY 01/17/25 03/12/25 H istory ondansetron 4 mg disintegrating 4 mg PO Q4H PRN nausea and 5 03/12/25 Rx tablet vomiting #60 tabs Last Menstrual Period: 11/21/24 Zika: Zika virus screening: Negative : No PFSH PFSH Medical History History of recurrent miscarriages Dyspareunia Anemia Surgical History No significant past surgical history Family History Grandmother Cancer Grandfather Hypertension Social History adopted: No household members: spouse and children housing: house number of children: 2 current occupation: [employer] current occupational exposures/hazards: No pets and animals: No history of recent travel: Yes ( - December 2024) out of state: Yes out of country: No sexually active: Yes Smoking Status: Never smoker second hand exposure: No alcohol intake: current alcohol intake frequency: holidays/special occasions only details: not while substance use type: does not use diet: lactose free well-balanced diet: daily or most days caffeine: Yes Type: coffee eating out: 1-3 times/week during the past year weight has: remained stable what type of physical activity do you participate in: walking frequency: 3-4 times per week duration: < 15 minutes/day 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 Date Name GA/Weeks Outcome Route Bth Weight Infant Gen Labor Lgth Anesthesia Del Locatn Provider FOB 05/28/21 [place] 41 live - full term vacuum 7lbs 8oz Male epidural [facility] Gwendolyn laciepattiesukhi Croft 04/02/23 Sadia 41 live - full term 7lbs 2oz Female epidural [facility] Cyndie Paty Croft 06/30/23 4 spontaneous 09/28/24 5 spontaneous Delivery Date: 05/28/21 Last Updated by: Chanda DIAL VAVD HPI OB, spotting Details: LISA EWING is a 24 year old who presents for routine OB visit. OB Visit KHADRA Calculator Estimated Delivery Date Method Current WG Current Estimate 08/28/25 LMP (Certain) 15w 6d Other Estimates 09/02/25 Ultrasound #1 15w 1d Expected Delivery Route/Plan Labor Preferences- CB/BF classes: [] labor support person: [] labor intervention preferences: [] pain management options preferred: [] cut cord/dad catch: [] : [] PP control planned: [] discussed possible routes of delivery and associated risks: [] special requests: [] Specific Issue/Plans Covid status: [] Flu vaccine: [] Tdap vaccine: [] Rhogam: [] LARC form signed: [] Problem list reviewed and updated with the most current plan of care details and appropriate orders placed. Relevant counseling for the gestational age provided. Continue routine care and follow up unless otherwise noted in visit notes/problem list details Initial Weight: Not Recorded Date -???-???-???-???-???-??? -???-???-???-???-???-??? - EGA Weight BP Urine Prot -???-???-???-???-???-??? -???-???-???-???-???-??? - Glucose FHR FuHt Pres Dilation -???-???-???-???-???-??? -???-???-???-???-???-??? - Effaced St Visit Note 01/21/25 -???-???-???-???-???-??? -???-???-???-???-???-??? - 8w 5d 110 lb 2 oz 121/68 -???-???-???-???-???-??? -???-???-???-???-???-??? - 160 -???-???-???-???-???-??? -???-???-???-???-???-??? - SM- CRL cons with LMP 02/18/25 -???-???-???-???-???-??? -???-???-???-???-???-??? - 12w 5d 11 (more content not included)... Normal [facility] Laboratory - Chemistry and C hemistry - challengeOrdered By: Lindsey Chavira on 03-04-2025 Glucose Ql (U) Negative [facility] Laboratory - UrinalysisOrder ed By: Lindsey Chavira on 03-04-2025 Protein Ql (U) Negative [facility] Automobile Upholsterer Office Visit Reporton 03-04-2025 Automobile Upholsterer Office Visit Report [facility] [address], [address] [place] [address] OFFICE VISIT Date of Service: 03/04/25 MR#: [id number] Acct: [id number] Name: LISA EWING Rep #: [id number] : 2000 Provider: Dr. Lindsey Case DO Age/Sex: 24/F [place] [facility] [place] Status: Signed with Addenda ADDENDUM by Dr. Lindsey Jordan DO on 03/18/25 at 1417 Assessment and Plan Assessment and Plan (1) Placental abruption: Status: Acute Comment: partial. repeat US with MFM at 20/32/36 weeks. (2) Vaginal bleeding affecting early : Status: Acute Comment: has cervical ectropion, mfm scan at 16 weeks to rule out preiva. pelvic rest in the meantime. (3) History of vacuum extraction assisted delivery: Status: Acute Comment: First (4) History of miscarriage, currently : Status: Acute Comment: x2 (5) Supervision of high-risk : Status: Acute Qualifiers: Trimester: second trimester Qualified Code(s): O09.92 - Supervision of high risk , unspecified, second trimester Comment: PRR, , KHADRA 08/28, PC: Jhony Mccullough, : Lang (6) : Status: Acute Qualifiers: Weeks of gestation: 16 weeks Qualified Code(s): Z3A.16 - 16 weeks gestation of Comment: Discussed genetic/carrier testing -elct NIPT only-low risk, male(pt doing reveal) Orders: Orders POC Urinalysis 2 Dip (Clinic) 03/04/25 03/18/25 1417 Date Lindsey Jordan DO cc: * Signed Intake Vital Signs 02/18/25 08:34 02/28/25 12:04 03/04/25 13:05 Height 5 ft 1 in 5 ft 1 in 5 ft 1 in Weight: 112 lb 5 oz BMI 21.2 BP 119/74 Intake Visit Reasons: OB, 15w ER (Aura Montes) follow up 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 Is patient in pain?: No Allergies No Known Allergies Allergy (Verified 03/04/25 13:05) Medications ???Medication ???Instructions ???Recorded ???Confirmed ???Type multivitamin no.47-iron fum 27 1 cap PO DAILY 10/14/20 03/04/25 History mg-folate no.1 1 mg-dha 300 mg capsule (PNV-DHA) cyanocobalamin-liver extract tablet tab PO 01/17/25 03/04/25 Histor y magnesium 200 mg tablet 200 mg PO QDAY 01/17/25 03/04/25 H istory ondansetron 4 mg disintegrating 4 mg PO Q4H PRN nausea and 5 03/04/25 Rx tablet vomiting #60 tabs Last Menstrual Period: 11/21/24 : No PFSH PFSH Medical History History of recurrent miscarriages Dyspareunia Anemia Surgical History No significant past surgical history Family History Grandmother Cancer Grandfather Hypertension Social History adopted: No household members: spouse and children housing: house number of children: 2 current occupation: [employer] current occupational exposures/hazards: No pets and animals: No history of recent travel: Yes ( - December 2024) out of state: Yes out of country: No sexually active: Yes Smoking Status: Never smoker second hand exposure: No alcohol intake: current alcohol intake frequency: holidays/special occasions only details: not while substance use type: does not use diet: lactose free well-balanced diet: daily or most days caffeine: Yes Type: coffee eating out: 1-3 times/week during the past year weight has: remained stable what type of physical activity do you participate in: walking frequency: 3-4 times per week duration: < 15 minutes/day 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 Date Name GA/Weeks Outcome Route Bth Weight Gen Labor Lgth Anesthesia Del Locatn Provider FOB 05/28/21 [place] 41 live - full term vacuum 7lbs 8oz Male epidural [facility] Gwendolyn shah Lang 04/02/23 Sad[place] 41 live - full term 7lbs 2oz Female epidural [facility] Cyndie Pace Lang 06/30/23 4 spontaneous 09/28/24 5 spontaneous Delivery Date: 05/28/21 Last Updated by: Chanda Mcdonough IOL VAVD HPI OB, 15w ER (Aura Montes) follow up Details: LISA EWING is a 24 year old who presents for routine OB visit. OB Visit KHADRA Calculator Estimated Delivery Date Method Current WG Current Estimate 08/28/25 LMP (Certain) 14w 5d Other Estimates 09/02/25 Ultrasound #1 14w 0d Expected Delivery Route/Plan Labor P (more content not included)... Normal [facility] Laboratory - Chemistry and C hemistry - challengeOrdered By: Maureen Benítez on 02-18-2025 Glucose Ql (U) Negative [facility] Laboratory - UrinalysisOrder ed By: Maureen Benítez on 02-18-2025 Protein Ql (U) Negative [facility] Automobile Upholsterer Office Visit Reporton 02-18-2025 Automobile Upholsterer Office Visit Report [facility] [address], [address] [place] [address] OFFICE VISIT Date of Service: 02/18/25 MR#: [id number] Acct: [id number] Name: LISA EWING Rep #: [id number] : 2000 Provider: ELVA vidal Age/Sex: 24/F [place] [facility] [place] Status: Signed Intake Vital Signs 01/04/25 16:46 01/21/25 10:37 02/18/25 08:34 Height 5 ft 1 in 5 ft 1 in 5 ft 1 in Weight: 112 lb BMI 21.1 BP 107/71 Intake Visit Reasons: 12wk OB Chief Complaint: 12 Week OB 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 Is patient in pain?: No Allergies No Known Allergies Allergy (Verified 02/18/25 08:35) Medications ???Medication ???Instructions ???Recorded ???Confirmed ???Type multivitamin no.47-iron fum 27 1 cap PO DAILY 10/14/20 02/18/25 History mg-folate no.1 1 mg-dha 300 mg capsule (PNV-DHA) cyanocobalamin-liver extract tablet tab PO 01/17/25 02/18/25 Histor y magnesium 200 mg tablet 200 mg PO QDAY 01/17/25 02/18/25 H istory ondansetron 4 mg disintegrating 4 mg PO Q4H PRN nausea and 5 02/18/25 Rx tablet vomiting #60 tabs Last Menstrual Period: 11/21/24 Zika: Zika virus screening: Negative : No PFSH PFSH Medical History History of recurrent miscarriages Dyspareunia Anemia Surgical History No significant past surgical history Family History Grandmother Cancer Grandfather Hypertension Social History adopted: No household members: spouse and children housing: house number of children: 2 current occupation: [employer] current occupational exposures/hazards: No pets and animals: No history of recent travel: Yes ( - December 2024) out of state: Yes out of country: No sexually active: Yes Smoking Status: Never smoker second hand exposure: No alcohol intake: current alcohol intake frequency: holidays/special occasions only details: not while substance use type: does not use diet: lactose free well-balanced diet: daily or most days caffeine: Yes Type: coffee eating out: 1-3 times/week during the past year weight has: remained stable what type of physical activity do you participate in: walking frequency: 3-4 times per week duration: < 15 minutes/day 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 Date Name GA/Weeks Outcome Route Bth Weight Gen Labor Lgth Anesthesia Del Locatn Provider FOB 05/28/21 [place] 41 live - full term vacuum 7lbs 8oz Male epidural [facility] M alyssa Lang 04/02/23 Sadia 41 live - full term 7lbs 2oz Female epidural [facility] Cyndie Pace Lang 06/30/23 4 spontaneous 09/28/24 5 spontaneous Delivery Date: 05/28/21 Last Updated by: Chanda Mcdonough IOL VAVD HPI 12wk OB Details: LISA EWING is a 24 year old who presents for routine OB visit. OB Visit KHADRA Calculator Estimated Delivery Date Method Current WG Current Estimate 08/28/25 LMP (Certain) 12w 5d Other Estimates 09/02/25 Ultrasound #1 12w 0d Expected Delivery Route/Plan Labor Preferences- CB/BF classes: [] labor support person: [] labor intervention preferences: [] pain management options preferred: [] cut cord/dad catch: [] : [] PP control planned: [] discussed possible routes of delivery and associated risks: [] special requests: [] Specific Issue/Plans Covid status: [] Flu vaccine: [] Tdap vaccine: [] Rhogam: [] LARC form signed: [] Problem list reviewed and updated with the most current plan of care details and appropriate orders placed. Relevant counseling for the gestational age provided. Continue routine care and follow up unless otherwise noted in visit notes/problem list details Initial Weight: Not Recorded Date -???-???-???-???-???-??? -???-???-???-???-???-??? - EGA Weight BP Urine Prot -???-???-???-???-???-??? -???-???-???-???-???-??? - Glucose FHR FuHt Pres Dilation -???-???-???-???-???-??? -???-???-???-???-???-??? - Effaced St Visit Note 01/21/25 -???-???-???-???-???-??? -???-???-???-???-???-??? - 8w 5d 110 lb 2 oz 121/68 -???-???-???-???-???-??? -???-???-???-???-???-??? - 160 -???-???-???-???-???-??? -???-???-???-???-???-??? - SM- CRL cons with LMP 02/18/25 -???-???-???-???-???-??? (more content not included)... Normal [facility] Absolute lymphocyte countOrd ered By: Nelly Rangel on 02-05-2025 Lymphocytes Auto (Unsp spec) [#/Vol] 1.43 10*3/uL 0.83-4.51 [facility] Absolute neutrophil countOrd ered By: Nelly Rangel on 02-05-2025 Neutrophils (Bld) [#/Vol] 3.8 10*3/uL 2.0-7.7 [facility] Automated lymphocyte count a s percentage of total leukocytesOrdered By: Nelly Rangel on 02-05-2025 Lymphocytes/100 WBC Auto (Unsp spec) 24.0 % 19-41 [facility] Basophil percentageOrdered B y: Nelly Rangel on 02-05-2025 Basophils/100 WBC (Bld) 0.5 % 0-1 [facility] CBC W/Diff, Automatedon 07-0 Absolute Lymph 1.43 X10 3/uL Normal 0.83-4.51 [facility] Comment on above: Performed By: #### L 3890.5361, L509.4006, L509.8002, BTS, L3890.6102, L100.0100, L3890.6006 #### [facility] [address] [place], [place], [id number] Absolute Neut 3.8 X10 3/uL Normal 2.0-7.7 [facility] Comment on above: Performed By: #### L 3890.6301, L509.4006, L509.8002, BTS, L3890.6102, L100.0100, L3890.6006 #### [facility] [address] [place], [address] Basophils/100 WBC (Bld) 0.5 % Normal 0-1 [facility] Comment on above: Performed By: #### L 3890.6301, L509.4006, L509.8002, BTS, L3890.6102, L100.0100, L3890.6006 #### [facility] [address] [place], [address] Eosinophils/100 WBC (Bld) 2.0 % Normal 0-5 [facility] Comment on above: Performed By: #### L 3890.6301, L509.4006, L509.8002, BTS, L3890.6102, L100.0100, L3890.6006 #### [facility] [address] [place], [address] Erythrocyte distribution width (RBC) [Ratio] 12.7 % Normal 11.6-14.6 [facility] Comment on above: Performed By: #### L [id number], L509.4006, L509.8002, BTS, L3890.6102, L100.0100, L3890.6006 #### [facility] [address] [place], [address] Hematocrit (Bld) [Volume fraction] 37.0 % Normal 37-47 [facility] Comment on above: Performed By: #### L [id number], L509.4006, L509.8002, BTS, L3890.6102, L100.0100, L3890.6006 #### [facility] [address] [place], [address] Hemoglobin (Bld) [Mass/Vol] 12.5 g/dL Normal 12.0-15.0 [facility] Comment on above: Performed By: #### L 3890.6301, L509.4006, L509.8002, BTS, L3890.6102, L100.0100, L3890.6006 #### [facility] [address] [place], [address] IG% 0.200 Normal 0.0-0.9 [facility] Comment on above: Result Comment: IG% - Immature Granulocytes (promyelocytes, myelocytes and metamyelocytes) > 1% indicates that a LEFT SHIFT is Present. Performed By: #### L [id number], L509.4006, L509.8002, BTS, L3890.6102, L100.0100, L3890.6006 #### [facility] [address] [place], [address] Lymphocytes/100 WBC (Bld) 24.0 % Normal 19-41 [facility] Comment on above: Performed By: #### L [id number], L509.4006, L509.8002, BTS, L3890.6102, L100.0100, L3890.6006 #### [facility] [address] [place], [address] MCH (RBC) [Entitic mass] 30.4 pg Normal 27.0-32.0 [facility] Comment on above: Performed By: #### L [id number], L509.4006, L509.8002, BTS, L3890.6102, L100.0100, L3890.6006 #### [facility] [address] [place], [address] MCHC (RBC) [Mass/Vol] 33.8 g/dL Normal 32-36 [facility] Comment on above: Performed By: #### L [id number], L509.4006, L509.8002, BTS, L3890.6102, L100.0100, L3890.6006 #### [facility] [address] [place], [address] MCV (RBC) [Entitic vol] 90.0 fL Normal 81-99 [facility] Comment on above: Performed By: #### L [id number], L509.4006, L509.8002, BTS, L3890.6102, L100.0100, L3890.6006 #### [facility] [facility] [address] [place], [address] Monocytes/100 WBC (Bld) 9.5 % Normal 0-10 [facility] Comment on above: Performed By: #### L 3890.6301, L509.4006, L509.8002, BTS, L3890.6102, L100.0100, L3890.6006 #### [facility] [address] [place], [address] Neutrophils/100 WBC (Bld) 63.8 % Normal 47-70 [facility] Comment on above: Performed By: #### L 3890.6301, L509.4006, L509.8002, BTS, L3890.6102, L100.0100, L3890.6006 #### [facility] [address] [place], [address] Nucleated RBC (Bld) [#/Vol] 0 10*3/uL Normal 0-5 [facility] Comment on above: Performed By: #### L 3890.6301, L509.4006, L509.8002, BTS, L3890.6102, L100.0100, L3890.6006 #### [facility] [address] [place], [address] Platelet mean volume (Bld) [Entitic vol] 10.0 fL Normal 6.2-12.0 [facility] Comment on above: Performed By: #### L 3890.6301, L509.4006, L509.8002, BTS, L3890.6102, L100.0100, L3890.6006 #### [facility] [address] [place], [address] Platelets (Bld) [#/Vol] 263 10*3/uL Normal 150-450 [facility] Comment on above: Performed By: #### L 3890.6301, L509.4006, L509.8002, BTS, L3890.6102, L100.0100, L3890.6006 #### [facility] [address] [place], [address] RBC (Bld) [#/Vol] 4.11 10*6/uL Low 4.2-5.4 [facility] Comment on above: Performed By: #### L 3890.6301, L509.4006, L509.8002, BTS, L3890.6102, L100.0100, L3890.6006 #### [facility] [address] [place], [address] RDW SD 42.2 fl Normal 35.1-43.9 [facility] Comment on above: Performed By: #### L 3890.6301, L509.4006, L509.8002, BTS, L3890.6102, L100.0100, L3890.6006 #### [facility] [address] [place], [address] WBC (Bld) [#/Vol] 6.0 10*3/uL Normal 4.4-11.0 [facility] Comment on above: Performed By: #### L 3890.6301, L509.4006, L509.8002, BTS, L3890.6102, L100.0100, L3890.6006 #### [facility] [address] [place], [place], [address] Eosinophil percentageOrdered By: Nelly Larsenyoli on 02-05-2025 Eosinophils/100 WBC (Bld) 2.0 % 0-5 [facility] Erythrocyte distribution wid th ratioOrdered By: Nelly Larsenyoli on 02-05-2025 Erythrocyte distribution width (RBC) [Ratio] 12.7 % 11.6-14.6 [facility] Erythrocyte distribution wid th standard deviationOrdered By: Nelly Larsenyoli on 02-05-2025 Erythrocyte distribution width (RBC) [Ratio] 42.2 fl 35.1-43.9 [facility] HIVon 02-05-2025 HIV Non-Reactive Normal Nonreactive [facility] Comment on above: Result Comment: Non- Reactive Reactive Repeatedly reactive samples must be confirmed according to CDC recommended confirmatory algorithms. The subresults for either HIVAG or AHIV can be used as an aid in the selection of the confirmation algorithm for reactive samples. Send out specimens with Reactive results to [facility] for confirmation. Order the HIV antibody detection and differentiation: [id number] Performed By: #### L 900.0098 #### [facility] [address] [place], [place], [address] Hematocrit Auto (Bld) [Volum e fraction]Ordered By: Nelly Bayron on 02-05-2025 Hematocrit (Bld) [Volume fraction] 37.0 % 37-47 [facility] Hemoglobin measurementOrdere d By: Nelly Rangel on 02-05-2025 Hemoglobin (Bld) [Mass/Vol] 12.5 g/dL 12.0-15.0 [facility] Hepatitis C Antibodyon 02-05 Hepatitis C Ab Non-Reactive Normal Nonreactive [facility] Comment on above: Result Comment: Reac tive: Presumptive evidence of antibodies to HCV. Follow CDC recommendations for supplemental testing. Non-Reactive: Antibodies to HCV were not detected; does not exclude the possibility of exposure to HCV Reactive Results are presumptive evidence of antibodies to HCV. Follow CDC recommendations for supplemental testing. Order confirmation testing: HCV Quant by PCR testing - HCVPCR #[id number] Non Reactive: < 0.8 Equivocal: >/= 0.8 to < 1.0 Reactive: >/= 1.0 The [facility] requires that a reactive/equivocal HCV antibody result be sent out for confirmation. HCV Quant by PCR testing. Performed By: #### L 900.0098 #### [facility] [address] [place], [place], [address] Immature granulocytes/100 WB C Auto (Bld)Ordered By: Nelly Rangel on 02-05-2025 Immature granulocytes/100 WBC (Bld) 0.200 % 0.0-0.9 [facility] Comment on above: IG% - Immature Granu locytes (promyelocytes, myelocytes and metamyelocytes) > 1% indicates that a LEFT SHIFT is Present. L3890.6102on 02-05-2025 HEP B Surf Ag Non-Reactive Normal Nonreactive [facility] Comment on above: Result Comment: Reac tive: Presumptive evidence of HBV. Repeatedly reactive samples must be confirmed using a neutralization test ([employer] HBsAg Confirmatory Test) Non-Reactive: HBsAg not detected; does not exclude the possibility of exposure to HBV Performed By: #### L 900.0098 #### [facility] [address] [place], [address] L509.4006on 02-05-2025 Rubella IgG REAC Normal Nonreactive [facility] Comment on above: Result Comment: Anti body Result: Interpretation Non-Reactive: Non-Immune Reactive: Immune The following results were obtained with the [employer] Rubella IgG assay. Results from assays of other manufacturers cannot be used interchangeably. Performed By: #### L 900.0098 #### [facility] [address] [place], [place], [id number] Laboratory - Microbiology an d Antimicrobial susceptibilityOrdered By: Nelly Rangel on 02-05-2025 HBV surface Ag Ql (S) Non-Reactive Nonreactive [facility] Comment on above: Reactive: Presumptiv e evidence of HBV. Repeatedly reactive samples must be confirmed using a neutralization test ([employer] HBsAg Confirmatory Test)Non-Reactive: HBsAg not detected; does not exclude the possibility of exposure to HBV MCV (mean corpuscular volume ) determinationOrdered By: Nelly Rangel on 02-05-2025 MCV (RBC) [Entitic vol] 90.0 fL 81-99 [facility] Mean corpuscular hemoglobin (MCH) determinationOrdered By: Nelly Rangel on 02-05-2025 MCH (RBC) [Entitic mass] 30.4 pg 27.0-32.0 [facility] Mean corpuscular hemoglobin concentration (MCHC) determinationOrdered By: Nelly Rangel on 02-05-2025 MCHC (RBC) [Mass/Vol] 33.8 g/dL 32-36 [facility] Mean platelet volume determi nationOrdered By: Nelly Rangel on 02-05-2025 Platelet mean volume (Bld) [Entitic vol] 10.0 fL 6.2-12.0 [facility] Monocyte percentageOrdered B y: Nelly Rangel on 02-05-2025 Monocytes/100 WBC (Bld) 9.5 % 0-10 [facility] NATERAon 02-05-2025 NATURA SEE SCANNED REPORT Normal [facility] Comment on above: Performed By: #### L 900.0098 #### [facility] [address] [place] [address], [id number] Neutrophil percentageOrdered By: Nelly Rangel on 02-05-2025 Neutrophils/100 WBC (Bld) 63.8 % 47-70 [facility] No Panel InformationOrdered By: Nelly Rangel on 02-05-2025 HIV (1&2) Antibody Non-Reactive Nonreactive [facility] Comment on above: Non-ReactiveReactive Repeatedly reactive samples must be confirmed according to CDC recommended confirmatory algorithms. The subresults for either HIVAG or AHIV can be used as an aid in the selection of the confirmation algorithm for reactive samples.Send out specimens with Reactive results to [facility] for confirmation.Order the HIV antibody detection and differentiation: [id number] Nucleated red blood cell per centageOrdered By: Nelly Rangel on 02-05-2025 Nucleated RBC/100 WBC (Bld) [Ratio] 0 % 0-5 [facility] Platelet countOrdered By: Osbaldo Rangel on 02-05-2025 Platelets (Bld) [#/Vol] 263 10*3/uL 150-450 [facility] RBC Auto (Bld) [#/Vol]Ordere d By: Nelly Rangel on 02-05-2025 RBC (Bld) [#/Vol] 4.11 10*6/uL Low 4.2-5.4 [facility] Syphilis Antibodieson 2024 Syphilis Abs Non-Reactive Normal Nonreactive [facility] Comment on above: Performed By: #### L 900.0098 #### [facility] [address] [place], [address] Type AND Screenon 02-05-2025 Ab SCREEN GEL Negative Normal [facility] Comment on above: Order Comment: PN Performed By: #### L 900.0098 #### [facility] [address] [place], [address] White blood cell (WBC) count Ordered By: Nelly Rangel on 02-05-2025 WBC (Bld) [#/Vol] 6.0 10*3/uL 4.4-11.0 [facility] Chlamydia/GC DIALLO aptimaon CHLAMY,NUC ACID Negative Normal Negative [facility] Comment on above: Performed By: #### L 100.0100, L500.4050, L700.6800 #### [facility] [address] [place], [address] GC BY NUC ACID Negative Normal Negative [facility] Comment on above: Result Comment: Perf ormed at: =G - [facility] [address] [id number] Hyster Machine Operator: Lenore Veliz MD, Phone: [phone] Performed By: #### L 100.0100, L500.4050, L700.6800 #### [facility] [address] [place], [address] Urine Cultureon 01-22-2025 URC Culture exhibits no growth. Normal [facility] Comment on above: Performed By: #### L 100.0100, L500.4050, L700.6800 #### [facility] [address] [place], [address] Chlamydia trachomatis rRNA d etection by probe and target amplification methodOrdered By: Nelly Rangel on 01-21-2025 C. trachomatis rRNA DIALLO+probe Ql (Unsp spec) Negative Negative [facility] Neisseria gonorrhoeae nuclei c acid detection by amplified probe techniqueOrdered By: Nelly Rangel on 01-21-2025 N. gonorrhoeae DNA DIALLO+probe Ql (Unsp spec) Negative Negative [facility] Comment on above: Performed at: =[address] [id number] Director: Lenore Veliz MD, Phone: [phone] Automobile Upholsterer Office Visit Reporton 01-21-2025 Automobile Upholsterer Office Visit Report [facility] [address], [address] [place] [address] OFFICE VISIT Date of Service: 01/21/25 MR#: [id number] Acct: [id number] Name: LISA EWING Rep #: [id number] 3 : 2000 Provider: Dr. Nelly grady MD Age/Sex: 24/F [place] [facility] [place]: Signed Intake Vital Signs 11/06/24 08:44 01/04/25 16:46 01/21/25 10:37 01/21/25 10:37 Height 5 ft 1 in 5 ft 1 in 5 ft 1 in 5 ft 1 in Weight: 110 lb 2 oz BMI 20.7 BP 121/68 H Intake Visit Reasons: *EST* 8WK NOB 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 Is patient in pain?: No Allergies No Known Allergies Allergy (Verified 01/21/25 10:37) Medications ???Medication ???Instructions ???Recorded ???Confirmed ???Type multivitamin no.47-iron fum 27 1 cap PO DAILY 10/14/20 01/21/25 History mg-folate no.1 1 mg-dha 300 mg capsule (PNV-DHA) cyanocobalamin-liver extract tablet tab PO 01/17/25 01/21/25 Histor y magnesium 200 mg tablet 200 mg PO QDAY 01/17/25 01/21/25 H istory Last Menstrual Period: 11/21/24 Zika: Zika virus screening: Negative : No PFSH PFSH Medical History History of recurrent miscarriages Dyspareunia Anemia Surgical History No significant past surgical history Family History Grandmother Cancer Grandfather Hypertension Social History adopted: No household members: spouse and children housing: house number of children: 2 current occupation: [employer] current occupational exposures/hazards: No pets and animals: No history of recent travel: Yes ( - December 2024) out of state: Yes out of country: No sexually active: Yes Smoking Status: Never smoker second hand exposure: No alcohol intake: current alcohol intake frequency: holidays/special occasions only details: not while substance use type: does not use diet: lactose free well-balanced diet: daily or most days caffeine: Yes Type: coffee eating out: 1-3 times/week during the past year weight has: remained stable what type of physical activity do you participate in: walking frequency: 3-4 times per week duration: < 15 minutes/day 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 Date Name GA/Weeks Outcome Route Bth Weight Gen Labor Lgth Anesthesia Del Locatn Provider FOB 05/28/21 [place] 41 live - full term vacuum 7lbs 8oz Male epidural [facility] Gwendolyn Croft 04/02/23 [place] 41 live - full term 7lbs 2oz Female epidural [facility] Cyndie Croft 06/30/23 4 spontaneous 09/28/24 5 spontaneous Delivery Date: 05/28/21 Last Updated by: Chanda Mcdonough IOL VAVD HPI *EST* 8WK NOB Details: LISA EWING is a 24 year old who presents for New OB visit. OB Visit KHADRA Calculator Estimated Delivery Date Method Current WG Current Estimate 08/28/25 LMP (Certain) 8w 5d Other Estimates 09/02/25 Ultrasound #1 8w 0d Estimated Due Date: 08/28/25 Expected Delivery Route/Plan Labor Preferences- CB/BF classes: [] labor support person: [] labor intervention preferences: [] pain management options preferred: [] cut cord/dad catch: [] : [] PP control planned: [] discussed possible routes of delivery and associated risks: [] special requests: [] Specific Issue/Plans Covid status: [] Flu vaccine: [] Tdap vaccine: [] Rhogam: [] LARC form signed: [] Problem list reviewed and updated with the most current plan of care details and appropriate orders placed. Relevant counseling for the gestational age provided. Continue routine care and follow up unless otherwise noted in visit notes/problem list details Initial Weight: Not Recorded Date -???-???-???-???-???-??? -???-???-???-???-???-??? - EGA Weight BP Urine Prot -???-???-???-???-???-??? -???-???-???-???-???-??? - Glucose FHR FuHt Pres Dilation -???-???-???-???-???-??? -???-???-???-???-???-??? - Effaced St Visit Note 01/21/25 -???-???-???-???-???-??? -???-???-???-???-???-??? - 8w 5d 110 lb 2 oz 121/68 -???-???-???-???-???-??? -???-???-???-???-???-??? - 160 -???-???-???-???-???-??? -???-???-???-???-???-??? - SM- CRL cons with LMP Menstrual History Last Menstrual Period: 11/21/24 Reported LMP: definite Normal amount/duration: Yes On h (more content not included)... Normal [facility] Urine cultureOrdered By: Jermain Rangel on 01-21-2025 Bacteria identified Cx Nom (U) Culture exhibits no growth. [facility] Urine Cultureon 01-05-2025 URC Culture exhibits no growth. Normal [facility] Comment on above: Performed By: #### L 900.0098 #### [facility] [address] [place], [address] Absolute lymphocyte countOrd ered By: Oneal Chao on 01-04-2025 Lymphocytes Auto (Unsp spec) [#/Vol] 1.95 10*3/uL 0.83-4.51 [facility] Absolute neutrophil countOrd ered By: Oneal Chao on 01-04-2025 Neutrophils (Bld) [#/Vol] 4.8 10*3/uL 2.0-7.7 [facility] Anion gap in Serum or Plasma Ordered By: Oneal Chao on 01-04-2025 Anion gap [Moles/Vol] 10 mmol/L 5-15 [facility] Automated lymphocyte count a s percentage of total leukocytesOrdered By: Oneal Chao on 01-04-2025 Lymphocytes/100 WBC Auto (Unsp spec) 26.2 % 19-41 [facility] [id number] 01-04-2025 ABO and Rh group Nom (Bld) Blood group A Rh(D) positive Normal [facility] Comment on above: Performed By: #### L 100.0100, L500.4050, L700.6800 #### [facility] [address] [place], [address] BUN/creatinine ratioOrdered By: Oneal Aguilarer on 01-04-2025 Urea nitrogen/Creatinine [Mass ratio] 18.0 mg/mg 10-20 [facility] Basophil percentageOrdered B y: Oneal Chao on 01-04-2025 Basophils/100 WBC (Bld) 0.4 % 0-1 [facility] Bilirubin Test strip Ql (U)O rdered By: Oneal Chao on 01-04-2025 Bilirubin Ql (U) Negative Negative [facility] Bilirubin, totalOrdered By: Oneal Aguilarer on 01-04-2025 Bilirubin [Mass/Vol] 0.71 mg/dL 0.00-1.30 [facility] CBC W/Diff, Automatedon -2024 Absolute Lymph 1.95 X10 3/uL Normal 0.83-4.51 [facility] Comment on above: Performed By: #### L 100.0100, L500.4050, L700.6800 #### [facility] [address] [place], [address] Absolute Neut 4.8 X10 3/uL Normal 2.0-7.7 [facility] Comment on above: Performed By: #### L 100.0100, L500.4050, L700.6800 #### [facility] [address] [place], [address] Basophils/100 WBC (Bld) 0.4 % Normal 0-1 [facility] Comment on above: Performed By: #### L 100.0100, L500.4050, L700.6800 #### [facility] [address] [place], [address] Eosinophils/100 WBC (Bld) 1.6 % Normal 0-5 [facility] Comment on above: Performed By: #### L 100.0100, L500.4050, L700.6800 #### [facility] [address] [place], [address] Erythrocyte distribution width (RBC) [Ratio] 12.8 % Normal 11.6-14.6 [facility] Comment on above: Performed By: #### L 100.0100, L500.4050, L700.6800 #### [facility] [address] [place], [address] Hematocrit (Bld) [Volume fraction] 35.3 % Low 37-47 [facility] Comment on above: Performed By: #### L 100.0100, L500.4050, L700.6800 #### [facility] [address] [place], [address] Hemoglobin (Bld) [Mass/Vol] 12.3 g/dL Normal 12.0-15.0 [facility] Comment on above: Performed By: #### L 100.0100, L500.4050, L700.6800 #### [facility] [address] [place], [address] IG% 0.100 Normal 0.0-0.9 [facility] Comment on above: Result Comment: IG% - Immature Granulocytes (promyelocytes, myelocytes and metamyelocytes) > 1% indicates that a LEFT SHIFT is Present. Performed By: #### L 100.0100, L500.4050, L700.6800 #### [facility] [address] [place], [address] Lymphocytes/100 WBC (Bld) 26.2 % Normal 19-41 [facility] Comment on above: Performed By: #### L 100.0100, L500.4050, L700.6800 #### [facility] [address] [place], [address] MCH (RBC) [Entitic mass] 31.0 pg Normal 27.0-32.0 [facility] Comment on above: Performed By: #### L 100.0100, L500.4050, L700.6800 #### [facility] [address] [place], [address] MCHC (RBC) [Mass/Vol] 34.8 g/dL Normal 32-36 [facility] Comment on above: Performed By: #### L 100.0100, L500.4050, L700.6800 #### [facility] [address] [place], [address] MCV (RBC) [Entitic vol] 88.9 fL Normal 81-99 [facility] Comment on above: Performed By: #### L 100.0100, L500.4050, L700.6800 #### [facility] [address] [place], [address] Monocytes/100 WBC (Bld) 7.7 % Normal 0-10 [facility] Comment on above: Performed By: #### L 100.0100, L500.4050, L700.6800 #### [facility] [address] [place], [address] Neutrophils/100 WBC (Bld) 64.0 % Normal 47-70 [facility] Comment on above: Performed By: #### L 100.0100, L500.4050, L700.6800 #### [facility] [address] [place], [address] Nucleated RBC (Bld) [#/Vol] 0 10*3/uL Normal 0-5 [facility] Comment on above: Performed By: #### L 100.0100, L500.4050, L700.6800 #### [facility] [address] [place], [address] Platelet mean volume (Bld) [Entitic vol] 10.0 fL Normal 6.2-12.0 [facility] Comment on above: Performed By: #### L 100.0100, L500.4050, L700.6800 #### [facility] [address] [place], [address] Platelets (Bld) [#/Vol] 262 10*3/uL Normal 150-450 [facility] Comment on above: Performed By: #### L 100.0100, L500.4050, L700.6800 #### [facility] [address] [place], [address] RBC (Bld) [#/Vol] 3.97 10*6/uL Low 4.2-5.4 [facility] Comment on above: Performed By: #### L 100.0100, L500.4050, L700.6800 #### [facility] [address] [place], [address] RDW SD 41.8 fl Normal 35.1-43.9 [facility] Comment on above: Performed By: #### L 100.0100, L500.4050, L700.6800 #### [facility] [address] [place], [address] WBC (Bld) [#/Vol] 7.4 10*3/uL Normal 4.4-11.0 [facility] Comment on above: Performed By: #### L 100.0100, L500.4050, L700.6800 #### [facility] [address] [place], [address] Carbon dioxide, total [Moles /volume] in Central venous bloodOrdered By: Oneal Chao on 01-04-2025 CO2 [Moles/Vol] 24.3 mmol/L 21.0-32.0 [facility] Chloride assayOrdered By: Phoenix Chao on 01-04-2025 Chloride [Moles/Vol] 105 mmol/L 98-108 [facility] Comprehensive Metabolic Prof ilon 01-04-2025 Albumin [Mass/Vol] 4.6 g/dL Normal 3.5-5.0 [facility] Comment on above: Performed By: #### L 100.0100, L500.4050, L700.6800 #### [facility] [address] [place], [address] Albumin/Globulin [Mass ratio] 1.7 {ratio} Normal 0.9-2.4 [facility] Comment on above: Performed By: #### L 100.0100, L500.4050, L700.6800 #### [facility] [address] [place], [address] ALK PHOS 46 U/L Normal 35-104 [facility] Comment on above: Performed By: #### L 100.0100, L500.4050, L700.6800 #### [facility] [address] [place], [address] ALT [Catalytic activity/Vol] 34 U/L Normal <=34 [facility] Comment on above: Performed By: #### L 100.0100, L500.4050, L700.6800 #### [facility] [address] [place], [address] AST [Catalytic activity/Vol] 30 U/L Normal <=31 [facility] Comment on above: Performed By: #### L 100.0100, L500.4050, L700.6800 #### [facility] [address] [place], [address] Bilirubin [Mass/Vol] 0.71 mg/dL Normal 0.00-1.30 [facility] Comment on above: Performed By: #### L 100.0100, L500.4050, L700.6800 #### [facility] [address] [place], [address] BUN/CRE 18.0 RATIO Normal 10-20 [facility] Comment on above: Performed By: #### L 100.0100, L500.4050, L700.6800 #### [facility] [address] [place], [address] Calcium [Mass/Vol] 9.6 mg/dL Normal 7.6-11.0 [facility] Comment on above: Performed By: #### L 100.0100, L500.4050, L700.6800 #### [facility] [address] [place], [address] Chloride [Moles/Vol] 105 mmol/L Normal 98-108 [facility] Comment on above: Performed By: #### L 100.0100, L500.4050, L700.6800 #### [facility] [address] [place], [address] CO2 [Moles/Vol] 24.3 mmol/L Normal 21.0-32.0 [facility] Comment on above: Performed By: #### L 100.0100, L500.4050, L700.6800 #### [facility] [address] [place], [address] Creatinine [Mass/Vol] 0.77 mg/dL Normal 0.70-1.20 [facility] Comment on above: Performed By: #### L 100.0100, L500.4050, L700.6800 #### [facility] [address] [place], [address] ECRCL 84.28 ml/min Normal 50-250 [facility] Comment on above: Performed By: #### L 100.0100, L500.4050, L700.6800 #### [facility] [address] [place], [address] GAP 10 Normal 5-15 [facility] Comment on above: Performed By: #### L 100.0100, L500.4050, L700.6800 #### [facility] [address] [place], [address] GFR/1.73 sq M.predicted among non-blacks MDRD (S/P/Bld) [Vol rate/Area] 109 mL/min/{1.73_m2} Normal >60 [facility] Comment on above: Result Comment: mL/m in/1.73m2 CKD-EPI Creatinine Equation (2020) Performed By: #### L 100.0100, L500.4050, L700.6800 #### [facility] [address] [place], [address] Globulin (S) [Mass/Vol] 2.7 g/dL Normal 2.2-4.2 [facility] Comment on above: Performed By: #### L 100.0100, L500.4050, L700.6800 #### [facility] [address] [place], [address] Glucose [Mass/Vol] 87 mg/dL Normal 70-99 [facility] Comment on above: Performed By: #### L 100.0100, L500.4050, L700.6800 #### [facility] [address] [place], [address] Potassium [Moles/Vol] 3.7 mmol/L Normal 3.3-5.1 [facility] Comment on above: Performed By: #### L 100.0100, L500.4050, L700.6800 #### [facility] [address] [place], [address] Sodium [Moles/Vol] 139 mmol/L Normal 133-145 [facility] Comment on above: Performed By: #### L 100.0100, L500.4050, L700.6800 #### [facility] [address] [place], [address] T PROT 7.3 g/dL Normal 5.9-8.4 [facility] Comment on above: Performed By: #### L 100.0100, L500.4050, L700.6800 #### [facility] [address] [place], [address] Urea nitrogen [Mass/Vol] 14 mg/dL Normal 4-19 [facility] Comment on above: Performed By: #### L 100.0100, L500.4050, L700.6800 #### [facility] [address] [place], [address] Emergency Department Summary on 01-04-2025 Emergency Department Summary [facility] Records Department [address] [place] [address] Emergency Department Summary 01/04/25 MR#: [id number] Acct: [id number] Name: LISA EWING Rep #: [id number] : 2000 24 From: Oneal Chao DO PCP: Care Physician,No Primary Status:REG ER Location: ED HPI HPI - Female History of Present Illness Chief Complaint: Vag Bld, Preg Narrative Narrative: 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 Patient states that over the past few months she has had miscarriages and noted that she had spotting starting late last night early this morning. States that she is having some urinary frequency as well but states that she feels that this could be related to the . Patient states that she did have intercourse the night before. She states that she reach out to her MOTORCOACH OPERATOR and given her recent miscarriages they advised her to come to the emergency department to be evaluated. Patient denies abdominal pain. [facility] Medical History Vaginal delivery Anemia examination following vaginal delivery Anemia affecting Tetanus, diphtheria, and acellular pertussis (Tdap) vaccination declined No significant medical problems ( 11/06/24) Home Medications ???Medication ???Instructions ???Recorded ???Last Taken ???Type multivitamin no.47-iron fum 27 1 cap PO DAILY 10/14/20 04/01/23 08:00 History mg-folate no.1 1 mg-dha 300 mg 1 cap capsule (PNV-DHA) Allergy/AdvReac Type Severity Reaction Status Date / Time No Known Allergies Allergy Verified 01/04/25 16:46 Family History Grandmother Cancer Grandfather Hypertension Surgical [...] physical activity do you participate in: none martin/yazdanism: Congregation seatbelt use: always do you feel safe at home: Yes additional social history: - Lang (Nazia) CRISTIAN ROS ED ROS Narrative Constitutional: Denies fevers, chills, headaches Abdomen: Denies abdominal pain vomiting diarrhea : Complains of vaginal spotting as noted above as well as increased frequency of urination denies any painful urination Neurological: Denies numbness,'s, weakness, tingling Musculoskeletal: Denies back pain Skin: Denies any rashes or lesions EXAM Physical Exam Narrative Exam Narrative: General: Patient lying in bed rest comfortably did not appear to be acute distress Head: Atraumatic, normocephalic Eyes: PERRL bilaterally, EOMI bilaterally, no conjunctival injection noted Neck: Soft, supple, trachea midline Cardiovascular: Patient tachycardic with a regular rhythm Respiratory: Clear to auscultation bilaterally Abdomen: Soft, nondistended, no tenderness palpation no rebound or guarding on exam Extremities: +5/5 strength noted in the bilateral upper and lower extremities Neurological: Patient follow commands knew that she was at [facility] the year is 2025 Skin: Warm, dry, intact no rashes lesions noted Const Vital Signs: 01/04/25 16:46 01/04/25 18:46 Temperature 97.6 F L Temperature Source Temporal Pulse Rate 104 H 65 Respiratory Rate 18 16 Blood Pressure 101/77 100/80 Blood Pressure Mean 85 86 Pulse Ox 100 99 Oxygen Delivery Method Room Air MDM MDM MDM Narrative Medical decision making narrative: Patient is a 24-year-old female who presents to the emergency department with a chief complaint of vaginal spotting and is currently 6 weeks . Patient has not followed up with OB in the outpatient setting yet for this and has not had an ultrasound. Patient denies any history of ectopic pregnancies. On the differential diagnose includes but not limited to ectopic , intrauterine , UTI, spotting after intercourse. Once workup is obtained reviewed she will be reevaluated. Patient CBC reviewed showed no evidence leukocytosis wh (more content not included)... Normal [facility] Eosinophil percentageOrdered By: Oneal Chao on 01-04-2025 Eosinophils/100 WBC (Bld) 1.6 % 0-5 [facility] Erythrocyte distribution wid th ratioOrdered By: Oneal Chao on 01-04-2025 Erythrocyte distribution width (RBC) [Ratio] 12.8 % 11.6-14.6 [facility] Erythrocyte distribution wid th standard deviationOrdered By: Oneal Chao on 01-04-2025 Erythrocyte distribution width (RBC) [Ratio] 41.8 fl 35.1-43.9 [facility] Glomerular filtration rate ( GFR) estimation/1.73 sq m using serum, plasma, or whole bOrdered By: Oneal Chao on 01-04-2025 GFR/1.73 sq M.predicted among non-blacks MDRD (S/P/Bld) [Vol rate/Area] 109 mL/min/{1.73_m2} >60 [facility] Comment on above: mL/min/1.73m2 CKD-EP I Creatinine Equation (2020) Hematocrit Auto (Bld) [Volum e fraction]Ordered By: Oneal Chao on 01-04-2025 Hematocrit (Bld) [Volume fraction] 35.3 % Low 37-47 [facility] Hemoglobin measurementOrdere d By: Oneal Chao on 01-04-2025 Hemoglobin (Bld) [Mass/Vol] 12.3 g/dL 12.0-15.0 [facility] Immature granulocytes/100 WB C Auto (Bld)Ordered By: Oneal Chao on 01-04-2025 Immature granulocytes/100 WBC (Bld) 0.100 % 0.0-0.9 [facility] Comment on above: IG% - Immature Granu locytes (promyelocytes, myelocytes and metamyelocytes) > 1% indicates that a LEFT SHIFT is Present. Ketones Test strip Ql (U)Ord ered By: Oneal Chao on 01-04-2025 Ketones Ql (U) Negative Negative [facility] - Chemistry and C hemistry - challengeOrdered By: Oneal Chao on 01-04-2025 AST [Catalytic activity/Vol] 30 U/L <32 [facility] MCV (mean corpuscular volume ) determinationOrdered By: Oneal Chao on 01-04-2025 MCV (RBC) [Entitic vol] 88.9 fL 81-99 [facility] Mean corpuscular hemoglobin (MCH) determinationOrdered By: Oneal Chao on 01-04-2025 MCH (RBC) [Entitic mass] 31.0 pg 27.0-32.0 [facility] Mean corpuscular hemoglobin concentration (MCHC) determinationOrdered By: Oneal Chao on 01-04-2025 MCHC (RBC) [Mass/Vol] 34.8 g/dL 32-36 [facility] Mean platelet volume determi nationOrdered By: Oneal Chao on 01-04-2025 Platelet mean volume (Bld) [Entitic vol] 10.0 fL 6.2-12.0 [facility] Microscopic analysis of urin e for red blood cells (RBC)Ordered By: Oneal Chao on 01-04-2025 Microscopic analysis of urine for red blood cells (RBC) 0 SEEN /hpf 0-5 [facility] Monocyte percentageOrdered B y: Oneal Chao on 01-04-2025 Monocytes/100 WBC (Bld) 7.7 % 0-10 [facility] Mucus LM Ql (Urine sed)Order ed By: Oneal Chao on 01-04-2025 Mucus Ql (Urine sed) 0 SEEN /hpf [facility] Neutrophil percentageOrdered By: Oneal Chao on 01-04-2025 Neutrophils/100 WBC (Bld) 64.0 % 47-70 [facility] Nitrite Test strip Ql (U)Ord ered By: Oneal Chao on 01-04-2025 Nitrite Ql (U) Negative Negative [facility] Nucleated red blood cell per centageOrdered By: Oneal Chao on 01-04-2025 Nucleated RBC/100 WBC (Bld) [Ratio] 0 % 0-5 [facility] Platelet countOrdered By: [place] Chao on 01-04-2025 Platelets (Bld) [#/Vol] 262 10*3/uL 150-450 [facility] Potassium measurement (mass/ volume)Ordered By: Oneal Chao on 01-04-2025 Potassium (Unsp spec) [Mass/Vol] 3.7 mmol/L 3.3-5.1 [facility] ,Serum,hCG Quali.on 01-04-2025 HCG, SERUM QUAL Normal [facility] Comment on above: Result Comment: INCO RRECT TEST ORDERED. SPOKE WITH VERONICA IN ED, SHE WILL ORDER THE QUANTITATIVE HCG Performed By: #### L 100.0100, L500.4050, L700.6800 #### [facility] [address] [place], [address] INTERNAL QC OK? Normal [facility] Comment on above: Result Comment: INCO RRECT TEST ORDERED. SPOKE WITH VERONICA IN ED, SHE WILL ORDER THE QUANTITATIVE HCG Performed By: #### L 100.0100, L500.4050, L700.6800 #### [facility] [address] [place], [address] RECORD KIT LOT# Normal [facility] Comment on above: Result Comment: INCO RRECT TEST ORDERED. SPOKE WITH VERONICA IN ED, SHE WILL ORDER THE QUANTITATIVE HCG Performed By: #### L 100.0100, L500.4050, L700.6800 #### [facility] [address] [place], [address] Protein Test strip Ql (U)Ord ered By: Oneal Chao on 01-04-2025 Protein Ql (U) Negative Negative [facility] RBC Auto (Bld) [#/Vol]Ordere d By: Oneal Chao on 01-04-2025 RBC (Bld) [#/Vol] 3.97 10*6/uL Low 4.2-5.4 [facility] Serum creatinine measurement (mass/volume)Ordered By: Oneal Chao on 01-04-2025 Creatinine [Mass/Vol] 0.77 mg/dL 0.70-1.20 [facility] Serum globulin measurementOr dered By: Oneal Chao on 01-04-2025 Globulin (S) [Mass/Vol] 2.7 g/dL 2.2-4.2 [facility] Serum glucose measurement (m ass/volume)Ordered By: Oneal Chao on 01-04-2025 Glucose [Mass/Vol] 87 mg/dL 70-99 [facility] Serum human chorionic gonado tropin detection for pregnancyOrdered By: Oneal Chao on 01-04-2025 HCG ( test) Ql 7362 mIU/mL High <9 [facility] Comment on above: Gestational Age0.2-1 Week: 5-50 mIU/mL1-2 Weeks: 50-500 mIU/mL2-3 Weeks: 100-5000 mIU/mL3-4 Weeks: 500-10,000 mIU/mL4-5 Weeks:1000-50,000 mIU/mL5-6 Weeks: 10,000-100,000 mIU/mL6-8 Weeks: 15,000-200,000 mIU/mL2-3 Months:10,000-100,000 mIU/mL Serum or plasma alanine escamilla otransferase (ALT) measurementOrdered By: Oneal Chao on 01-04-2025 ALT [Catalytic activity/Vol] 34 U/L <35 [facility] Serum or plasma albumin tanvi urement (mass/volume)Ordered By: Oneal Chao on 01-04-2025 Albumin [Mass/Vol] 4.6 g/dL 3.5-5.0 [facility] Serum or plasma albumin/glob ulin mass ratioOrdered By: Oneal Chao on 01-04-2025 Albumin/Globulin [Mass ratio] 1.7 {ratio} 0.9-2.4 [facility] Serum or plasma alkaline monica sphatase measurementOrdered By: Oneal Chao on 01-04-2025 ALP [Catalytic activity/Vol] 46 U/L 35-104 [facility] Serum or plasma calcium tanvi urement (mass/volume)Ordered By: Oneal Chao on 01-04-2025 Calcium [Mass/Vol] 9.6 mg/dL 7.6-11.0 [facility] Serum or plasma urea nitroge n measurement (mass/volume)Ordered By: Oneal Chao on 01-04-2025 Urea nitrogen [Mass/Vol] 14 mg/dL 4-19 [facility] Sodium levelOrdered By: Yadiel Chao on 01-04-2025 Sodium [Moles/Vol] 139 mmol/L 133-145 [facility] Squamous epithelial cells de tection in urine sediment by light microscopyOrdered By: Oneal Chao on 01-04-2025 Epithelial cells.squamous LM Ql (Urine sed) 0 SEEN /hpf 5-10 [facility] Total proteinOrdered By: Violeta Chao on 01-04-2025 Protein [Mass/Vol] 7.3 g/dL 5.9-8.4 [facility] Transvaginal w/Preg USon Transvaginal w/Preg US [facility] [address] [place] [address] Transvaginal w/Preg US MR#: [id number] Acct: [id number] Name: LISA EWING Rep #: [id number] : 2000 F 24 From: Ashlyn Braga nd, MD PCP: Care Physician,No Primary Status: [facility] ER Study: Transvaginal w/Preg US Date of Exam: 01/04/25 Exam# [id number] Ordering Dr: Oneal Chao DO PROCEDURE: TRANSVAGINAL W/PREG US 01/04/2025 REASON FOR EXAM: SPOTTING. Last menstrual period 11/23/2024. Beta hCG pending. Last beta hCG on 12/25: 165. TECHNIQUE: Transvaginal ultrasound with Doppler. COMPARISON: Pelvic ultrasound 06/06/2024. FINDINGS: Number of Gestational Sacs: 1 Gestational Sac Shape: Normal Yolk Sac: Present and unremarkable. Placenta: Presently not well-visualized Amniotic Fluid Volume: Subjectively normal for gestational age. heart rate: Not detected. Uterine Abnormalities: Maternal uterus is unremarkable. Ovaries / Adnexa: Both maternal ovaries are visualized and unremarkable. DIMENSIONS: Parameter Measurement / EGA [place] Rump Length: Nonvisualized Gestational Sac: 0.74 cm/5 weeks 3 days Yolk Sac: 0.2 cm ESTIMATED GESTATIONAL AGE: By Ultrasound: 5 weeks 3 days By LMP: 6 weeks 0 days ESTIMATED DATE OF DELIVERY: By Ultrasound: 09/03/2025 By LMP: 08/30/2025 US/Transvaginal w/Preg US IMPRESSION: UNREMARKABLE FIRST TRIMESTER ULTRASOUND. Reading Location: [id number] CC: Dr. Oneal Chao, DO; No Primary Care Physician [employer] Farm[employer]: Signed Normal [facility] Urinalysis, Completeon 01-04 BACTERIA RARE Normal None Seen [facility] Comment on above: Order Comment: SIMRAN CTOR TO SPECIFY Performed By: #### L 900.0098 #### [facility] [address] [place], [place], [address] EPI,SQUAMOUS 0 SEEN Normal 5-10 [facility] Comment on above: Order Comment: SIMRAN CTOR TO SPECIFY Performed By: #### L 900.0098 #### [facility] [address] [place], [address] Mucus Ql (Urine sed) 0 SEEN Normal [facility] Comment on above: Order Comment: SIMRAN CTOR TO SPECIFY Performed By: #### L 900.0098 #### [facility] [address] [place], [address] RBC 0 SEEN Normal 0-5 [facility] Comment on above: Order Comment: SIMRAN CTOR TO SPECIFY Performed By: #### L 900.0098 #### [facility] [address] [place], [place], [address] WBC 0 SEEN Normal 0-5 [facility] Comment on above: Order Comment: COLLE CTOR TO SPECIFY Performed By: #### L 900.0098 #### [facility] [address] [place], [place], [address] Urine clarityOrdered By: Violeta Chao on 01-04-2025 Clarity (U) Clear Clear [facility] Urine color determinationOrd ered By: Oneal Chao on 01-04-2025 Color (U) Straw Yellow [facility] Urine cultureOrdered By: Violeta Chao on 01-04-2025 Bacteria identified Cx Nom (U) Culture exhibits no growth. [facility] Urine glucose detectionOrder ed By: Oneal Chao on 01-04-2025 Glucose Ql (U) Normal mg/dl Normal [facility] Urine leukocyte esterase det ection by dipstickOrdered By: Oneal Chao on 01-04-2025 Leukocyte esterase Test strip Ql (U) Negative Negative [facility] Urine pHOrdered By: Oneal archer on 01-04-2025 pH (U) 7.0 [pH] 5.0 - 8.0 [facility] Urine sediment bacteria coun t by microscopy (number/high power field)Ordered By: Oneal Chao on 01-04-2025 Bacteria LM.HPF (Urine sed) [#/Area] RARE /hpf None Seen [facility] Urine specific gravity measu rementOrdered By: Oneal Chao on 01-04-2025 Specific gravity (U) [Rel density] 1.005 1.002-1.030 [facility] Urine urobilinogen measureme ntOrdered By: Oneal Chao on 01-04-2025 Urobilinogen Ql (U) Normal mg/dl Normal [facility] White blood cell (WBC) count Ordered By: Oneal Chao on 01-04-2025 WBC (Bld) [#/Vol] 7.4 10*3/uL 4.4-11.0 [facility] White blood cell countOrdere d By: Oneal Chao on 01-04-2025 White blood cell count 0 SEEN /hpf 0-5 [facility] hCG Titer Quant., Serumon 06 -07-2025 HCG QUANT. 7362 mIU/mL High <9 non-preg [facility] Comment on above: Result Comment: Gest ational Age 0.2-1 Week: 5-50 mIU/mL 1-2 Weeks: 50-500 mIU/mL 2-3 Weeks: 100-5000 mIU/mL 3-4 Weeks: 500-10,000 mIU/mL 4-5 Weeks:1000-50,000 mIU/mL 5-6 Weeks: 10,000-100,000 mIU/mL 6-8 Weeks: 15,000-200,000 mIU/mL 2-3 Months:10,000-100,000 mIU/mL Performed By: #### L 100.0100, L500.4050, L700.6800 #### [facility] [address] [place], [address] Serum human chorionic gonado tropin detection for pregnancyOrdered By: Jhoana Pace on 12-26-2024 HCG ( test) Ql 165 mIU/mL High <9 [facility] Comment on above: Gestational Age0.2-1 Week: 5-50 mIU/mL1-2 Weeks: 50-500 mIU/mL2-3 Weeks: 100-5000 mIU/mL3-4 Weeks: 500-10,000 mIU/mL4-5 Weeks:1000-50,000 mIU/mL5-6 Weeks: 10,000-100,000 mIU/mL6-8 Weeks: 15,000-200,000 mIU/mL2-3 Months:10,000-100,000 mIU/mL hCG Titer Quant., Serumon HCG QUANT. 165 mIU/mL High <9 non-preg [facility] Comment on above: Result Comment: Gest ational Age 0.2-1 Week: 5-50 mIU/mL 1-2 Weeks: 50-500 mIU/mL 2-3 Weeks: 100-5000 mIU/mL 3-4 Weeks: 500-10,000 mIU/mL 4-5 Weeks:1000-50,000 mIU/mL 5-6 Weeks: 10,000-100,000 mIU/mL 6-8 Weeks: 15,000-200,000 mIU/mL 2-3 Months:10,000-100,000 mIU/mL Performed By: #### L 100.0100, L500.4050, L700.6800 #### [facility] [address] [facility] [place], [place], [id number] Serum human chorionic gonado tropin detection for pregnancyOrdered By: Jhoana Pace on 12-24-2024 HCG ( test) Ql 73 mIU/mL High <9 [facility] Comment on above: Gestational Age0.2-1 Week: 5-50 mIU/mL1-2 Weeks: 50-500 mIU/mL2-3 Weeks: 100-5000 mIU/mL3-4 Weeks: 500-10,000 mIU/mL4-5 Weeks:1000-50,000 mIU/mL5-6 Weeks: 10,000-100,000 mIU/mL6-8 Weeks: 15,000-200,000 mIU/mL2-3 Months:10,000-100,000 mIU/mL hCG Titer Quant., Serumon HCG QUANT. 73 mIU/mL High <9 non-preg [facility] Comment on above: Result Comment: Gest ational Age 0.2-1 Week: 5-50 mIU/mL 1-2 Weeks: 50-500 mIU/mL 2-3 Weeks: 100-5000 mIU/mL 3-4 Weeks: 500-10,000 mIU/mL 4-5 Weeks:1000-50,000 mIU/mL 5-6 Weeks: 10,000-100,000 mIU/mL 6-8 Weeks: 15,000-200,000 mIU/mL 2-3 Months:10,000-100,000 mIU/mL Performed By: #### L 509.8002, L100.0100, L3890.6006, L501.0250 #### [facility] [address] [facility] [place], [place], [address] Genital Culture Comprehensiv celia 11-09-2024 VAC Reason for Exam: vag inal discharge No yeast, Neisseria or beta-hemolytic Streptococcus isolated. G. vaginalis (Presumptive) Amount Growth 1+ Normal [facility] Comment on above: Performed By: #### L 100.0100, L500.4050, L700.6800 #### [facility] [address] [place], [place], [id number] Anticardiolipin IgG, IgMon 0 11-08-2024 ANTICARDIO IgG < 9 Normal 0-14 [facility] Comment on above: Result Comment: Nega tive: <15 Indeterminate: 15 - 20 Low-Med Positive: >20 - 80 High Positive: >80 Performed By: #### L 100.0100, L500.4050, L700.6800 #### [facility] [address] [place], [address] Anticardio.IgM < 9 Normal 0-12 [facility] Comment on above: Result Comment: Nega tive: <13 Indeterminate: 13 - 20 Low-Med Positive: >20 - 80 High Positive: >80 Performed at: [facility] [address] [id number] Hy[employer] Machine Operator: Kory Brar MD, Phone: [phone] Performed at: [facility] [address] [id number] [employer] Machine Operator: Mendoza Carlos PhD, Phone: [phone] Performed By: #### L 100.0100, L500.4050, L700.6800 #### [facility] [address] [place], [place], [address] Beta-2 Glycoprot IgG, A, 11-08-2024 B2 GLYCO I IGA <9 Normal 0-25 [facility] Comment on above: Result Comment: Resu lt Units: GPI IgA units The reference interval reflects a 3SD or 99th percentile interval, which is thought to represent a potentially clinically significant result in accordance with the International Consensus Statement on the classification criteria for definitive antiphospholipid syndrome (APS). J Thromb Haem 2006;4:295-306. Performed By: #### L 100.0100, L500.4050, L700.6800 #### [facility] [address] [place], [address] B2 GLYCO I IGG <9 Normal 0-20 [facility] Comment on above: Result Comment: Resu lt Units: GPI IgG units The reference interval reflects a 3SD or 99th percentile interval, which is thought to represent a potentially clinically significant result in accordance with the International Consensus Statement on the classification criteria for definitive antiphospholipid syndrome (APS). J Thromb Haem 2006;4:295-306. Performed By: #### L 100.0100, L500.4050, L700.6800 #### [facility] [address] [place], [address] B2 GLYCO I IGM <9 Normal 0-32 [facility] Comment on above: Result Comment: Resu lt Units: GPI IgM units The reference interval reflects a 3SD or 99th percentile interval, which is thought to represent a potentially clinically significant result in accordance with the International Consensus Statement on the classification criteria for definitive antiphospholipid syndrome (APS). J Thromb Haem 2006;4:295-306. Performed By: #### L 100.0100, L500.4050, L700.6800 #### [facility] [address] [place], [address] Lupus Anticoagulant Compon 0 - aPTT Coag (Bld) [Time] 35.4 s Normal 0.0-43.[address] [facility] Comment on above: Performed By: #### L 100.0100, L500.4050, L700.6800 #### [facility] [address] [place], [address] DILUTE PT (dPT) 35.7 sec Normal 0.0-47.6 [facility] Comment on above: Performed By: #### L 100.0100, L500.4050, L700.6800 #### [facility] [address] [place], [address] dPT Conf. Ratio 0.99 Ratio Normal 0.00-1.34 [facility] Comment on above: Performed By: #### L 100.0100, L500.4050, L700.6800 #### [facility] [address] [place], [address] DRVVT 30.7 sec Normal 0.0-47.0 [facility] Comment on above: Performed By: #### L 100.0100, L500.4050, L700.6800 #### [facility] [address] [place], [address] Interpretation Comment: Normal . [facility] Comment on above: Result Comment: No l upus anticoagulant was detected. Performed By: #### L 100.0100, L500.4050, L700.6800 #### [facility] [address] [place], [address] THROMBIN TIME 20.0 sec Normal 0.0-23.0 [facility] Comment on above: Performed By: #### L 100.0100, L500.4050, L700.6800 #### [facility] [address] [place], [address] Beta 2 glycoprotein 1 IgA Ql (S)Ordered By: Nelly Rangel on 2024 Bnjj-igdv-9-Glycoprotei n I IgA Ab <9 0-25 [facility] Comment on above: Result Units: GPI Ig A unitsThe reference interval reflects a 3SD or 99th percentileinterval, which is thought to represent a potentiallyclinically significant result in accordance with theInternational Consensus Statement on the classificationcriteria for definitive antiphospholipid syndrome (APS). JThromb Haem 2006;4:295-306. Beta 2 glycoprotein 1 IgG Ql (S)Ordered By: Nelly Rangel on 2024 Yxrg-zclb-3-Glycoprotei n I IgG Ab <9 0-20 [facility] Comment on above: Result Units: GPI Ig G unitsThe reference interval reflects a 3SD or 99th percentileinterval, which is thought to represent a potentiallyclinically significant result in accordance with theInternational Consensus Statement on the classificationcriteria for definitive antiphospholipid syndrome (APS). JThromb Haem 2006;4:295-306. Beta 2 glycoprotein 1 IgM Ql (S)Ordered By: Nelly Rangel on 2024 Lqrm-mead-1-Glycoprotei n I IgM Ab <9 0-32 [facility] Comment on above: Result Units: GPI Ig M unitsThe reference interval reflects a 3SD or 99th percentileinterval, which is thought to represent a potentiallyclinically significant result in accordance with theInternational Consensus Statement on the classificationcriteria for definitive antiphospholipid syndrome (APS). JThromb Haem 2006;4:295-306. Cardiolipin IgG IA Qn (S)Ord ered By: Nelly Rangel on 2024 Anti-Cardiolipin IgG Antibody < 9 GPL U/mL 0-14 [facility] Comment on above: Negative: <15 Indete rminate: 15 - 20 Low-Med Positive: >20 - 80 High Positive: >80 Dilute Fidencio's viper venom timeOrdered By: Nelly Rangel on 2024 dRVVT Coag (PPP) [Time] 30.7 s 0.0-47.0 [facility] Dilute prothrombin time rati o confirmationOrdered By: Nelly Rangel on 2024 Prothrombin Time Ratio 0.99 Ratio 0.00-1.[address] [facility] Genital cultureOrdered By: Michaela Rangel on 2024 Genital Culture G. vaginalis (Presumptive) Abnormal [facility] Source specific culture G. vaginalis (Presumptive) Abnormal [facility] Gram Stainon 2024 GS Reason for Exam: vag inal discharge Gram Stain Rare White Blood Cells 2+ Gram variable jaden No Gram negative diplococci Score =6 Interpretation: 0-3 Normal, 4-6 Intermediate, 7-10 Positive BV * This is an amended result. * A prior result that was reported as final has been changed. 11/07/24 1524 by HANH Normal [facility] Comment on above: Performed By: #### L 100.0100, L500.4050, L700.6800 #### [facility] [address] [place], [address] Gram stainOrdered By: Nelly Rangel on 2024 Microscopic observation Gram stain Nom (Unsp spec) [facility] HCG ( test) QlOrder ed By: Nelly Rangel on 2024 Human Chorionic Gonadotropin, Quant < 1 mIU/mL <9 [facility] Comment on above: Gestational Age0.2-1 Week: 5-50 mIU/mL1-2 Weeks: 50-500 mIU/mL2-3 Weeks: 100-5000 mIU/mL3-4 Weeks: 500-10,000 mIU/mL4-5 Weeks:1000-50,000 mIU/mL5-6 Weeks: 10,000-100,000 mIU/mL6-8 Weeks: 15,000-200,000 mIU/mL2-3 Months:10,000-100,000 mIU/mL Interpretation of lupus anti coagulant assayOrdered By: Nelly Rangel on 2024 Lupus Anticoagulant Interpretation Comment: . [facility] Comment on above: No lupus anticoagula nt was detected. 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 Nelly grady MD Age/Sex: 24/F [place] [facility] [place]: Signed Intake Vital Signs 08/01/24 15:39 11/06/24 08:44 Height 5 ft 1 in 5 ft 1 in Weight: 108 lb 6 oz 108 lb 6 oz BMI 20.5 20.5 BP 114/76 Intake Visit Reasons: fu miscarriages 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 Is patient in pain?: No Allergies No Known Allergies Allergy (Verified 11/06/24 08:42) Medications ???Medication ???Instructions ???Recorded ???Confirmed ???Type multivitamin no.47-iron fum 27 1 cap PO DAILY 10/14/20 11/06/24 History mg-folate no.1 1 mg-dha 300 mg capsule (PNV-DHA) Post menopausal: No : No PFSH Medical History (Updated 11/06/24 @ 09:[address] Nelly Rangel MD) Vaginal delivery Anemia examination following vaginal [...] physical activity do you participate in: none martin/yazdanism: Congregation seatbelt use: always do you feel safe at home: Yes additional social history: - Lang (Nazia) HPI fu miscarriages Details: LISA EWING is a 24 year old who presents for recurrent miscarriage. she feels like something is off but not quite sure what. she denies any bleeding or cramping now, no new health problems. she is also seeing a branch associate. she co dyspareunia also- deep since the [...] - full term vacuum 7lbs 8oz Male [facility] Mar canthony 04/02/23 Sadia 41 live - full term Female [facility] K. Wi lliams Delivery Date: 05/28/21 Last Updated by: Chanda DIAL VAVD ROS Const Constitutional: Denies fatigue, fever(s), [...] Nutritional Appearance: average body habitus Orientation: alert [facility] Head: normal to inspection and normocephalic Neck [...] consistency no (more content not included)... Normal [facility] Serum beta 2 glycoprotein 1 IgA antibody detectionOrdered By: Nelly Rangel on 2024 Beta 2 glycoprotein 1 IgA Ql (S) <9 0-25 [facility] Comment on above: Result Units: GPI Ig A unitsThe reference interval reflects a 3SD or 99th percentileinterval, which is thought to represent a potentiallyclinically significant result in accordance with theInternational Consensus Statement on the classificationcriteria for definitive antiphospholipid syndrome (APS). JThromb Haem 2006;4:295-306. Serum beta 2 glycoprotein 1 IgG antibody detectionOrdered By: Nelly Rangel on 2024 Beta 2 glycoprotein 1 IgG Ql (S) <9 0-20 [facility] Comment on above: Result Units: GPI Ig G unitsThe reference interval reflects a 3SD or 99th percentileinterval, which is thought to represent a potentiallyclinically significant result in accordance with theInternational Consensus Statement on the classificationcriteria for definitive antiphospholipid syndrome (APS). JThromb Haem 2006;4:295-306. Serum beta 2 glycoprotein 1 IgM antibody detectionOrdered By: Nelly Rangel on 2024 Beta 2 glycoprotein 1 IgM Ql (S) <9 0-32 [facility] Comment on above: Result Units: GPI Ig M unitsThe reference interval reflects a 3SD or 99th percentileinterval, which is thought to represent a potentiallyclinically significant result in accordance with theInternational Consensus Statement on the classificationcriteria for definitive antiphospholipid syndrome (APS). JThromb Haem 2006;4:295-306. Serum cardiolipin IgG antibo dy assay by immunoassay (units/volume)Ordered By: Nelly Rangel on 2024 Cardiolipin IgG IA Qn (S) < 9 GPL U/mL 0-14 [facility] Comment on above: Negative: <15 Indete rminate: 15 - 20 Low-Med Positive: >20 - 80 High Positive: >80 Serum cardiolipin IgM antibo dy assayOrdered By: Nelly Rangel on 2024 Anti-Cardiolipin IgM Antibody < 9 MPL U/mL 0-12 [facility] Comment on above: Negative: <13 Indete rminate: 13 - 20 Low-Med Positive: >20 - 80 High Positive: >80Performed at: [facility] [address] [id number] Director: Kory Brar MD, Phone: [phone] at: [facility] [id number] Director: Mendoza Carlos PhD, Phone: [phone] Serum human chorionic gonado tropin detection for pregnancyOrdered By: Nelly Rangel on 2024 HCG ( test) Ql < 1 mIU/mL <9 [facility] Comment on above: Gestational Age0.2-1 Week: 5-50 mIU/mL1-2 Weeks: 50-500 mIU/mL2-3 Weeks: 100-5000 mIU/mL3-4 Weeks: 500-10,000 mIU/mL4-5 Weeks:1000-50,000 mIU/mL5-6 Weeks: 10,000-100,000 mIU/mL6-8 Weeks: 15,000-200,000 mIU/mL2-3 Months:10,000-100,000 mIU/mL TSH DL <= 0.005 mIU/L QnOrde red By: Nelly Rangel on 2024 Thyroid Stimulating Hormone (TSH) 2.710 uIU/mL 0.300-4.200 [facility] TSH Qn 2.710 uIU/mL 0.300-4.200 [facility] Thrombin timeOrdered By: Jermain Rangel on 2024 Thrombin time Coag (PPP) [Time] 20.0 sec 0.0-23.0 [facility] Thrombin time Coag (PPP) [Ti me]Ordered By: Nelly Rangel on 2024 Thrombin Time 20.0 sec 0.0-23.0 [facility] Thyroid Stim Hormone (TSH)on 2024 TSH 2.710 uIU/mL Normal 0.300-4.200 [facility] Comment on above: Performed By: #### L 900.0098 #### [facility] [address] [place], [place], [address] Jony Irving ([facility] [Time]Order ed By: Nelly Rangel on 2024 Dilute Fidencio Viper Venom (Lupus) 30.7 sec 0.0-47.0 [facility] hCG Titer Quant., Serumon HCG QUANT. < 1 Normal <9 non-preg [facility] Comment on above: Result Comment: Gest ational Age 0.2-1 Week: 5-50 mIU/mL 1-2 Weeks: 50-500 mIU/mL 2-3 Weeks: 100-5000 mIU/mL 3-4 Weeks: 500-10,000 mIU/mL 4-5 Weeks:1000-50,000 mIU/mL 5-6 Weeks: 10,000-100,000 mIU/mL 6-8 Weeks: 15,000-200,000 mIU/mL 2-3 Months:10,000-100,000 mIU/mL Performed By: #### L 900.0098 #### [facility] [address] [place], [place], [address] HCG ( test) QlOrder ed By: Jhonaa Pace on 10-21-2024 Human Chorionic Gonadotropin, Quant 26 mIU/mL High <9 [facility] Comment on above: Gestational Age0.2-1 Week: 5-50 mIU/mL1-2 Weeks: 50-500 mIU/mL2-3 Weeks: 100-5000 mIU/mL3-4 Weeks: 500-10,000 mIU/mL4-5 Weeks:1000-50,000 mIU/mL5-6 Weeks: 10,000-100,000 mIU/mL6-8 Weeks: 15,000-200,000 mIU/mL2-3 Months:10,000-100,000 mIU/mL Serum human chorionic gonado tropin detection for pregnancyOrdered By: Jhoana Pace on 10-21-2024 HCG ( test) Ql 26 mIU/mL High <9 [facility] Comment on above: Gestational Age0.2-1 Week: 5-50 mIU/mL1-2 Weeks: 50-500 mIU/mL2-3 Weeks: 100-5000 mIU/mL3-4 Weeks: 500-10,000 mIU/mL4-5 Weeks:1000-50,000 mIU/mL5-6 Weeks: 10,000-100,000 mIU/mL6-8 Weeks: 15,000-200,000 mIU/mL2-3 Months:10,000-100,000 mIU/mL hCG Titer Quant., Serumon HCG QUANT. 26 mIU/mL High <9 non-preg [facility] Comment on above: Result Comment: Gest ational Age 0.2-1 Week: 5-50 mIU/mL 1-2 Weeks: 50-500 mIU/mL 2-3 Weeks: 100-5000 mIU/mL 3-4 Weeks: 500-10,000 mIU/mL 4-5 Weeks:1000-50,000 mIU/mL 5-6 Weeks: 10,000-100,000 mIU/mL 6-8 Weeks: 15,000-200,000 mIU/mL 2-3 Months:10,000-100,000 mIU/mL Performed By: #### L 100.0100, L500.4050, L700.6800 #### [facility] [address] [place], [place], [address] HCG ( test) QlOrder ed By: Jhoana Pace on 10-18-2024 Human Chorionic Gonadotropin, Quant 69 mIU/mL [address] Comment on above: Gestational Age0.2-1 Week: 5-50 mIU/mL1-2 Weeks: 50-500 mIU/mL2-3 Weeks: 100-5000 mIU/mL3-4 Weeks: 500-10,000 mIU/mL4-5 Weeks:1000-50,000 mIU/mL5-6 Weeks: 10,000-100,000 mIU/mL6-8 Weeks: 15,000-200,000 mIU/mL2-3 Months:10,000-100,000 mIU/mL Serum human chorionic gonado tropin detection for pregnancyOrdered By: Jhoana Pace on 10-18-2024 HCG ( test) Ql 69 mIU/mL High <9 [facility] Comment on above: Gestational Age0.2-1 Week: 5-50 mIU/mL1-2 Weeks: 50-500 mIU/mL2-3 Weeks: 100-5000 mIU/mL3-4 Weeks: 500-10,000 mIU/mL4-5 Weeks:1000-50,000 mIU/mL5-6 Weeks: 10,000-100,000 mIU/mL6-8 Weeks: 15,000-200,000 mIU/mL2-3 Months:10,000-100,000 mIU/mL hCG Titer Quant., Serumon HCG QUANT. 69 mIU/mL High <9 non-preg [facility] Comment on above: Result Comment: Gest ational Age 0.2-1 Week: 5-50 mIU/mL 1-2 Weeks: 50-500 mIU/mL 2-3 Weeks: 100-5000 mIU/mL 3-4 Weeks: 500-10,000 mIU/mL 4-5 Weeks:1000-50,000 mIU/mL 5-6 Weeks: 10,000-100,000 mIU/mL 6-8 Weeks: 15,000-200,000 mIU/mL 2-3 Months:10,000-100,000 mIU/mL Performed By: #### L 100.0100, L500.4050, L700.6800 #### [facility] [address] [place], [address] HCG ( test) QlOrder ed By: Jhoana Pace on 10-16-2024 Human Chorionic Gonadotropin, Quant 81 mIU/mL High <9 [facility] Comment on above: Gestational Age0.2-1 Week: 5-50 mIU/mL1-2 Weeks: 50-500 mIU/mL2-3 Weeks: 100-5000 mIU/mL3-4 Weeks: 500-10,000 mIU/mL4-5 Weeks:1000-50,000 mIU/mL5-6 Weeks: 10,000-100,000 mIU/mL6-8 Weeks: 15,000-200,000 mIU/mL2-3 Months:10,000-100,000 mIU/mL Serum human chorionic gonado tropin detection for pregnancyOrdered By: Jhoana Pace on 10-16-2024 HCG ( test) Ql 81 mIU/mL High <9 [facility] Comment on above: Gestational Age0.2-1 Week: 5-50 mIU/mL1-2 Weeks: 50-500 mIU/mL2-3 Weeks: 100-5000 mIU/mL3-4 Weeks: 500-10,000 mIU/mL4-5 Weeks:1000-50,000 mIU/mL5-6 Weeks: 10,000-100,000 mIU/mL6-8 Weeks: 15,000-200,000 mIU/mL2-3 Months:10,000-100,000 mIU/mL hCG Titer Quant., Serumon HCG QUANT. 81 mIU/mL High <9 non-preg [facility] Comment on above: Result Comment: Gest ational Age 0.2-1 Week: 5-50 mIU/mL 1-2 Weeks: 50-500 mIU/mL 2-3 Weeks: 100-5000 mIU/mL 3-4 Weeks: 500-10,000 mIU/mL 4-5 Weeks:1000-50,000 mIU/mL 5-6 Weeks: 10,000-100,000 mIU/mL 6-8 Weeks: 15,000-200,000 mIU/mL 2-3 Months:10,000-100,000 mIU/mL Performed By: #### L 509.8002, L100.0100, L3890.6006, L501.0250 #### [facility] [address] [place], [address] HCG ( test) QlOrder ed By: Jhoana Pace on 10-14-2024 Human Chorionic Gonadotropin, Quant 54 mIU/mL High <9 [facility] Comment on above: Gestational Age0.2-1 Week: 5-50 mIU/mL1-2 Weeks: 50-500 mIU/mL2-3 Weeks: 100-5000 mIU/mL3-4 Weeks: 500-10,000 mIU/mL4-5 Weeks:1000-50,000 mIU/mL5-6 Weeks: 10,000-100,000 mIU/mL6-8 Weeks: 15,000-200,000 mIU/mL2-3 Months:10,000-100,000 mIU/mL Serum human chorionic gonado tropin detection for pregnancyOrdered By: Jhoana Pace on 10-14-2024 HCG ( test) Ql 54 mIU/mL High <9 [facility] Comment on above: Gestational Age0.2-1 Week: 5-50 mIU/mL1-2 Weeks: 50-500 mIU/mL2-3 Weeks: 100-5000 mIU/mL3-4 Weeks: 500-10,000 mIU/mL4-5 Weeks:1000-50,000 mIU/mL5-6 Weeks: 10,000-100,000 mIU/mL6-8 Weeks: 15,000-200,000 mIU/mL2-3 Months:10,000-100,000 mIU/mL hCG Titer Quant., Serumon HCG QUANT. 54 mIU/mL High <9 non-preg [facility] Comment on above: Result Comment: Gest ational Age 0.2-1 Week: 5-50 mIU/mL 1-2 Weeks: 50-500 mIU/mL 2-3 Weeks: 100-5000 mIU/mL 3-4 Weeks: 500-10,000 mIU/mL 4-5 Weeks:1000-50,000 mIU/mL 5-6 Weeks: 10,000-100,000 mIU/mL 6-8 Weeks: 15,000-200,000 mIU/mL 2-3 Months:10,000-100,000 mIU/mL Performed By: #### L 700.8000 #### [facility] [address] [place], [address] Automobile Upholsterer Office Visit Reporton 08-01-2024 Automobile Upholsterer Office Visit [facility] [address], [address] [place] [address] OFFICE VISIT Date of Service: 08/01/24 MR#: [id number] Acct: [id number] Name: CRISTIANE EWINGPeyton Snow Rep #: [id number] 3 : 2000 Provider: Dr. 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 Mar canthony 04/02/23 Sadia 41 live - full term Female [facility] Rebecca Wi lliams Delivery Date: 05/28/21 Last [...] Acute Plan: explained the process of a "chemical "/ early spontaneous and complete . Pt to call us if she misses her period for the month of July. 08/01/24 1616 Date Lindsey Hawkins Signature: Date (if applicable) CC: Normal [facility] HCG ( test) QlOrder ed By: Maureen Benítez on 07-11-2024 Human Chorionic Gonadotropin, Quant 2 mIU/mL <4 [facility] Comment on above: hCG levels with Gest ational AgeGestational Age hCG mIU/mL (IU/L)0.2 - 1 week 5 - 501-2 weeks 50 - 5002-3 weeks 100 - 73005-1 weeks 500 - 887874-3 weeks 1000 - 514794-9 weeks 51976 - 100,0006-8 weeks 15665 - 200,0002-3 months 43415 - 100,000 hCG Titer Quant., Serumon HCG QUANT. 2 mIU/mL Normal 1-3 [facility] Comment on above: Result Comment: hCG levels with Gestational Age Gestational Age hCG mIU/mL (IU/L) 0.2 - 1 week 5 - 50 1-2 weeks 50 - 500 2-3 weeks 100 - 5000 3-4 weeks 500 - 59183 4-5 weeks 1000 - 42230 5-6 weeks 14663 - 100,000 6-8 weeks 55780 - 200,000 2-3 months 83870 - 100,000 Performed By: #### L 100.0100, L500.4050, L700.6800 #### [facility] [address] [place], [address] HCG ( test) QlOrder ed By: Maureen Benítez on 07-09-2024 Human Chorionic Gonadotropin, Quant 8 mIU/mL High <4 [facility] Type AND Screenon 07-09-2024 Ab SCREEN GEL Negative Normal [facility] Comment on above: Order Comment: PN Performed By: #### L 100.0100, L500.4050, L700.6800 #### [facility] [address] [place], [address] hCG Titer Quant., Serumon HCG QUANT. 8 mIU/mL High 1-3 [facility] Comment on above: Performed By: #### L 100.0100, L500.4050, L700.6800 #### [facility] [address] [place], [address] Absolute lymphocyte countOrd ered By: Lew Calles on 08-02-2023 Lymphocytes Auto (Unsp spec) [#/Vol] 1.67 10*3/uL 0.83-4.51 [facility] Basophil percentageOrdered B y: Lew Calles on 08-02-2023 Basophils/100 WBC (Bld) 0.8 % 0-1 [facility] Chloride [Moles/Vol] 108 mmol/L 98-107 [facility] Eosinophils/100 WBC (Bld) 0.7 % 0-5 [facility] Glucose [Mass/Vol] 75 mg/dL 74-106 [facility] Neutrophils (Bld) [#/Vol] 5.2 10*3/uL 2.0-7.7 [facility] Neutrophils/100 WBC (Bld) 70.6 % 47-70 [facility] Potassium [Moles/Vol] 3.7 mmol/L 3.5-5.1 [facility] Sodium [Moles/Vol] 138 mmol/L 136-145 [facility] WBC (Bld) [#/Vol] 7.4 10*3/uL 4.4-11.0 [facility] Blood erythrocytes count (nu mber/volume)Ordered By: Lew Calles on 08-02-2023 RBC (Bld) [#/Vol] 4.32 10*6/uL 4.2-5.4 [facility] Blood hemoglobin measurement (mass/volume)Ordered By: Lew Calles on 08-02-2023 Hemoglobin (Bld) [Mass/Vol] 13.0 g/dL 12.0-15.0 [facility] Blood lymphocytes/100 leukoc ytesOrdered By: Lew Calles on 08-02-2023 Lymphocytes/100 WBC (Bld) 22.5 % 19-41 [facility] Blood monocytes/100 leukocyt esOrdered By: Lew Calles on 08-02-2023 Monocytes/100 WBC (Bld) 5.1 % 0-10 [facility] Blood platelet mean volumeOr dered By: Lew Calles on 08-02-2023 Platelet mean volume (Bld) [Entitic vol] 9.2 fL 6.2-12.0 [facility] Determination of erythrocyte mean corpuscular volume (MCV)Ordered By: Lew Calles on 08-02-2023 MCV (RBC) [Entitic vol] 89.4 fL 81-99 [facility] Hematocrit Auto (Bld) [Volum e fraction]Ordered By: Lew Calles on 08-02-2023 Hematocrit (Bld) [Volume fraction] 38.6 % 37-47 [facility] Laboratory - Chemistry and C hemistry - challengeOrdered By: Lew Calles on 08-02-2023 CO2 [Moles/Vol] 23.0 mmol/L 21.0-32.0 [facility] Urea nitrogen/Creatinine [Mass ratio] 26.5 mg/mg 10-20 [facility] Laboratory - Hematology and Cell countsOrdered By: Lew Calles on 08-02-2023 Erythrocyte distribution width (RBC) [Entitic vol] 39.9 fL 35.1-43.9 [facility] Erythrocyte distribution width (RBC) [Ratio] 12.1 % 11.6-14.6 [facility] Immature granulocytes/100 WBC (Bld) 0.300 % 0.0-0.9 [facility] Comment on above: IG% - Immature Granu locytes (promyelocytes, myelocytes and metamyelocytes) > 1% indicates that a LEFT SHIFT is Present. MCH (RBC) [Entitic mass] 30.1 pg 27.0-32.0 [facility] Nucleated RBC/100 WBC (Bld) [Ratio] 0 % 0-5 [facility] MCHC Auto (RBC) [Mass/Vol]Or dered By: Lew Calles on 08-02-2023 MCHC (RBC) [Mass/Vol] 33.7 g/dL 32-36 [facility] No Panel InformationOrdered By: Lew Clales on 08-02-2023 D-Dimer Quantitative (PE/DVT) < 0.27 FEU/ug/m 0.27-0.49 [facility] Comment on above: NORMAL D-Dimer level (<0.50) indicates no DVT or PE. Estimated Creatinine Clearance Calc 83.57 ml/min [facility] Estimated GFR (MDRD) Amer 115 mL/min >60 [facility] Comment on above: GFR Calc Estimated GFR (MDRD) Non-Af Amer 95 mL/min >60 [facility] Comment on above: Non- GFR Calc Troponin I High Sensitivity 4 pg/mL 3.0-54.0 [facility] Comment on above: Please Note: New Radha t Units and Gender Specific Reference Ranges. For more information see Policy Stat Procedure [place] High Sensitivity Troponin (TNIH) and attachments. Platelets bldOrdered By: Thai Calles on 08-02-2023 Platelets (Bld) [#/Vol] 272 10*3/uL 150-450 [facility] Serum or plasma calcium tanvi urement (mass/volume)Ordered By: Lew Calles on 08-02-2023 Calcium [Mass/Vol] 9.4 mg/dL 8.5-10.1 [facility] Serum or plasma creatinine m easurement (mass/volume)Ordered By: Lew Calles on 08-02-2023 Creatinine [Mass/Vol] 0.79 mg/dL 0.55-1.02 [facility] Comment on above: The validity of the calculated GFR & GFRAA in patients over 70 years has not been determined. Clinical correlation is essential. Serum or plasma urea nitroge n measurement (mass/volume)Ordered By: Lew Calles on 08-02-2023 Urea nitrogen [Mass/Vol] 21 mg/dL 7-18 [facility] Thin prep Papanicolaou smear with manual screeningOrdered By: Lew Calles on 08-02-2023 Thin prep Papanicolaou smear with manual screening 7 5-15 [facility] Absolute lymphocyte countOrd ered By: Jhoana Pace on 04-02-2023 Lymphocytes Auto (Unsp spec) [#/Vol] 1.92 10*3/uL 0.83-4.51 [facility] Basophil percentageOrdered B y: Jhoana Pace on 04-02-2023 Basophils/100 WBC (Bld) 0.4 % 0-1 [facility] Eosinophils/100 WBC (Bld) 0.4 % 0-5 [facility] Neutrophils (Bld) [#/Vol] 8.0 10*3/uL 2.0-7.7 [facility] Neutrophils/100 WBC (Bld) 74.2 % 47-70 [facility] WBC (Bld) [#/Vol] 10.8 10*3/uL 4.4-11.0 [facility] Blood erythrocytes count (nu mber/volume)Ordered By: Jhoana Pace on 04-02-2023 RBC (Bld) [#/Vol] 3.65 10*6/uL 4.2-5.4 [facility] Blood hemoglobin measurement (mass/volume)Ordered By: Jhoana Pace on 04-02-2023 Hemoglobin (Bld) [Mass/Vol] 12.1 g/dL 12.0-15.0 [facility] Blood lymphocytes/100 leukoc ytesOrdered By: Jhoana Pace on 04-02-2023 Lymphocytes/100 WBC (Bld) 17.8 % 19-41 [facility] Blood monocytes/100 leukocyt esOrdered By: Jhoana Pace on 04-02-2023 Monocytes/100 WBC (Bld) 6.6 % 0-10 [facility] Blood platelet mean volumeOr dered By: Jhoana Pace on 04-02-2023 Platelet mean volume (Bld) [Entitic vol] 9.5 fL 6.2-12.0 [facility] Determination of erythrocyte mean corpuscular volume (MCV)Ordered By: Jhoana Pace on 04-02-2023 MCV (RBC) [Entitic vol] 97.3 fL 81-99 [facility] Hematocrit Auto (Bld) [Volum e fraction]Ordered By: Jhoana Pace on 04-02-2023 Hematocrit (Bld) [Volume fraction] 35.5 % 37-47 [facility] Laboratory - Hematology and Cell countsOrdered By: Jhoana Pace on 04-02-2023 Erythrocyte distribution width (RBC) [Entitic vol] 45.1 fL 35.1-43.9 [facility] Erythrocyte distribution width (RBC) [Ratio] 12.7 % 11.6-14.6 [facility] Immature granulocytes/100 WBC (Bld) 0.600 % 0.0-0.9 [facility] Comment on above: IG% - Immature Granu locytes (promyelocytes, myelocytes and metamyelocytes) > 1% indicates that a LEFT SHIFT is Present. MCH (RBC) [Entitic mass] 33.2 pg 27.0-32.0 [facility] Nucleated RBC/100 WBC (Bld) [Ratio] 0 % 0-5 [facility] MCHC Auto (RBC) [Mass/Vol]Or dered By: Jhoana Pace on 04-02-2023 MCHC (RBC) [Mass/Vol] 34.1 g/dL 32-36 [facility] Platelets bldOrdered By: Brody Pace on 04-02-2023 Platelets (Bld) [#/Vol] 187 10*3/uL 150-450 [facility] Laboratory - Chemistry and C hemistry - challengeon 03-31-2023 Glucose Ql (U) Negative [facility] Laboratory - Urinalysison Protein Ql (U) Negative [facility] No Panel InformationOrdered By: Nelly Rangel on 03-30-2023 Vaginal Amniotic Fluid Detection Negative Negative [facility] Comment on above: Amniotic fluid not p resent indicates No Rupture of FetalMembranes at time of specimen collection. Laboratory - Chemistry and C hemistry - challengeon 03-24-2023 Glucose Ql (U) Negative [facility] Laboratory - Urinalysison Protein Ql (U) Negative [facility] Laboratory - Chemistry and C hemistry - challengeon 03-14-2023 Glucose Ql (U) Negative [facility] Laboratory - Urinalysison Protein Ql (U) Trace [facility] Basophil percentageOrdered B y: Lara Andrade on 03-09-2023 WBC (Bld) [#/Vol] 8.4 10*3/uL 4.4-11.0 [facility] Blood erythrocytes count (nu mber/volume)Ordered By: Lara Andrade on 03-09-2023 RBC (Bld) [#/Vol] 3.60 10*6/uL 4.2-5.4 [facility] Blood hemoglobin measurement (mass/volume)Ordered By: Lara Andrade on 03-09-2023 Hemoglobin (Bld) [Mass/Vol] 11.6 g/dL 12.0-15.0 [facility] Blood platelet mean volumeOr dered By: Lara Andrade on 03-09-2023 Platelet mean volume (Bld) [Entitic vol] 9.6 fL 6.2-12.0 [facility] Determination of erythrocyte mean corpuscular volume (MCV)Ordered By: Lara Andrade on 03-09-2023 MCV (RBC) [Entitic vol] 98.6 fL 81-99 [facility] Hematocrit Auto (Bld) [Volum e fraction]Ordered By: Lara Andrade on 03-09-2023 Hematocrit (Bld) [Volume fraction] 35.5 % 37-47 [facility] Laboratory - Hematology and Cell countsOrdered By: Lara Andrade on 03-09-2023 Erythrocyte distribution width (RBC) [Entitic vol] 45.2 fL 35.1-43.9 [facility] Erythrocyte distribution width (RBC) [Ratio] 12.6 % 11.6-14.6 [facility] MCH (RBC) [Entitic mass] 32.2 pg 27.0-32.0 [facility] MCHC Auto (RBC) [Mass/Vol]Or dered By: Lara Andrade on 03-09-2023 MCHC (RBC) [Mass/Vol] 32.7 g/dL 32-36 [facility] Platelets bldOrdered By: Chloe Andrade on 03-09-2023 Platelets (Bld) [#/Vol] 186 10*3/uL 150-450 [facility] Laboratory - Chemistry and C hemistry - challengeon 03-02-2023 Glucose Ql (U) Negative [facility] Laboratory - Urinalysison Protein Ql (U) Trace [facility] No Panel InformationOrdered By: Lara Andrade on 03-02-2023 Group B Streptococcus Culture Group B Beta Streptococcus is not isolated. [facility] Laboratory - Chemistry and C hemistry - challengeon 02-21-2023 Glucose Ql (U) Negative [facility] Laboratory - Urinalysison Protein Ql (U) Trace [facility] Laboratory - Chemistry and C hemistry - challengeon 01-27-2023 Glucose Ql (U) Negative [facility] Laboratory - Urinalysison Protein Ql (U) Negative [facility] Basophil percentageOrdered B y: Maureen Benítez on 01-11-2023 Bilirubin [Mass/Vol] 0.70 mg/dL 0.20-1.00 [facility] Comment on above: For patients on eltr ombopag therapy, use of Dimension [place] TBIL is not recommended. Chloride [Moles/Vol] 107 mmol/L 98-107 [facility] Glucose [Mass/Vol] 71 mg/dL 74-106 [facility] Potassium [Moles/Vol] 4.0 mmol/L 3.5-5.1 [facility] Protein [Mass/Vol] 6.8 g/dL 6.4-8.2 [facility] Sodium [Moles/Vol] 137 mmol/L 136-145 [facility] Laboratory - Chemistry and C hemistry - challengeOrdered By: Maureen Benítez on 01-11-2023 ALP [Catalytic activity/Vol] 59 U/L 45-117 [facility] ALT [Catalytic activity/Vol] 14 U/L 13-56 [facility] CO2 [Moles/Vol] 25.0 mmol/L 21.0-32.0 [facility] Globulin (S) [Mass/Vol] 3.9 g/dL 2.2-4.2 [facility] Urea nitrogen/Creatinine [Mass ratio] 19.2 mg/mg 10-20 [facility] Laboratory - Chemistry and C hemistry - challengeon 01-11-2023 Glucose Ql (U) Negative [facility] Laboratory - Urinalysison Protein Ql (U) Negative [facility] No Panel InformationOrdered By: Maureen Benítez on 01-11-2023 Estimated GFR (MDRD) Amer 138 mL/min >60 [facility] Comment on above: GFR Calc Estimated GFR (MDRD) Non-Af Amer 114 mL/min >60 [facility] Comment on above: Non- GFR Calc Serum or plasma albumin tanvi urement (mass/volume)Ordered By: Maureen Benítez on 01-11-2023 Albumin [Mass/Vol] 2.9 g/dL 3.2-5.0 [facility] Serum or plasma albumin/glob ulin mass ratioOrdered By: Maureen Benítez on 01-11-2023 Albumin/Globulin [Mass ratio] 0.7 {ratio} 0.9-2.4 [facility] Serum or plasma calcium tanvi urement (mass/volume)Ordered By: Maureen Benítez on 01-11-2023 Calcium [Mass/Vol] 9.0 mg/dL 8.5-10.1 [facility] Serum or plasma creatinine m easurement (mass/volume)Ordered By: Maureen Benítez on 01-11-2023 Creatinine [Mass/Vol] 0.68 mg/dL 0.55-1.02 [facility] Comment on above: The validity of the calculated GFR & GFRAA in patients over 70 years has not been determined. Clinical correlation is essential. Serum or plasma urea nitroge n measurement (mass/volume)Ordered By: Maureen Benítez on 01-11-2023 Urea nitrogen [Mass/Vol] 13 mg/dL 7-18 [facility] Thin prep Papanicolaou smear with manual screeningOrdered By: Maureen Benítez on 01-11-2023 Thin prep Papanicolaou smear with manual screening 15 U/L 15-37 [facility] Thin prep Papanicolaou smear with manual screening 5 5-15 [facility] Absolute lymphocyte countOrd ered By: Lara Andrade on 01-04-2023 Lymphocytes Auto (Unsp spec) [#/Vol] 1.37 10*3/uL 0.83-4.51 [facility] Basophil percentageOrdered B y: Lara Andrade on 01-04-2023 Basophils/100 WBC (Bld) 0.3 % 0-1 [facility] Eosinophils/100 WBC (Bld) 0.8 % 0-5 [facility] Neutrophils (Bld) [#/Vol] 5.1 10*3/uL 2.0-7.7 [facility] Neutrophils/100 WBC (Bld) 71.9 % 47-70 [facility] WBC (Bld) [#/Vol] 7.1 10*3/uL 4.4-11.0 [facility] Blood erythrocytes count (nu mber/volume)Ordered By: Lara Andrade on 01-04-2023 RBC (Bld) [#/Vol] 3.31 10*6/uL 4.2-5.4 [facility] Blood hemoglobin measurement (mass/volume)Ordered By: Lara Andrade on 01-04-2023 Hemoglobin (Bld) [Mass/Vol] 10.6 g/dL 12.0-15.0 [facility] Blood lymphocytes/100 leukoc ytesOrdered By: Lara Andrade on 01-04-2023 Lymphocytes/100 WBC (Bld) 19.4 % 19-41 [facility] Blood monocytes/100 leukocyt esOrdered By: Lara Andrade on 01-04-2023 Monocytes/100 WBC (Bld) 7.2 % 0-10 [facility] Blood platelet mean volumeOr dered By: Lara Andrade on 01-04-2023 Platelet mean volume (Bld) [Entitic vol] 9.5 fL 6.2-12.0 [facility] Determination of erythrocyte mean corpuscular volume (MCV)Ordered By: Lara Andrade on 01-04-2023 MCV (RBC) [Entitic vol] 97.6 fL 81-99 [facility] Gestational diabetes screen 1-hour screen with 50g oral glucose loadOrdered By: Lara Andrade on 01-04-2023 Glucose 1 Hr post 50 g glucose PO [Mass/Vol] 119 mg/dL 70-140 [facility] HIV 1 and HIV-2 antibody ass ay with HIV-1 p24 antigen detectionOrdered By: Lara Andrade on 01-04-2023 HIV 1+2 Ab+HIV1 p24 Ag IA Ql Non-Reactive Nonreactive [facility] Hematocrit Auto (Bld) [Volum e fraction]Ordered By: Lara Andrade on 01-04-2023 Hematocrit (Bld) [Volume fraction] 32.3 % 37-47 [facility] Laboratory - Hematology and Cell countsOrdered By: Lara Andrade on 01-04-2023 Erythrocyte distribution width (RBC) [Entitic vol] 45.9 fL 35.1-43.9 [facility] Erythrocyte distribution width (RBC) [Ratio] 13.0 % 11.6-14.6 [facility] Immature granulocytes/100 WBC (Bld) 0.400 % 0.0-0.9 [facility] Comment on above: IG% - Immature Granu locytes (promyelocytes, myelocytes and metamyelocytes) > 1% indicates that a LEFT SHIFT is Present. MCH (RBC) [Entitic mass] 32.0 pg 27.0-32.0 [facility] Nucleated RBC/100 WBC (Bld) [Ratio] 0 % 0-5 [facility] MCHC Auto (RBC) [Mass/Vol]Or dered By: Lara nAdrade on 01-04-2023 MCHC (RBC) [Mass/Vol] 32.8 g/dL 32-36 [facility] Platelets bldOrdered By: Chloe lugo Raymond on 01-04-2023 Platelets (Bld) [#/Vol] 225 10*3/uL 150-450 [facility] Serum Treponema species anti body detectionOrdered By: Lara Andrade on 01-04-2023 Treponema sp Ab Ql (S) Non-Reactive [facility] Laboratory - Chemistry and C hemistry - challengeon 12-16-2022 Glucose Ql (U) Negative [facility] Laboratory - Urinalysison Protein Ql (U) Trace [facility] Laboratory - Chemistry and C hemistry - challengeon 11-08-2022 Glucose Ql (U) Negative [facility] Laboratory - Urinalysison Protein Ql (U) Negative [facility] Laboratory - Chemistry and C hemistry - challengeon 09-29-2022 Glucose Ql (U) Negative [facility] Laboratory - Urinalysison Protein Ql (U) Negative [facility] Culture, urineOrdered By: Dr Paty Rangel on 09-04-2022 Bacteria identified Cx Nom (U) Positive [facility] Absolute lymphocyte countOrd ered By: Dr. Rangel on 09-01-2022 Lymphocytes Auto (Unsp spec) [#/Vol] 2.09 10*3/uL 0.83-4.51 [facility] Basophil percentageOrdered B y: Dr. Rangel on 09-01-2022 Basophils/100 WBC (Bld) 0.5 % 0-1 [facility] Eosinophils/100 WBC (Bld) 1.2 % 0-5 [facility] Neutrophils (Bld) [#/Vol] 5.8 10*3/uL 2.0-7.7 [facility] Neutrophils/100 WBC (Bld) 67.9 % 47-70 [facility] WBC (Bld) [#/Vol] 8.6 10*3/uL 4.4-11.0 [facility] Blood erythrocytes count (nu mber/volume)Ordered By: Dr. Rangel on 09-01-2022 RBC (Bld) [#/Vol] 4.30 10*6/uL 4.2-5.4 [facility] Blood hemoglobin measurement (mass/volume)Ordered By: Dr. Rangel on 09-01-2022 Hemoglobin (Bld) [Mass/Vol] 13.2 g/dL 12.0-15.0 [facility] Blood lymphocytes/100 leukoc ytesOrdered By: Dr. Rangel on 09-01-2022 Lymphocytes/100 WBC (Bld) 24.3 % 19-41 [facility] Blood monocytes/100 leukocyt esOrdered By: Dr. Rangel on 09-01-2022 Monocytes/100 WBC (Bld) 5.8 % 0-10 [facility] Blood platelet mean volumeOr dered By: Dr. Rangel on 09-01-2022 Platelet mean volume (Bld) [Entitic vol] 9.0 fL 6.2-12.0 [facility] Cervical or vagninal specime n microscopic examination by cytology stain (reported asOrdered By: Dr. Rangel on 09-01-2022 Cytology report Cyto stain Doc (Cvx/Vag) Comment . [facility] Comment on above: The Pap smear is a s creening test designed to aid in thedetection of premalignant and malignant conditions of theuterine cervix. It is not a diagnostic procedure andshould not be used as the sole means of detecting cervicalcancer. Both false-positive and false-negative reports dooccur. Chlamydia trachomatis rRNA d etection by probe and target amplification methodOrdered By: Dr. Rangel on 09-01-2022 C. trachomatis rRNA DIALLO+probe Ql (Unsp spec) Negative Negative [facility] Determination of erythrocyte mean corpuscular volume (MCV)Ordered By: Dr. Rangel on 09-01-2022 MCV (RBC) [Entitic vol] 89.5 fL 81-99 [facility] HIV 1 and HIV-2 antibody ass ay with HIV-1 p24 antigen detectionOrdered By: Dr. Rangel on 09-01-2022 HIV 1+2 Ab+HIV1 p24 Ag IA Ql Non-Reactive Nonreactive [facility] Hematocrit Auto (Bld) [Volum e fraction]Ordered By: Dr. Rangel on 09-01-2022 Hematocrit (Bld) [Volume fraction] 38.5 % 37-47 [facility] Laboratory - CytologyOrdered By: Dr. Rangel on 09-01-2022 Field Installation Technician Cyto stain Nom (Cvx/Vag) [ID] Comment . [facility] Comment on above: Charan Peoples totechnologist (ASCP) Pathologist Cyto stain Nom (Cvx/Vag) [ID] Comment . [facility] Comment on above: Ashish Whyte MD, Pa thologist Laboratory - Hematology and Cell countsOrdered By: Dr. Rangel on 09-01-2022 Erythrocyte distribution width (RBC) [Entitic vol] 38.7 fL 35.1-43.9 [facility] Erythrocyte distribution width (RBC) [Ratio] 12.0 % 11.6-14.6 [facility] Immature granulocytes/100 WBC (Bld) 0.300 % 0.0-0.9 [facility] Comment on above: IG% - Immature Granu locytes (promyelocytes, myelocytes and metamyelocytes) > 1% indicates that a LEFT SHIFT is Present. MCH (RBC) [Entitic mass] 30.7 pg 27.0-32.0 [facility] Nucleated RBC/100 WBC (Bld) [Ratio] 0 % 0-5 [facility] Laboratory - Microbiology an d Antimicrobial susceptibilityOrdered By: Dr. Rangel on 09-01-2022 N. gonorrhoeae DNA DIALLO+probe Ql (Unsp spec) Negative Negative [facility] Comment on above: Performed at: =[address] [id number] Director: Lenore Veliz MD, Phone: [phone] Laboratory - Miscellaneous t estsOrdered By: Dr. Rangel on 09-01-2022 Service comment (Unsp spec) [Interp] Comment . [facility] Comment on above: This liquid based Th inPrep(R) pap test was screened withthe use of an image guided system. Service comment (Unsp spec) [Interp] . . [facility] MCHC Auto (RBC) [Mass/Vol]Or dered By: Dr. Rangel on 09-01-2022 MCHC (RBC) [Mass/Vol] 34.3 g/dL 32-36 [facility] No Panel InformationOrdered By: Dr. Rangel on 09-01-2022 Human Papillomavirus Screen Comment . [facility] Comment on above: The HPV DNA reflex c riteria were not met with this specimenresult therefore, no HPV testing was performed.Performed at: [facility] [id number] Director: Lenore Veliz MD, Phone: [phone] at: [facility] [id number] [place], [place] [id number] Director: Dejuan Cassidy MD, Phone: [phone] Pathology report final diagnosis Narrative Comment . [facility] Comment on above: NEGATIVE FOR INTRAEP ITHELIAL LESION OR MALIGNANCY.REACTIVE CELLULAR CHANGES AND/OR REPAIR ARE PRESENT. Hepatitis B Surface Antigen Non-Reactive Nonreactive [facility] Hepatitis C Antibody Non-Reactive Nonreactive [facility] Comment on above: Non Reactive: < 0.8 Equivocal: >/= 0.8 to < 1.0 Reactive: >/= 1.0The CDC recommends that a reactive/equivocal HCV antibody result be followed up by the HCV Nucleic Acid Amplificationtest (589060) Miscellaneous Test Comment MAILED SPECIMEN [facility] Rubella IgG Antibody Reactive Nonreactive [facility] Comment on above: Antibody Results Int erpretation of Immune Status Non Reactive Presumed Non-Immune Equivocal Equivocal Reactive Presumed Immune Platelets bldOrdered By: Dr. Rangel on 09-01-2022 Platelets (Bld) [#/Vol] 302 10*3/uL 150-450 [facility] Serum Treponema species anti body detectionOrdered By: Dr. Rangel on 09-01-2022 Treponema sp Ab Ql (S) Non-Reactive [facility] Vital Signs Date Time Vital Sign Value Performing Clinician Faci lity 05-14-2025 09:58-0400 Body height 154.94 cm No Primary Care Physician [facility] 05-14-2025 09:58-0400 Body mass index (BMI) [Ratio] 23.6 kg/m2 No Primary Care Physician [facility] 05-14-2025 09:58-0400 Body weight 56.86 kg No Primary Care Physician [facility] 05-14-2025 09:58-0400 Diastolic blood pressure 69 mm[Hg] No Primary Care Physician [facility] 05-14-2025 09:58-0400 Systolic blood pressure 114 mm[Hg] No Primary Care Physician [facility] 04-28-2025 11:24-0400 Body height 154.94 cm No Primary Care Physician [facility] 04-28-2025 11:23-0400 Body mass index (BMI) [Ratio] 23.5 kg/m2 No Primary Care Physician [facility] 04-28-2025 11:23-0400 Body weight 56.5 kg No Primary Care Physician [facility] 04-28-2025 11:23-0400 Diastolic blood pressure 74 mm[Hg] No Primary Care Physician [facility] 04-28-2025 11:23-0400 Systolic blood pressure 113 mm[Hg] No Primary Care Physician [facility] 04-14-2025 14:51-0400 Body height 154.94 cm No Primary Care Physician [facility] 04-14-2025 14:50-0400 Body mass index (BMI) [Ratio] 20.5 kg/m2 No Primary Care Physician [facility] [facility] 04[facility]14[facility]25 14:50-0400 Body weight 54.17 kg No Primary Care Physician [facility] 04-14-2025 14:50-0400 Diastolic blood pressure 66 mm[Hg] No Primary Care Physician [facility] 04-14-2025 14:50-0400 Systolic blood pressure 100 mm[Hg] No Primary Care Physician [facility] 03-25-2025 13:14-0400 Body weight 51.25 kg No Primary Care Physician [facility] 03-25-2025 13:14-0400 Diastolic blood pressure 73 mm[Hg] No Primary Care Physician [facility] 03-25-2025 13:14-0400 Systolic blood pressure 108 mm[Hg] No Primary Care Physician [facility] 03-25-2025 11:39-0400 Body height 154.94 cm No Primary Care Physician [facility] 03-17-2025 11:22-0400 Body height 154.94 cm No Primary Care Physician [facility] 03-17-2025 11:22-0400 Body mass index (BMI) [Ratio] 21.6 kg/m2 No Primary Care Physician [facility] 03-17-2025 11:22-0400 Body weight 51.85 kg No Primary Care Physician [facility] 03-17-2025 11:22-0400 Diastolic blood pressure 72 mm[Hg] No Primary Care Physician [facility] 03-17-2025 11:22-0400 Systolic blood pressure 107 mm[Hg] No Primary Care Physician [facility] 03-12-2025 14:45-0400 Body height 154.94 cm No Primary Care Physician [facility] 03-12-2025 14:45-0400 Body mass index (BMI) [Ratio] 21.2 kg/m2 No Primary Care Physician [facility] 03-12-2025 14:45-0400 Body weight 50.88 kg No Primary Care Physician [facility] 03-12-2025 14:45-0400 Diastolic blood pressure 73 mm[Hg] No Primary Care Physician [facility] 03-12-2025 14:45-0400 Systolic blood pressure 114 mm[Hg] No Primary Care Physician [facility] 03-04-2025 13:05-0400 Body height 154.94 cm No Primary Care Physician [facility] 03-04-2025 13:05-0400 Body mass index (BMI) [Ratio] 21.2 kg/m2 No Primary Care Physician [facility] 03-04-2025 13:05-0400 Body weight 50.94 kg No Primary Care Physician [facility] 03-04-2025 13:05-0400 Diastolic blood pressure 74 mm[Hg] No Primary Care Physician [facility] 03-04-2025 13:05-0400 Systolic blood pressure 119 mm[Hg] No Primary Care Physician [facility] 02-18-2025 08:34-0400 Body height 154.94 cm No Primary Care Physician [facility] 02-18-2025 08:34-0400 Body mass index (BMI) [Ratio] 21.1 kg/m2 No Primary Care Physician [facility] 02-18-2025 08:34-0400 Body weight 50.8 kg No Primary Care Physician [facility] 02-18-2025 08:34-0400 Diastolic blood pressure 71 mm[Hg] No Primary Care Physician [facility] 02-18-2025 08:34-0400 Systolic blood pressure 107 mm[Hg] No Primary Care Physician [facility] 01-21-2025 10:37-0400 Body height 154.94 cm No Primary Care Physician [facility] 01-21-2025 10:37-0400 Body mass index (BMI) [Ratio] 20.7 kg/m2 No Primary Care Physician [facility] 01-21-2025 10:37-0400 Body weight 49.95 kg No Primary Care Physician [facility] 01-21-2025 10:37-0400 Diastolic blood pressure 68 mm[Hg] No Primary Care Physician [facility] 01-21-2025 10:37-0400 Systolic blood pressure 121 mm[Hg] No Primary Care Physician [facility] 01-04-2025 19:57-0400 Body temperature 97.8 [degF] No Primary Care Physician [facility] 01-04-2025 19:57-0400 Diastolic blood pressure 70 mm[Hg] No Primary Care Physician [facility] 01-04-2025 19:57-0400 Heart rate 61 /min No Primary Care Physician [facility] 01-04-2025 19:57-0400 Respiratory rate 15 /min No Primary Care Physician [facility] 01-04-2025 19:57-0400 SaO2% (BldA) [Mass fraction] 99 % No Primary Care Physician [facility] 01-04-2025 19:57-0400 Systolic blood pressure 102 mm[Hg] No Primary Care Physician [facility] 01-04-2025 16:46-0400 Body height 154.94 cm No Primary Care Physician [facility] 01-04-2025 16:46-0400 Body mass index (BMI) [Ratio] 21 kg/m2 No Primary Care Physician [facility] 01-04-2025 16:46-0400 Body weight 50.53 kg No Primary Care Physician [facility] 2024 08:44-0400 Body height 154.94 cm No Primary Care Physician [facility] 2024 08:44-0400 Body mass index (BMI) [Ratio] 20.5 kg/m2 No Primary Care Physician [facility] 2024 08:44-0400 Body weight 49.15 kg No Primary Care Physician [facility] 2024 08:44-0400 Diastolic blood pressure 76 mm[Hg] No Primary Care Physician [facility] 2024 08:44-0400 Systolic blood pressure 114 mm[Hg] No Primary Care Physician [facility] 08-01-2024 15:39-0500 Body height 154.94 cm No Primary Care Physician [facility] 08-01-2024 15:39-0500 Body mass index (BMI) [Ratio] 20.2 kg/m2 No Primary Care Physician [facility] 08-01-2024 15:39-0500 Body weight 48.53 kg No Primary Care Physician [facility] 08-01-2024 15:39-0500 Diastolic blood pressure 81 mm[Hg] No Primary Care Physician [facility] 08-01-2024 15:39-0500 Systolic blood pressure 123 mm[Hg] No Primary Care Physician [facility] 08-02-2023 17:22-0500 Diastolic blood pressure 71 mm[Hg] No Primary Care Physician [facility] 08-02-2023 17:22-0500 Heart rate 87 /min No Primary Care Physician [facility] 08-02-2023 17:22-0500 Respiratory rate 14 /min No Primary Care Physician [facility] 08-02-2023 17:22-0500 SaO2% (BldA) [Mass fraction] 100 % No Primary Care Physician [facility] 08-02-2023 17:22-0500 Systolic blood pressure 103 mm[Hg] No Primary Care Physician [facility] 08-02-2023 14:13-0500 Body height 154.94 cm No Primary Care Physician [facility] 08-02-2023 14:13-0500 Body mass index (BMI) [Ratio] 21.1 kg/m2 No Primary Care Physician [facility] 08-02-2023 14:13-0500 Body temperature 97.8 [degF] No Primary Care Physician [facility] 08-02-2023 14:13-0500 Body weight 50.8 kg No Primary Care Physician [facility] 05-16-2023 11:10-0400 Body mass index (BMI) [Ratio] 22.1 kg/m2 No Primary Care Physician [facility] 05-16-2023 11:10-0400 Body weight 53.18 kg No Primary Care Physician [facility] 05-16-2023 11:10-0400 Diastolic blood pressure 69 mm[Hg] No Primary Care Physician [facility] 05-16-2023 11:10-0400 Systolic blood pressure 102 mm[Hg] No Primary Care Physician [facility] 04-04-2023 07:50-0400 Body temperature 97.5 [degF] No Primary Care Physician [facility] 04-04-2023 07:50-0400 Diastolic blood pressure 71 mm[Hg] No Primary Care Physician [facility] 04-04-2023 07:50-0400 Heart rate 90 /min No Primary Care Physician [facility] 04-04-2023 07:50-0400 Systolic blood pressure 125 mm[Hg] No Primary Care Physician [facility] 04-04-2023 07:45-0400 Respiratory rate 15 /min No Primary Care Physician [facility] 04-04-2023 02:15-0400 SaO2% (BldA) [Mass fraction] 100 % No Primary Care Physician [facility] 04-02-2023 06:56-0400 Body height 154.94 cm No Primary Care Physician [facility] 04-02-2023 06:56-0400 Body mass index (BMI) [Ratio] 25 kg/m2 No Primary Care Physician [facility] 04-02-2023 06:56-0400 Body weight 60.23 kg No Primary Care Physician [facility] 04-01-2023 10:51-0400 Body height 154.94 cm No Primary Care Physician [facility] 04-01-2023 10:51-0400 Body mass index (BMI) [Ratio] 25 kg/m2 No Primary Care Physician [facility] 04-01-2023 10:51-0400 Body weight 60.2 kg No Primary Care Physician [facility] 03-31-2023 08:17-0400 Body mass index (BMI) [Ratio] 25.1 kg/m2 No Primary Care Physician [facility] 03-31-2023 08:17-0400 Body weight 60.38 kg No Primary Care Physician [facility] 03-31-2023 08:17-0400 Diastolic blood pressure 68 mm[Hg] No Primary Care Physician [facility] 03-31-2023 08:17-0400 Systolic blood pressure 114 mm[Hg] No Primary Care Physician [facility] 03-30-2023 19:35-0400 Diastolic blood pressure 61 mm[Hg] No Primary Care Physician [facility] 03-30-2023 19:35-0400 Heart rate 85 /min No Primary Care Physician [facility] 03-30-2023 19:35-0400 Systolic blood pressure 110 mm[Hg] No Primary Care Physician [facility] 03-30-2023 19:34-0400 SaO2% (BldA) [Mass fraction] 100 % No Primary Care Physician [facility] 03-30-2023 17:46-0400 Body height 154.94 cm No Primary Care Physician [facility] 03-30-2023 17:46-0400 Body mass index (BMI) [Ratio] 25.4 kg/m2 No Primary Care Physician [facility] 03-30-2023 17:46-0400 Body weight 61.23 kg No Primary Care Physician [facility] 03-30-2023 17:40-0400 Body temperature 97.6 [degF] No Primary Care Physician [facility] 03-24-2023 11:05-0400 Body mass index (BMI) [Ratio] 25.4 kg/m2 No Primary Care Physician [facility] 03-24-2023 11:05-0400 Body weight 61.23 kg No Primary Care Physician [facility] 03-24-2023 11:05-0400 Diastolic blood pressure 79 mm[Hg] No Primary Care Physician [facility] 03-24-2023 11:05-0400 Systolic blood pressure 113 mm[Hg] No Primary Care Physician [facility] 03-14-2023 09:05-0400 Body height 154.94 cm No Primary Care Physician [facility] 03-14-2023 09:03-0400 Body weight 60.89 kg No Primary Care Physician [facility] 03-14-2023 09:03-0400 Diastolic blood pressure 72 mm[Hg] No Primary Care Physician [facility] 03-14-2023 09:03-0400 Respiratory rate 16 /min No Primary Care Physician [facility] 03-14-2023 09:03-0400 Systolic blood pressure 108 mm[Hg] No Primary Care Physician [facility] 03-09-2023 09:11-0400 Diastolic blood pressure 72 mm[Hg] No Primary Care Physician [facility] 03-09-2023 09:11-0400 Systolic blood pressure 110 mm[Hg] No Primary Care Physician [facility] 03-09-2023 08:55-0400 Body mass index (BMI) [Ratio] 25.3 kg/m2 No Primary Care Physician [facility] 03-09-2023 08:55-0400 Body weight 60.78 kg No Primary Care Physician [facility] 03-02-2023 08:34-0400 Body height 154.94 cm No Primary Care Physician [facility] 03-02-2023 08:30-0400 Body mass index (BMI) [Ratio] 25.2 kg/m2 No Primary Care Physician [facility] 03-02-2023 08:30-0400 Body weight 60.55 kg No Primary Care Physician [facility] 03-02-2023 08:30-0400 Diastolic blood pressure 67 mm[Hg] No Primary Care Physician [facility] 03-02-2023 08:30-0400 Systolic blood pressure 101 mm[Hg] No Primary Care Physician [facility] 02-21-2023 11:37-0400 Body mass index (BMI) [Ratio] 24.7 kg/m2 No Primary Care Physician [facility] 02-21-2023 11:37-0400 Body weight 59.53 kg No Primary Care Physician [facility] 02-21-2023 11:37-0400 Diastolic blood pressure 85 mm[Hg] No Primary Care Physician [facility] 02-21-2023 11:37-0400 Systolic blood pressure 125 mm[Hg] No Primary Care Physician [facility] 01-27-2023 10:07-0400 Body mass index (BMI) [Ratio] 23.8 kg/m2 No Primary Care Physician [facility] 01-27-2023 10:07-0400 Body weight 57.26 kg No Primary Care Physician [facility] 01-27-2023 10:07-0400 Diastolic blood pressure 60 mm[Hg] No Primary Care Physician [facility] 01-27-2023 10:07-0400 Systolic blood pressure 69 mm[Hg] No Primary Care Physician [facility] 01-11-2023 11:24-0400 Body height 154.94 cm No Primary Care Physician [facility] 01-11-2023 11:14-0400 Body mass index (BMI) [Ratio] 23.4 kg/m2 No Primary Care Physician [facility] 01-11-2023 11:14-0400 Body weight 56.24 kg No Primary Care Physician [facility] 01-11-2023 11:14-0400 Diastolic blood pressure 64 mm[Hg] No Primary Care Physician [facility] 01-11-2023 11:14-0400 Systolic blood pressure 98 mm[Hg] No Primary Care Physician [facility] 12-16-2022 09:25-0400 Body mass index (BMI) [Ratio] 23.1 kg/m2 No Primary Care Physician [facility] 12-16-2022 09:25-0400 Body weight 55.5 kg No Primary Care Physician [facility] 12-16-2022 09:25-0400 Diastolic blood pressure 62 mm[Hg] No Primary Care Physician [facility] 12-16-2022 09:25-0400 Systolic blood pressure 105 mm[Hg] No Primary Care Physician [facility] 11-08-2022 08:38-0400 Body height 154.94 cm No Primary Care Physician [facility] 11-08-2022 08:36-0400 Body mass index (BMI) [Ratio] 21.5 kg/m2 No Primary Care Physician [facility] 11-08-2022 08:36-0400 Body weight 51.76 kg No Primary Care Physician [facility] 11-08-2022 08:36-0400 Diastolic blood pressure 58 mm[Hg] No Primary Care Physician [facility] 11-08-2022 08:36-0400 Systolic blood pressure 119 mm[Hg] No Primary Care Physician [facility] 09-29-2022 11:32-0500 Body mass index (BMI) [Ratio] 20.1 kg/m2 No Primary Care Physician [facility] 09-29-2022 11:32-0500 Body weight 48.3 kg No Primary Care Physician [facility] 09-29-2022 11:32-0500 Diastolic blood pressure 68 mm[Hg] No Primary Care Physician [facility] 09-29-2022 11:32-0500 Systolic blood pressure 113 mm[Hg] No Primary Care Physician [facility] 09-01-2022 12:25-0500 Body weight 47.17 kg No Primary Care Physician [facility] 09-01-2022 11:58-0500 Body height 154.94 cm No Primary Care Physician [facility] 09-01-2022 11:57-0500 Diastolic blood pressure 80 mm[Hg] No Primary Care Physician [facility] 09-01-2022 11:57-0500 Systolic blood pressure 121 mm[Hg] No Primary Care Physician [facility] 06-20-2022 11:01-0500 Body mass index (BMI) [Ratio] 19.7 kg/m2 No Primary Care Physician [facility] 06-20-2022 11:01-0500 Body weight 47.4 kg No Primary Care Physician [facility] 06-20-2022 11:01-0500 Diastolic blood pressure 70 mm[Hg] No Primary Care Physician [facility] 06-20-2022 11:01-0500 Systolic blood pressure 110 mm[Hg] No Primary Care Physician [facility] Encounters Encounter Date Encounter Type Care Provider Facility Start: 06-18-2025 ambulatory No Primary Car e Physician Facility:[facility] Start: 06-11-2025 End: 06-11-2025 ambulatory No Primary Care Physician Facility[place] Start: 06-11-2025 End: 06-11-2025 ambulatory No Primary Care Physician Facility:[facility] Start: 05-15-2025 End: 05-15-2025 ambulatory MD NO PRIMARY CARE [facility] Start: 05-14-2025 End: 05-14-2025 Patient encounter procedure Maureen STEVENSON -[facility] Work Phone: Start: 05-14-2025 End: 05-14-2025 ambulatory No Primary Care Physician -[facility] Start: 04-28-2025 End: 04-28-2025 ambulatory No Primary Care Physician -Laboratory Start: 04-28-2025 End: 04-28-2025 Patient encounter procedure Jhoana Pace CNM -Laboratory Work Phone: Start: 04-28-2025 End: 04-28-2025 Patient encounter procedure Jhoana Pace CNM -[facility] Work Phone: Start: 04-28-2025 End: 04-28-2025 ambulatory No Primary Care Physician -[facility] Start: 04-28-2025 End: 04-28-2025 ambulatory No Primary Care Physician Facility:[facility] Start: 04-16-2025 End: 04-16-2025 ambulatory MARYJO BELTRE [facility] Start: 04-14-2025 End: 04-14-[address] Nelly Rangel MD -[facility] Work Phone: Start: 04-14-2025 End: 04-14-2025 ambulatory No Primary Care Physician -[facility] Start: 03-25-2025 End: 03-25-[address] Nelly Rangel MD -[facility] Work Phone: Start: 03-25-2025 End: 03-25-2025 ambulatory No Primary Care Physician [facility] Start: 03-17-2025 End: 03-17-2025 Patient encounter procedure Jhoana Pace CNM -[facility] Work Phone: Start: 03-17-2025 End: 03-17-2025 ambulatory No Primary Care Physician [facility] Start: 03-17-2025 End: 03-17-2025 ambulatory No Primary Care Physician Facility:[facility] Start: 03-13-2025 End: 03-13-2025 ambulatory LINDSEY OLSON [facility] Start: 03-12-2025 End: 03-12-[address] Lindsey Jordan DO -[facility] Work Phone: Start: 03-12-2025 End: 03-12-2025 ambulatory No Primary Care Physician -[facility] Start: 03-04-2025 End: 03-04-[address] Lindsey Jordan DO -[facility] Work Phone: Start: 03-04-2025 End: 03-04-2025 ambulatory No Primary Care Physician -[facility] Start: 02-18-2025 End: 02-18-2025 Patient encounter procedure Maureen STEVENSON -[facility] Work Phone: Start: 02-18-2025 End: 02-18-2025 ambulatory No Primary Care Physician -[facility] Start: 02-05-2025 End: 02-05-2025 ambulatory No Primary Care Physician -Lab [facility] Start: 02-05-2025 End: 02-05-[address] Nelly Rangel MD -Lab [facility] Start: 02-05-2025 End: 02-05-2025 ambulatory Nelly Rangel Facility:[facility] Start: 01-21-2025 End: 01-21-2025 ambulatory No Primary Care Physician -Laboratory Specimen Start: 01-21-2025 End: 01-21-[address] Nelly Rangel MD -Labor[facility] Specimen Work Phone: Start: 01-21-2025 End: 01-21-[address] Nelly Rangel MD -[facility] Work Phone: Start: 01-21-2025 End: 01-21-2025 ambulatory No Primary Care Physician [facility] Work Phone: Start: 01-21-2025 End: 01-21-2025 ambulatory Nelly Rangel Facility:[facility] Start: 01-17-2025 Non-patient / Non-visit Bharti Haley RN -[facility] Work Phone: Start: 01-17-2025 ambulatory No Primary Car e Physician Facility[place] Start: 01-04-2025 End: 01-04-2025 Emergency department patient visit No Primary Care Physician -Emergency Department Work Phone: Start: 12-26-2024 End: 12-26-2024 ambulatory No Primary Care Physician [facility] Work Phone: Start: 12-26-2024 End: 12-26-2024 Patient encounter procedure Jhoana Pace CNM -Lab [facility] Start: 12-26-2024 End: 12-26-2024 ambulatory No Primary Care Physician Facility:[facility] Start: 12-24-2024 End: 12-24-2024 ambulatory No Primary Care Physician [facility] Work Phone: Start: 12-24-2024 End: 12-24-2024 Patient encounter procedure Jhoana Pace CNM -Lab [facility] Start: 12-24-2024 End: 12-24-2024 ambulatory No Primary Care Physician Facility:[facility] Start: 2024 End: [address] Nelly Rangel MD -[facility] Work Phone: Start: 2024 End: 2024 ambulatory No Primary Care Physician [facility] Work Phone: Start: 2024 End: 2024 ambulatory Nelly Rangel Facility:[facility] Start: 10-21-2024 End: 10-21-2024 ambulatory No Primary Care Physician [facility] Work Phone: Start: 10-21-2024 End: 10-21-2024 Patient encounter procedure Jhoana OBANDOM -Lab, [facility] Start: 10-21-2024 End: 10-21-2024 ambulatory Jhoana Pace Facility:[facility] Start: 10-18-2024 End: 10-18-2024 ambulatory No Primary Care Physician [facility] Work Phone: Start: 10-18-2024 End: 10-18-2024 Patient encounter procedure Jhoana Pace CNM -Lab, [facility] Start: 10-18-2024 End: 10-18-2024 ambulatory Jhoana Paec Facility:[facility] Start: 10-16-2024 End: 10-16-2024 ambulatory No Primary Care Physician [facility] Work Phone: Start: 10-16-2024 End: 10-16-2024 Patient encounter procedure Jhoana Pace CNM -Lab, [facility] Start: 10-16-2024 End: 10-16-2024 ambulatory Jhoana Pace Facility:[facility] Start: 10-14-2024 End: 10-14-2024 ambulatory No Primary Care Physician [facility] Work Phone: Start: 10-14-2024 End: 10-14-2024 Patient encounter procedure Jhoana Pace CNM -Lab, [facility] Start: 10-14-2024 End: 10-14-2024 ambulatory Jhoana Pace Facility:[facility] Start: 08-01-2024 End: 08-01-[address] Lindsey Jordan DO -[facility] Work Phone: Start: 08-01-2024 End: 08-01-2024 ambulatory No Primary Care Physician Facility:[facility] Start: 07-11-2024 End: 07-11-[address] Nelly Rangel MD -Lab, [facility] Start: 07-11-2024 End: 07-11-2024 ambulatory Nelly Rangel Facility:[facility] Start: 07-09-2024 End: 07-09-2024 Patient encounter procedure Maureen Benítez NP-C -Lab, [facility] Start: 07-09-2024 End: 07-09-2024 ambulatory No Primary Care Physician Facility:[facility] Start: 12-03-2023 End: 12-03-2023 ambulatory PAZ BURCH APRN-[employer] DIRECTOR Facility:A Start: 08-02-2023 End: 08-02-2023 Emergency department patient visit No Primary Care Physician [facility]-Emergency Department Work Phone: Start: 05-16-2023 End: 05-16-2023 Patient encounter procedure No Primary Care Physician [facility] Work Phone: Start: 04-04-2023 Non-patient / Non-visit No Primary Care Physician [facility] Start: 04-03-2023 Non-patient / Non-visit No Primary Care Physician [facility] Start: 04-02-2023 End: 04-04-2023 Evaluation and management of inpatient No [facility] Work Phone: Start: 04-02-2023 Non-patient / Non-visit No Primary Care Physician [facility] Start: 04-01-2023 Non-patient / Non-visit No Primary Care Physician [facility] Start: 04-01-2023 End: 04-01-2023 ambulatory No Primary Care Physician [facility] Work Phone: Start: 04-01-2023 End: 04-01-2023 Patient encounter procedure No Primary Care Physician [facility] Work Phone: Start: 03-31-2023 End: 03-31-2023 Patient encounter procedure No Primary Care Physician [facility] Work Phone: Start: 03-30-2023 Non-patient / Non-visit No Primary Care Physician [facility] Start: 03-30-2023 End: 03-30-2023 ambulatory No Primary Care Physician [facility] Work Phone: Start: 03-30-2023 End: 03-30-2023 Patient encounter procedure No Primary Care Physician [facility] Work Phone: Start: 03-24-2023 End: 03-24-2023 Patient encounter procedure No Primary Care Physician [facility] Work Phone: Start: 03-14-2023 End: 03-14-2023 Patient encounter procedure No Primary Care Physician [facility] Work Phone: Start: 03-09-2023 End: 03-09-2023 ambulatory No Primary Care Physician [facility] Work Phone: Start: 03-09-2023 End: 03-09-2023 Patient encounter procedure No Primary Care Physician [facility] Work Phone: Start: 03-02-2023 End: 03-02-2023 ambulatory No Primary Care Physician [facility] Work Phone: Start: 03-02-2023 End: 03-02-2023 Patient encounter procedure No Primary Care Physician [facility]-Laboratory, Specimen Work Phone: Start: 03-02-2023 End: 03-02-2023 Patient encounter procedure No Primary Care Physician [facility] Start: 03-01-2023 End: 03-01-2023 ambulatory No Primary Care Physician [facility] Work Phone: Start: 03-01-2023 End: 03-01-2023 Patient encounter procedure No Primary Care Physician [facility]-Ultrasound, [facility] Work Phone: Start: 02-21-2023 End: 02-21-2023 Patient encounter procedure No Primary Care Physician [facility] Work Phone: Start: 01-27-2023 End: 01-27-2023 Patient encounter procedure No Primary Care Physician [facility] Work Phone: Start: 01-12-2023 End: 01-12-2023 ambulatory No Primary Care Physician [facility] Work Phone: Start: 01-12-2023 End: 01-12-2023 Patient encounter procedure No Primary Care Physician [facility]-Ultrasound, [facility] Start: 01-11-2023 End: 01-11-2023 ambulatory No Primary Care Physician [facility] Work Phone: Start: 01-11-2023 End: 01-11-2023 Patient encounter procedure No Primary Care Physician [facility] Start: 01-04-2023 End: 01-04-2023 Patient encounter procedure No Primary Care Physician [facility]-Laboratory, [facility] Start: 12-16-2022 End: 12-16-2022 Patient encounter procedure No Primary Care Physician [facility] Start: 11-08-2022 End: 11-08-2022 ambulatory No Primary Care Physician [facility] Work Phone: Start: 11-08-2022 End: 11-08-2022 Patient encounter procedure No Primary Care Physician [facility]-Outpatient Pavilion Ultrasound Start: 11-08-2022 End: 11-08-2022 Patient encounter procedure No Primary Care Physician [facility] Start: 09-29-2022 End: 09-29-2022 Patient encounter procedure No Primary Care Physician [facility] Start: 09-01-2022 End: 09-01-2022 ambulatory No Primary Care Physician [facility] Work Phone: Start: 09-01-2022 End: 09-01-2022 Patient encounter procedure No Primary Care Physician [facility] Start: 06-20-2022 End: 06-20-2022 Patient encounter procedure No Primary Care Physician [facility] Procedures Date Procedure Procedure Detail Performing Clinician Start: 04-28-2025 Urine culture No Primar y Care Physician Start: 03-17-2025 Procedure No Primary Care Physician Comment on above: Test Ordered: [id number] Bile AcidsBile Acids 1.9 umol/L Reference Range: 0.0-10.0Performed at: - [facility] [address] [id number] Director: Kory Brar MD, Phone: [phone] at: - [facility] [address] [id number] Director: Mendoza Carlos PhD, Phone: [phone] Start: 02-05-2025 Procedure No Primary Care Physician Start: 02-05-2025 Hepatitis C antibody measurement No Primary Care Physician Comment on above: Reactive: Presumptiv e evidence of antibodies to HCV. Follow CDC recommendations for supplemental testing.Non-Reactive: Antibodies to HCV were not detected; does not exclude the possibility of exposure to HCVReactive Results are presumptive evidence of antibodies to HCV. Follow CDC recommendations for supplemental testing.Order confirmation testing: HCV Quant by PCR testing - HCVPCR #[id number] Non Reactive: < 0.8 Equivocal: >/= 0.8 to < 1.0 Reactive: >/= 1.0The CDC requires that a reactive/equivocal HCV antibody result be sent out for confirmation. HCV Quant by PCR testing. Start: 02-05-2025 Rubella IgG measurement No Primary Care Physician Comment on above: Antibody Result: Int erpretationNon-Reactive: Non- ImmuneReactive: ImmuneThe following results were obtained with the [employer] Rubella IgG assay. Results from assays of other manufacturers cannot be used interchangeably. Start: 02-05-2025 Serologic test for syphilis No Primary Care Physician Start: 01-21-2025 Urine culture No Primar y Care Physician Start: 01-04-2025 Estimated creatinine clearance No Primary Care Physician Start: 01-04-2025 Transvaginal obstetr ic ultrasonography No Primary Care Physician Start: 01-04-2025 Urnls dip stick/tabl et reagent auto microscopy No Primary Care Physician Start: 01-04-2025 Urine culture No Primar y Care Physician Start: 2024 Gram stain microscopy N o [...] Care Physician Start: 2024 Prothrombin time No [facility] Care Physician Start: 2024 Serum IgM anticardio lipin measurement No Primary Care Physician Comment on above: Negative: <13 Indete rminate: 13 - 20 Low-Med Positive: >20 - 80 High Positive: >80Performed at: [facility] [employer] [id number] Director: Kory Brar MD, Phone: [phone] at: [facility] [id number] Director: Mendoza Carlos PhD, Phone: [phone] Start: 08-02-2023 Plain chest X-ray No [facility] Care Physician Start: 04-01-2023 Ultrasonography for antepartum [...] Treatment Date Care Activity Detail Author Start: 05-14-2025 Measurement of gluco se 2 hours after glucose challenge for glucose tolerance test [facility] Start: 05-14-2025 Serologic test for syphilis [facility] Start: 05-14-2025 [facility] Start: 03-17-2025 CBC W Auto Different ial panel - Blood [facility] Start: 03-17-2025 Comprehensive metabo lic 2000 panel - Serum or Plasma [facility] Start: 03-17-2025 Procedure [facility] Start: 01-04-2025 [facility] Start: 01-04-2025 [facility] Start: 01-04-2025 Bacteria identified in Urine by Culture Urine Culture [facility] Start: 08-02-2023 [facility] Start: 08-02-2023 [facility] Start: 04-04-2023 Patient discharge [facility] Start: 04-02-2023 Administration of medication [facility] Start: 04-02-2023 Application of ice c ollar, cap or bag [facility] Start: 04-02-2023 Catheterization of vein [facility] Start: 04-02-2023 Introduction of urin fiordaliza catheter [facility] Start: 04-02-2023 Measuring intake and output [facility] Start: 04-02-2023 Notification of physician [facility] Start: 04-02-2023 Procedure discontinued [facility] Start: 04-02-2023 Provision of activit y privileges [facility] Start: 04-02-2023 Vital signs measurements [facility] Start: 04-02-2023 [facility] Start: 04-02-2023 Admission procedure [facility] Start: 04-01-2023 Nonstress test [facility] Start: 04-01-[address] [facility] Start: 04-01-2023 Vital signs measurements [facility] Start: 04-01-2023 [facility] Start: 04-01-2023 Patient discharge [facility] Start: 03-30-2023 Nonstress test [facility] Start: 03-30-[address] [facility] Start: 03-30-2023 Vital signs measurements [facility] Start: 03-30-2023 [facility] Start: 03-30-2023 Patient discharge [facility] Alanine aminotransfe rase [Enzymatic activity/volume] in Serum or Plasma [facility] Albumin [Mass/volume ] in Serum or Plasma [facility] Alkaline phosphatase [Enzymatic activity/volume] in Serum or Plasma [facility] Anion gap in Serum or Plasma [facility] Bilirubin, total measurement [facility] BUN/Creatinine ratio [facility] Calcium [Mass/volume ] in Serum or Plasma [facility] Carbon dioxide, tota l [Moles/volume] in Central venous blood [facility] CBC W Auto Different ial panel - Blood [facility] CBC W Auto Different ial panel - Blood [facility] Chlamydia deoxyribon ucleic acid detection [facility] Complete blood count [facility] Creatinine [Mass/vol ume] in Serum or Plasma [facility] Erythrocyte mean cor puscular volume determination [facility] Glucose [Mass/volume ] in Serum or Plasma [facility] Hematocrit [Volume F raction] of Blood [facility] Hemoglobin [Mass/vol ume] in Blood [facility] Hepatitis C antibody measurement [facility] Leukocytes [#/volume] in Blood [facility] Mean corpuscular hem oglobin concentration determination [facility] Mean corpuscular hem oglobin determination [facility] Measurement of renal function [facility] Neutrophil count [facility] Neutrophil percent differential count [facility] Patient Education [facility] Work Phone: Patient referral [facility] Work Phone: Platelets [#/volume] in Blood [facility] Potassium measurement [facility] Red blood cell count [facility] Red cell distributio n width determination [facility] Rubella IgG measurement [facility] Serologic test for syphilis [facility] Serum chloride measurement [facility] Sodium measurement [facility] Total protein measurement [facility] Urea nitrogen [Mass/ volume] in Serum or Plasma [facility] Urine culture [facility] US Gallbladder [facility] Pelvis [facility] Payers Date Payer Category Payer Unknown 2024 Unknown [id number] 2023 Self-pay [id number] 1999 Unknown [id number] 2.16.8 [id number] Self-pay SELF PAY ER DEPOSIT [id number] Unknown [facility] PACKAGE PLAN [id number] Unknown [id number] 2.16.8 40.1.187051.3.579.2.462 Unknown [id number] 2.16.8 40.1.294946.3.579.2.462 Unknown [id number] 2.16.8 40.1.292283.3.579.2.462 Unknown [id number] 2.16.8 40.1.394376.3.579.2.462 Unknown [id number] 2.16.8 40.1.265408.3.579.2.462 Unknown [id number] 2.16.8 40.1.841888.3.579.2.462 Unknown [id number] 2.16.8 40.1.910985.3.579.2.462 Unknown [id number] 2.16.8 40.1.118071.3.579.2.462 Unknown [id number] 2.16.8 40.1.089616.3.579.2.462 Unknown [id number] 2.16.8 40.1.836003.3.579.2.462 Unknown [id number] 2.16.8 40.1.717086.3.579.2.462 Unknown [id number] 2.16.8 40.1.821071.3.579.2.462 Unknown [id number] 2.16.8 40.1.657365.3.579.2.462 Unknown [id number] 2.16.8 40.1.335544.3.579.2.462 Unknown [id number] 2.16.8 40.1.986839.3.579.2.462 Unknown [id number] 2.16.8 40.1.473539.3.579.2.462 Unknown [id number] 2.16.8 40.1.558362.3.579.2.462 Unknown [id number] 2.16.8 40.1.141483.3.579.2.462 Unknown [id number] 2.16.8 40.1.038450.3.579.2.462 Unknown [id number] 2.16.8 40.1.403127.3.579.2.462 Unknown [id number] 2.16.8 40.1.132531.3.579.2.462 Unknown [id number] 2.16.8 40.1.880455.3.579.2.462 Unknown [id number] 2.16.8 40.1.331044.3.579.2.462 Unknown [id number] 2.16.8 40.1.734144.3.579.2.462 Unknown [id number] 2.16.8 40.1.305690.3.579.2.462 Unknown [id number] 2.16.8 40.1.450820.3.579.2.462 Unknown [id number] 2.16.8 40.1.994624.3.579.2.462 Unknown [id number] 2.16.8 40.1.127570.3.579.2.462 Unknown [id number] 2.16.8 40.1.411163.3.579.2.462 Unknown [id number] 2.16.8 40.1.806924.3.579.2.462 Social History Date Type Detail Facility Start: 09-01-2022 End: 08-02-2023 Tobacco smoking status NHIS Unknown if ever smoked [facility] Start: 2000 Sex Assigned At Female [facility] Start: 08-01-2024 End: 02-28-2025 Tobacco smoking status NHIS Never smoked tobacco (finding) [facility] Start: 10-22-2024 End: 11-11-2024 Sex Female (finding) [facility] Patient currentl y [facility] Goals Date Patient Goal Desired Activity /State Mental Status Date Assessment Result Facility 08-02-2023 Cognitive function Awake;Alert;A ppropriate;Fol lows Commands [facility] Work Phone: Clinical Notes 09-01-2022 to 05-14-2025 Note Date & Type Note Facility 05-14-2025 Progress note [facility] 04-28-2025 Progress note [facility] 04-14-2025 Progress note [facility] 04-14-2025 Progress note Note Date/Time April 14, 2025 3:11pm [facility] [address], [address] [place] [address] OFFICE VISIT Date of Service: 04/14/25 MR#: [id number] Acct: [id number] Name: LISA EWING Rep #: [id number] : 2000 Provider: Dr. 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 Is patient in pain?: No Allergies No Known Allergies Allergy (Verified 04/14/25 14:48) Medications ?Medication ?Instructions ?Recorded ?Confirmed ?Type multivitamin no.47-iron fum 27 1 cap PO DAILY pregnanc y 10/14/20 04/14/25 History mg-folate no.1 1 mg-dha 300 mg capsule (PNV-DHA) cyanocobalamin-liver extract tablet tab PO 01/17/25 History magnesium 200 mg tablet 200 mg PO QDAY 01/17/2503/31 History ondansetron 4 mg disintegrating 4 mg PO Q4H PRN nausea and 02/18/25 04/14/25 Rx tablet vomiting #60 tabs Last Menstrual Period: 11/21/24 Zika: Zika virus screening: Negative : No PFSH PFSH Medical History History of recurrent miscarriages Dyspareunia Anemia Surgical History No significant past surgical history Family History Grandmother Cancer Grandfather Hypertension Social History adopted: No household members: spouse and children housing: house number of children: 2 current occupation: [employer] current occupational exposures/hazards: No pets and animals: No history of recent travel: Yes ( - December 2024) out of state: Yes out of country: No sexually active: Yes Smoking Status: Never smoker second hand exposure: No alcohol intake: current alcohol intake frequency: holidays/special occasions only details: not while substance use type: does not use diet: lactose free well-balanced diet: daily or most days caffeine: Yes Type: coffee eating out: 1-3 times/week during the past year weight has: remained stable what type of physical activity do you participate in: walking frequency: 3-4 times per week duration: < 15 minutes/day 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 Date Name GA/Weeks Outcome Route Bth Weight Infant Gen Labor Lgth Anesthesia Del Locatn Provider FOB 05/28/21 [place] 41 live - full term vacuum 7lbs 8oz Male ep idural [facility] Bayron Lang 04/02/23 Sadia 41 live - full term 7lbs 2oz Female ep idural [facility] Rebecca Pace Lang 06/30/23 4 spontaneous 09/28/24 5 spontaneous Delivery Date: 05/28/21 Last Updated by: Chanda Mcdonough IOL VAVD HPI 20 Wk OB Details: LISA EWING is a 24 year old who presents for routine OB visit. OB Visit [facility]ADRA Calculator Estimated Delivery Date Method Current WG Current Estimate 08/28/25 LMP (Certain) 20w 4d Other Estimates 09/02/25 Ultrasound #1 19w 6d Expected Delivery Route/Plan Labor Preferences- CB/BF classes: [] labor support person: [] labor intervention preferences: [] pain management options preferred: [] cut cord/dad catch: [] : [] PP control planned: [] discussed possible routes of delivery and associated risks: [] special requests: [] Specific Issue/Plans Covid status: [] Flu vaccine: [] Tdap vaccine: [] Rhogam: [] LARC form signed: [] Problem list reviewed and updated with the most current plan of care details and appropriate orders placed. Relevant counseling for the gestational age provided. Continue routine care and follow up unless otherwise noted in visit notes/problem list details Initial Weight: Not Recorded Date -?-?-?-?-?-?-?-?-?-?-?-?- EGA Weight BP Urine Prot -?-?-?-?-?-?-?-?-?-?-?-?- Glucose FHR FuHt Pres Dilation -?-?-?-?-?-?-?-?-?-?-?-?- Effaced St Visit Note 01/21/25 -?-?-?-?-?-?-?-?-?-?-?-?- 8w 5d 110 lb 2 oz 121/68 -?-?-?-?-?-?-?-?-?-?-?-?- 160 -?-?-?-?-?-?-?-?-?-?-?-?- SM- CRL cons wit h LMP 02/18/25 -?-?-?-?-?-?-?-?-?-?-?-?- 12w 5d 112 lb 107/71 Negative -?-?-?-?-?-?-?-?-?-?-?-?- Negative 163 -?-?-?-?-?-?-?-?-?-?-?-?- MH-No VB. Nausea persists. Compazine causes too much fatigue. Rx estelaan sent. Br US confirm FHT 03/04/25 -?-?-?-?-?-?-?-?-?--?-?-?- 14w 5d 112 lb 5 oz 119/74 Nega tive -?-?-?-?-?-?-?-?-?-?-?-?- Negative 165 -?-?-?-?-?-?-?-?-?-?-?-?- JV- patient is [place] seen today for vaginal bleeding. She was bleeding bright red this weekend and was seen at [facility] and told it was a cervical ectropion. I agree based on exam today, however I am unable to rule out previa on the ultrasound today as well. consulting [facility] to see her at 16 weeks. pelvic rest in the meantime. 03/12/25 -?-?-?-?-?-?-?-?-?-?-?-?- 15w 6d 112 lb 3 oz 114/73 Nega tive -?-?-?-?-?-?-?-?-?-?-?-?- Negative 150 -?-?-?-?-?-?-?-?-?-?-?-?- JV- pt is being seen urgently again today for cramping and continued brown spotting. She states that the pain is more on her right side. on exam she does not have rebound or guarding. ultrasound does not show an ovarian cyst. She declines a pelvic exam. Has formal scan tomorrow. recommend heat on lower back and tylenol. call if pain worsens. 03/17/25 -?-?-?-?-?-?-?-?-?-?-?-?- 16w 4d 114 lb 5 oz 107/72 Nega tive -?-?-?-?-?-?-?-?-?-?-?-?- Negative 148 -?-?-?-?-?-?-?-?-?-?-?-?- KW- US reviewed from MFM. Has partial abruption and has plan to repeat US with MFM at 20 weeks. Will need growth at 32 and 36 weeks. bleeding precautions reviewed. concerns with itching on hands and feet. Discussed likely normal but will do labs today for baseline. Declines AFP KW- No further bleeding sinc e US with MFM. US reviewed. Has partial abruption and has plan to repeat US with MFM at 20 weeks. Will need growth at 32 and 36 weeks. bleeding precautions reviewed. concerns with itching on hands and feet. Discussed likely normal but will do labs today for baseline. Declines AFP 03/25/25 -?-?-?-?-?-?-?-?-?-?-?-?- 17w 5d 113 lb 108/73 Negative -?-?-?-?-?-?-?-?-?-?-?-?- Negative 150 -?-?-?-?-?-?-?-?-?-?-?-?- SM- episode of b leeding and cramping. cervix closed 04/14/25 -?-?-?-?-?-?-?-?-?-?-?-?- 20w 4d 119 lb 7 oz 100/66 Nega tive -?-?-?-?-?-?-?-?-?-?-?-?- Negative 140 -?-?-?-?-?-?-?-?-?-?-?-?- SM- no vb lof cr maping some episodes of lightheadedness. ACOG First Trimester First Trimester: Desire for , Alcohol, Tobacco Cessation, Illicit/Recreational Drug/Substance Use, Intimate Partner Violence, Barriers to care, Unstable Housing, Communication Barriers, Environmental/Work Hazards, Anticipated Course of Care, Toxoplasmosis Precations, Use of Any medications, Sexual activity, Exercise, Dental Care, Sauna/Hot tub use, Seat Belt use, Childbirth classes/Hospital facilities, Travel, Indications for Ultrasound and Screening for Aneuploidy; Discussed Second Trimester Second Trimester: Signs and Symptoms of Labor, Selecting a care provider, Reproductive Life Planning & Contreception, Care Planning, Depression/Anxiety and Intimate Partner Violence; Discussed Tobacco Cessation Third Trimester Third Trimester: Pain Management Plans, Labor support person(s), Immediate Larc, Circumcision preference, Movement Monitoring, Signs and Symptoms of Preeclampsia, Infant Feeding No and Education Results POC Urinalysis 2 Dip (Clinic) Office Urine Glucose Negative Last Edit by Maureen Campos on 04/14/25 14:52 Office Urine Protein Negative Last Edit by Maureen Campos on 04/14/25 14:52 Coding Level of Care Code OB Routine Diagnoses Placental abruption O45.90 Vaginal bleeding affecting early O20.9 History of vacuum extraction assisted delivery Z87.59 History of miscarriage, currently O09.299 Supervision of high risk in second trimester O09.92 Trimester: second trimester 20 weeks gestation of Z3A.20 Weeks of gestation: 20 weeks Assessment and Plan Assessment and Plan (1) Placental abruption: Status: Acute Comment: partial on anatomy US. repeat US with MFM at 20/32/36 weeks. (2) Vaginal bleeding affecting early : Status: Acute Comment: has cervical ectropion, mfm scan at 16 weeks to rule out preiva. pelvic rest in the meantime. (3) History of vacuum extraction assisted delivery: Status: Acute Comment: First (4) History of miscarriage, currently : Status: Acute Comment: x2 (5) Supervision of high-risk : Status: Acute Qualifiers: Trimester: second trimester Qualified Code(s): O09.92 - Supervision of high risk , unspecified, second trimester Comment: PRR, , KHADRA 08/28, PC: Jhony & Sadia, : Lang (6) : Status: Acute Qualifiers: Weeks of gestation: 20 weeks Qualified Code(s): Z3A.20 - 20 weeks gestation of Comment: Discussed genetic/carrier testing -elct NIPT only-low risk, male(pt doing reveal) Orders: Orders POC Urinalysis 2 Dip (Clinic) Today 04/14/25 1511 <Electronically signed by Nelly tena MD> Date _ Nelly Rangel MD Cosign Signature: Date (if applicable) CC: ~ [place] [employer] Work Phone: [phone] [facility] [address], [address] [place] [id number] OFFICE VISIT Date of Service: 03/17/25 MR#: [id number] Acct: [id number] Name: LISA EWING Rep #: [id number] : 2000 Provider: YUE Pace Age/Sex: 24/F [place] [facility] [place]: Signed Intake Vital Signs 01/21/25 10:37 03/12/25 14:45 03/17/25 11:22 Height 5 ft 1 in 5 ft 1 in 5 ft 1 in Weight: 114 lb 5 oz BMI 21.6 BP 107/72 Intake Visit Reasons: 16 wk ob 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 Is patient in 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?: No Allergies No Known Allergies Allergy (Verified 03/17/25 11:20) Medications ?Medication ?Instructions ?Recorded ?Confirmed ?Type multivitamin no.47-iron fum 27 1 cap PO DAILY pregnanc y 10/14/20 03/17/25 History mg-folate no.1 1 mg-dha 300 mg capsule (PNV-DHA) cyanocobalamin-liver extract tablet tab PO 01/17/25 History magnesium 200 mg tablet 200 mg PO QDAY 01/17/2502/28 History ondansetron 4 mg disintegrating 4 mg PO Q4H PRN nausea and 02/18/25 03/17/25 Rx tablet vomiting #60 tabs Last Menstrual Period: 11/21/24 : No PFSH PFSH Medical History History of recurrent miscarriages Dyspareunia Anemia Surgical History No significant past surgical history Family History Grandmother Cancer Grandfather Hypertension Social History adopted: No household members: spouse and children housing: house number of children: 2 current occupation: [employer] current occupational exposures/hazards: No pets and animals: No history of recent travel: Yes ( - December 2024) out of state: Yes out of country: No sexually active: Yes Smoking Status: Never smoker second hand exposure: No alcohol intake: current alcohol intake frequency: holidays/special occasions only details: not while substance use type: does not use diet: lactose free well-balanced diet: daily or most days caffeine: Yes Type: coffee eating out: 1-3 times/week during the past year weight has: remained stable what type of physical activity do you participate in: walking frequency: 3-4 times per week duration: < 15 minutes/day 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 Date Name GA/Weeks Outcome Route Bth Weight Infant Gen Labor Lgth Anesthesia Del Locatn Provider FOB 05/28/21 [place] 41 live - full term vacuum 7lbs 8oz Male ep idural [facility] Bayron Croft 04/02/23 Sadia 41 live - full term 7lbs 2oz Female ep idural [facility] Rebecca Croft 06/30/23 4 spontaneous 09/28/24 5 spontaneous Delivery Date: 05/28/21 Last Updated by: Chanda Mcdonough IOL VAVD HPI 16 wk ob Details: LISA EWING is a 24 year old who presents for routine OB visit. OB Visit KHADRA Calculator Estimated Delivery Date Method Current WG Current Estimate 08/28/25 LMP (Certain) 16w 4d Other Estimates 09/02/25 Ultrasound #1 15w 6d Expected Delivery Route/Plan Labor Preferences- CB/BF classes: [] labor support person: [] labor intervention preferences: [] pain management options preferred: [] cut cord/dad catch: [] : [] PP control planned: [] discussed possible routes of delivery and associated risks: [] special requests: [] Specific Issue/Plans Covid status: [] Flu vaccine: [] Tdap vaccine: [] Rhogam: [] LARC form signed: [] Problem list reviewed and updated with the most current plan of care details and appropriate ordersplaced. Relevant counseling for the gestational age provided. Continue routine care and follow up unless otherwise noted in visit notes/problem list details Initial Weight: Not Recorded Date -?-?-?-?-?-?-?-?-?-?-?-?- EGA Weight BP Urine Prot -?-?-?-?-?-?-?-?-?-?-?-?- Glucose FHR FuHt Pres Dilation -?-?-?-?-?-?-?-?-?-?-?-?- Effaced St Visit Note 01/21/25 -?-?-?-?-?-?-?-?-?-?-?-?- 8w 5d 110 lb 2 oz 121/68 -?-?-?-?-?-?-?-?-?-?-?-?- 160 -?-?-?-?-?-?-?-?-?-?-?-?- SM- CRL cons wit h LMP 02/18/25 -?-?-?-?-?-?-?-?-?-?-?-?- 12w 5d 112 lb 107/71 Negative -?-?-?-?-?-?-?-?-?-?-?-?- Negative 163 -?-?-?-?-?-?-?-?-?-?-?-?- MH-No VB. Nausea persists. Compazine causes too much fatigue. Rx jesse sent. Br US confirm FHT 03/04/25 -?-?-?-?-?-?-?-?-?-?-?-?- 14w 5d 112 lb 5 oz 119/74 Nega tive -?-?-?-?-?-?-?-?-?-?-?-?- Negative 165 -?-?-?-?-?-?-?-?-?-?-?-?- JV- patient is alexis south seen today for vaginal bleeding. She was bleeding bright red this weekend and was seen at [facility] and told it was a cervical ectropion. I agree based on exam today, however I am unable to rule out previa on the ultrasound today as well. consulting [facility] to see her at 16 weeks. pelvic rest in the meantime. 03/12/25 -?-?-?-?-?-?-?-?-?-?-?-?- 15w 6d 112 lb 3 oz 114/73 Nega tive -?-?-?-?-?-?-?-?-?-?-?-?- Negative 150 -?-?-?-?-?-?-?-?-?-?-?-?- JV- pt is being seen urgently again today for cramping and continued brown spotting. She states that the pain is more on her right side. on exam she does not have rebound or guarding. ultrasound does not show an ovarian cyst. She declines a pelvic exam. Has formal scan tomorrow. recommend heat on lower back and tylenol. call if pain worsens. 03/17/25 -?-?-?-?-?-?-?-?-?-?-?-?- 16w 4d 114 lb 5 oz 107/72 Nega tive -?-?-?-?-?-?-?-?-?-?-?-?- Negative 148 -?-?-?-?-?-?-?-?-?-?-?-?- KW- US reviewed from [facility]. Has partial abruption and has plan to repeat US with [facility] at 20 weeks. Will need growth at 32 and 36 weeks. bleeding precautions reviewed. concerns with itching on hands and feet. Discussed likely normal but will do labs today for baseline. Declines AFP KW- No further bleeding sinc e US with MFM. US reviewed. Has partial abruption and has plan to repeat US with MFM at 20 weeks. Will need growth at 32 and 36 weeks. bleeding precautions reviewed. concerns with itching on hands and feet. Discussed likely normal but will do labs today for baseline. Declines AFP ACOG First Trimester First Trimester: Desire for , Alcohol, Tobacco Cessation, Illicit/Recreational Drug/Substance Use, Intimate Partner Violence, Barriers to care, Unstable Housing, Communication Barriers, Environmental/Work Hazards, Anticipated Course of Care, Toxoplasmosis Precations, Use of Any med ications, Sexual activity, Exercise, Dental Care, Sauna/Hot tub use, Seat Belt use, Childbirth classes/Hospital facilities, Travel, Indications for Ultrasound and Screening for Aneuploidy; Discussed Second Trimester Second Trimester: Signs and Symptoms of Labor, Selecting a care provider, Reproductive Life Planning & Contreception, Care Planning, Depression/Anxiety and Intimate Partner Violence; Discussed Tobacco Cessation Third Trimester Third Trimester: Pain Management Plans, Labor support person(s), Immediate Larc, Circumcision preference, Movement Monitoring, Signs and Symptoms of Preeclampsia, Feeding No and [place] Education ROS Const Reports system reviewed and no additional complaints, except as documented Eyes Reports system reviewed and no additional complaints, except as documented ENT Reports system reviewed and no additional complaints, except as documented Card Reports system reviewed and no additional complaints, except as documented Resp Reports system reviewed and no additional complaints, except as documented GI Reports system reviewed and no additional complaints, except as documented, Denies nausea and Denies vomiting Reports system reviewed and no additional complaints, except as documented Musc Reports system reviewed and no additional complaints, except as documented Skin/Breast Reports system reviewed and no additional complaints, except as documented Neuro Yes system reviewed and no additional complaints, except as documented Psych Reports system reviewed and no additional complaints, except as documented Endo Reports system reviewed and no additional complaints, except as documented Dilshad/Lymph Reports system reviewed and no additional complaints, except as documented Aller/Immun Reports system reviewed and no additional complaints, except as documented Exam Const General: cooperative, healthy appearing and no acute distress Orientation: alert, awake and oriented x3 Neck Neck: normal visual inspection and full ROM Resp Effort & Inspection: normal respiratory effort, able to speak in complete sentences and symmetric chest movement GI Inspection: normal to inspection Palpation: soft and other Other: gravid Skin General: no rashes or lesions noted Neuro General: patient alert, patient awake and patient oriented x3 Cognition: normal cognition Speech: speech normal Gait: normal gait Motor: muscle tone normal throughout Extrem General: normal to inspection and full ROM Psych Appearance: grossly normal Mental Status: mental status grossly normal Mood: congruent mood Affect: normal affect Speech and Movement: speech and movement normal Attitude: cooperative Thought Process: normal Thought Content: normal Judgment: judgment good Results POC Urinalysis 2 Dip (Clinic) Office Urine Glucose Negative Last Edit by Elaina Garcia on 03/17/25 11:27 Office Urine Protein Negative Last Edit by Elaina Garcia on 03/17/25 11:27 Coding Level of Care Code OB Routine Diagnoses Vaginal bleeding affecting early O20.9 History of vacuum extraction assisted delivery Z87.59 History of miscarriage, currently O09.299 Supervision of high risk in second trimester O09.92 Trimester: second trimester 16 weeks gestation of Z3A.16 Weeks of gestation: 16 weeks Placental abruption O45.90 Assessment and Plan Assessment and Plan (1) Vaginal bleeding affecting early : Status: Acute Comment: has cervical ectropion, mfm scan at 16 weeks to rule out preiva. pelvic rest in the meantime. (2) History of vacuum extraction assisted delivery: Status: Acute Comment: First (3) History of miscarriage, currently : Status: Acute Comment: x2 (4) Supervision of high-risk : Status: Acute Qualifiers: Trimester: second trimester Qualified Code(s): O09.92 - Supervision of high risk , unspecified, second trimester Comment: PRR, , KHADRA 08/28, PC: Norma, : Lang (5) : Status: Acute Qualifiers: Weeks of gestation: 16 weeks Qualified Code(s): Z3A.16 - 16 weeks gestation of Comment: Discussed genetic/carrier testing -elct NIPT only-low risk, male(pt doing reveal) (6) Placental abruption: Status: Acute Comment: partial. repeat US with MFM at 20/32/36 weeks. Orders: Orders POC Urinalysis 2 Dip (Clinic) Today Plan Details Additional Comments: ACOG trimester education reviewed and updated. see problem list details for updated plan management information and see below for orders placed atthis visit. GA appropriate handout given. 03/17/25 1200 s CNM> Date _ Jhoana Pickenstevinpeter Signature: Date (if applicable) CC: ~ [facility]08-13-2025 [facility] [address] [place] [address], [address] [place] [address] OFFICE VISIT Date of Service: 03/12/25 MR#: [id number] Acct: [id number] Name: LISA EWING Rep #: [id number] : 2000 Provider: Dr. 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 Is patient in pain?: No Allergies No Known Allergies Allergy (Verified 03/12/25 14:46) Medications ?Medication ?Instructions ?Recorded ?Confirmed ?Type multivitamin no.47-iron fum 27 1 cap PO DAILY pregnanc y 10/14/20 03/12/25 History mg-folate no.1 1 mg-dha 300 mg capsule (PNV-DHA) cyanocobalamin-liver extract tablet tab PO 01/17/25 History magnesium 200 mg tablet 200 mg PO QDAY 01/17/2502/28 History ondansetron 4 mg disintegrating 4 mg PO Q4H PRN nausea and 02/18/25 03/12/25 Rx tablet vomiting #60 tabs Last Menstrual Period: 11/21/24 Zika: Zika virus screening: Negative : No PFSH PFSH Medical History History of recurrent miscarriages Dyspareunia Anemia Surgical History No significant past surgical history Family History Grandmother Cancer Grandfather Hypertension Social History adopted: No household members: spouse and children housing: house number of children: 2 current occupation: [employer] current occupational exposures/hazards: No pets and animals: No history of recent travel: Yes ( - December 2024) out of state: Yes out of country: No sexually active: Yes Smoking Status: Never smoker second hand exposure: No alcohol intake: current alcohol intake frequency: holidays/special occasions only details: not while substance use type: does not use diet: lactose free well-balanced diet: daily or most days caffeine: Yes Type: coffee eating out: 1-3 times/week during the past year weight has: remained stable what type of physical activity do you participate in: walking frequency: 3-4 times per week duration: < 15 minutes/day 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 Date Name GA/Weeks Outcome Route Bth Weight Infant Gen Labor Lgth Anesthesia Del Locatn Provider FOB 05/28/21 [place] 41 live - full term vacuum 7lbs 8oz Male ep idural [facility] Bayron Croft 04/02/23 Sadia 41 live - full term 7lbs 2oz Female ep idural [facility] Rebecca Croft 06/30/23 4 spontaneous 09/28/24 5 spontaneous Delivery Date: 05/28/21 Last Updated by: Chanda DIAL VAVD HPI OB, spotting Details: LISA EWING is a 24 year old who presents for routine OB visit. OB Visit KHADRA Calculator Estimated Delivery Date Method Current WG Current Estimate 08/28/25 LMP (Certain) 15w 6d Other Estimates 09/02/25 Ultrasound #1 15w 1d Expected Delivery Route/Plan Labor Preferences- CB/BF classes: [] labor support person: [] labor intervention preferences: [] pain management options preferred: [] cut cord/dad catch: [] : [] PP control planned: [] discussed possible routes of delivery and associated risks: [] special requests: [] Specific Issue/Plans Covid status: [] Flu vaccine: [] Tdap vaccine: [] Rhogam: [] LARC form signed: [] Problem list reviewed and updated with the most current plan of care details and appropriate ordersplaced. Relevant counseling for the gestational age provided. Continue routine care and follow up unless otherwise noted in visit notes/problem list details Initial Weight: Not Recorded Date -?-?-?-?-?-?-?-?-?-?-?-?- EGA Weight BP Urine Prot -?-?-?-?-?-?-?-?-?-?-?-?- Glucose FHR FuHt Pres Dilation -?-?-?-?-?-?-?-?-?-?-?-?- Effaced St Visit Note 01/21/25 -?-?-?-?-?-?-?-?-?-?-?-?- 8w 5d 110 lb 2 oz 121/68 -?-?-?-?-?-?-?-?-?-?-?-?- 160 -?-?-?-?-?-?-?-?-?-?-?-?- SM- CRL cons wit h LMP 02/18/25 -?-?-?-?-?-?-?-?-?-?-?-?- 12w 5d 112 lb 107/71 Negative -?-?-?-?-?-?-?-?-?-?-?-?- Negative 163 -?-?-?-?-?-?-?-?-?-?-?-?- MH-No VB. Nausea persists. Compazine causes too much fatigue. Rx jesse sent. Br US confirm FHT 03/04/25 -?-?-?-?-?-?-?-?-?-?-?-?- 14w 5d 112 lb 5 oz 119/74 Nega tive -?-?-?-?-?-?-?-?-?-?-?-?- Negative 165 -?-?-?-?-?-?-?-?-?-?-?-?- JV- patient is alexis south seen today for vaginal bleeding. She was bleeding bright red this weekend and was seen at [facility] and told it was a cervical ectropion. I agree based on exam today, however I am unable to rule out previa on the ultrasound today as well. consulting [facility] to see her at 16 weeks. pelvic rest in the meantime. 03/12/25 -?-?-?-?-?-?-?-?-?-?-?-?- 15w 6d 112 lb 3 oz 114/73 Nega tive -?-?-?-?-?-?-?-?-?-?-?-?- Negative 150 -?-?-?-?-?-?-?-?-?-?-?-?- JV- pt is being seen urgently again today for cramping and continued brown spotting. She states that the pain is more on her right side. on exam she does not have rebound or guarding. ultrasound does not show an ovarian cyst. She declines a pelvic exam. Has formal scan tomorrow. recommend heat on lower back and tylenol. call if pain worsens. ACOG First Trimester First Trimester: Desire for , Alcohol, Tobacco Cessation, Illicit/Recreational Drug/Substance Use, Intimate Partner Violence, Barriers to care, Unstable Housing, Communication Barriers, Environmental/Work Hazards, Anticipated Course of Care, Toxoplasmosis Precations, Use of Any med ications, Sexual activity, Exercise, Dental Care, Sauna/Hot tub use, Seat Belt use, Childbirth classes/Hospital facilities, Travel, Indications for Ultrasound and Screening for Aneuploidy; Discussed Second Trimester Second Trimester: Signs and Symptoms of Labor, Selecting a care provider, Reproductive Life Planning & Contreception, Care Planning, Depression/Anxiety and Intimate Partner Violence; Discussed Tobacco Cessation Third Trimester Third Trimester: Pain Management Plans, Labor support person(s), Immediate Larc, Circumcision preference, Movement Monitoring, Signs and Symptoms of Preeclampsia, Feeding No and Education Results POC Urinalysis 2 Dip (Clinic) Office Urine Glucose Negative Last Edit by Meaghan Irvin on 03/12/25 14: 51 Office Urine Protein Negative Last Edit by Meaghan Irvin on 03/12/25 14: 51 Coding Level of Care Code OB Routine Diagnoses Vaginal bleeding affecting early O20.9 History of vacuum extraction assisted delivery Z87.59 History of miscarriage, currently O09.299 Supervision of high risk in second trimester O09.92 Trimester: second trimester 15 weeks gestation of Z3A.15 Weeks of gestation: 15 weeks Assessment and Plan Assessment and Plan (1) Vaginal bleeding affecting early : Status: Acute Comment: has cervical ectropion, mfm scan at 16 weeks to rule out preiva. pelvic rest in the meantime. (2) History of vacuum extraction assisted delivery: Status: Acute Comment: First (3) History of miscarriage, currently : Status: Acute Comment: x2 (4) Supervision of high-risk : Status: Acute Qualifiers: Trimester: second trimester Qualified Code(s): O09.92 - Supervision of high risk , unspecified, second trimester Comment: PRR, , KHADRA 08/28, PC: Norma, : Lang (5) : Status: Acute Qualifiers: Weeks of gestation: 15 weeks Qualified Code(s): Z3A.15 - 15 weeks gestation of Comment: Discussed genetic/carrier testing -elct NIPT only-low risk, male(pt doing reveal) Orders: Orders POC Urinalysis 2 Dip (Clinic) Today 03/12/25 1506 e Fan DO> Date _ Lindsey Angelignpeter Signature: Date (if applicable) CC: ~ [facility]08-13-2025 Progress note Author Lindsey Chavira [facility] Services Note Date/Time March 12, 2025 3: 06pm [facility] [address], [address] [place] [address] OFFICE VISIT Date of Service: 03/12/25 MR#: [id number] Acct: [id number] Name: LISA EWING Rep #: [id number] : 2000 Provider: Dr. 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 Is patient in pain?: No Allergies No Known Allergies Allergy (Verified 03/12/25 14:46) Medications ?Medication ?Instructions ?Recorded ?Confirmed ?Type multivitamin no.47-iron fum 27 1 cap PO DAILY pregnanc y 10/14/20 03/12/25 History mg-folate no.1 1 mg-dha 300 mg capsule (PNV-DHA) cyanocobalamin-liver extract tablet tab PO 01/17/25 History magnesium 200 mg tablet 200 mg PO QDAY 01/17/2502/28 History ondansetron 4 mg disintegrating 4 mg PO Q4H PRN nausea and 02/18/25 03/12/25 Rx tablet vomiting #60 tabs Last Menstrual Period: 11/21/24 Zika: Zika virus screening: Negative : No PFSH PFSH Medical History History of recurrent miscarriages Dyspareunia Anemia Surgical History No significant past surgical history Family History Grandmother Cancer Grandfather Hypertension Social History adopted: No household members: spouse and children housing: house number of children: 2 current occupation: [employer] current occupational exposures/hazards: No pets and animals: No history of recent travel: Yes ( - December 2024) out of state: Yes out of country: No sexually active: Yes Smoking Status: Never smoker second hand exposure: No alcohol intake: current alcohol intake frequency: holidays/special occasions only details: not while substance use type: does not use diet: lactose free well-balanced diet: daily or most days caffeine: Yes Type: coffee eating out: 1-3 times/week during the past year weight has: remained stable what type of physical activity do you participate in: walking frequency: 3-4 times per week duration: < 15 minutes/day 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 Date Name GA/Weeks Outcome Route Bth Weight Gen Labor Lgth Anesthesia Del Locatn Provider FOB 05/28/21 [place] 41 live - full term vacuum 7lbs 8oz Male ep idural [facility] Bayron Croft 04/02/23 Sadia 41 live - full term 7lbs 2oz Female ep idural [facility] Rebecca Croft 06/30/23 4 spontaneous 09/28/24 5 spontaneous Delivery Date: 05/28/21 Last Updated by: Chanda DIAL VAVD HPI OB, spotting Details: LISA EWING is a 24 year old who presents for routine OB visit. OB Visit KHADRA Calculator Estimated Delivery Date Method Current WG Current Estimate 08/28/25 LMP (Certain) 15w 6d Other Estimates 09/02/25 Ultrasound #1 15w 1d Expected Delivery Route/Plan Labor Preferences- CB/BF classes: [] labor support person: [] labor intervention preferences: [] pain management options preferred: [] cut cord/dad catch: [] : [] PP control planned: [] discussed possible routes of delivery and associated risks: [] special requests: [] Specific Issue/Plans Covid status: [] Flu vaccine: [] Tdap vaccine: [] Rhogam: [] LARC form signed: [] Problem list reviewed and updated with the most current plan of care details and appropriate orders placed. Relevant counseling for the gestational age provided. Continue routine care and follow up unless otherwise noted in visit notes/problem list details Initial Weight: Not Recorded Date -?-?-?-?-?-?-?-?-?-?-?-?- EGA Weight BP Urine Prot -?-?-?-?-?-?-?-?-?-?-?-?- Glucose FHR FuHt Pres Dilation -?-?-?-?-?-?-?-?-?-?-?-?- Effaced St Visit Note 01/21/25 -?-?-?-?-?-?-?-?-?-?-?-?- 8w 5d 110 lb 2 oz 121/68 -?-?-?-?-?-?-?-?-?-?-?-?- 160 -?-?-?-?-?-?-?-?-?-?-?-?- SM- CRL cons wit h LMP 02/18/25 -?-?-?-?-?-?-?-?-?-?-?-?- 12w 5d 112 lb 107/71 Negative -?-?-?-?-?-?-?-?-?-?-?-?- Negative 163 -?-?-?-?-?-?-?-?-?-?-?-?- MH-No VB. Nausea persists. Compazine causes too much fatigue. Rx zofran sent. Br US confirm FHT 03/04/25 -?-?-?-?-?-?-?-?-?-?-?-?- 14w 5d 112 lb 5 oz 119/74 Nega tive -?-?-?-?-?-?-?-?-?-?-?-?- Negative 165 -?-?-?-?-?-?-?-?-?-?-?-?- JV- patient is a[place]is [place] seen today for vaginal bleeding. She was bleeding bright red this weekend and was seen at [facility] and told it was a cervical ectropion. I agree based on exam today, however I am unable to rule out previa on the ultrasound today as well. consulting M to see her at 16 weeks. pelvic rest in the meantime. 03/12/25 -?-?-?-?-?-?-?-?-?-?-?-?- 15w 6d 112 lb 3 oz 114/73 Nega tive -?-?-?-?-?-?-?-?-?-?-?-?- Negative 150 -?-?-?-?-?-?-?-?-?-?-?-?- JV- pt is being seen urgently again today for cramping and continued brown spotting. She states that the pain is more on her right side. on exam she does not have rebound or guarding. ultrasound does not show an ovarian cyst. She declines a pelvic exam. Has formal scan tomorrow. recommend heat on lower back and tylenol. call if pain worsens. ACOG First Trimester First Trimester: Desire for , Alcohol, Tobacco Cessation, Illicit/Recreational Drug/Substance Use, Intimate Partner Violence, Barriers to care, Unstable Housing, Communication Barriers, Environmental/Work Hazards, Anticipated Course of Care, Toxoplasmosis Precations, Use of Any medications, Sexual activity, Exercise, Dental Care, Sauna/Hot tub use, Seat Belt use, Childbirth classes/Hospital facilities, Travel, Indications for Ultrasound and Screening for Aneuploidy; Discussed Second Trimester Second Trimester: Signs and Symptoms of Labor, Selecting a care provider, Reproductive Life Planning & Contreception, Care Planning, Depression/Anxiety and Intimate Partner Violence; Discussed Tobacco Cessation Third Trimester Third Trimester: Pain Management Plans, Labor support person(s), Immediate Larc, Circumcision preference, Movement Monitoring, Signs and Symptoms of Preeclampsia, Infant Feeding No and [place] Education Results POC Urinalysis 2 Dip (Clinic) Office Urine Glucose Negative Last Edit by Meaghan Irvin on 03/12/25 14: 51 Office Urine Protein Negative Last Edit by Meaghan Irvin on 03/12/25 14: 51 Coding Level of Care Code OB Routine Diagnoses Vaginal bleeding affecting early O20.9 History of vacuum extraction assisted delivery Z87.59 History of miscarriage, currently O09.299 Supervision of high risk in second trimester O09.92 Trimester: second trimester 15 weeks gestation of Z3A.15 Weeks of gestation: 15 weeks Assessment and Plan Assessment and Plan (1) Vaginal bleeding affecting early : Status: Acute Comment: has cervical ectropion, mfm scan at 16 weeks to rule out preiva. pelvic rest in the meantime. (2) History of vacuum extraction assisted delivery: Status: Acute Comment: First (3) History of miscarriage, currently : Status: Acute Comment: x2 (4) Supervision of high-risk : Status: Acute Qualifiers: Trimester: second trimester Qualified Code(s): O09.92 - Supervision of high risk , unspecified, second trimester Comment: PRR, , KHADRA 08/28, PC: Jhony & Sadia, : Lang (5) : Status: Acute Qualifiers: Weeks of gestation: 15 weeks Qualified Code(s): Z3A.15 - 15 weeks gestation of Comment: Discussed genetic/carrier testing -elct NIPT only-low risk, male(pt doing reveal) Orders: Orders POC Urinalysis 2 Dip (Clinic) Today 03/12/25 1506 <Electronically signed by Lindsey Toro DO> Date _ Lindsey Jordan DO Cosigner Signature: Date (if applicable) CC: ~ [place] [employer] Work Phone: 1(859) 184-990207-22-2025 Evaluation note* Diagnosis Onset Date Resolution Status Admit Date History of miscarriage, currently acute February 18 8:29am History of vacuum extraction assisted delivery acute February 18 8:29am acute February 18 8:29am Supervision of high-risk acute February 18, 2025 8:29am History of miscarriage, currently acute March 04, 2 025 12:54pm History of vacuum extraction assisted delivery acute March 04 12:54pm Placental abruption acute 2024 12:54pm acute March 04 12:54pm Supervision of high-risk acute March 04, 2025 12:54pm Vaginal bleeding affecting early acute March 04, 2025 12:54pm History of miscarriage, currently acute March 12, 2025 2:41pm History of vacuum extraction assisted delivery acute March 12, 2 025 2:41pm acute March 12 025 2:41pm Supervision of high-risk acute March 12 2:41pm Vaginal bleeding affecting early acute March 12 2:41pm History of miscarriage, currently acute March 17, 2025 11:19am History of vacuum extraction assisted delivery acute March 17, 11:19am Placental abruption acute Augus t 2024 11:19am acute March 17, 11:19am Supervision of high-risk acute March 17 11:19am Vaginal bleeding affecting early acute March 17 11:19am History of miscarriage, currently acute March 25, 2025 11:35am History of vacuum extraction assisted delivery acute March 25 11:35am Placental abruption acute Augus 2024 11:35am acute March 25 11:35am Supervision of high-risk acute March 25 11:35am Vaginal bleeding affecting early acute March 25 11:35am History of miscarriage, currently acute March 2:45pm History of vacuum extraction assisted delivery acute March 2:45pm Placental abruption acute Septe 2024 2:45pm acute March 2:45pm Supervision of high-risk acute April 14, 2025 2:45pm Vaginal bleeding affecting early acute April 14, 2025 2:45pm History of miscarriage, currently acute March 11:21am History of vacuum extraction assisted delivery acute March 11:21am Placental abruption acute Septe er 2024 11:21am acute March 11:21am Supervision of high-risk acute April 28, 2025 11:21am Vaginal bleeding affecting early acute April 28, 2025 11:21am History of miscarriage, currently acute May 14, 2025 9:55am History of vacuum extraction assisted delivery acute May 14, 2025 9:55am Placental abruption acute Octob er 2024 9:55am acute May 14, 2025 9:55am RUQ abdominal pain acute Octobe r 2024 9:55am Supervision of high-risk acute May 14 9:55am Vaginal bleeding affecting early acute May 14 9:55am [place] [employer] [facility] Work Phone: 1(465) 277-560806-24-2025 Evaluation note* Diagnosis Onset Date Resolution Status Admit Date History of miscarriage, currently acute January 21 10:34am History of vacuum extraction assisted delivery acute January 21 10:34am acute January 21 10:34am Supervision of high-risk acute January 21, 2025 10:34am History of miscarriage, currently acute February 18 8:29am History of vacuum extraction assisted delivery acute February 18 8:29am acute February 18 8:29am Supervision of high-risk acute February 18, 2025 8:29am History of miscarriage, currently acute March 12, 2025 2:41pm History of vacuum extraction assisted delivery acute March 12, 2 025 2:41pm acute March 12, 2 025 2:41pm Supervision of high-risk acute March 12 2:41pm Vaginal bleeding affecting early acute March 12 2:41pm [place] [employer] [employer] [facility] Work Phone: 1(320) 450-573406-24-2025 Evaluation note* Diagnosis Onset Date Resolution Status Admit Date History of miscarriage, currently acute January 21 10:34am History of vacuum extraction assisted delivery acute January 21 10:34am acute January 21 10:34am Supervision of high-risk acute January 21, 2025 10:34am History of miscarriage, currently acute February 18 8:29am History of vacuum extraction assisted delivery acute February 18 8:29am acute February 18 8:29am Supervision of high-risk acute February 18, 2025 8:29am History of miscarriage, currently acute March 12, 2025 2:41pm History of vacuum extraction assisted delivery acute March 12, 2 025 2:41pm acute March 12, 2 025 2:41pm Supervision of high-risk acute March 12 2:41pm Vaginal bleeding affecting early acute March 12 2:41pm History of miscarriage, currently acute March 17, 2025 11:19am History of vacuum extraction assisted delivery acute March 17 025 11:19am Placental abruption acute Augus 2024 11:19am acute March 17, 025 11:19am Supervision of high-risk acute March 17 11:19am Vaginal bleeding affecting early acute March 17 11:19am [facility] Work Phone: 1(205) 443-858806-24-2025 Evaluation note* Diagnosis Onset Date Resolution Status Admit Date History of miscarriage, currently acute January 21 10:34am History of vacuum extraction assisted delivery acute January 21 10:34am acute January 21 10:34am Supervision of high-risk acute January 21, 2025 10:34am History of miscarriage, currently acute February 18 8:29am History of vacuum extraction assisted delivery acute February 18 8:29am acute February 18 8:29am Supervision of high-risk acute February 18, 2025 8:29am History of miscarriage, currently acute March 04 12:54pm History of vacuum extraction assisted delivery acute March 04 12:54pm Placental abruption acute 2024 12:54pm acute March 04 12:54pm Supervision of high-risk acute March 04, 2025 12:54pm Vaginal bleeding affecting early acute March 04, 2025 12:54pm History of miscarriage, currently acute March 12, 2025 2:41pm History of vacuum extraction assisted delivery acute March 12 025 2:41pm acute March 12 025 2:41pm Supervision of high-risk acute March 12 2:41pm Vaginal bleeding affecting early acute March 12 2:41pm History of miscarriage, currently acute March 17, 2025 11:19am History of vacuum extraction assisted delivery acute March 17, 025 11:19am Placental abruption acute Augus 2024 11:19am acute March 17 025 11:19am Supervision of high-risk acute March 17 11:19am Vaginal bleeding affecting early acute March 17 11:19am [facility] Work Phone: 1(373) 436-578906-24-2025 Evaluation note* Diagnosis Onset Date Resolution Status Admit Date History of miscarriage, currently acute January 21 10:34am History of vacuum extraction assisted delivery acute January 21 10:34am acute January 21 10:34am Supervision of high-risk acute January 21, 2025 10:34am History of miscarriage, currently acute February 18 8:29am History of vacuum extraction assisted delivery acute February 18 8:29am acute February 18 8:29am Supervision of high-risk acute February 18, 2025 8:29am History of miscarriage, currently acute March 04 12:54pm History of vacuum extraction assisted delivery acute March 04 12:54pm Placental abruption acute 2024 12:54pm acute March 04 12:54pm Supervision of high-risk acute March 04, 2025 12:54pm Vaginal bleeding affecting early acute March 04, 2025 12:54pm History of miscarriage, currently acute March 12, 2025 2:41pm History of vacuum extraction assisted delivery acute March 12, 025 2:41pm acute March 12 025 2:41pm Supervision of high-risk acute March 12 2:41pm Vaginal bleeding affecting early acute March 12 2:41pm History of miscarriage, currently acute March 17, 2025 11:19am History of vacuum extraction assisted delivery acute March 17, 025 11:19am Placental abruption acute Febus 2024 11:19am acute March 17 025 11:19am Supervision of high-risk acute March 17 11:19am Vaginal bleeding affecting early acute March 17 11:19am History of miscarriage, currently acute March 25, 2025 11:35am History of vacuum extraction assisted delivery acute March 25, 025 11:35am Placental abruption acute Augus t 2024 11:35am acute March 25 025 11:35am Supervision of high-risk acute March 25 11:35am Vaginal bleeding affecting early acute March 25 11:35am [facility] Work Phone: 1(441) 392-572506-24-2025 Evaluation note* Diagnosis Onset Date Resolution Status Admit Date History of miscarriage, currently acute January 21 10:34am History of vacuum extraction assisted delivery acute January 21 10:34am acute January 21 10:34am Supervision of high-risk acute January 21, 2025 10:34am History of miscarriage, currently acute February 18 8:29am History of vacuum extraction assisted delivery acute February 18 8:29am acute February 18 8:29am Supervision of high-risk acute February 18, 2025 8:29am History of miscarriage, currently acute March 04 12:54pm History of vacuum extraction assisted delivery acute March 04 12:54pm Placental abruption acute Augus t 2024 12:54pm acute March 04 12:54pm Supervision of high-risk acute March 04, 2025 12:54pm Vaginal bleeding affecting early acute March 04, 2025 12:54pm History of miscarriage, currently acute March 12, 2025 2:41pm History of vacuum extraction assisted delivery acute March 12, 025 2:41pm acute March 12 025 2:41pm Supervision of high-risk acute March 12 2:41pm Vaginal bleeding affecting early acute March 12 2:41pm History of miscarriage, currently acute March 17, 2025 11:19am History of vacuum extraction assisted delivery acute March 17 025 11:19am Placental abruption acute Augus t 2024 11:19am acute March 17, 025 11:19am Supervision of high-risk acute March 17 11:19am Vaginal bleeding affecting early acute March 17 11:19am History of miscarriage, currently acute March 25, 2025 11:35am History of vacuum extraction assisted delivery acute March 25, 025 11:35am Placental abruption acute Augus t 2024 11:35am acute March 25, 2 025 11:35am Supervision of high-risk acute March 25 11:35am Vaginal bleeding affecting early acute March 25 11:35am History of miscarriage, currently acute March 2:45pm History of vacuum extraction assisted delivery acute March 2:45pm Placental abruption acute Septe mb2024 2:45pm acute March 2:45pm Supervision of high-risk acute April 14, 2025 2:45pm Vaginal bleeding affecting early acute April 14, 2025 2:45pm [facility] Work Phone: 1(908) 995-175506-24-2025 Evaluation note* Diagnosis Onset Date Resolution Status Admit Date History of miscarriage, currently acute January 21 10:34am History of vacuum extraction assisted delivery acute January 21 10:34am acute January 21 10:34am Supervision of high-risk acute January 21, 2025 10:34am History of miscarriage, currently acute February 18 8:29am History of vacuum extraction assisted delivery acute February 18 8:29am acute February 18 8:29am Supervision of high-risk acute February 18, 2025 8:29am History of miscarriage, currently acute March 04 025 12:54pm History of vacuum extraction assisted delivery acute March 04 12:54pm Placental abruption acute Augus t 2024 12:54pm acute March 04 12:54pm Supervision of high-risk acute March 04, 2025 12:54pm Vaginal bleeding affecting early acute March 04, 2025 12:54pm History of miscarriage, currently acute March 12, 2025 2:41pm History of vacuum extraction assisted delivery acute March 12, 2 025 2:41pm acute March 12, 2 025 2:41pm Supervision of high-risk acute March 12 2:41pm Vaginal bleeding affecting early acute March 12 2:41pm History of miscarriage, currently acute March 17, 2025 11:19am History of vacuum extraction assisted delivery acute March 17 11:19am Placental abruption acute Febus 2024 11:19am acute March 17 11:19am Supervision of high-risk acute March 17 11:19am Vaginal bleeding affecting early acute March 17 11:19am History of miscarriage, currently acute March 25, 2025 11:35am History of vacuum extraction assisted delivery acute March 25 11:35am Placental abruption acute Augus 2024 11:35am acute March 25 11:35am Supervision of high-risk acute March 25 11:35am Vaginal bleeding affecting early acute March 25 11:35am History of miscarriage, currently acute March 2:45pm History of vacuum extraction assisted delivery acute March 2:45pm Placental abruption acute Septe 2024 2:45pm acute March 2:45pm Supervision of high-risk acute April 14, 2025 2:45pm Vaginal bleeding affecting early acute April 14, 2025 2:45pm History of miscarriage, currently acute March 11:21am History of vacuum extraction assisted delivery acute March 11:21am Placental abruption acute Septe [facility] 2024 11:21am acute March 11:21am Supervision of high-risk acute April 28, 2025 11:21am Vaginal bleeding affecting early acute April 28, 2025 11:21am 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 Patient states that over the past few months she has had miscarriages and noted that she had spotting starting late last night early this morning. States that she is having some urinary frequency as well but states that she feels that thiscould be related to the . Patient states that she did have intercoursethe night before. She states that she reach out to her MOTORCOACH OPERATOR and given her recent miscarriages they advised her to come to the emergency department to be evaluated. Patient denies abdominal pain. [facility] Medical History Vaginal delivery Anemia examination following vaginal delivery Anemia affecting Tetanus, diphtheria, and acellular pertussis (Tdap) vaccination declined No significant medical problems (~11/06/24) Home Medications ?Medication ?Instructions ?Recorded ?Last Taken ?Type multivitamin no.47-iron fum 27 1 cap PO DAILY pregnanc y 10/14/20 04/01/23 08:00 History mg-folate no.1 1 mg-dha 300 mg 1 cap capsule (PNV-DHA) Allergy/AdvReac Type Severity Reaction Status Date / Time No Known Allergies Allergy Verified 01/04/25 16:46 Family History Grandmother Cancer Grandfather Hypertension Surgical [...] physical activity do you participate in: none martin/yazdanism: Congregation seatbelt use: always do you feel safe at home: Yes additional social history: - Lang (Nazia) ROS ROS ED ROS Narrative Constitutional: Denies fevers, chills, headaches Abdomen: Denies abdominal pain vomiting diarrhea : Complains of vaginal spotting as noted above as well as increased frequency of urination deniesany painful urination Neurological: Denies numbness,'s, weakness, tingling Musculoskeletal: Denies back pain Skin: Denies any rashes or lesions EXAM Physical Exam Narrative Exam Narrative: General: Patient lying in bed rest comfortably did not appear to be acute distress Head: Atraumatic, normocephalic Eyes: PERRL bilaterally, EOMI bilaterally, no conjunctival injection noted Neck: Soft, supple, trachea midline Cardiovascular: Patient tachycardic with a regular rhythm Respiratory: Clear to auscultation bilaterally Abdomen: Soft, nondistended, no tenderness palpation no rebound or guarding on exam Extremities: +5/5 strength noted in the bilateral upper and lower extremities Neurological: Patient follow commands knew that she was at [facility] the year is 2024 Skin: Warm, dry, intact no rashes lesions noted Const Vital Signs: 01/04/25 16:46 01/04/25 18:46 Temperature 97.6 F L Temperature Source Temporal Pulse Rate 104 H 65 Respiratory Rate 18 16 Blood Pressure 101/77 100/80 Blood Pressure Mean 85 86 Pulse Ox 100 99 Oxygen Delivery Method Room Air MDM MDM MDM Narrative Medical decision making narrative: Patient is a 24-year-old female who presents to the emergency department with a chief complaint of vaginal spotting and is currently 6 weeks . Patient has not followed up with OB in the outpatient setting yet for this andhas not had an ultrasound. Patient denies any history of ectopic pregnancies. On the differential diagnose includes but not limited to ectopic , intrauterine , UTI, spotting after intercourse. Once workup is obtained reviewed she will be reevaluated. Patient CBC reviewed showed no evidence leukocytosis white blood count normal at7.4, hemoglobin 12.3, platelet count 262. Patient sodium was 139, potassium normal at 3.7, creatinine was 0.77. PatientAST and ALT are 30 and 34 respectively. Patient's hCG quant was 7362, urinalysis reviewed and showed no evidence of infection. Patient's ultrasound reviewed and showed unremarkable first trimester ultrasound there is a yolk sac that is present and unremarkable no heart detected this is likely secondary to her being 5 weeks and 3 days. I reached out to on-call Dr. La MOTORCOACH OPERATOR and spoke with him and he advised to have her follow-up in the outpatient setting. She is advised to return with worsening symptoms and concerns. She is agreeable this plan all question concerns answered she is discharged home in stable condition. Lab Data Labs: Laboratory Results - last 24 hr 01/04/25 01/04/25 17:04 17:45 WBC 7.4 RBC 3.97 L Hgb 12.3 Hct 35.3 L MCV 88.9 MCH 31.0 MCHC 34.8 RDW Std Deviation 41.8 RDW Coeff of Alex 12.8 Plt Count 262 MPV 10.0 Immature Gran % (Auto) 0.100 Neut % (Auto) 64.0 Lymph % (Auto) 26.2 [place] % (Auto) 7.7 Eos % (Auto) 1.6 Baso % (Auto) 0.4 Absolute Neuts (auto) 4.8 Absolute Lymphs (auto) 1.95 Nucleated RBC % 0 Sodium 139 Potassium 3.7 Chloride 105 Carbon Dioxide 24.3 Anion Gap 10 BUN 14 Creatinine 0.77 Estim Creat Clear Calc 84.28 Est GFR (MDRD) Non-Af 109 BUN/Creatinine Ratio 18.0 Glucose 87 Calcium 9.6 Total Bilirubin 0.71 AST 30 ALT 34 Alkaline Phosphatase 46 Total Protein 7.3 Albumin 4.6 Globulin 2.7 Albumin/Globulin Ratio 1.7 HCG, Quant 7362 H Serum , Qual Cancelled Urine Color Straw Urine Clarity Clear Urine pH 7.0 Ur Specific Gilbert 1.005 Urine Protein Negative Urine Glucose (UA) Normal Urine Ketones Negative Urine Occult Blood Negative Urine Nitrite Negative Urine Bilirubin Negative Urine Urobilinogen Normal Ur Leukocyte Esterase Negative Urine RBC 0 SEEN Urine WBC 0 SEEN Ur Squamous Epith Cells 0 SEEN Urine Bacteria RARE Urine Mucus 0 SEEN Blood Type A POSITIVE Radiography Diagnostic Testing: Clinical Impression(s) from Imaging Studies Obstetrics Ultrasound 01/04/25 17:10 IMPRESSION: UNREMARKABLE FIRST TRIMESTER ULTRASOUND. Reading Location: [id number] Discharge Plan Triage Chief Complaint: Vag Bld, Preg ED Provider: Oneal Chao Dx/Rx/DC Orders Clinical Impression: Vaginal bleeding affecting early Prescriptions: No Action PNV-DHA 27 mg iron-1 mg -300 mg capsule 1 cap PO DAILY Primary Care Provider: Care Physician,No Primary Referrals: Care Physician,No Primary [Primary Care Provider] - Activity Restrictions/Additional Instructions: Follow-up with your MOTORCOACH OPERATOR in the outpatient setting. Return with worsening symptoms or other concerns. Your ultrasound did not show any acute abnormalities there was a visualized yolk sac in your uterus. Print Language: Palestinian Disposition Disposition: Home, Self Care What to do if you have Problems For any increased pain, shortness of breath, bleeding, nausea or vomiting, chestpain, or any unexpected problems, contact your Primary Care Provider. Call [facility] ([phone]) or report tothe closest Emergency Room. Call 911 if necessary. 01/04/251946 Cosigner Signature (if applicable): CC: No Primary Care Physician ~ Signed [facility]06-07-2025 Radiology Diagnostic study note [facility] Imaging Services [address] [place], [place] [address] Transvaginal w/Preg US MR#: [id number] Acct: [id number] Name: LISA EWING Rep #: [id number] : 2000 F 24 From: Marta Feliciano MD PCP: Care Physician,No Primary Status: REG ER Study:Transvaginal w/Preg US Date of Exam: 01/04/25 Exam# [id number] Ordering Dr: Rabia Chao DO PROCEDURE: TRANSVAGINAL W/PREG US 01/04/2025 REASON FOR EXAM: SPOTTING. Last menstrual period 11/23/2024. Beta hCG pending. Last beta hCG on 12/25: 165. TECHNIQUE: Transvaginal ultrasound with Doppler. COMPARISON: Pelvic ultrasound 06/06/2024. FINDINGS: Number of Gestational Sacs: 1 Gestational Sac Shape: Normal Yolk Sac: Present and unremarkable. Placenta: Presently not well-visualized Amniotic Fluid Volume: Subjectively normal for gestational age. heart rate: Not detected. Uterine Abnormalities: Maternal uterus is unremarkable. Ovaries / Adnexa: Both maternal ovaries are visualized and unremarkable. DIMENSIONS: Parameter Measurement / EGA [place] Rump Length: Nonvisualized Gestational Sac: 0.74 cm/5 weeks 3 days Yolk Sac: 0.2 cm ESTIMATED GESTATIONAL AGE: By Ultrasound: 5 weeks 3 days By LMP: 6 weeks 0 days ESTIMATED DATE OF DELIVERY: By Ultrasound: 09/03/2025 By LMP: 08/30/2025 US/Transvaginal w/Preg US IMPRESSION: UNREMARKABLE FIRST TRIMESTER ULTRASOUND. Reading Location: [id number] CC: Dr. Oneal Chao DO; No Primary Care Physician ~ [employer] Farm[employer]: Signed [facility]06-07-2025 Discharge summary Author Oneal Chao [facility] Note Date/Time January 04, 2025 7:47p m [facility] Medical Records Department [address] [place] [address] Emergency Department Summary 01/04/25 MR#: [id number] Acct: [id number] Name: LISA EWING Rep #:[id number] : 2000 24 From: Oneal Chao DO PCP: Care Physician,No Primary Status :REG ER Location: ED HPI HPI - Female History of Present Illness Chief Complaint: Vag Bld, Preg Narrative Narrative: 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 Patient states that over the past few months she has had miscarriages and noted that she had spotting starting late last night early this morning. States that she is having some urinary frequency as well but states that she feels that thiscould be related to the . Patient states that she did have intercoursethe night before. She states that she reach out to her MOTORCOACH OPERATOR and given her recent miscarriages they advised her to come to the emergency department to be evaluated. Patient denies abdominal pain. [facility] Medical History Vaginal delivery Anemia examination following vaginal delivery Anemia affecting Tetanus, diphtheria, and acellular pertussis (Tdap) vaccination declined No significant medical problems (~11/06/24) Home Medications ?Medication ?Instructions ?Recorded ?Last Taken ?Type multivitamin no.47-iron fum 27 1 cap PO DAILY pregnanc y 10/14/20 04/01/23 08:00 History mg-folate no.1 1 mg-dha 300 mg 1 cap capsule (PNV-DHA) Allergy/AdvReac Type Severity Reaction Status Date / Time No Known Allergies Allergy Verified 01/04/25 16:46 Family History Grandmother Cancer Grandfather Hypertension Surgical [...] physical activity do you participate in: none martin/yazdanism: Congregation seatbelt use: always do you feel safe at home: Yes additional social history: - Lang Funes) CRISTIAN ROS ED ROS Narrative Constitutional: Denies fevers, chills, headaches Abdomen: Denies abdominal pain vomiting diarrhea : Complains of vaginal spotting as noted above as well as increased frequency of urination denies any painful urination Neurological: Denies numbness,'s, weakness, tingling Musculoskeletal: Denies back pain Skin: Denies any rashes or lesions EXAM Physical Exam Narrative Exam Narrative: General: Patient lying in bed rest comfortably did not appear to be acute distress Head: Atraumatic, normocephalic Eyes: PERRL bilaterally, EOMI bilaterally, no conjunctival injection noted Neck: Soft, supple, trachea midline Cardiovascular: Patient tachycardic with a regular rhythm Respiratory: Clear to auscultation bilaterally Abdomen: Soft, nondistended, no tenderness palpation no rebound or guarding on exam Extremities: +5/5 strength noted in the bilateral upper and lower extremities Neurological: Patient follow commands knew that she was at [facility] the year is 2024 Skin: Warm, dry, intact no rashes lesions noted Const Vital Signs: 01/04/25 16:46 01/04/25 18:46 Temperature 97.6 F L Temperature Source Temporal Pulse Rate 104 H 65 Respiratory Rate 18 16 Blood Pressure 101/77 100/80 Blood Pressure Mean 85 86 Pulse Ox 100 99 Oxygen Delivery Method Room Air MDM MDM MDM Narrative Medical decision making narrative: Patient is a 24-year-old female who presents to the emergency department with a chief complaint of vaginal spotting and is currently 6 weeks . Patient has not followed up with OB in the outpatient setting yet for this andhas not had an ultrasound. Patient denies any history of ectopic pregnancies. On the differential diagnose includes but not limited to ectopic , intrauterine , UTI, spotting after intercourse. Once workup is obtained reviewed she will be reevaluated. Patient CBC reviewed showed no evidence leukocytosis white blood count normal at7.4, hemoglobin 12.3, platelet count 262. Patient sodium was 139, potassium normal at 3.7, creatinine was 0.77. Patient AST and ALT are 30 and 34 respectively. Patient's hCG quant was 7362, urinalysis reviewed and showed no evidence of infection. Patient's ultrasound reviewed and showed unremarkable first trimester ultrasound there is a yolk sac that is present and unremarkable no heart detected this is likely secondary to her being 5 weeks and 3 days. I reached out to on-call Dr. [place] MOTORCOACH OPERATOR and spoke with him and he advised to have her follow-up in the outpatient setting. She is advised to return with worsening symptoms and concerns. She is agreeable this plan all question concerns answered she is discharged home in stable condition. Lab Data Labs: Laboratory Results - last 24 hr 01/04/25 01/04/25 17:04 17:45 WBC 7.4 RBC 3.97 L Hgb 12.3 Hct 35.3 L MCV 88.9 MCH 31.0 MCHC 34.8 RDW Std Deviation 41.8 RDW Coeff of Alex 12.8 Plt Count 262 MPV 10.0 Immature Gran % (Auto) 0.100 Neut % (Auto) 64.0 Lymph % (Auto) 26.2 [place] % (Auto) 7.7 Eos % (Auto) 1.6 Baso % (Auto) 0.4 Absolute Neuts (auto) 4.8 Absolute Lymphs (auto) 1.95 Nucleated RBC % 0 Sodium 139 Potassium 3.7 Chloride 105 Carbon Dioxide 24.3 Anion Gap 10 BUN 14 Creatinine 0.77 Estim Creat Clear Calc 84.28 Est GFR (MDRD) Non-Af 109 BUN/Creatinine Ratio 18.0 Glucose 87 Calcium 9.6 Total Bilirubin 0.71 AST 30 ALT 34 Alkaline Phosphatase 46 Total Protein 7.3 Albumin 4.6 Globulin 2.7 Albumin/Globulin Ratio 1.7 HCG, Quant 7362 H Serum , Qual Cancelled Urine Color Straw Urine Clarity Clear Urine pH 7.0 Ur Specific Gilbert 1.005 Urine Protein Negative Urine Glucose (UA) Normal Urine Ketones Negative Urine Occult Blood Negative Urine Nitrite Negative Urine Bilirubin Negative Urine Urobilinogen Normal Ur Leukocyte Esterase Negative Urine RBC 0 SEEN Urine WBC 0 SEEN Ur Squamous Epith Cells 0 SEEN Urine Bacteria RARE Urine Mucus 0 SEEN Blood Type A POSITIVE Radiography Diagnostic Testing: Clinical Impression(s) from Imaging Studies Obstetrics Ultrasound 01/04/25 17:10 IMPRESSION: UNREMARKABLE FIRST TRIMESTER ULTRASOUND. Reading Location: [facility] Discharge Plan Triage Chief Complaint: Vag Bld, Preg ED Provider: Oneal Chao Dx/Rx/DC Orders Clinical Impression: Vaginal bleeding affecting early Prescriptions: No Action PNV-DHA 27 mg iron-1 mg -300 mg capsule 1 cap PO DAILY Primary Care Provider: Care Physician,No Primary Referrals: Care Physician,No Primary [Primary Care Provider] - Activity Restrictions/Additional Instructions: Follow-up with your MOTORCOACH OPERATOR in the outpatient setting. Return with worsening symptoms or other concerns. Your ultrasound did not show any acute abnormalities there was a visualized yolk sac in your uterus. Print Language: Palestinian Disposition Disposition: Home, Self Care What to do if you have Problems For any increased pain, shortness of breath, bleeding, nausea or vomiting, chestpain, or any unexpected problems, contact your Primary Care Provider. Call [facility] ([phone]) or report to the closest Emergency Room. Call 911 if necessary. 01/04/251946 <Electronically signed by Oneal Chao DO> Cosigner Signature (if applicable): CC: No Primary Care Physician ~ Signed [facility] Work Phone: 1(347) 469-442604-09-2025 Evaluation note* Diagnosis Onset Date Resolution Status Admit Date Dyspareunia acute November 06 8:39am History of recurrent miscarriages ac nikolai 2024 8:39am Vaginal discharge acute November 062024 8:39am [facility] Work Phone: 1([phone]) 726-340204-09-2025 Evaluation note* Diagnosis Onset Date Resolution Status Admit Date Dyspareunia inactive November 06 8:39am History of recurrent miscarriages inactive 2024 8:39am Vaginal discharge inactive November 062024 8:39am History of miscarriage, currently acute January 21 10:34am History of vacuum extraction assisted delivery acute January 21 10:34am acute January 21 10:34am Supervision of high-risk acute January 21, 2025 10:34am [facility] Work Phone: 1(989) 444-693804-09-2025 Evaluation note* Diagnosis Onset Date Resolution Status Admit Date Dyspareunia inactive November 06 8:39am History of recurrent miscarriages inactive 2024 8:39am Vaginal discharge inactive November 062024 8:39am History of miscarriage, currently acute January 21 10:34am History of vacuum extraction assisted delivery acute January 21 10:34am acute January 21 10:34am Supervision of high-risk acute January 21, 2025 10:34am History of miscarriage, currently acute February 18 8:29am History of vacuum extraction assisted delivery acute February 18 8:29am acute February 18 8:29am Supervision of high-risk acute February 18, 2025 8:29am [facility] Work Phone: 1(907) 194-348201-02-2025 Evaluation note* Diagnosis Onset Date Resolution Status Admit Date Complete acute August 01, 2024 3:32pm [facility] Work Phone: 1(725) 818-545601-02-2025 Evaluation note* Diagnosis Onset Date Resolution Status Admit Date Complete acute August 01, 2024 3:32pm Dyspareunia acute November 06 8:39am History of recurrent miscarriages acute 2024 8:39am Vaginal discharge acute November 062024 8:39am [facility] Work Phone: 1([phone]) 251-351201-03-2024 Discharge summary Author Lew Calles [facility] August 02, 2023 5:15pm Note Date/Time August 02, 2023 3: 53pm [facility] Medical Records Department [address] [place] [address] Emergency Department Summary 08/02/23 MR#: [id number] Acct: [id number] Name: LISA EWING Rep #:[id number] : 2000 22 From: Lew Calles DO PCP: Care Physician,No Primary Status :REG ER Location: ED HPI History of Present [...] no relief. Patient states she called her rn neonatal who stated she needed to go to the emergency room. Patient denies any cardiac history. No significant history of family heart disease at early age. She is on a smoker. No other medical problems. [facility] Medical History Anemia Anemia affecting No significant [...] physical activity do you participate in: none martin/yazdanism: Congregation seatbelt use: always do you feel safe at home: Yes additional social history: - Lang (Nazia) C[facility]ST[facility] ROS ED Constitutional Constitutional ED: Denies chills [...] (Auto) 70.6 H Lymph % (Auto) 22.5 [place] % (Auto) 5.1 Eos % (Auto) 0.7 [...] 16:09 EST Reading Location ID and State: [facility] / [place] Tel , Service support , Discharge Plan [...] your Primary Care Provider. Call [facility] ([phone]) or report to the closest Emergency Room. Call 911 if necessary. 08/02/23 2579 <Electronically signed by Lew Calles DO> Cosigner Signature (if applicable): CC: No Primary Care Physician ~ Signed [facility] Work Phone: 1(551) 740-423209-05-2023 Progress note Author Nelly Rangel [facility] April 04, 2023 6:17am Note Date/Time April 04, 2023 6:17am [facility] Medical Records Department [address] [place] [address] Progress Note - OBGYN 04/04/23 0616 MR#: [id number] Acct: [id number] Name: LISA EWING Rep #:[id number] : 2000 22 From: Nelly isbell MD PCP: Care Physician,No Primary Status :ADM IN Location: [place] [address] Subjective Subjective Patient doing well without complaints. Tolerating PO. Ambulating and voiding without difficulty. infant feeding well. Denies chest pain, shortness of [...] immune 04/04/23 0617 <Electronically signed by Nelly Rangel MD> Cosigner Signature (if applicable): CC: ~ Signed [facility] Work Phone: 1(339) 282-418809-04-2023 Progress note Author Jhoana Pace [facility] April 03, 2023 4:22am Note Date/Time April 03, 2023 4:22am [facility] Medical Records Department [address] [place] [address] Progress Note - OBGYN 04/03/23420 MR#: [id number] Acct: [id number] Name: LISA EWING Rep #:[id number] : 2000 22 From: Jhoana Pace CNM PCP: Care Physician,No Primary Status :ADM IN Location: [place] [address] Subjective Subjective Patient doing well without complaints. [...] 74.2 H, Lymph % (Auto) 17.8 L, Aud[place] % (Auto) 6.6, Eos % (Auto) 0.4, [...] in baseline (4) Anemia affecting : COMMENT: 01/04 started on [...] Cosigner Signature (if applicable): CC: ~ Signed [facility] Work Phone: 1(454) 298-728909-03-2023 Discharge summary Author Jhoana Pace [facility] April 02, 2023 2:24pm Note Date/Time April 02, 2023 2:23pm [facility] Medical Records Department [address] [place] [address] Instructions for Home/Discharge Instructions 04/02/23 1423 MR#: [id number] Acct: [id number] Name: LISA EWING Rep #:[id number] : 2000 22 From: Jhoana Pace CNM [...] Provider: Jhoana Pace Primary Care Provider: Tristian PhysicianLiana Primary Discharge Orders/Prescriptions Prescriptions: No Action PNV-DHA 27 mg iron-1 mg -300 mg capsule 1 cap PO DAILY ferrous sulfate [Feosol] 325 mg (65 mg iron) tablet 325 mg PO DAILY Referrals / Follow Up: Tristian Physician,Liana Primary [Primary Care Provider] - 04/02/23 1424<Electronically signed by Jhoana Pace CNM>Jhoana Pace CNM CC: No Primary Care Physician ~ Signed [facility] Work Phone: 1(474) 188-414009-03-2023 Progress note Author Jhoana Pace [facility] April 02, 2023 12:29pm Note Date/Time April 02, 2023 12:29pm [facility] Medical Records Department [address] [place] [address] Progress Note 04/02/23 1227 MR#: [id number] Acct: [id number] Name: LISA EWING Rep #:[id number] : 2000 22 From: Jhoana Pace CNM PCP: Tristian Physician,No Primary Status :ADM IN Location: [id number] Progress Note comfortable with epidural current tracing: FHT: 130 Moderate variability reactive no decelerations category I tracing Monson: 2-3 Contractions A/P: Continue position changes Titrate pitocin per protocol AROM when appropriate anticipate Dr Rangel aware and agrees with plan Assessment & [...] Cosigner Signature (if applicable): CC: ~ Signed [facility] Work Phone: 1(417) 381-872709-03-2023 Procedure [facility] 04-02-2023 History and physical note Author Jhoana Pace [facility] April 02, 2023 8:22am Note Date/Time April 02, 2023 8:22am [facility] Medical Records Department [address] [place] [address] [place] [address] H&P 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 Maternal Data Information KHADRA Calculator Estimated Delivery Date Method Current WG Current Estimate 03/26/23 LMP (Certain) 41w 0d Final KHADRA: 03/26/23 Final KHADRA Source: US >20 weeks Gestational age: 41.0 weeks PFSH PFSH Medical History Anemia affecting No significant medical [...] physical activity do you participate in: none martin/yazdanism: Congregation seatbelt use: always do you feel safe at home: Yes additional social history: - Lang (Nazia) History 2 Elective abortions Hx Para 1 Spontaneous abortions Hx # Term Pregnancies 1 Ectopic pregnancies Hx # Pregnancies Multiple births # of living children 1 Past Pregnancies Del. Date Name GA/Weeks Outcome Route Bth Weight Gen Labor Lgth Anesthesia Del Locatn Provider FOB 05/28/21 [place] 41 live - full term vacuum 7lbs 8oz Male [facility] Marcanthony Delivery Date: 05/28/21 Last Updated by: [...] any complications: none I have reviewed the [facility] and made any clinically relevant [...] Urinary/Genital Urinary/Genital CPT Codes: No Charge 04/02/23 08 <Electronically signed by Jhoana Pace CNM> Cosigner Signature (if applicable): CC: YUE Pace; No Primary Care Physician~ Signed [facility] Work Phone: 1(777) 977-733402-02-2023 NotePap Smear Specimen AdequacyFebruary 2022 4:08pmComment.Satisfactory for evaluation. Endocervical and/or squamous metaplasticcells (endocervical component)are present.[facility] INTERFACED A#[id number] County Joel Pomerene Memorial HospitalComment on above:Satisfactory for evaluation. Endocervical and/or squamous metaplasticcells (endocervical component)are present.09-01-2022 NotePap Smear Specimen AdequacyFebruary 2022 5:08pmComment.Satisfactory for evaluation. Endocervical and/or squamous metaplasticcells (endocervical component)are present.[facility] INTER[facility]ACED A#[id number] County Joel Pomerene Memorial HospitalComment on above:Satisfactory for evaluation. Endocervical and/or squamous metaplasticcells (endocervical component)are present.Evaluation note* Diagnosis Onset Date Resolution Status Pelvic pain acute acute Supervision of high-risk acute [facility] Work Phone: Evaluation note* Diagnosis Onset Date Resolution Status acute Supervision of high-risk acute Pelvic pain acute acute Supervision of high-risk acute Pelvic pain acute acute Supervision of high-risk acute [facility] Work Phone: Evaluation note* Diagnosis Onset Date Resolution Status Pelvic pain acute acute Supervision of high-risk acute Pelvic pain acute acute Supervision of high-risk acute acute Supervision of high-risk acute Abdominal pain of right uppe r quadrant during , antepartum acute Anemia affecting a cute acute Supervision of high-risk acute [facility] Work Phone: evaluation note* Diagnosis Onset [...] high-risk acute Uterine size date discrepancy acute [facility] Work Phone: evaluation note* Diagnosis Onset [...] a cute acute Supervision of high-risk acute [facility] Work Phone: evaluation note* Diagnosis Onset [...] a cute acute Supervision of high-risk acute [facility] Work Phone: Evaluation note* Diagnosis Onset [...] a cute acute Supervision of high-risk acute [facility] Work Phone: Evaluation note* Diagnosis Onset [...] r esolved resolved Supervision of high-risk resolved [facility] Work Phone: Evaluation note* Diagnosis Onset Date Resolution Status Active labor resolved Alteration in well being resolved Anemia affecting r esolved resolved Supervision of high-risk resolved [facility] Work Phone: Hospital Discharge instructions Additional Instructions Follow-up with your MOTORCOACH OPERATOR in the outpatient setting. Return with worsening symptoms or other concerns. Your ultrasound did not show any acute abnormalities there was a visualized yolk sac in your uterus.[facility] Work Phone: Progress note Author Jhoana Pace [facility] April 01, 2023 2:21pm Note Date/Time April 01, 2023 2:21pm [facility] Medical Records Department [address] [place] [address] OB Triage Progress Note 04/01/23 1420 MR#: [id number] Acct: [id number] Name: LISA EWING Rep #:[id number] : 2000 22 From: Jhoana Pace CNM PCP: Care Physician,No Primary Status :REG CLI Y DOS: Location: [place] [id number] Progress Notes Date of Service: 04/01/23 Progress Note: Patient presents for triage evaluation secondary to scheduled NST and growth US for 41 week gestation FHT: 115 Moderate variability reactive no decelerations category I tracing Monson: irregular Contractions Assessment and plan: Reactive NST, kick counts reviewed, reassuring maternal and status patient discharged to home to follow-up at next appointment. See problem list details for additional plan information. Charges/Coding Multi Select Codes Urinary/Genital Urinary/Genital CPT Codes: 53791-01 non-stress test Interp Assessment & Plan (1) [...] Pace; No Primary Care Physician ~ Signed [facility] Work Phone: Progress note Author Jhoana Pace [facility] Note Date/Time March 17, 2025 12 :00pm [facility] [address] [place] [address], [address] [place] [address] OFFICE VISIT Date of Service: 03/17/25 MR#: [id number] Acct: [id number] Name: LISA EWING Rep #: [id number] : 2000 Provider: YUE Pace Age/Sex: 24/F [place] [facility] [place] Status: Signed Intake Vital Signs 01/21/25 10:37 08/13/25 14:45 03/17/25 11:22 Height 5 ft 1 in 5 ft 1 in 5 ft 1 in Weight: 114 lb 5 oz BMI 21.6 BP 107/72 Intake Visit Reasons: 16 wk ob 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 Is patient in pain?: No Allergies No Known Allergies Allergy (Verified 03/17/25 11:20) Medications ?Medication ?Instructions ?Recorded ?Confirmed ?Type multivitamin no.47-iron fum 27 1 cap PO DAILY pregnanc y 10/14/20 03/17/25 History mg-folate no.1 1 mg-dha 300 mg capsule (PNV-DHA) cyanocobalamin-liver extract tablet tab PO 01/17/25 History magnesium 200 mg tablet 200 mg PO QDAY 01/17/2502/28 History ondansetron 4 mg disintegrating 4 mg PO Q4H PRN nausea and 02/18/25 03/17/25 Rx tablet vomiting #60 tabs Last Menstrual Period: 11/21/24 : No PFSH PFSH Medical History History of recurrent miscarriages Dyspareunia Anemia Surgical History No significant past surgical history Family History Grandmother Cancer Grandfather Hypertension Social History adopted: No household members: spouse and children housing: house number of children: 2 current occupation: [employer] current occupational exposures/hazards: No pets and animals: No history of recent travel: Yes ( - December 2024) out of state: Yes out of country: No sexually active: Yes Smoking Status: Never smoker second hand exposure: No alcohol intake: current alcohol intake frequency: holidays/special occasions only details: not while substance use type: does not use diet: lactose free well-balanced diet: daily or most days caffeine: Yes Type: coffee eating out: 1-3 times/week during the past year weight has: remained stable what type of physical activity do you participate in: walking frequency: 3-4 times per week duration: < 15 minutes/day 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 Date Name GA/Weeks Outcome Route Bth Weight Infant Gen Labor Lgth Anesthesia Del Locatn Provider FOB 05/28/21 River 41 live - full term vacuum 7lbs 8oz Male ep idural [facility] Bayron Lang 04/02/23 Sadia 41 live - full term 7lbs 2oz Female ep idural [facility] Rebecca Pace Lang 06/30/23 4 spontaneous 09/28/24 5 spontaneous Delivery Date: 05/28/21 Last Updated by: Chanda Mcdonough IOL VAVD HPI 16 wk ob Details: LISA EWING is a 24 year old who presents for routine OB visit. OB Visit KHADRA Calculator Estimated Delivery Date Method Current WG Current Estimate 08/28/25 LMP (Certain) 16w 4d Other Estimates 09/02/25 Ultrasound #1 15w 6d Expected Delivery Route/Plan Labor Preferences- CB/BF classes: [] labor support person: [] labor intervention preferences: [] pain management options preferred: [] cut cord/dad catch: [] : [] PP control planned: [] discussed possible routes of delivery and associated risks: [] special requests: [] Specific Issue/Plans Covid status: [] Flu vaccine: [] Tdap vaccine: [] Rhogam: [] LARC form signed: [] Problem list reviewed and updated with the most current plan of care details and appropriate orders placed. Relevant counseling for the gestational age provided. Continue routine care and follow up unless otherwise noted in visit notes/problem list details Initial Weight: Not Recorded Date -?-?-?-?-?-?-?-?-?-?-?-?- EGA Weight BP Urine Prot -?-?-?-?-?-?-?-?-?-?-?-?- Glucose FHR FuHt Pres Dilation -?-?-?-?-?-?-?-?-?-?-?-?- Effaced St Visit Note 01/21/25 -?-?-?-?-?-?-?-?-?-?-?-?- 8w 5d 110 lb 2 oz 121/68 -?-?-?-?-?-?-?-?-?-?-?-?- 160 -?-?-?-?-?-?-?-?-?-?-?-?- SM- CRL cons wit h LMP 02/18/25 -?-?-?-?-?-?-?-?-?-?-?-?- 12w 5d 112 lb 107/71 Negative -?-?-?-?-?-?-?-?-?-?-?-?- Negative 163 -?-?-?-?-?-?-?-?-?-?-?-?- MH-No VB. Nausea persists. Compazine causes too much fatigue. Rx zofran sent. Br US confirm FHT 03/04/25 -?-?-?-?-?-?-?-?-?-?-?-?- 14w 5d 112 lb 5 oz 119/74 Nega tive -?-?-?-?-?-?-?-?-?-?-?-?- Negative 165 -?-?-?-?-?-?-?-?-?-?-?-?- JV- patient is alexis south seen today for vaginal bleeding. She was bleeding bright red this weekend and was seen at [facility] and told it was a cervical ectropion. I agree based on exam today, however I am unable to rule out previa on the ultrasound today as well. consulting [facility] to see her at 16 weeks. pelvic rest in the meantime. 03/12/25 -?-?-?-?-?-?-?-?-?-?-?-?- 15w 6d 112 lb 3 oz 114/73 Nega tive -?-?-?-?-?-?-?-?-?-?-?-?- Negative 150 -?-?-?-?-?-?-?-?-?-?-?-?- JV- pt is being seen urgently again today for cramping and continued brown spotting. She states that the pain is more on her right side. on exam she does not have rebound or guarding. ultrasound does not show an ovarian cyst. She declines a pelvic exam. Has formal scan tomorrow. recommend heat on lower back and tylenol. call if pain worsens. 03/17/25 -?-?-?-?-?-?-?-?-?-?-?-?- 16w 4d 114 lb 5 oz 107/72 Nega tive -?-?-?-?-?-?-?-?-?-?-?-?- Negative 148 -?-?-?-?-?-?-?-?-?-?-?-?- KW- US reviewed from MFM. Has partial abruption and has plan to repeat US with MFM at 20 weeks. Will need growth at 32 and 36 weeks. bleeding precautions reviewed. concerns with itching on hands and feet. Discussed likely normal but will do labs today for baseline. Declines AFP KW- No further bleeding sinc e US with MFM. US reviewed. Has partial abruption and has plan to repeat US with MFM at 20 weeks. Will need growth at 32 and 36 weeks. bleeding precautions reviewed. concerns with itching on hands and feet. Discussed likely normal but will do labs today for baseline. Declines AFP ACOG First Trimester First Trimester: Desire for , Alcohol, Tobacco Cessation, Illicit/Recreational Drug/Substance Use, Intimate Partner Violence, Barriers to care, Unstable Housing, Communication Barriers, Environmental/Work Hazards, Anticipated Course of Care, Toxoplasmosis Precations, Use of Any medications, Sexual activity, Exercise, Dental Care, Sauna/Hot tub use, Seat Belt use, Childbirth classes/Hospital facilities, Travel, Indications for Ultrasound and Screening for Aneuploidy; Discussed Second Trimester Second Trimester: Signs and Symptoms of Labor, Selecting a care provider, Reproductive Life Planning & Contreception, Care Planning, Depression/Anxiety and Intimate Partner Violence; Discussed Tobacco Cessation Third Trimester Third Trimester: Pain Management Plans, Labor support person(s), Immediate Larc, Circumcision preference, Movement Monitoring, Signs and Symptoms of Preeclampsia, Feeding No and [place] Education ROS Const Reports system reviewed and no additional complaints, except as documented Eyes Reports system reviewed and no additional complaints, except as documented ENT Reports system reviewed and no additional complaints, except as documented Card Reports system reviewed and no additional complaints, except as documented Resp Reports system reviewed and no additional complaints, except as documented GI Reports system reviewed and no additional complaints, except as documented, Denies nausea and Denies vomiting Reports system reviewed and no additional complaints, except as documented Musc Reports system reviewed and no additional complaints, except as documented Skin/Breast Reports system reviewed and no additional complaints, except as documented Neuro Yes system reviewed and no additional complaints, except as documented Psych Reports system reviewed and no additional complaints, except as documented Endo Reports system reviewed and no additional complaints, except as documented Dilshad/Lymph Reports system reviewed and no additional complaints, except as documented Aller/Immun Reports system reviewed and no additional complaints, except as documented Exam Const General: cooperative, healthy appearing and no acute distress Orientation: alert, awake and oriented x3 Neck Neck: normal visual inspection and full ROM Resp Effort & Inspection: normal respiratory effort, able to speak in complete sentences and symmetric chest movement GI Inspection: normal to inspection Palpation: soft and other Other: gravid Skin General: no rashes or lesions noted Neuro General: patient alert, patient awake and patient oriented x3 Cognition: normal cognition Speech: speech normal Gait: normal gait Motor: muscle tone normal throughout Extrem General: normal to inspection and full ROM Psych Appearance: grossly normal Mental Status: mental status grossly normal Mood: congruent mood Affect: normal affect Speech and Movement: speech and movement normal Attitude: cooperative Thought Process: normal Thought Content: normal Judgment: judgment good Results POC Urinalysis 2 Dip (Clinic) Office Urine Glucose Negative Last Edit by Elaina Garcia on 03/17/25 11:27 Office Urine Protein Negative Last Edit by Elaina Garcia on 03/17/25 11:27 Coding Level of Care Code OB Routine Diagnoses Vaginal bleeding affecting early O20.9 History of vacuum extraction assisted delivery Z87.59 History of miscarriage, currently O09.299 Supervision of high risk in second trimester O09.92 Trimester: second trimester 16 weeks gestation of Z3A.16 Weeks of gestation: 16 weeks Placental abruption O45.90 Assessment and Plan Assessment and Plan (1) Vaginal bleeding affecting early : Status: Acute Comment: has cervical ectropion, mfm scan at 16 weeks to rule out preiva. pelvic rest in the meantime. (2) History of vacuum extraction assisted delivery: Status: Acute Comment: First (3) History of miscarriage, currently : Status: Acute Comment: x2 (4) Supervision of high-risk : Status: Acute Qualifiers: Trimester: second trimester Qualified Code(s): O09.92 - Supervision of high risk , unspecified, second trimester Comment: PRR, , KHADRA 08/28, PC: Jhony & Sadia, : Lang (5) : Status: Acute Qualifiers: Weeks of gestation: 16 weeks Qualified Code(s): Z3A.16 - 16 weeks gestation of Comment: Discussed genetic/carrier testing -elct NIPT only-low risk, male(pt doing reveal) (6) Placental abruption: Status: Acute Comment: partial. repeat US with MFM at 20/32/36 weeks. Orders: Orders POC Urinalysis 2 Dip (Clinic) Today Plan Details Additional Comments: ACOG trimester education reviewed and updated. see problem list details for updated plan management information and see below for orders placed at this visit. GA appropriate handout given. 03/17/25 1200 <Electronically signed by Jhoana green CNM> Date _ Jhoana Pace CNM Cosigner Signature: Date (if applicable) CC: ~ [facility] Work Phone: Progrxqt note Author Jhoana Pace [facility] Note Date/Time April 28, 2025 12:06pm [facility] [address], [address] [place] [address] OFFICE VISIT Date of Service: 04/28/25 MR#: [id number] Acct: [id number] Name: CHEY EWINGTRINI Snow Rep #: [id number] : 2000 Provider: YUE Pace Age/Sex: 24/F [place] [facility] [place]: Signed Intake Vital Signs 04/14/25 14:51 04/28/25 11:23 04/28/25 11:24 Height 5 ft 1 in 5 ft 1 in 5 ft 1 in Weight: 124 lb 9 oz BMI 23.5 BP 113/74 Intake Visit Reasons: Add on d/t dizzy episode per sm - see note 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 Is patient in pain?: No Allergies No Known Allergies Allergy (Verified 04/28/25 11:23) Medications ?Medication ?Instructions ?Recorded ?Confirmed ?Type multivitamin no.47-iron fum 27 1 cap PO DAILY pregnanc y 10/14/20 04/28/25 History mg-folate no.1 1 mg-dha 300 mg capsule (PNV-DHA) cyanocobalamin-liver extract tablet tab PO 01/17/25 History magnesium 200 mg tablet 200 mg PO QDAY 01/17/2504/01 History ondansetron 4 mg disintegrating 4 mg PO Q4H PRN nausea and 02/18/25 04/28/25 Rx tablet vomiting #60 tabs Last Menstrual Period: 11/21/24 Zika: Zika virus screening: Negative : No PFSH PFSH Medical History History of recurrent miscarriages Dyspareunia Anemia Surgical History No significant past surgical history Family History Grandmother Cancer Grandfather Hypertension Social History adopted: No household members: spouse and children housing: house number of children: 2 current occupation: [employer] current occupational exposures/hazards: No pets and animals: No history of recent travel: Yes ( - December 2024) out of state: Yes out of country: No sexually active: Yes Smoking Status: Never smoker second hand exposure: No alcohol intake: current alcohol intake frequency: holidays/special occasions only details: not while substance use type: does not use diet: lactose free well-balanced diet: daily or most days caffeine: Yes Type: coffee eating out: 1-3 times/week during the past year weight has: remained stable what type of physical activity do you participate in: walking frequency: 3-4 times per week duration: < 15 minutes/day 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 Date Name GA/Weeks Outcome Route Bth Weight Infant Gen Labor Lgth Anesthesia Del Locatn Provider FOB 05/28/21 [place] 41 live - full term vacuum 7lbs 8oz Male ep idural [facility] Bayron Lang 04/02/23 Sadia 41 live - full term 7lbs 2oz Female ep idural [facility] Rebecca Croft 06/30/23 4 spontaneous 09/28/24 5 spontaneous Delivery Date: 05/28/21 Last Updated by: Chanda Mcdonough IOL VAVD HPI Add on d/t dizzy episode per sm - see note Details: LISA EWING is a 24 year old who presents for routine OB visit. OB Visit KHADRA Calculator Estimated Delivery Date Method Current WG Current Estimate 08/28/25 LMP (Certain) 22w 4d Other Estimates 09/02/25 Ultrasound #1 21w 6d Expected Delivery Route/Plan Labor Preferences- CB/BF classes: [] labor support person: [] labor intervention preferences: [] pain management options preferred: [] cut cord/dad catch: [] : [] PP control planned: [] discussed possible routes of delivery and associated risks: [] special requests: [] Specific Issue/Plans Covid status: [] Flu vaccine: [] Tdap vaccine: [] Rhogam: [] LARC form signed: [] Problem list reviewed and updated with the most current plan of care details and appropriate orders placed. Relevant counseling for the gestational age provided. Continue routine care and follow up unless otherwise noted in visit notes/problem list details Initial Weight: Not Recorded Date -?-?-?-?-?-?-?-?-?-?-?--?- EGA Weight BP Urine Prot -?-?-?-?-?-?-?-?-?-?-?-?- Glucose FHR FuHt Pres Dilation -?-?-?-?-?-?-?-?-?-?-?-?- Effaced St Visit Note 01/21/25 -?-?-?-?-?-?-?-?-?-?-?-?- 8w 5d 110 lb 2 oz 121/68 -?-?-?-?-?-?-?-?-?-?-?-?- 160 -?-?-?-?-?-?-?-?-?-?-?-?- SM- CRL cons wit h LMP 02/18/25 -?-?-?-?-?-?-?-?-?-?-?-?- 12w 5d 112 lb 107/71 Negative -?-?-?-?-?-?-?-?--?-?-?-?- Negative 163 -?-?-?-?-?-?-?-?-?-?-?-?- MH-No VB. Nausea persists. Compazine causes too much fatigue. Rx zofran sent. Br US confirm FHT 03/04/25 -?-?-?-?-?-?-?-?-?-?-?-?- 14w 5d 112 lb 5 oz 119/74 Nega tive -?-?-?-?-?-?-?-?-?-?-?-?- Negative 165 -?-?-?-?-?-?-?-?-?-?-?-?- JV- patient is alexis south seen today for vaginal bleeding. She was bleeding bright red this weekend and was seen at [facility] and told it was a cervical ectropion. I agree based on exam today, however I am unable to rule out previa on the ultrasound today as well. consulting [facility] to see her at 16 weeks. pelvic rest in the meantime. 03/12/25 -?-?-?-?-?-?-?-?-?-?-?-?- 15w 6d 112 lb 3 oz 114/73 Nega tive -?-?-?-?-?-?-?-?-?-?-?-?- Negative 150 -?-?-?-?-?-?-?-?-?-?-?-?- JV- pt is being seen urgently again today for cramping and continued brown spotting. She states that the pain is more on her right side. on exam she does not have rebound or guarding. ultrasound does not show an ovarian cyst. She declines a pelvic exam. Has formal scan tomorrow. recommend heat on lower back and tylenol. call if pain worsens. 03/17/25 -?-?-?-?-?-?-?-?-?-?-?-?- 16w 4d 114 lb 5 oz 107/72 Nega tive -?-?-?--?-?-?-?-?-?-?-?-?- Negative 148 -?-?-?-?-?-?-?-?-?-?-?-?- KW- US reviewed from MFM. Has partial abruption and has plan to repeat US with MFM at 20 weeks. Will need growth at 32 and 36 weeks. bleeding precautions reviewed. concerns with itching on hands and feet. Discussed likely normal but will do labs today for baseline. Declines AFP KW- No further bleeding sinc e US with MFM. US reviewed. Has partial abruption and has plan to repeat US with MFM at 20 weeks. Will need growth at 32 and 36 weeks. bleeding precautions reviewed. concerns with itching on hands and feet. Discussed likely normal but will do labs today for baseline. Declines AFP 03/25/25 -?-?-?-?-?-?-?-?-?-?-?-?- 17w 5d 113 lb 108/73 Negative -?-?-?-?-?-?--?-?-?-?-?-?- Negative 150 -?-?-?-?-?-?-?-?-?-?-?-?- SM- episode of b leeding and cramping. cervix closed 04/14/25 -?-?-?-?-?-?-?-?-?-?-?-?- 20w 4d 119 lb 7 oz 100/66 Nega tive -?-?-?-?-?-?-?-?-?-?-?-?- Negative 140 -?-?-?-?-?-?-?-?-?-?-?-?- SM- no vb lof cr maping some episodes of lightheadedness. 04/28/25 -?-?-?-?-?-?-?-?-?-?-?-?- 22w 4d 124 lb 9 oz 113/74 Nega tive -?-?-?-?-?-?-?-?-?-?-?-?- Negative 135 22 -?-?-?-?-?-?-?--?-?-?-?-?- KW- work in for occasional dizziness when she is up walking a lot. no vb/lof/ctx. does notice it is better with liquid IV drinks. will try to increase electrolytes for 2 weeks ACOG First Trimester First Trimester: Desire for , Alcohol, Tobacco Cessation, Illicit/Recreational Drug/Substance Use, Intimate Partner Violence, Barriers to care, Unstable Housing, Communication Barriers, Environmental/Work Hazards, Anticipated Course of Care, Toxoplasmosis Precations, Use of Any medications, Sexual activity, Exercise, Dental Care, Sauna/Hot tub use, Seat Belt use, Childbirth classes/Hospital facilities, Travel, Indications for Ultrasound and Screening for Aneuploidy; Discussed Second Trimester Second Trimester: Signs and Symptoms of Labor, Selecting a care provider, Reproductive Life Planning & Contreception, Care Planning, Depression/Anxiety and Intimate Partner Violence; Discussed Tobacco Cessation Third Trimester Third Trimester: Pain Management Plans, Labor support person(s), Immediate Larc, Circumcision preference, Movement Monitoring, Signs and Symptoms of Preeclampsia, Infant Feeding No and Education ROS Const Reports system reviewed and no additional complaints, except as documented Eyes Reports system reviewed and no additional complaints, except as documented ENT Reports system reviewed and no additional complaints, except as documented Card Reports system reviewed and no additional complaints, except as documented Resp Reports system reviewed and no additional complaints, except as documented GI Reports system reviewed and no additional complaints, except as documented, Denies nausea and Denies vomiting Reports system reviewed and no additional complaints, except as documented Musc Reports system reviewed and no additional complaints, except as documented Skin/Breast Reports system reviewed and no additional complaints, except as documented Neuro Yes system reviewed and no additional complaints, except as documented Psych Reports system reviewed and no additional complaints, except as documented Endo Reports system reviewed and no additional complaints, except as documented Dilshad/Lymph Reports system reviewed and no additional complaints, except as documented Aller/Immun Reports system reviewed and no additional complaints, except as documented Exam Const General: cooperative, healthy appearing and no acute distress Orientation: alert, awake and oriented x3 Neck Neck: normal visual inspection and full ROM Resp Effort & Inspection: normal respiratory effort, able to speak in complete sentences and symmetric chest movement GI Inspection: normal to inspection Palpation: soft and other Other: gravid Skin General: no rashes or lesions noted Neuro General: patient alert, patient awake and patient oriented x3 Cognition: normal cognition Speech: speech normal Gait: normal gait Motor: muscle tone normal throughout Extrem General: normal to inspection and full ROM Psych Appearance: grossly normal Mental Status: mental status grossly normal Mood: congruent mood Affect: normal affect Speech and Movement: speech and movement normal Attitude: cooperative Thought Process: normal Thought Content: normal Judgment: judgment good Results POC Urinalysis 2 Dip (Clinic) Office Urine Glucose Negative Last Edit by Meaghan Irvin on 04/28/25 11: 40 Office Urine Protein Negative Last Edit by Meaghan Irvin on 04/28/25 11: 40 Coding Level of Care Code OB Routine Diagnoses Placental abruption O45.90 Vaginal bleeding affecting early O20.9 History of vacuum extraction assisted delivery Z87.59 History of miscarriage, currently O09.299 Supervision of high risk in second trimester O09.92 Trimester: second trimester 22 weeks gestation of Z3A.22 Weeks of gestation: 22 weeks Assessment and Plan Assessment and Plan (1) Placental abruption: Status: Acute Comment: partial on anatomy US. repeat US with MFM at 20/32/36 weeks. (2) Vaginal bleeding affecting early : Status: Acute Comment: has cervical ectropion, mfm scan at 16 weeks to rule out preiva. pelvic rest in the meantime. (3) History of vacuum extraction assisted delivery: Status: Acute Comment: First (4) History of miscarriage, currently : Status: Acute Comment: x2 (5) Supervision of high-risk : Status: Acute Qualifiers: Trimester: second trimester Qualified Code(s): O09.92 - Supervision of high risk , unspecified, second trimester Comment: PRR, , KHADRA 08/28, PC: Norma, : Lang (6) : Status: Acute Qualifiers: Weeks of gestation: 22 weeks Qualified Code(s): Z3A.22 - 22 weeks gestation of Comment: Discussed genetic/carrier testing -elct NIPT only-low risk, male(pt doing reveal) Orders: Orders POC Urinalysis 2 Dip (Clinic) Today Culture, Urine Today R10.2 - Pelvic and perineal pain, R42 - Dizziness and giddiness Plan Details Additional Comments: ACOG trimester education reviewed and updated. see problem list details for updated plan management information and see below for orders placed at this visit. [place] appropriate handout given. 04/28/25 5719 <Electronically signed by Jhoana green CNM> Date _ Jhoana Pace CNM Cosigner Signature: Date (if applicable) CC: ~ [facility] Work Phone: Progress note Author Maureen Benítez 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 Is patient in pain?: No Allergies No Known Allergies Allergy (Verified 05/14/25 09:59) Medications ?Medication ?Instructions ?Recorded ?Confirmed ?Type multivitamin no.47-iron fum 27 1 cap PO DAILY pregnanc y 10/14/20 05/14/25 History mg-folate no.1 1 mg-dha 300 mg capsule (PNV-DHA) cyanocobalamin-liver extract tablet tab PO 01/17/25 History magnesium 200 mg tablet 200 mg PO QDAY 01/17/2504/30 History ondansetron 4 mg disintegrating 4 mg PO Q4H PRN nausea and 02/18/25 05/14/25 Rx tablet vomiting #60 tabs Last Menstrual Period: 11/21/24 Zika: Zika virus screening: Negative : Yes PFSH PFSH Medical History History of recurrent miscarriages Dyspareunia Anemia Surgical History No significant past surgical history Family History Grandmother Cancer Grandfather Hypertension Social History adopted: No household members: spouse and children housing: house number of children: 2 current occupation: [employer] current occupational exposures/hazards: No pets and animals: No history of recent travel: Yes ( - December 2024) out of state: Yes out of country: No sexually active: Yes Smoking Status: Never smoker second hand exposure: No alcohol intake: current alcohol intake frequency: holidays/special occasions only details: not while substance use type: does not use diet: lactose free well-balanced diet: daily or most days caffeine: Yes Type: coffee eating out: 1-3 times/week during the past year weight has: remained stable what type of physical activity do you participate in: walking frequency: 3-4 times per week duration: < 15 minutes/day 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 Date Name GA/Weeks Outcome Route Bth Weight Infant Gen Labor Lgth Anes th esia Del Locatn Provider FOB 05/28/21 [place] 41 live - full term vacuum 7lbs 8oz Male ep idural [facility] Bayron Croft 04/02/23 Sadia 41 live - full term 7lbs 2oz Female ep idural [facility] Rebecca Croft 06/30/23 4 spontaneous 09/28/24 5 spontaneous Delivery Date: 05/28/21 Last Updated by: Chanda Mcdonough IOL VAVD HPI 24WK 6D OB Details: LISA EWING is a 24 year old who presents for routine OB visit. OB Visit KHADRA Calculator Estimated Delivery Date Method Current WG Current Estimate 08/28/25 LMP (Certain) 24w 6d Other Estimates 09/02/25 Ultrasound #1 24w 1d Expected Delivery Route/Plan Labor Preferences- CB/BF classes: no labor support person: Lang labor intervention preferences: [] pain management options preferred: epidural cut cord/dad catch: yes : yes PP control planned: discussed discussed possible routes of delivery and associated risks: [] special requests: [] Specific Issue/Plans Covid status: [] Flu vaccine: declines Tdap vaccine: [] Rhogam: NA LARC form signed: yes Problem list reviewed and updated with the most current plan of care details and appropriate orders placed. Relevant counseling for the gestational age provided. Continue routine care and follow up unless otherwise noted in visit notes/problem list details Initial Weight: Not Recorded Date -?-?-?-?-?-?-?-?-?-?-?-?- EGA Weight BP Urine Prot -?-?-?-?-?-?-?-?-?-?-?-?- Glucose FHR FuHt Pres Dilation -?-?-?-?-?-?-?-?-?-?-?-?- Effaced St Visit Note 01/21/25 -?-?-?-?-?-?-?-?-?-?-?-?- 8w 5d 110 lb 2 oz 121/68 -?-?-?-?-?-?-?-?-?-?-?-?- 160 -?-?-?-?--?-?-?-?-?-?-?-?- SM- CRL cons wit h LMP 02/18/25 -?-?-?-?-?-?-?-?-?-?-?-?- 12w 5d 112 lb 107/71 Negative -?-?-?-?-?-?-?-?-?-?-?-?- Negative 163 -?-?-?-?-?-?-?-?-?-?-?-?- MH-No VB. Nausea persists. Compazine causes too much fatigue. Rx jesse sent. Br US confirm FHT 03/04/25 -?-?-?-?-?-?-?-?-?-?-?-?- 14w 5d 112 lb 5 oz 119/74 Nega tive -?-?-?-?-?-?-?-?-?-?-?-?- Negative 165 -?-?-?-?-?-?-?-?-?-?-?-?- JV- patient is alexis south seen today for vaginal bleeding. She was bleeding bright red this weekend and was seen at [facility] and told it was a cervical ectropion. I agree based on exam today, however I am unable to rule out previa on the ultrasound today as well. consulting M to see her at 16 weeks. pelvic rest in the meantime. 03/12/25 -?-?-?-?-?-?-?-?-?-?-?-?- 15w 6d 112 lb 3 oz 114/73 Nega tive -?-?-?-?-?-?-?-?-?-?-?-?- Negative 150 -?-?-?-?-?-?-?-?-?-?-?-?- JV- pt is being seen urgently again today for cramping and continued brown spotting. She states that the pain is more on her right side. on exam she does not have rebound or guarding. ultrasound does not show an ovarian cyst. She declines a pelvic exam. Has formal scan tomorrow. recommend heat on lower back and tylenol. call if pain worsens. 03/17/25 -?-?-?-?-?-?-?-?-?-?-?-?- 16w 4d 114 lb 5 oz 107/72 Nega tive -?-?-?-?-?-?-?-?-?-?-?-?- Negative 148 -?-?-?-?-?-?-?-?-?-?-?-?- KW- US reviewed from MFM. Has partial abruption and has plan to repeat US with MFM at 20 weeks. Will need growth at 32 and 36 weeks. bleeding precautions reviewed. concerns with itching on hands and feet. Discussed likely normal but will do labs today for baseline. Declines AFP KW- No further bleeding sinc e US with MFM. US reviewed. Has partial abruption and has plan to repeat US with MFM at 20 weeks. Will need growth at 32 and 36 weeks. bleeding precautions reviewed. concerns with itching on hands and feet. Discussed likely normal but will do labs today for baseline. Declines AFP 03/25/25 -?-?-?-?-?-?-?-?-?-?-?-?- 17w 5d 113 lb 108/73 Negative -?-?-?-?-?-?-?-?-?-?-?-?- Negative 150 -?-?-?-?-?-?-?-?-?-?-?-?- SM- episode of b leeding and cramping. cervix closed 04/14/25 -?-?-?-?-?-?-?-?-?-?-?-?- 20w 4d 119 lb 7 oz 100/66 Nega tive -?-?-?-?-?-?-?-?-?-?-?-?- Negative 140 -?-?-?-?-?-?-?-?-?-?-?-?- SM- no vb lof cr maping some episodes of lightheadedness. 04/28/25 -?-?-?-?-?-?-?-?-?-?-?-?- 22w 4d 124 lb 9 oz 113/74 Nega tive -?-?-?-?-?-?-?-?-?-?-?-?- Negative 135 22 -?-?-?-?-?-?-?-?-?-?-?-?- KW- work in for occasional dizziness when she is up walking a lot. no vb/lof/ctx. does notice it is better with liquid IV drinks. will try to increase electrolytes for 2 weeks 05/14/25 -?-?-?--?-?-?-?-?-?-?-?-?- 24w 6d 125 lb 6 oz 114/69 Nega tive -?-?-?-?-?-?-?-?-?-?-?-?- Negative 140 25 -?-?-?-?-?-?-?-?-?-?-?-?- MH-No VB, LOF. G ood Fm. Larc MH-No VB, LOF. Good Fm. RUQ postmeals/pepcid/ US. Larc ACOG First Trimester First Trimester: Desire for , Alcohol, Tobacco Cessation, Illicit/Recreational Drug/Substance Use, Intimate Partner Violence, Barriers to care, Unstable Housing, Communication Barriers, Environmental/Work Hazards, Anticipated Course of Care, Toxoplasmosis Precations, Use of Any medications, Sexual activity, Exercise, Dental Care, Sauna/Hot tub use, Seat Belt use, Childbirth classes/Hospital facilities, , Travel, Indications for Ultrasound and Screening for Aneuploidy Second Trimester Second Trimester: Signs and Symptoms of Labor, Selecting a care provider, Reproductive Life Planning & Contreception, Care Planning, Depression/Anxiety and Intimate Partner Violence; Discussed Tobacco Cessation Third Trimester Third Trimester: Pain Management Plans, Labor support person(s), Immediate Larc, Circumcision preference Yes Yes, Movement Monitoring, Signs and Symptoms of Preeclampsia, Feeding Yes and Education ROS Const Reports system reviewed and no additional complaints, except as documented GI Denies abdominal pain, Denies nausea and Denies vomiting Exam Const General: cooperative Nutritional Appearance: well nourished GI Palpation: soft, nontender and other (gravid) Results POC Urinalysis 2 Dip (Clinic) Office Urine Glucose Negative Last Edit by Lakisha Turner on 05/14/25 10 :02 Office Urine Protein Negative Last Edit by Lakisha Turner on 05/14/25 10 :02 Coding Level of Care Code OB Routine Diagnoses Supervision of high risk in second trimester O09.92 Trimester: second trimester 24 weeks gestation of Z3A.24 Weeks of gestation: 24 weeks History of miscarriage, currently O09.299 History of vacuum extraction assisted delivery Z87.59 Vaginal bleeding affecting early O20.9 Placental abruption in second trimester O45.92 Trimester: second trimester RUQ abdominal pain R10.11 Assessment and Plan Assessment and Plan (1) Supervision of high-risk : Status: Acute Qualifiers: Trimester: second trimester Qualified Code(s): O09.92 - Supervision of high risk , unspecified, second trimester Comment: PRR, , KHADRA 08/28, PC: Jhony & Sadia, : Lang (2) : Status: Acute Qualifiers: Weeks of gestation: 24 weeks Qualified Code(s): Z3A.24 - 24 weeks gestation of Comment: Discussed genetic/carrier testing -elct NIPT only-low risk, male(pt doing reveal) (3) History of miscarriage, currently : Status: Acute Comment: x2 (4) History of vacuum extraction assisted delivery: Status: Acute Comment: First (5) Vaginal bleeding affecting early : Status: Acute Comment: has cervical ectropion, mfm scan at 16 weeks to rule out preiva. pelvic rest in the meantime. (6) Placental abruption: Status: Acute Qualifiers: Trimester: second trimester Qualified Code(s): O45.92 - Premature separation of placenta, unspecified, second trimester Comment: partial on anatomy US. repeat US with MFM Q4wk (7) RUQ abdominal pain: Status: Acute Comment: after eating. Pepcid, gallbladder US Orders: Orders POC Urinalysis 2 Dip (Clinic) Today CBC W/Diff, Automated Today O09.92 - Supervision of high risk , unspecified, second trimester, R10.11 - Right upper quadrant pain Glucose Challenge Gest 1H 50g Today O09.92 - Supervision of high risk , unspecified, second trimester, R10.11 - Right upper quadrant pain, Z13.1 - Encounter for screening for diabetes mellitus HIV Today O09.92 - Supervision of high risk , unspecified, second trimester, R10.11 - Right upper quadrant pain Syphilis Antibodies Today O09.92 - Supervision of high risk , unspecified, second trimester, R10.11 - Right upper quadrant pain Gallbladder Today R10.11 - Right upper quadrant pain Plan problem list reviewed and updated for most current plan of care and appropriate orders placed. Relevant counseling for the gestational age appropriate provided and ACOG education checklist updated. Continue routine care and follow up. 10/15/25 1103 <Electronically signed by Maureen green INSTITUTION LIBRARIAN INSTITUTION LIBRARIAN-C> Date _ Maureen Benítez INSTITUTION LIBRARIAN INSTITUTION LIBRARIAN-C Cosigner Signature: Date (if applicable) CC: ~ [facility] Work Phone: Reason for referral (narrative)No reason for referral information availableWKettering [facility] Work Phone: Chief Complaint and Reason for Visit Chief Complaint Admit Date fu miscarriages 2024 8:39 am Reason for Visit Admit Date Dyspareunia 2024 8:39 am History of recurrent miscarriages 2024 8:39am Vaginal discharge 2024 8:39 am Chief Complaint Admit Date fu miscarriages 2024 8:39 am vag bld, preg January 04, 2025 4:44p m Chief Complaint pelvic pain, possibl e ovarian [...] Admit Date fu miscarriages 2024 8:39 am vag bld, preg January 04, 2025 4:44p m Amb Documentation January 17, 2025 9:23 am *EST* 8WK NOB January 21, 2025 10:3 4am Reason for Visit Admit Date Dyspareunia 2024 8:39 am History of recurrent miscarriages 2024 8:39am Vaginal discharge 2024 8:39 am History of miscarriage, currently pregna nt January 21, 2025 10:34am History of vacuum extraction assisted de livery January 21, 2025 10:34am January 21, 2025 10:3 4am Supervision of high-risk January 21, 2025 10:34am Chief Complaint Admit Date fu miscarriages 2024 8:39 am vag bld, preg January 04, 2025 4:44p m Amb Documentation January 17, 2025 9:23 am *EST* 8WK NOB January 21, 2025 10:3 4am 12wk OB February 18, 2025 8:29 am Reason for Visit Admit Date Dyspareunia 2024 8:39 am History of recurrent miscarriages 2024 8:39am Vaginal discharge 2024 8:39 am History of miscarriage, currently pregna nt January 21, 2025 10:34am History of vacuum extraction assisted de livery January 21, 2025 10:34am January 21, 2025 10:3 4am Supervision of high-risk January 21, 2025 10:34am History of miscarriage, currently pregna nt February 18, 2025 8:29am History of vacuum extraction assisted de livery February 18, 2025 8:29am February 18, 2025 8:29 am Supervision of high-risk February 18, 2025 8:29am Chief Complaint Admit Date fu miscarriages 2024 8:39 am vag bld, preg January 04, 2025 4:44p m Amb Documentation January 17, 2025 9:23 am *EST* 8WK NOB January 21, 2025 10:3 4am 12wk OB February 18, 2025 8:29 am OB, 15w ER ([facility]) follow up March 04, 2025 12:54pm Chief Complaint Admit Date vag bld, preg January 04, 2025 4:44p m Amb Documentation January 17, 2025 9:23 am *EST* 8WK NOB January 21, 2025 10:3 4am 12wk OB February 18, 2025 8:29 am OB, 15w ER ([facility]) follow up March 04, 2025 12:54pm OB, spotting March 12, 2025 2: 41pm Reason for Visit Admit Date History of miscarriage, currently pregna nt January 21, 2025 10:34am History of vacuum extraction assisted de livery January 21, 2025 10:34am January 21, 2025 10:3 4am Supervision of high-risk January 21, 2025 10:34am History of miscarriage, currently pregna nt February 18, 2025 8:29am History of vacuum extraction assisted de livery February 18, 2025 8:29am February 18, 2025 8:29 am Supervision of high-risk February 18, 2025 8:29am History of miscarriage, currently pregna nt March 12, 2025 2:41pm History of vacuum extraction assisted de livery March 12, 2025 2:41pm March 12, 2025 2: 41pm Supervision of high-risk Augus t 2024 2:41pm Vaginal bleeding affecting early pregnan cy March 12, 2025 2:41pm Chief Complaint Admit Date vag bld, preg January 04, 2025 4:44p m Amb Documentation January 17, 2025 9:23 am *EST* 8WK NOB January 21, 2025 10:3 4am 12wk OB February 18, 2025 8:29 am OB, 15w ER ([facility]) follow up March 04, 2025 12:54pm OB, spotting March 12, 2025 2: 41pm 16 wk ob March 17, 2025 11 :19am Reason for Visit Admit Date History of miscarriage, currently pregna nt January 21, 2025 10:34am History of vacuum extraction assisted de livery January 21, 2025 10:34am January 21, 2025 10:3 4am Supervision of high-risk January 21, 2025 10:34am History of miscarriage, currently pregna nt February 18, 2025 8:29am History of vacuum extraction assisted de livery February 18, 2025 8:29am February 18, 2025 8:29 am Supervision of high-risk February 18, 2025 8:29am History of miscarriage, currently pregna nt March 12, 2025 2:41pm History of vacuum extraction assisted de livery March 12, 2025 2:41pm March 12, 2025 2: 41pm Supervision of high-risk Augus 2024 2:41pm Vaginal bleeding affecting early pregnan cy March 12, 2025 2:41pm History of miscarriage, currently pregna nt March 17, 2025 11:19am History of vacuum extraction assisted de livery March 17, 2025 11:19am Placental abruption March 17, 2025 11 :19am March 17, 2025 11 :19am Supervision of high-risk Augus t 2024 11:19am Vaginal bleeding affecting early pregnan cy March 17, 2025 11:19am Reason for Visit Admit Date History of miscarriage, currently pregna nt January 21, 2025 10:34am History of vacuum extraction assisted de livery January 21, 2025 10:34am January 21, 2025 10:3 4am Supervision of high-risk January 21, 2025 10:34am History of miscarriage, currently pregna nt February 18, 2025 8:29am History of vacuum extraction assisted de livery February 18, 2025 8:29am February 18, 2025 8:29 am Supervision of high-risk February 18, 2025 8:29am History of miscarriage, currently pregna nt March 04, 2025 12:54pm History of vacuum extraction assisted de livery March 04, 2025 12:54pm Placental abruption March 04, 2025 12: 54pm March 04, 2025 12: 54pm Supervision of high-risk Augus 2024 12:54pm Vaginal bleeding affecting early pregnan cy March 04, 2025 12:54pm History of miscarriage, currently pregna nt March 12, 2025 2:41pm History of vacuum extraction assisted de livery March 12, 2025 2:41pm March 12, 2025 2: 41pm Supervision of high-risk Augus 2024 2:41pm Vaginal bleeding affecting early pregnan cy March 12, 2025 2:41pm History of miscarriage, currently pregna nt March 17, 2025 11:19am History of vacuum extraction assisted de livery March 17, 2025 11:19am Placental abruption March 17, 2025 11 :19am March 17, 2025 11 :19am Supervision of high-risk Augus 2024 11:19am Vaginal bleeding affecting early pregnan cy March 17, 2025 11:19am Chief Complaint Admit Date vag bld, preg January 04, 2025 4:44p m Amb Documentation January 17, 2025 9:23 am *EST* 8WK NOB January 21, 2025 10:3 4am 12wk OB February 18, 2025 8:29 am OB, 15w ER ([facility]) follow up March 04, 2025 12:54pm OB, spotting March 12, 2025 2: 41pm 16 wk ob March 17, 2025 11 :19am OB spotting March 25, 2025 11 :35am Reason for Visit Admit Date History of miscarriage, currently pregna nt January 21, 2025 10:34am History of vacuum extraction assisted de livery January 21, 2025 10:34am January 21, 2025 10:3 4am Supervision of high-risk January 21, 2025 10:34am History of miscarriage, currently pregna nt February 18, 2025 8:29am History of vacuum extraction assisted de livery February 18, 2025 8:29am February 18, 2025 8:29 am Supervision of high-risk February 18, 2025 8:29am History of miscarriage, currently pregna nt March 04, 2025 12:54pm History of vacuum extraction assisted de livery March 04, 2025 12:54pm Placental abruption March 04, 2025 12: 54pm March 04, 2025 12: 54pm Supervision of high-risk Augus 2024 12:54pm Vaginal bleeding affecting early pregnan cy March 04, 2025 12:54pm History of miscarriage, currently pregna nt March 12, 2025 2:41pm History of vacuum extraction assisted de livery March 12, 2025 2:41pm March 12, 2025 2: 41pm Supervision of high-risk Augus t 2024 2:41pm Vaginal bleeding affecting early pregnan cy March 12, 2025 2:41pm History of miscarriage, currently pregna nt March 17, 2025 11:19am History of vacuum extraction assisted de livery March 17, 2025 11:19am Placental abruption March 17, 2025 11 :19am March 17, 2025 11 :19am Supervision of high-risk Augus 2024 11:19am Vaginal bleeding affecting early pregnan cy March 17, 2025 11:19am History of miscarriage, currently pregna nt March 25, 2025 11:35am History of vacuum extraction assisted de livery March 25, 2025 11:35am Placental abruption March 25, 2025 11 :35am March 25, 2025 11 :35am Supervision of high-risk Augus t 2024 11:35am Vaginal bleeding affecting early pregnan cy March 25, 2025 11:35am Chief Complaint Admit Date vag bld, preg January 04, 2025 4:44p m Amb Documentation January 17, 2025 9:23 am *EST* 8WK NOB January 21, 2025 10:3 4am 12wk OB February 18, 2025 8:29 am OB, 15w ER ([facility]) follow up March 04, 2025 12:54pm OB, spotting March 12, 2025 2: 41pm 16 wk ob March 17, 2025 11 :19am OB spotting March 25, 2025 11 :35am 20 Wk OB April 14, 2025 2:45pm Reason for Visit Admit Date History of miscarriage, currently pregna nt January 21, 2025 10:34am History of vacuum extraction assisted de livery January 21, 2025 10:34am January 21, 2025 10:3 4am Supervision of high-risk January 21, 2025 10:34am History of miscarriage, currently pregna nt February 18, 2025 8:29am History of vacuum extraction assisted de livery February 18, 2025 8:29am February 18, 2025 8:29 am Supervision of high-risk February 18, 2025 8:29am History of miscarriage, currently pregna nt March 04, 2025 12:54pm History of vacuum extraction assisted de livery March 04, 2025 12:54pm Placental abruption March 04, 2025 12: 54pm March 04, 2025 12: 54pm Supervision of high-risk Augus 2024 12:54pm Vaginal bleeding affecting early pregnan cy March 04, 2025 12:54pm History of miscarriage, currently pregna nt March 12, 2025 2:41pm History of vacuum extraction assisted de livery March 12, 2025 2:41pm March 12, 2025 2: 41pm Supervision of high-risk Augus 2024 2:41pm Vaginal bleeding affecting early pregnan cy March 12, 2025 2:41pm History of miscarriage, currently pregna nt March 17, 2025 11:19am History of vacuum extraction assisted de livery March 17, 2025 11:19am Placental abruption March 17, 2025 11 :19am March 17, 2025 11 :19am Supervision of high-risk Augus 2024 11:19am Vaginal bleeding affecting early pregnan cy March 17, 2025 11:19am History of miscarriage, currently pregna nt March 25, 2025 11:35am History of vacuum extraction assisted de livery March 25, 2025 11:35am Placental abruption March 25, 2025 11 :35am March 25, 2025 11 :35am Supervision of high-risk Augus 2024 11:35am Vaginal bleeding affecting early pregnan cy March 25, 2025 11:35am History of miscarriage, currently pregna nt April 14, 2025 2:45pm History of vacuum extraction assisted de livery April 14, 2025 2:45pm Placental abruption April 14, 2025 2:45pm April 14, 2025 2:45pm Supervision of high-risk Ashleye mber 2024 2:45pm Vaginal bleeding affecting early pregnan cy April 14, 2025 2:45pm Chief Complaint Admit Date vag bld, preg January 04, 2025 4:44p m Amb Documentation January 17, 2025 9:23 am *EST* 8WK NOB January 21, 2025 10:3 4am 12wk OB February 18, 2025 8:29 am OB, 15w ER ([facility]) follow up March 04, 2025 12:54pm OB, spotting March 12, 2025 2: 41pm 16 wk ob March 17, 2025 11 :19am OB spotting March 25, 2025 11 :35am 20 Wk OB April 14, 2025 2:45pm Add on d/t dizzy episode per sm - see no te April 28, 2025 11:21am INT LAB ORDER April 28, 2025 12:30pm Reason for Visit Admit Date History of miscarriage, currently pregna nt January 21, 2025 10:34am History of vacuum extraction assisted de livery January 21, 2025 10:34am January 21, 2025 10:3 4am Supervision of high-risk January 21, 2025 10:34am History of miscarriage, currently pregna nt February 18, 2025 8:29am History of vacuum extraction assisted de livery February 18, 2025 8:29am February 18, 2025 8:29 am Supervision of high-risk February 18, 2025 8:29am History of miscarriage, currently pregna nt March 04, 2025 12:54pm History of vacuum extraction assisted de livery March 04, 2025 12:54pm Placental abruption March 04, 2025 12: 54pm March 04, 2025 12: 54pm Supervision of high-risk Augus 2024 12:54pm Vaginal bleeding affecting early pregnan cy March 04, 2025 12:54pm History of miscarriage, currently pregna nt March 12, 2025 2:41pm History of vacuum extraction assisted de livery March 12, 2025 2:41pm March 12, 2025 2: 41pm Supervision of high-risk Augus t 2024 2:41pm Vaginal bleeding affecting early pregnan cy March 12, 2025 2:41pm History of miscarriage, currently pregna nt March 17, 2025 11:19am History of vacuum extraction assisted de livery March 17, 2025 11:19am Placental abruption March 17, 2025 11 :19am March 17, 2025 11 :19am Supervision of high-risk Augus 2024 11:19am Vaginal bleeding affecting early pregnan cy March 17, 2025 11:19am History of miscarriage, currently pregna nt March 25, 2025 11:35am History of vacuum extraction assisted de livery March 25, 2025 11:35am Placental abruption March 25, 2025 11 :35am March 25, 2025 11 :35am Supervision of high-risk Augus t 2024 11:35am Vaginal bleeding affecting early pregnan cy March 25, 2025 11:35am History of miscarriage, currently pregna nt April 14, 2025 2:45pm History of vacuum extraction assisted de livery April 14, 2025 2:45pm Placental abruption April 14, 2025 2:45pm April 14, 2025 2:45pm [facility] 2024 2:45pm Vaginal bleeding affecting early pregnan cy April 14, 2025 2:45pm History of miscarriage, currently pregna nt April 28, 2025 11:21am History of vacuum extraction assisted de livery April 28, 2025 11:21am Placental abruption April 28, 2025 11:21am April 28, 2025 11:21am Supervision of high-risk [facility] 2024 11:21am Vaginal bleeding affecting early pregnan cy April 28, 2025 11:21am Chief Complaint Admit Date 12wk OB February 18, 2025 8:29 am OB, 15w ER ([facility]) follow up March 04, 2025 12:54pm OB, spotting March 12, 2025 2: 41pm 16 wk ob March 17, 2025 11 :19am OB spotting March 25, 2025 11 :35am 20 Wk OB April 14, 2025 2:45pm Add on d/t dizzy episode per sm - see no te April 28, 2025 11:21am INT LAB ORDER April 28, 2025 12:30pm 24WK 6D OB May 14, 2025 9 :55am Reason for Visit Admit Date History of miscarriage, currently pregna nt February 18, 2025 8:29am History of vacuum extraction assisted de livery February 18, 2025 8:29am February 18, 2025 8:29 am Supervision of high-risk February 18, 2025 8:29am History of miscarriage, currently pregna nt March 04, 2025 12:54pm History of vacuum extraction assisted de livery March 04, 2025 12:54pm Placental abruption March 04, 2025 12: 54pm March 04, 2025 12: 54pm Supervision of high-risk Augus t 2024 12:54pm Vaginal bleeding affecting early pregnan cy March 04, 2025 12:54pm History of miscarriage, currently pregna nt March 12, 2025 2:41pm History of vacuum extraction assisted de livery March 12, 2025 2:41pm March 12, 2025 2: 41pm Supervision of high-risk Augus t 2024 2:41pm Vaginal bleeding affecting early pregnan cy March 12, 2025 2:41pm History of miscarriage, currently pregna nt March 17, 2025 11:19am History of vacuum extraction assisted de livery March 17, 2025 11:19am Placental abruption March 17, 2025 11 :19am March 17, 2025 11 :19am Supervision of high-risk Augus t 2024 11:19am Vaginal bleeding affecting early pregnan cy March 17, 2025 11:19am History of miscarriage, currently pregna nt March 25, 2025 11:35am History of vacuum extraction assisted de livery March 25, 2025 11:35am Placental abruption March 25, 2025 11 :35am March 25, 2025 11 :35am Supervision of high-risk Augus t 2024 11:35am Vaginal bleeding affecting early pregnan cy March 25, 2025 11:35am History of miscarriage, currently pregna nt April 14, 2025 2:45pm History of vacuum extraction assisted de livery April 14, 2025 2:45pm Placental abruption April 14, 2025 2:45pm April 14, 2025 2:45pm Supervision of high-risk [facility] 2024 2:45pm Vaginal bleeding affecting early pregnan cy April 14, 2025 2:45pm History of miscarriage, currently pregna nt April 28, 2025 11:21am History of vacuum extraction assisted de livery April 28, 2025 11:21am Placental abruption April 28, 2025 11:21am April 28, 2025 11:21am Supervision of high-risk [facility] 2024 11:21am Vaginal bleeding affecting early pregnan cy April 28, 2025 11:21am History of miscarriage, currently pregna nt May 14, 2025 9:55am History of vacuum extraction assisted de livery May 14, 2025 9:55am Placental abruption May 14, 2025 9 :55am May 14, 2025 9 :55am RUQ abdominal pain May 14, 2025 9 :55am Supervision of high-risk Octob er 2024 9:55am Vaginal bleeding affecting early pregnan cy May 14, 2025 9:55am Family History No Family History Records Found Relationship Condition Age at Onset Recorded Date/T nicole grandmother Malignant neoplasm Unknown grandfather Hypertension Unknown Advance Directives No Advanced Directives Records Found Advance Directive Response Recorded Date/ Time Living Will No May 26 6:42pm Power of Slasher Sawyer No May 26, 2021 6:42pm Advance Directive Response Recorded Date/ Time Living Will No May 26 7:42pm Power of Slasher Sawyer No May 26, 2021 7:42pm Advance Directive Response Recorded Date/ Time Living Will No April 02 8:26am Power of Slasher Sawyer No April 02, 2023 8:26am Advance Directive Response Recorded Date/ Time Living Will No August 02 3:40pm Power of Slasher [place]yer No August 02 024 3:40pm Advance Directive Response Recorded Date/ Time Do you have a Healthcare Power of Slasher Sawyer? No January 04, 2025 4:46pm Summary Purpose Additional Source Comments Care Teams (unrecognized sec tion and content) Team Status: Active Member Role Status Dates No Primary Care Physician Primary Care Provider Active Team Status: Inactive Member Role Status Dates No Primary Care Physician Primary Care Provider Active Start: July 09, 2024 End: July 09, 2024 Maureen Benítez INSTITUTION LIBRARIAN, INSTITUTION LIBRARIAN-C Attending Provider Active Start: July 09, 2024 End: July 09, 2024 Maureen Benítez INSTITUTION LIBRARIAN, INSTITUTION LIBRARIAN-C Referring Provider Active Start: July 09, 2024 End: July 09, 2024 Team Status: Inactive Member Role Status Dates No Primary Care Physician Primary Care Provider Active Start: July 11, 2024 End: July 11, 2024 Dr. Nelly Rangel MD Attending Provider Active Start: July 11, 2024 End: July 11, 2024 Dr. Nelly Rangel MD Referring Provider Active Start: July 11, [...] Provider, Other Provider Ac tive Dr. Nelly Rangel MD Attending Provider Active Team Status: Inactive [...] Provider, Refer ring Provider Active Dr. Nelly Rangel MD Attending Provider Active Team Status: Inactive Member Role Status Dates No Primary Care Physician Primary Care Provider Active Dr. Nelly Rangel MD Attending Provider, Referr ing Provider Active [...] Provider, Refer ring Provider Active Maureen Benítez INSTITUTION LIBRARIAN, INSTITUTION LIBRARIAN-C Attending Provider Active Team Status: Inactive Member Role Status Dates No Primary Care Physician Primary Care Provider Active Laar Andrade CNM Attending Provider, Referring Pr ovider Active Team Status: Active Member Role Status Dates No Primary Care Physician Primary Care Provider Active Maureen Benítez INSTITUTION LIBRARIAN, INSTITUTION LIBRARIAN-C Attending Provider, Referring Provider Active Team Status: Inactive Member Role Status Dates No Primary Care Physician Primary Care Provider Active Maureen Benítez INSTITUTION LIBRARIAN, INSTITUTION LIBRARIAN-C Attending Provider, Referring Provider Active Team Status: [...] Physician Primary Care Provider Active Dr. Nelly Rangel MD Attending Pr ovider, Referring Provider, Other [...] Active Start: 2024 End: 2024 Dr. Nelly Rangel MD Attending Provider Active Start: 2024 End: 2024 Team Status: Inactive Member Role Status Dates No Primary Care Physician Primary Care Provider Active Start: 2024 End: 2024 Dr. Nelly Rangel MD Attending Provider Active Start: 2024 End: 2024 Dr. Nelly Rangel MD Referring Provider Active Start: 2024 End: [...] Provider Active S tart: December 26, 2024 Team Status: Inactive Member Role Status Dates No Primary Care Physician Primary Care Provider Active Start: December 26, 2024 End: December 26, 2024 Jhoana Pace CNM Attending Provider Active S tart: December 26, 2024 End: December 26, 2024 Jhoana Pace CNM Referring Provider Active S tart: December 26, 2024 End: December 26, 2024 Team Status: Inactive Member Role Status Dates No Primary Care Physician Primary Care Provider Active Start: January 04, 2025 End: January 04, 2025 Dr. Oneal Chao DO Referring Provider Active Start: January 04, 2025 End: January 04, 2025 Dr. Oneal Chao DO Emergency Provider Active Start: January 04, 2025 End: January 04, 2025 Team Status: Inactive Member Role Status Dates No Primary Care Physician Primary Care Provider Active Start: January 04, 2025 End: January 04, 2025 Dr. Oneal Chao DO Attending Provider Active Start: January 04, 2025 End: January 04, 2025 Dr. Oneal Chao DO Referring Provider Active Start: January 04, 2025 End: January 04, 2025 Dr. Oneal Chao DO Emergency Provider Active Start: January 04, 2025 End: January 04, 2025 Team Status: Active Member Role Status Dates No Primary Care Physician Primary Care Provider Active Start: January 17, 2025 Bharti Haley RN Attending Provider Active St art: January 17, 2025 Team Status: Inactive Member Role Status Dates No Primary Care Physician Primary Care Provider Active Start: January 21, 2025 End: January 21, 2025 No Primary Care Physician Referring Provider Active Start: January 21, 2025 End: January 21, 2025 Dr. Nelly Rangel MD Attending Provider Active Start: January 21, 2025 End: January 21, 2025 Team Status: Active Member Role/Relationship Status Dates No Primary Care Physician Primary Care Provider Active Team Status: Inactive Member Role/Relationship Status Dates No Primary Care Physician Primary Care Provider Active Start: October 14, 2024 End: October 14, 2024 Jhoana Pace CNM Attending Provider Active S tart: October 14, 2024 End: October 14, 2024 Jhoana Pace CNM Referring Provider Active S tart: October 14, 2024 End: October 14, 2024 Team Status: Inactive Member Role/Relationship Status Dates No Primary Care Physician Primary Care Provider Active Start: October 16, 2024 End: October 16, 2024 Jhoana Pace CNM Attending Provider Active S tart: October 16, 2024 End: October 16, 2024 Jhoana Pace CNM Referring Provider Active S tart: October 16, 2024 End: October 16, 2024 Team Status: Inactive Member Role/Relationship Status Dates No Primary Care Physician Primary Care Provider Active Start: October 18, 2024 End: October 18, 2024 Jhoana Pace CNM Attending Provider Active S tart: October 18, 2024 End: October 18, 2024 Jhoana Pace CNM Referring Provider Active S tart: October 18, 2024 End: October 18, 2024 Team Status: Inactive Member Role/Relationship Status Dates No Primary Care Physician Primary Care Provider Active Start: October 21, 2024 End: October 21, 2024 Jhoana Pace CNM Attending Provider Active S tart: October 21, 2024 End: October 21, 2024 Jhoana Pace CNM Referring Provider Active S tart: October 21, 2024 End: October 21, 2024 Team Status: Inactive Member Role/Relationship Status Dates No Primary Care Physician Primary Care Provider Active Start: 2024 End: 2024 No Primary Care Physician Referring Provider Active Start: 2024 End: 2024 Dr. Nelly Rangel MD Attending Provider Active Start: 2024 End: 2024 Team Status: Inactive Member Role/Relationship Status Dates No Primary Care Physician Primary Care Provider Active Start: 2024 End: 2024 Dr. Nelly Rangel MD Attending Provider Active Start: 2024 End: 2024 Dr. Nelly Rangel MD Referring Provider Active Start: 2024 End: 2024 Team Status: Inactive Member Role/Relationship Status Dates No Primary Care Physician Primary Care Provider Active Start: December 24, 2024 End: December 24, 2024 Jhoana Pace CNM Attending Provider Active S tart: December 24, 2024 End: December 24, 2024 Team Status: Inactive Member Role/Relationship Status Dates No Primary Care Physician Primary Care Provider Active Start: December 26, 2024 End: December 26, 2024 Jhoana Pace CNM Attending Provider Active S tart: December 26, 2024 End: December 26, 2024 Jhoana Pace CNM Referring Provider Active S tart: December 26, 2024 End: December 26, 2024 Team Status: Inactive Member Role/Relationship Status Dates No Primary Care Physician Primary Care Provider Active Start: January 04, 2025 End: January 04, 2025 Dr. Oneal Chao DO Attending Provider Active Start: January 04, 2025 End: January 04, 2025 Dr. Oneal Chao DO Referring Provider Active Start: January 04, 2025 End: January 04, 2025 Dr. Oneal Chao DO Emergency Provider Active Start: January 04, 2025 End: January 04, 2025 Team Status: Active Member Role/Relationship Status Dates No Primary Care Physician Primary Care Provider Active Start: January 17, 2025 Bharti Haley RN Attending Provider Active St art: January 17, 2025 Team Status: Inactive Member Role/Relationship Status Dates No Primary Care Physician Primary Care Provider Active Start: January 21, 2025 End: January 21, 2025 No Primary Care Physician Referring Provider Active Start: January 21, 2025 End: January 21, 2025 Dr. Nelly Rangel MD Attending Provider Active Start: January 21, 2025 End: January 21, 2025 Team Status: Inactive Member Role/Relationship Status Dates No Primary Care Physician Primary Care Provider Active Start: January 21, 2025 End: January 21, 2025 Dr. Nelly Rangel MD Attending Provider Active Start: January 21, 2025 End: January 21, 2025 Dr. Nelly Rangel MD Referring Provider Active Start: January 21, 2025 End: January 21, 2025 Team Status: Inactive Member Role/Relationship Status Dates No Primary Care Physician Primary Care Provider Active Start: February 05, 2025 End: February 05, 2025 Dr. Nelly Rangel MD Attending Provider Active Start: February 05, 2025 End: February 05, 2025 Dr. Nelly Rangel MD Referring Provider Active Start: February 05, 2025 End: February 05, 2025 Team Status: Inactive Member Role/Relationship Status Dates No Primary Care Physician Primary Care Provider Active Start: October 21, 2024 End: October 21, 2024 Jhoana Pace CNM Attending Provider Active S tart: October 21, 2024 End: October 21, 2024 Jhoana Pace CNM Referring Provider Active S tart: October 21, 2024 End: October 21, 2024 Team Status: Inactive Member Role/Relationship Status Dates No Primary Care Physician Primary Care Provider Active Start: 2024 End: 2024 No Primary Care Physician Referring Provider Active Start: 2024 End: 2024 Dr. Nelly Rangel MD Attending Provider Active Start: 2024 End: 2024 Team Status: Inactive Member Role/Relationship Status Dates No Primary Care Physician Primary Care Provider Active Start: 2024 End: 2024 Dr. Nelly Rangel MD Attending Provider Active Start: 2024 End: 2024 Dr. Nelly Rangel MD Referring Provider Active Start: 2024 End: 2024 Team Status: Inactive Member Role/Relationship Status Dates No Primary Care Physician Primary Care Provider Active Start: December 24, 2024 End: December 24, 2024 Jhoana Pace CNM Attending Provider Active S tart: December 24, 2024 End: December 24, 2024 Team Status: Inactive Member Role/Relationship Status Dates No Primary Care Physician Primary Care Provider Active Start: December 26, 2024 End: December 26, 2024 Jhoana Pace CNM Attending Provider Active S tart: December 26, 2024 End: December 26, 2024 Jhoana Pace CNM Referring Provider Active S tart: December 26, 2024 End: December 26, 2024 Team Status: Inactive Member Role/Relationship Status Dates No Primary Care Physician Primary Care Provider Active Start: January 04, 2025 End: January 04, 2025 Dr. Oneal Chao DO Attending Provider Active Start: January 04, 2025 End: January 04, 2025 Dr. Oneal Chao DO Referring Provider Active Start: January 04, 2025 End: January 04, 2025 Dr. Oneal Chao DO Emergency Provider Active Start: January 04, 2025 End: January 04, 2025 Team Status: Active Member Role/Relationship Status Dates No Primary Care Physician Primary Care Provider Active Start: January 17, 2025 Bharti Haley RN Attending Provider Active St art: January 17, 2025 Team Status: Inactive Member Role/Relationship Status Dates No Primary Care Physician Primary Care Provider Active Start: January 21, 2025 End: January 21, 2025 No Primary Care Physician Referring Provider Active Start: January 21, 2025 End: January 21, 2025 Dr. Nelly Rangel MD Attending Provider Active Start: January 21, 2025 End: January 21, 2025 Team Status: Inactive Member Role/Relationship Status Dates No Primary Care Physician Primary Care Provider Active Start: January 21, 2025 End: January 21, 2025 Dr. Nelly Rangel MD Attending Provider Active Start: January 21, 2025 End: January 21, 2025 Dr. Nelly Rangel MD Referring Provider Active Start: January 21, 2025 End: January 21, 2025 Team Status: Inactive Member Role/Relationship Status Dates No Primary Care Physician Primary Care Provider Active Start: February 05, 2025 End: February 05, 2025 Dr. Nelly Rangel MD Attending Provider Active Start: February 05, 2025 End: February 05, 2025 Dr. Nelly Rangel MD Referring Provider Active Start: February 05, 2025 End: February 05, 2025 Team Status: Inactive Member Role/Relationship Status Dates No Primary Care Physician Primary Care Provider Active Start: February 18, 2025 End: February 18, 2025 No Primary Care Physician Referring Provider Active Start: February 18, 2025 End: February 18, 2025 Maureen Benítez INSTITUTION LIBRARIAN, INSTITUTION LIBRARIAN-C Attending Provider Active Start: February 18, 2025 End: February 18, 2025 Team Status: Inactive Member Role/Relationship Status Dates No Primary Care Physician Primary Care Provider Active Start: 2024 End: 2024 No Primary Care Physician Referring Provider Active Start: 2024 End: 2024 Dr. Nelly Rangel MD Attending Provider Active Start: 2024 End: 2024 Team Status: Inactive Member Role/Relationship Status Dates No Primary Care Physician Primary Care Provider Active Start: 2024 End: 2024 Dr. Nelly Rangel MD Attending Provider Active Start: 2024 End: 2024 Dr. Nelly Rangel MD Referring Provider Active Start: 2024 End: 2024 Team Status: Inactive Member Role/Relationship Status Dates No Primary Care Physician Primary Care Provider Active Start: December 24, 2024 End: December 24, 2024 Jhoana Pace CNM Attending Provider Active S tart: December 24, 2024 End: December 24, 2024 Team Status: Inactive Member Role/Relationship Status Dates No Primary Care Physician Primary Care Provider Active Start: December 26, 2024 End: December 26, 2024 Jhoana Pace CNM Attending Provider Active S tart: December 26, 2024 End: December 26, 2024 Jhoana Pace CNM Referring Provider Active S tart: December 26, 2024 End: December 26, 2024 Team Status: Inactive Member Role/Relationship Status Dates No Primary Care Physician Primary Care Provider Active Start: January 04, 2025 End: January 04, 2025 Dr. Oneal Chao DO Attending Provider Active Start: January 04, 2025 End: January 04, 2025 Dr. Oneal Chao DO Referring Provider Active Start: January 04, 2025 End: January 04, 2025 Dr. Oneal Chao DO Emergency Provider Active Start: January 04, 2025 End: January 04, 2025 Team Status: Active Member Role/Relationship Status Dates No Primary Care Physician Primary Care Provider Active Start: January 17, 2025 Bharti Haley RN Attending Provider Active St art: January 17, 2025 Team Status: Inactive Member Role/Relationship Status Dates No Primary Care Physician Primary Care Provider Active Start: January 21, 2025 End: January 21, 2025 No Primary Care Physician Referring Provider Active Start: January 21, 2025 End: January 21, 2025 Dr. Nelly Rangel MD Attending Provider Active Start: January 21, 2025 End: January 21, 2025 Team Status: Inactive Member Role/Relationship Status Dates No Primary Care Physician Primary Care Provider Active Start: January 21, 2025 End: January 21, 2025 Dr. Nelly Rangel MD Attending Provider Active Start: January 21, 2025 End: January 21, 2025 Dr. Nelly Rangel MD Referring Provider Active Start: January 21, 2025 End: January 21, 2025 Team Status: Inactive Member Role/Relationship Status Dates No Primary Care Physician Primary Care Provider Active Start: February 05, 2025 End: February 05, 2025 Dr. Nelly Rangel MD Attending Provider Active Start: February 05, 2025 End: February 05, 2025 Dr. Nelly Rangel MD Referring Provider Active Start: February 05, 2025 End: February 05, 2025 Team Status: Inactive Member Role/Relationship Status Dates No Primary Care Physician Primary Care Provider Active Start: February 18, 2025 End: February 18, 2025 No Primary Care Physician Referring Provider Active Start: February 18, 2025 End: February 18, 2025 Maureen Benítez NP, BENITO-C Attending Provider Active Start: February 18, 2025 End: February 18, 2025 Team Status: Inactive Member Role/Relationship Status Dates No Primary Care Physician Primary Care Provider Active Start: March 04, 2025 End: March 04, 2025 No Primary Care Physician Referring Provider Active Start: March 04, 2025 End: March 04, 2025 Dr. Lindsey Jordan DO Attending Provider Activ e Start: March 04, 2025 End: March 04, 2025 Team Status: Inactive Member Role/Relationship Status Dates No Primary Care Physician Primary Care Provider Active Start: December 24, 2024 End: December 24, 2024 Jhoana Pace CNM Attending Provider Active S tart: December 24, 2024 End: December 24, 2024 Team Status: Inactive Member Role/Relationship Status Dates No Primary Care Physician Primary Care Provider Active Start: December 26, 2024 End: December 26, 2024 Jhoana Pace CNM Attending Provider Active S tart: December 26, 2024 End: December 26, 2024 Jhoana Pace CNM Referring Provider Active S tart: December 26, 2024 End: December 26, 2024 Team Status: Inactive Member Role/Relationship Status Dates No Primary Care Physician Primary Care Provider Active Start: January 04, 2025 End: January 04, 2025 Dr. Oneal Chao DO Attending Provider Active Start: January 04, 2025 End: January 04, 2025 Dr. Oneal Chao DO Referring Provider Active Start: January 04, 2025 End: January 04, 2025 Dr. Oenal Chao DO Emergency Provider Active Start: January 04, 2025 End: January 04, 2025 Team Status: Active Member Role/Relationship Status Dates No Primary Care Physician Primary Care Provider Active Start: January 17, 2025 Bharti Haley RN Attending Provider Active St art: January 17, 2025 Team Status: Inactive Member Role/Relationship Status Dates No Primary Care Physician Primary Care Provider Active Start: January 21, 2025 End: January 21, 2025 No Primary Care Physician Referring Provider Active Start: January 21, 2025 End: January 21, 2025 Dr. Nelly Rangel MD Attending Provider Active Start: January 21, 2025 End: January 21, 2025 Team Status: Inactive Member Role/Relationship Status Dates No Primary Care Physician Primary Care Provider Active Start: January 21, 2025 End: January 21, 2025 Dr. Nelly Rangel MD Attending Provider Active Start: January 21, 2025 End: January 21, 2025 Dr. Nelly Rangel MD Referring Provider Active Start: January 21, 2025 End: January 21, 2025 Team Status: Inactive Member Role/Relationship Status Dates No Primary Care Physician Primary Care Provider Active Start: February 05, 2025 End: February 05, 2025 Dr. Nelly Rangel MD Attending Provider Active Start: February 05, 2025 End: February 05, 2025 Dr. Nelly Rangel MD Referring Provider Active Start: February 05, 2025 End: February 05, 2025 Team Status: Inactive Member Role/Relationship Status Dates No Primary Care Physician Primary Care Provider Active Start: February 18, 2025 End: February 18, 2025 No Primary Care Physician Referring Provider Active Start: February 18, 2025 End: February 18, 2025 Maureen Benítez NP, INSTITUTION LIBRARIAN-C Attending Provider Active Start: February 18, 2025 End: February 18, 2025 Team Status: Inactive Member Role/Relationship Status Dates No Primary Care Physician Primary Care Provider Active Start: March 04, 2025 End: March 04, 2025 No Primary Care Physician Referring Provider Active Start: March 04, 2025 End: March 04, 2025 Dr. Lindsey Jordan DO Attending Provider Activ e Start: March 04, 2025 End: March 04, 2025 Team Status: Inactive Member Role/Relationship Status Dates No Primary Care Physician Primary Care Provider Active Start: March 12, 2025 End: March 12, 2025 No Primary Care Physician Referring Provider Active Start: March 12, 2025 End: March 12, 2025 Dr. Lindsey Jordan DO Attending Provider Activ e Start: March 12, 2025 End: March 12, 2025 Team Status: Inactive Member Role/Relationship Status Dates No Primary Care Physician Primary Care Provider Active Start: March 17, 2025 End: March 17, 2025 No Primary Care Physician Referring Provider Active Start: March 17, 2025 End: March 17, 2025 Jhoana Pace CNM Attending Provider Active S tart: March 17, 2025 End: March 17, 2025 Team Status: Active Member Role/Relationship Status Dates No Primary Care Physician Primary Care Provider Active Start: March 17, 2025 Jhoana Pace CNM Attending Provider Active S tart: March 17, 2025 Jhoana Pace CNM Referring Provider Active S tart: March 17, 2025 Team Status: Inactive Member Role/Relationship Status Dates No Primary Care Physician Primary Care Provider Active Start: March 17, 2025 End: March 17, 2025 Jhoana Pace CNM Attending Provider Active S tart: March 17, 2025 End: March 17, 2025 Jhoana Pace CNM Referring Provider Active S tart: March 17, 2025 End: March 17, 2025 Team Status: Inactive Member Role/Relationship Status Dates No Primary Care Physician Primary Care Provider Active Start: March 25, 2025 End: March 25, 2025 No Primary Care Physician Referring Provider Active Start: March 25, 2025 End: March 25, 2025 Dr. Nelly Rangel MD Attending Provider Active Start: March 25, 2025 End: March 25, 2025 Team Status: Inactive Member Role/Relationship Status Dates No Primary Care Physician Primary Care Provider Active Start: April 14, 2025 End: April 14, 2025 No Primary Care Physician Referring Provider Active Start: April 14, 2025 End: April 14, 2025 Dr. Nelly Rangel MD Attending Provider Active Start: April 14, 2025 End: April 14, 2025 Team Status: Active Member Role/Relationship Status Dates No Primary Care Physician Primary care physician Activ e Team Status: Inactive Member Role/Relationship Status Dates No Primary Care Physician Primary care physician Activ e Start: January 04, 2025 End: January 04, 2025 Dr. Oneal Chao DO Attending physician Active Start: January 04, 2025 End: January 04, 2025 Dr. Oneal Chao DO Referring Provider Active Start: January 04, 2025 End: January 04, 2025 Dr. Oneal Chao DO Emergency Department Physician A ctive Start: January 04, 2025 End: January 04, 2025 Team Status: Active Member Role/Relationship Status Dates No Primary Care Physician Primary care physician Activ e Start: January 17, 2025 Bharti Haley RN Attending physician Active S tart: January 17, 2025 Team Status: Inactive Member Role/Relationship Status Dates No Primary Care Physician Primary care physician Activ e Start: January 21, 2025 End: January 21, 2025 No Primary Care Physician Referring Provider Active Start: January 21, 2025 End: January 21, 2025 Dr. Nelly Rangel MD Attending physician Active Start: January 21, 2025 End: January 21, 2025 Team Status: Inactive Member Role/Relationship Status Dates No Primary Care Physician Primary care physician Activ e Start: January 21, 2025 End: January 21, 2025 Dr. Nelly Rangel MD Attending physician Active Start: January 21, 2025 End: January 21, 2025 Dr. Nelly Rangel MD Referring Provider Active Start: January 21, 2025 End: January 21, 2025 Team Status: Inactive Member Role/Relationship Status Dates No Primary Care Physician Primary care physician Activ e Start: February 05, 2025 End: February 05, 2025 Dr. Nelly Rangel MD Attending physician Active Start: February 05, 2025 End: February 05, 2025 Dr. Nelly Rangel MD Referring Provider Active Start: February 05, 2025 End: February 05, 2025 Team Status: Inactive Member Role/Relationship Status Dates No Primary Care Physician Primary care physician Activ e Start: February 18, 2025 End: February 18, 2025 No Primary Care Physician Referring Provider Active Start: February 18, 2025 End: February 18, 2025 Maureen Benítez NP, INSTITUTION LIBRARIAN-C Attending physician Active Start: February 18, 2025 End: February 18, 2025 Team Status: Inactive Member Role/Relationship Status Dates No Primary Care Physician Primary care physician Activ e Start: March 04, 2025 End: March 04, 2025 No Primary Care Physician Referring Provider Active Start: March 04, 2025 End: March 04, 2025 Dr. Lindsey Jordan DO Attending physician Acti ve Start: March 04, 2025 End: March 04, 2025 Team Status: Inactive Member Role/Relationship Status Dates No Primary Care Physician Primary care physician Activ e Start: March 12, 2025 End: March 12, 2025 No Primary Care Physician Referring Provider Active Start: March 12, 2025 End: March 12, 2025 Dr. Lindsey Jordan DO Attending physician Acti ve Start: March 12, 2025 End: March 12, 2025 Team Status: Inactive Member Role/Relationship Status Dates No Primary Care Physician Primary care physician Activ e Start: March 17, 2025 End: March 17, 2025 No Primary Care Physician Referring Provider Active Start: March 17, 2025 End: March 17, 2025 Jhoana Pace CNM Attending physician Active Start: March 17, 2025 End: March 17, 2025 Team Status: Inactive Member Role/Relationship Status Dates No Primary Care Physician Primary care physician Activ e Start: March 17, 2025 End: March 17, 2025 Jhoana Pace CNM Attending physician Active Start: March 17, 2025 End: March 17, 2025 Jhoana Pace CNM Referring Provider Active S tart: March 17, 2025 End: March 17, 2025 Team Status: Inactive Member Role/Relationship Status Dates No Primary Care Physician Primary care physician Activ e Start: March 25, 2025 End: March 25, 2025 No Primary Care Physician Referring Provider Active Start: March 25, 2025 End: March 25, 2025 Dr. Nelly Rangel MD Attending physician Active Start: March 25, 2025 End: March 25, 2025 Team Status: Inactive Member Role/Relationship Status Dates No Primary Care Physician Primary care physician Activ e Start: April 14, 2025 End: April 14, 2025 No Primary Care Physician Referring Provider Active Start: April 14, 2025 End: April 14, 2025 Dr. Nelly Rangel MD Attending physician Active Start: April 14, 2025 End: April 14, 2025 Team Status: Inactive Member Role/Relationship Status Dates No Primary Care Physician Primary care physician Activ e Start: April 28, 2025 End: April 28, 2025 No Primary Care Physician Referring Provider Active Start: April 28, 2025 End: April 28, 2025 Jhoana Pace CNM Attending physician Active Start: April 28, 2025 End: April 28, 2025 Team Status: Active Member Role/Relationship Status Dates No Primary Care Physician Primary care physician Activ e Start: April 28, 2025 Jhoana Pace CNM Attending physician Active Start: April 28, 2025 Jhoana Pace CNM Referring Provider Active S tart: April 28, 2025 Team Status: Inactive Member Role/Relationship Status Dates No Primary Care Physician Primary care physician Activ e Start: April 28, 2025 End: April 28, 2025 Jhoana Pace CNM Attending physician Active Start: April 28, 2025 End: April 28, 2025 Jhoana Pace CNM Referring Provider Active S tart: April 28, 2025 End: April 28, 2025 Team Status: Inactive Member Role/Relationship Status Dates No Primary Care Physician Primary care physician Activ e Start: February 05, 2025 End: February 05, 2025 Dr. Nelly Rangel MD Attending physician Active Start: February 05, 2025 End: February 05, 2025 Dr. Nelly Rangel MD Referring Provider Active Start: February 05, 2025 End: February 05, 2025 Team Status: Inactive Member Role/Relationship Status Dates No Primary Care Physician Primary care physician Activ e Start: February 18, 2025 End: February 18, 2025 No Primary Care Physician Referring Provider Active Start: February 18, 2025 End: February 18, 2025 Maureen Benítez NP, BENITO-C Attending physician Active Start: February 18, 2025 End: February 18, 2025 Team Status: Inactive Member Role/Relationship Status Dates No Primary Care Physician Primary care physician Activ e Start: March 04, 2025 End: March 04, 2025 No Primary Care Physician Referring Provider Active Start: March 04, 2025 End: March 04, 2025 Dr. Lindsey Jordan DO Attending physician Acti ve Start: March 04, 2025 End: March 04, 2025 Team Status: Inactive Member Role/Relationship Status Dates No Primary Care Physician Primary care physician Activ e Start: March 12, 2025 End: March 12, 2025 No Primary Care Physician Referring Provider Active Start: March 12, 2025 End: March 12, 2025 Dr. Lindsey Jordan DO Attending physician Acti ve Start: March 12, 2025 End: March 12, 2025 Team Status: Inactive Member Role/Relationship Status Dates No Primary Care Physician Primary care physician Activ e Start: March 17, 2025 End: March 17, 2025 No Primary Care Physician Referring Provider Active Start: March 17, 2025 End: March 17, 2025 Jhoana Pace CNM Attending physician Active Start: March 17, 2025 End: March 17, 2025 Team Status: Inactive Member Role/Relationship Status Dates No Primary Care Physician Primary care physician Activ e Start: March 17, 2025 End: March 17, 2025 Jhoana Pace CNM Attending physician Active Start: March 17, 2025 End: March 17, 2025 Jhoana Pace CNM Referring Provider Active S tart: March 17, 2025 End: March 17, 2025 Team Status: Inactive Member Role/Relationship Status Dates No Primary Care Physician Primary care physician Activ e Start: March 25, 2025 End: March 25, 2025 No Primary Care Physician Referring Provider Active Start: March 25, 2025 End: March 25, 2025 Dr. Nelly Rangel MD Attending physician Active Start: March 25, 2025 End: March 25, 2025 Team Status: Inactive Member Role/Relationship Status Dates No Primary Care Physician Primary care physician Activ e Start: April 14, 2025 End: April 14, 2025 No Primary Care Physician Referring Provider Active Start: April 14, 2025 End: April 14, 2025 Dr. Nelly Rangel MD Attending physician Active Start: April 14, 2025 End: April 14, 2025 Team Status: Inactive Member Role/Relationship Status Dates No Primary Care Physician Primary care physician Activ e Start: April 28, 2025 End: April 28, 2025 No Primary Care Physician Referring Provider Active Start: April 28, 2025 End: April 28, 2025 Jhoana Pace CNM Attending physician Active Start: April 28, 2025 End: April 28, 2025 Team Status: Inactive Member Role/Relationship Status Dates No Primary Care Physician Primary care physician Activ e Start: April 28, 2025 End: April 28, 2025 Jhoana Pace CNM Attending physician Active Start: April 28, 2025 End: April 28, 2025 Jhoana Pace CNM Referring Provider Active S tart: April 28, 2025 End: April 28, 2025 Team Status: Inactive Member Role/Relationship Status Dates No Primary Care Physician Primary care physician Activ e Start: May 14, 2025 End: May 14, 2025 No Primary Care Physician Referring Provider Active Start: May 14, 2025 End: May 14, 2025 Maureen Benítez NP, [facility] Attending physician Active Start: May 14, 2025 End: May 14, 2025 Goals (unrecognized section and content) Type Care Experience SVDLabor Preferences -CB/BF classes: nolabor support person: Jameslabor intervention preferences: open to standard interventionspain management options preferred: desires natural labor but open to epiduralcut cord/dad catch: cordbreastfeeding: yesPP control planned: discusseddiscussed possible routes of delivery and associated risks: discussed possible delivery modalities and possible indications for each including R/B/A of , VAVD, FAVD, and CS. questions answered.special requests: [] Care Experience svdLabor Preferences -CB/BF classes: denies labor support person: Langlabor intervention preferences: []pain management options preferred: open to epiduralcut cord/dad catch: []: wantsPP control planned: []discussed possible routes of delivery and associated risks: []special requests: [] Care Experience Labor Preferences-CB /BF classes: []labor support person: []labor intervention preferences: []pain management options preferred: []cut cord/dad catch: []: []PP control planned: []discussed possible routes of delivery and associated risks: []special requests: [] Type Detail Care Experience SVDLabor Preferences -CB/BF classes: nolabor support person: Langlabor intervention preferences: open to standard interventionspain management options preferred: desires natural labor but open to epiduralcut cord/dad catch: cordbreastfeeding: yesPP control planned: discusseddiscussed possible routes of delivery and associated risks: discussed possible delivery modalities and possible indications for each including R/B/A of , VAVD, FAVD, and CS. questions answered.special requests: [] Care Experience svdLabor Preferences -CB/BF classes: denies labor support person: Lagnlabor intervention preferences: []pain management options preferred: open to epiduralcut cord/dad catch: []: wantsPP control planned: []discussed possible routes of delivery and associated risks: []special requests: [] Care Experience Labor Preferences-CB /BF classes: nolabor support person: Langlabor intervention preferences: []pain management options preferred: epiduralcut cord/dad catch: yesbreastfeeding: yesPP control planned: discusseddiscussed possible routes of delivery and associated risks: []special requests: [] INFORMATION SOURCE (unrecogn ized section and content) DATE CREATED AUTHOR 12/13/2023 [facility] ([place]) DATE CREATED AUTHOR AUTHOR'S ORGANIZ ATION 05/17/2025 [facility] DATE CREATED AUTHOR AUTHOR'S CAMERON GILES 06/12/2025 [facility] FOR RECORDS PERTAINING TO PATIENTS WHO ARE [...] BE BASED ON THE PRIMARY CLINICAL RECORDS. [facility] [employer] [facility]. provides no warranty or guarantee of the accuracy or completeness of information in this document.
[2025-06-18 07:40] LABS: Glucose GTT-Gestation. Fasting 96 mg/dL (<105)
[2025-06-18 09:38] LABS: Glucose GTT-Gestational 1 Hr 148 mg/dL (<190)
[2025-06-18 11:57] LABS: Glucose GTT-Gestational 2 Hr 153 mg/dL (<165)
[2025-06-18 11:59] LABS: Glucose GTT-Gestational 3 Hr 119 L (<145)
== END | disposition home or self-care (01) ==
LOC: US 07:14 → LAB 08:05
PROVIDERS: Obstetrics & Gynecology; Referring Provider Nurse Practitioner Women's Health; Visit Provider Nurse Practitioner Women's Health
DX: O99.810 Abnormal glucose complicating pregnancy (principal); Z3A.00 Weeks of gestation of pregnancy not specified
CPT/HCPCS: 36415; 82951; 82952

== ENCOUNTER → 2025-07-04 | Outpatient (CLI) | payer SELFPAY ==
--- NOTE | 2025-07-04 09:38 | US_ITS ---
PROCEDURE: GALLBLADDER 07/04/2025 REASON FOR EXAM: RUQ PAIN The patient is 32 weeks . TECHNIQUE: Procedure Code: USGB Modality: US Procedure: GALLBLADDER COMPARISON: None FINDINGS: Liver: Grossly normal size and echotexture. Gallbladder: No stones, sludge, wall thickening or tenderness. Common bile duct: Normal measuring 2.6 mm. . Pancreas: Visualized portions are unremarkable. The distal body and tail are obscured by bowel gas. Other: Visualized portions of the right kidney are unremarkable. No right upper quadrant ascites. US/Gallbladder IMPRESSION: NORMAL RIGHT UPPER QUADRANT ULTRASOUND. Reading Location: [place] [id number]
== END | disposition home or self-care (01) ==
PROVIDERS: Referring Provider Nurse Practitioner Women's Health; Visit Provider Nurse Practitioner Women's Health
DX: R10.11 Right upper quadrant pain (principal)
CPT/HCPCS: 76705